=== PATIENT | male | born 1940 | race Two or more races ===

== ENCOUNTER → 2021-03-10 08:54 | Outpatient (BNVA) | payer MEDICARE, MEDICAID, SELFPAY | PROVIDERS: PCP Nurse Practitioner Primary Care; Referring Provider Nurse Practitioner Primary Care; Visit Provider Internal Medicine Cardiovascular Disease | DX: I10 Essential (primary) hypertension (principal) | CPT/HCPCS: 93005; 99202 ==

== ENCOUNTER 2021-04-07 13:22 | Outpatient (REF) | payer MEDICARE, MEDICAID, SELFPAY | END 2021-04-07 13:23 | disposition home or self-care (01) | LOC: HO.LAB 13:22 | PROVIDERS: PCP Nurse Practitioner Primary Care | DX: N39.0 Urinary tract infection, site not specified (principal); R35.0 Frequency of micturition; Z90.5 Acquired absence of kidney; Z90.79 Acquired absence of other genital organ(s); Z90.49 Acquired absence of other specified parts of digestive tract; Z16.12 Extended spectrum beta lactamase (ESBL) resistance; Z16.11 Resistance to penicillins; Z16.29 Resistance to other single specified antibiotic | CPT/HCPCS: 51798; 87086; 87088; 87186; 99202 ==

== ENCOUNTER 2021-04-18 15:06 | Outpatient (REF) | payer MEDICARE, MEDICAID, SELFPAY ==
[2021-04-18 16:12] LABS: Anion Gap 11 (12-20); Blood Urea Nitrogen 15 mg/dL (9-16); Calcium 9.8 mg/dL (8.4-10.2); Carbon Dioxide 29 mmol/L (22-29); Chloride 101 mmol/L (96-108); Estimated Glomerular Filt Rate > 60; Glucose Random 106 mg/dL (60-115); Potassium 4.9 mmol/L (3.3-5.1); Sodium 136 mmol/L (135-145)
== END 2021-04-18 15:07 | disposition home or self-care (01) ==
LOC: HO.MDS 15:06
PROVIDERS: PCP Nurse Practitioner Primary Care; Visit Provider Urology
DX: Z53.8 Procedure and treatment not carried out for other reasons (principal); N13.6 Pyonephrosis; N20.0 Calculus of kidney
CPT/HCPCS: 36415; 80048

== ENCOUNTER 2021-04-19 11:44 | Outpatient (REF) | payer MEDICARE, MEDICAID, SELFPAY ==
--- NOTE | 2021-04-19 11:48 | HE.PHANOTE ---
ERTAPENEM DOSING Pt Cr 1.15, called Sara to verify HT and WT to calculate creatinine clearance. CrCl >30. dispensing 1 gram dose. ht 5'5 wt 69.8 kg
== END 2021-04-19 11:45 | disposition home or self-care (01) ==
LOC: HO.MDS 11:44
PROVIDERS: Visit Provider Urology
DX: N39.0 Urinary tract infection, site not specified (principal)
CPT/HCPCS: 96365; J1335

== ENCOUNTER 2021-04-20 14:59 | Outpatient (REF) | payer MEDICARE, MEDICAID, SELFPAY | END 2021-04-20 15:00 | disposition home or self-care (01) | LOC: HO.MDS 14:59 | PROVIDERS: Visit Provider Urology | DX: N39.0 Urinary tract infection, site not specified (principal); Z90.5 Acquired absence of kidney | CPT/HCPCS: 96365; J1335 ==

== ENCOUNTER 2021-04-21 15:00 | Outpatient (REF) | payer MEDICARE, MEDICAID, SELFPAY | END 2021-04-21 15:01 | disposition home or self-care (01) | LOC: HO.MDS 15:00 | PROVIDERS: Visit Provider Urology | DX: N39.0 Urinary tract infection, site not specified (principal) | CPT/HCPCS: 96365; J1335 ==

== ENCOUNTER 2021-04-22 14:53 | Outpatient (REF) | payer MEDICARE, MEDICAID, SELFPAY | END 2021-04-22 14:54 | disposition home or self-care (01) | LOC: HO.MDS 14:53 | PROVIDERS: Visit Provider Urology | DX: N39.0 Urinary tract infection, site not specified (principal) | CPT/HCPCS: 96365; J1335 ==

== ENCOUNTER 2021-04-23 09:44 | Outpatient (REF) | payer MEDICARE, MEDICAID, SELFPAY | END 2021-04-23 09:45 | disposition home or self-care (01) | LOC: HO.MDS 09:44 | PROVIDERS: Visit Provider Urology | DX: N39.0 Urinary tract infection, site not specified (principal) | CPT/HCPCS: 96365; J1335 ==

== ENCOUNTER 2021-05-02 12:36 | Outpatient (REF) | payer MEDICARE, MEDICAID, SELFPAY ==
--- NOTE | ~2021-05-02 | CT_ITS ---
EXAMINATION: CT ABDOMEN AND PELVIS WITHOUT CONTRAST CLINICAL INFORMATION: Acquired absence of kidney COMPARISON: None TECHNIQUE: Multidetector volumetric imaging was performed from the superior aspect of the liver through the pubic symphysis. Sagittal and coronal reformatted images were obtained on the technologist's workstation. This CT examination was performed using dose optimization techniques as appropriate, variously including the following: *Automated exposure control *Adjustment of mA and/or kV according to patient size (this includes techniques or standardized protocols for targeted exams where dose is matched to indication/reason for exam; i.e. extremities or head) *Use of iterative reconstruction technique DLP: 399 mGy-cm FINDINGS: LUNG BASES: The small hiatal hernia with right basilar atelectasis. LIVER, GALLBLADDER, AND BILIARY TREE: The liver is normal in size, shape, and attenuation. No focal hepatic lesion or biliary ductal dilatation is present. The gallbladder is not visualized and likely contracted PANCREAS: Unremarkable. SPLEEN: Unremarkable. ADRENAL GLANDS: Unremarkable. KIDNEYS AND URETERS: The right kidney is absent. There is a ureteral stent in left kidney with hydroureteronephrosis. There are clusters of abnormal radiopaque calculi measuring up to 1.5 x 1.5 cm in the lower pole left kidney. Left kidney is enlarged with perinephric stranding. There are no previous exam available for comparison to verify if there left kidney hydronephrosis was present before or is new in spite of a ureteral stent. However increased fat stranding surrounding the pelvis and the proximal ureter is suspicious for an obstructed ureteral stent. BLADDER: There are no radiopaque calculi seen in the bladder. Distal end of left ureteral stent is present. GASTROINTESTINAL TRACT: The small bowel loops and the appendix are normal caliber. There is scattered stool in the colon without distention. ABDOMINAL WALL: No significant hernia is appreciated. LYMPH NODES: Normal. VASCULAR: Unremarkable. PELVIC VISCERA: Unremarkable. OSSEOUS STRUCTURES: No aggressive lytic or sclerotic process. There is mild degenerative disc changes L5-S1, T12/L1 and lower dorsal spine. Mild ventral spondylosis at the T12/L1 disc level is noted. CT/CT abdomen pelvis wo con IMPRESSION: There is a solitary left kidney present with a dilated left kidney pelvicalyceal system with left ureteral stent in place. There is significant peripelvic and proximal periureteral fat stranding suspicious for stent occlusion or obstruction. Similar findings can be seen following recent internal ureteral stent insertion with extravasation of urine. There are clusters of radiopaque calculi lower pole left kidney. There are no recent CT available for comparison. Correlate with past recent history. Right kidney is absent Normal appendix. Mild constipation. Small hiatal hernia. Fleischner guidelines were followed.
== END 2021-05-02 12:37 | disposition home or self-care (01) ==
LOC: HO.CT 12:36
PROVIDERS: PCP Nurse Practitioner Primary Care
DX: Z90.5 Acquired absence of kidney (principal)
CPT/HCPCS: 74176

== ENCOUNTER 2021-06-07 11:31 | Outpatient (REF) | payer MEDICARE, MEDICAID, SELFPAY | END 2021-06-07 11:32 | disposition home or self-care (01) | LOC: HO.LAB 11:31 | PROVIDERS: PCP Nurse Practitioner Primary Care | DX: N39.0 Urinary tract infection, site not specified (principal) | CPT/HCPCS: 87086; 87088; 87186; 99212 ==

== ENCOUNTER → 2021-07-12 11:34 | Outpatient (BNVA) | payer OTHER, SELFPAY | PROVIDERS: PCP Nurse Practitioner Primary Care; Visit Provider Urology | DX: Z13.89 Encounter for screening for other disorder (principal) | CPT/HCPCS: Q3014 ==

== ENCOUNTER 2021-07-18 08:13 | Day surgery (SDC) | payer OTHER, SELFPAY ==
--- NOTE | 2021-07-15 09:53 | P.CONAN_ITS ---
Documented by User: Ann Marie Molina NP 07/15/21 09:56 HPI - Anesthesia Eval Consult details Narrative: 80yo M for Left Cystoscopy & Stent exchange Cardiac cleared PMF Active Problems Active Problems: All Active Problems (Updated 07/12/21 @ 13:29 by Holly Carreon, RN) Essential hypertension (Acute) H/O prostatectomy (Acute) H/O kidney removal (Acute) UTI (urinary tract infection) (Acute) Past Medical History Medical History (Updated 07/12/21 @ 13:29 by Holly Carreon, RN) HTN (hypertension) Poor appetite UTI (urinary tract infection) Weight loss Family History Family History Mother No problems noted. Father Cancer Surgical History Surgical History H/O kidney removal H/O prostatectomy Hx of cholecystectomy Social History Social History Alcohol intake: never Patient Tobacco Use Status: Never used Tobacco Advance Directives: No Advance Directives Information Provided: Yes Meds Allergies Allergy/AdvReac Type Severity Reaction Status Date / Time No Known Allergies Allergy Verified 07/12/21 11:35 Home Medications Medication Instructions Recorded Confirmed Last Taken Type alendronate 70 mg tablet 70 mg PO QWEEK 03/10/21 07/12/21 Unknown History amlodipine 10 mg tablet 10 mg PO DAILY 03/10/21 07/12/21 Unknown History atorvastatin 40 mg tablet 40 mg PO BEDTIME 03/10/21 07/12/21 Unknown History donepezil 5 mg tablet 5 mg PO BEDTIME 03/10/21 07/12/21 Unknown History duloxetine 60 mg capsule,delayed 60 mg PO DAILY 03/10/21 07/12/21 Unknown History release escitalopram oxalate 5 mg tablet 5 mg PO DAILY 03/10/21 07/12/21 Unknown History memantine 5 mg tablet 5 mg PO QAM 03/10/21 07/12/21 Unknown History oxybutynin chloride 10 mg 10 mg PO DAILY 03/10/21 07/12/21 Unknown History tablet,extended release 24 hr tamsulosin 0.4 mg capsule 0.4 mg PO DAILY 03/10/21 07/12/21 Unknown History trazodone 50 mg tablet 50 mg PO BEDTIME tab 03/10/21 07/12/21 Unknown History Exam Exam Date and Time: July 15, 2021 0953 Pertinent Lab Results Pertinent Lab Results: Laboratory Tests 04/18/21 15:23 Sodium 136 Potassium 4.9 Chloride 101 Carbon Dioxide 29 BUN 15 Creatinine 1.15 Narrative Narrative: EKG 02/2021 Sinus rhythm 72 beats per minute , left axis deviation, left ventricular hypertrophy, QT interval 438 milliseconds Assessment and Plan Assessment Anesthesia Assessment: Chart Reviewed Documented by User: Nicole Wiley MD 07/18/21 08:52 [facility] Past Medical History Medical History (Updated 07/12/21 @ 13:29 by Holly Carreon RN) HTN (hypertension) Poor appetite UTI (urinary tract infection) Weight loss Family History Family History Mother No problems noted. Father Cancer Family history of problems with anesthesia: No Surgical History Surgical History H/O kidney removal H/O prostatectomy Hx of cholecystectomy History of Problems with Anesthesia: No Social History Social History Alcohol intake: never Patient Tobacco Use Status: Never used Tobacco Advance Directives: No Advance Directives Information Provided: Yes Meds Allergies Allergy/AdvReac Type Severity Reaction Status Date / Time No Known Allergies Allergy Verified 07/12/21 11:35 Home Medications Medication Instructions Recorded Confirmed Last Taken Type alendronate 70 mg tablet 70 mg PO QWEEK 03/10/21 07/12/21 Unknown History amlodipine 10 mg tablet 10 mg PO DAILY 03/10/21 07/12/21 Unknown History atorvastatin 40 mg tablet 40 mg PO BEDTIME 03/10/21 07/12/21 Unknown History donepezil 5 mg tablet 5 mg PO BEDTIME 03/10/21 07/12/21 Unknown History duloxetine 60 mg capsule,delayed 60 mg PO DAILY 03/10/21 07/12/21 Unknown History release escitalopram oxalate 5 mg tablet 5 mg PO DAILY 03/10/21 07/12/21 Unknown History memantine 5 mg tablet 5 mg PO QAM 03/10/21 07/12/21 Unknown History oxybutynin chloride 10 mg 10 mg PO DAILY 03/10/21 07/12/21 Unknown History tablet,extended release 24 hr tamsulosin 0.4 mg capsule 0.4 mg PO DAILY 03/10/21 07/12/21 Unknown History trazodone 50 mg tablet 50 mg PO BEDTIME tab 03/10/21 07/12/21 Unknown History Exam Airway Mallampati Class: II TM Dist: >3cm Neck ROM: Full Denture: Upper and Lower Heart: rrr Lungs: cta Assessment and Plan Assessment Anesthesia Assessment: Anesthesia Plan Discussed and Chart Reviewed Final Anesthetic Review Family History of Problems with Anesthesia: No History of Problems with Anesthesia: No NPO: Yes ASA Class: III Final Preanesthetic Review: No Changes in Pt Med Stat, Meds/Allgs Chart Reviewed and Consent Obtained/Reviewed Patient Risk: Intermediate Procedure Risk: Intermediate Anesthetic Plan Anesthetic Plan: GA Disposition: Standard PACU
--- NOTE | ~2021-07-18 | FL_ITS ---
EXAMINATION: XR FLUOROSCOPY WITH IMAGES CLINICAL INFORMATION: Left ureteral stent exchange. COMPARISON: None. TECHNIQUE: Fluoroscopy performed by Dr. Fabrizio Ramos. FLUOROSCOPY TIME: 15.8 seconds. DLP: 3.94 mGy-cm FLUOROSCOPY IMAGES: 2 FINDINGS: Fluoroscopy provided for left ureteral stent exchange. FL/FL guidance in OR IMPRESSION: Fluoroscopy used for left ureteral stent exchange in the operating room.
[2021-07-18 08:29] VITALS: BP 147/76; PULSE 72; RESP 18; TEMP 35.7; O2SAT 97; BMI 24.3
[2021-07-18] MEDS: Lactated Ringers 1,000 ML 100 ML IVCONT (09:19)
--- NOTE | 2021-07-18 12:21 | MHC.SHP ---
Pre-Procedural Eval Section A Date of Service: 07/18/21 The patient is an INPATIENT: No Changes since office visit: No Cold of Flu in the past 2 weeks, No New Medical Problems, No Changes in Medication and No Patient answered all questions The History & Physical has been completed within 30 days and I have reviewed it.: Yes Section B Chief Complaint: Urinary tract infection, site not specified Details of Present Illness: cystoscopy, left stent exchange Allergies: Allergies Allergy/AdvReac Type Severity Reaction Status Date / Time No Known Allergies Allergy Verified 07/12/21 11:35 Plan Diagnosis/Plan: Unchanged ( cystoscopy, left stent exchange) I have reviewed the history and physical and performed a pertinent physical examination on my patient. No changes have occurred unless specified.
--- NOTE | 2021-07-18 12:36 | P.OP_ITS ---
Operative Note Operative Note Date of Service: 07/18/21 Narrative: PreOperative Diagnosis: indwelling left stent Post Operative Diagnosis: indwelling left stent Procedure: cystoscopy, left retrograde, left stent exchange Surgeon: Dr Fabrizio Ramos Anesthesia: sedation Indications for procedure: hydronephrosis left side. Requires permanent stent that is changed every 4-6 months. Procedure: After informed consent was verified the patient was brought to the operating room and placed in a supine position. Anesthesia was administered per protocol. The patient was placed in modified dorsal lithotomy position and prepped and draped in a sterile fashion. A safety pause time-out was performed. Laterality of procedure and antibiotics were confirmed. A 22 Malaysian cystoscope was introduced per urethra. No abnormality was noted. Left stent seen coming from left ureter. Stent was grasped and removed. Sensor guidewire placed up level renal pelvis. Retrograde examination performed. Six Malaysian by 28 cm stent placed with good coil seen The patient tolerated the procedure well and was transferred in stable condition to the recovery area. Pathology: none Drains: 6 Malaysian by 28 cm double-J stent
[2021-07-18 12:40] VITALS: BP 128/69; PULSE 97; RESP 16; TEMP 36.7; O2SAT 98
[2021-07-18] MEDS: Phenazopyridine HCL 100 MG TABLET PO (12:54)
[2021-07-18 12:55] VITALS: BP 134/96; PULSE 72; RESP 16; O2SAT 98
[2021-07-18 13:09] VITALS: BP 123/56; PULSE 68; RESP 16; TEMP 36.7; O2SAT 97
== END 2021-07-18 13:42 | disposition home or self-care (01) ==
PROVIDERS: PCP Nurse Practitioner Primary Care; Visit Provider Urology
PROC: (CPT 52332; principal; 2021-07-18 11:00)
DX: N39.0 Urinary tract infection, site not specified (principal); Z46.6 Encounter for fitting and adjustment of urinary device; I10 Essential (primary) hypertension; R63.0 Anorexia; R63.4 Abnormal weight loss; Z90.5 Acquired absence of kidney; Z90.79 Acquired absence of other genital organ(s); Z90.49 Acquired absence of other specified parts of digestive tract; Z79.899 Other long term (current) drug therapy
CPT/HCPCS: 52332; C1758; C1769; C2617; J1956; Q9967

== ENCOUNTER 2021-09-07 13:26 | Outpatient (REF) | payer OTHER, SELFPAY ==
--- NOTE | ~2021-09-07 | MM_ITS ---
EXAMINATION: BONE DENSITOMETRY CLINICAL INDICATION: Osteoporosis. COMPARISON: None (current study represents initial baseline exam). TECHNIQUE: Using a Sighter DXA System (software version: 13.1) manufactured by [employer], dual-energy x-ray absorptiometry was performed of the lumbar spine and left hip. The images are of good technical quality. Summary results are attached. FINDINGS: AP SPINE L1-L4: BMD 0.746 g/cm2, Z-score -3.3, T-score -3.9, osteoporosis. LEFT FEMUR, NECK: BMD 0.684 g/cm2, Z-score -1.5, T-score -3.0, osteoporosis. LEFT FEMUR, TOTAL: BMD 0.706 g/cm2, Z-score -1.6, T-score -2.7, osteoporosis. IDENTIFIED RISK FACTORS: Osteoporosis, renal. HISTORY OF FRACTURE: None listed. MEDICATIONS: Calcium, vitamin D. MM/XR DEXA axial skeleton IMPRESSION: 1. DIAGNOSIS: Osteoporosis based on the lowest T-score value of -3.9 in the lumbar spine applying World Health Organization criteria. 2. 10-YEAR FRACTURE RISK PREDICTION, FRAX: According to the guidelines, FRAX calculation should only be performed on patients in the osteopenia bone density category. Therefore, FRAX was not performed on this patient. 3. Treatment Recommendations: NOF guidelines recommend consideration for treatment in postmenopausal women and men age 50 and older presenting with the following: -A hip or vertebral (clinical or morphometric) fracture. -T-score less than or equal to -2.5 at the femoral neck or spine after appropriate evaluation to exclude secondary causes. -Low bone mass at the hip or spine and a 10-year fracture probability by FRAX of greater than or equal to 3% for hip fracture or greater than or equal to 20% for major osteoporotic fracture based on the [place] adapted WHO algorithm. 4. Other Recommendations: All treatment decisions require clinical judgment and consideration of individual patient factors, including patient preferences, comorbidities, previous drug use, risk factors not captured in the FRAX model (e.g. frailty, falls, vitamin D deficiency, increased bone turnover, interval significant decline in bone density) and possible under or overestimation of fracture risk by FRAX. Additional medical evaluation for secondary cause of low bone mineral density may be appropriate. FUTURE SCAN RECOMMENDATION: People with diagnosed cases of osteoporosis or at high risk for fracture should have regular bone mineral density tests. For patients eligible for Medicare, routine testing is allowed once every 2 years. The testing frequency can be increased to one year for patients who have rapidly progressing disease, those who are receiving or discontinuing medical therapy to restore bone mass, or have additional risk factors.
== END 2021-09-07 13:27 | disposition home or self-care (01) ==
LOC: HO.MAMMO 13:26
PROVIDERS: PCP Nurse Practitioner Primary Care; Visit Provider Nurse Practitioner Primary Care
DX: Z13.820 Encounter for screening for osteoporosis (principal); M81.0 Age-related osteoporosis without current pathological fracture; Z79.899 Other long term (current) drug therapy
CPT/HCPCS: 77080

== ENCOUNTER 2021-11-10 13:23 | Outpatient (REF) | payer OTHER, SELFPAY | END 2021-11-10 13:24 | disposition home or self-care (01) | LOC: HO.LAB 13:23 | PROVIDERS: PCP Nurse Practitioner Primary Care; Visit Provider Urology | DX: N39.0 Urinary tract infection, site not specified (principal); N13.30 Unspecified hydronephrosis; Z79.899 Other long term (current) drug therapy; Z85.528 Personal history of other malignant neoplasm of kidney; Z90.5 Acquired absence of kidney | CPT/HCPCS: 87086; 87088; 87186; 99212 ==

== ENCOUNTER → 2021-12-05 09:56 | Outpatient (BNVA) | payer OTHER, SELFPAY | PROVIDERS: PCP Nurse Practitioner Primary Care; Visit Provider Internal Medicine | DX: A49.9 Bacterial infection, unspecified (principal); Z16.12 Extended spectrum beta lactamase (ESBL) resistance; Z90.79 Acquired absence of other genital organ(s) | CPT/HCPCS: 99202 ==

== ENCOUNTER → 2021-12-20 13:46 | Outpatient (BNVA) | payer OTHER, SELFPAY | PROVIDERS: PCP Nurse Practitioner Primary Care; Visit Provider Internal Medicine Endocrinology, Diabetes & Metabolism | DX: M81.0 Age-related osteoporosis without current pathological fracture (principal) | CPT/HCPCS: 99202 ==

== ENCOUNTER 2021-12-21 08:26 | Outpatient (REF) | payer OTHER, SELFPAY ==
[2021-12-21 09:36] LABS: Phosphorus 3.6 mg/dL (2.7-4.5)
[2021-12-21 09:50] LABS: Free T4 (Free Thyroxine) 1.07 ng/dL (0.71-1.85); Vitamin D 25-OH Total 39.4 ng/mL (>30)
[2021-12-24 20:42] LABS: Alkaline Phosphatase Bone 12.3 mcg/L (see note)
[2021-12-26 11:48] LABS: Prot Elec - Albumin 4.3 g/dL (3.8-4.8); Prot Elec - Alpha1 0.3 g/dL (0.2-0.3); Prot Elec - Alpha2 0.9 g/dL (0.5-0.9); Prot Elec - Beta 1 0.3 g/dL (0.4-0.6); Prot Elec - Beta 2 0.5 g/dL (0.2-0.5); Prot Elec - Gamma 1.6 g/dL (0.8-1.7)
[2021-12-26 20:11] LABS: Testosterone, Free 1.2 pg/mL (30.0-135.0); Testosterone, Total 13 ng/dL (250-1100)
== END 2021-12-21 08:27 | disposition home or self-care (01) ==
LOC: HO.LAB 08:26
PROVIDERS: PCP Nurse Practitioner Primary Care; Visit Provider Internal Medicine Endocrinology, Diabetes & Metabolism
DX: M81.0 Age-related osteoporosis without current pathological fracture (principal)
CPT/HCPCS: 82306; 84075; 84100; 84165; 84402; 84403; 84439; 84443; 86335

== ENCOUNTER 2021-12-23 10:39 | Outpatient (REF) | payer OTHER, SELFPAY ==
[2021-12-23 11:30] LABS: Creatinine, mg/dL 55.64
[2021-12-23 11:35] LABS: Creatinine, 24Hr Urine 1.4 G/Day (1.0-2.0); Total Volume 24 Hour Urine 2450 mL
[2021-12-26 20:46] LABS: Calcium, 24 Hr Urine 149 mg/24 h; Calcium/Creatinine Ratio 103 mg/g creat (30-210); Creatinine 24Hr Urine 1.45 g/24 h (0.50-2.15)
[2022-01-03 07:58] LABS: NTX Total Volume 2450
[2022-01-03 08:00] LABS: N-Telopeptide 24Hr Urine 22
== END 2021-12-23 10:40 | disposition home or self-care (01) ==
LOC: HO.LNP 10:39
PROVIDERS: Visit Provider Internal Medicine Endocrinology, Diabetes & Metabolism
DX: M81.0 Age-related osteoporosis without current pathological fracture (principal)
CPT/HCPCS: 82340; 82570

== ENCOUNTER 2022-05-02 09:42 | Outpatient (REF) | payer OTHER, SELFPAY ==
--- NOTE | ~2022-05-02 | XR_ITS ---
EXAMINATION: XR LUMBOSACRAL SPINE CLINICAL INFORMATION: Osteoporosis with lower back pain COMPARISON: None available. TECHNIQUE: Three views of the lumbosacral spine. FINDINGS: Bones are normal anatomic alignment with no acute fracture or spondylolisthesis. Multilevel degenerative changes seen with osteophyte formation more so along the inferior aspect of the lumbar spine. There is mild loss of disc height more so at L5/S1 and L4/L5. Visualized bowel gas pattern unremarkable. Left ureteric stent is seen with subtle calcifications overlying the lower left renal shadow XR/XR lumbar spine 2-3V IMPRESSION: Multilevel degenerative changes but no acute fracture or spondylolisthesis.
[2022-05-02 16:38] LABS: Urine Cytology See Pathology rpt
== END 2022-05-02 09:43 | disposition home or self-care (01) ==
LOC: HO.LAB 09:42
PROVIDERS: Absent Provider Internal Medicine Endocrinology, Diabetes & Metabolism; PCP Nurse Practitioner Primary Care; Visit Provider Urology
DX: N39.0 Urinary tract infection, site not specified (principal); R31.29 Other microscopic hematuria; M81.0 Age-related osteoporosis without current pathological fracture; N13.30 Unspecified hydronephrosis
CPT/HCPCS: 51798; 72100; 87086; 87088; 87186; 88112; 99212

== ENCOUNTER 2022-05-08 15:10 | Day surgery (SDC) | payer OTHER, SELFPAY ==
--- NOTE | ~2022-05-08 | FL_ITS ---
EXAMINATION: XR FLUOROSCOPY WITH IMAGES CLINICAL INFORMATION: Left renal calculi. COMPARISON: CT abdomen and pelvis 05/02/2021 TECHNIQUE: Fluoroscopy Supervised By: Dr. Richard Dinh. Fluoroscopy Time: 10.3 seconds. Cumulative Dose: 2.61 mGy. Images: 2. FINDINGS: There are 2 digital images revealing a left ureteral stent with its proximal end in the left kidney pelvis and the distal end not in the [id number]. FL/FL guidance in OR IMPRESSION: Fluoroscopy was provided to referring physician for follow-up of left ureteral stent
[2022-05-08 15:41] VITALS: BMI 27.1
[2022-05-08 15:45] VITALS: BP 142/78; PULSE 73; RESP 12; TEMP 36.3; O2SAT 97
--- NOTE | 2022-05-08 18:43 | MHC.SHP ---
Pre-Procedural Eval Section A Date of Service: 05/08/22 The patient is an INPATIENT: No Changes since office visit: No Cold of Flu in the past 2 weeks, No New Medical Problems, No Changes in Medication and No Patient answered all questions The History & Physical has been completed within 30 days and I have reviewed it.: Yes Section B Chief Complaint: Unspecified hydronephrosis Details of Present Illness: cystoscopy left stent exchange Allergies: Allergies Allergy/AdvReac Type Severity Reaction Status Date / Time No Known Allergies Allergy Verified 05/02/22 13:28 Plan Diagnosis/Plan: Unchanged ( cystoscopy left stent exchange) I have reviewed the history and physical and performed a pertinent physical examination on my patient. No changes have occurred unless specified. Time Spent With Patient Time: Total time managing care of this patient today ____ minutes.
--- NOTE | 2022-05-08 18:51 | HO.ANESPROP2 ---
[facility] Active Problems Active Problems: All Active Problems (Updated 12/20/21 @ 14:04 by Sam Fry MD) Osteoporosis (Acute) ESBL (extended spectrum beta-lactamase) producing bacteria infection (Acute) Hydronephrosis (Acute) Essential hypertension (Acute) H/O prostatectomy (Acute) H/O kidney removal (Acute) UTI (urinary tract infection) (Acute) Past Medical History Medical History HTN (hypertension) Osteoporosis Poor appetite UTI (urinary tract infection) Weight loss Family History Family History Mother No problems noted. Father Cancer Family history of problems with anesthesia: No Surgical History Surgical History H/O kidney removal H/O prostatectomy Hx of cholecystectomy History of Problems with Anesthesia: No Social History Social History (Updated 05/02/22 @ 13:28 by BAKARI Huntley) Household Members: Spouse Household Members Other:: Alcohol intake: never Patient Tobacco Use Status: Never used Tobacco Use of substances other than those prescribed or required for medical reasons: No Are you DNR?: No Advance Directives: No Advance Directives Information Provided: Yes Meds Allergies Allergy/AdvReac Type Severity Reaction Status Date / Time No Known Allergies Allergy Verified 05/02/22 13:28 Home Medications Medication Instructions Recorded Confirmed Last Taken Type alendronate 70 mg tablet 70 mg PO QWEEK 03/10/21 05/02/22 Unknown History amlodipine 10 mg tablet 10 mg PO DAILY 03/10/21 05/02/22 Unknown History atorvastatin 40 mg tablet 40 mg PO BEDTIME 03/10/21 05/02/22 Unknown History donepezil 5 mg tablet 5 mg PO BEDTIME 03/10/21 05/02/22 Unknown History duloxetine 60 mg capsule,delayed 60 mg PO DAILY 03/10/21 05/02/22 Unknown History release escitalopram oxalate 5 mg tablet 5 mg PO DAILY 03/10/21 05/02/22 Unknown History memantine 5 mg tablet 5 mg PO QAM 03/10/21 05/02/22 Unknown History oxybutynin chloride 10 mg 10 mg PO DAILY 03/10/21 05/02/22 Unknown History tablet,extended release 24 hr tamsulosin 0.4 mg capsule 0.4 mg PO DAILY 03/10/21 05/02/22 Unknown History trazodone 50 mg tablet 50 mg PO BEDTIME 03/10/21 05/02/22 Unknown History omeprazole 20 mg capsule,delayed 20 mg PO DAILY 12/20/21 05/02/22 Unknown History release Exam Exam Date and Time: May 08, 2022 185 Height,Weight and Vital Signs: Height 5 ft 4 in Weight 71.668 kg Last Vital Signs Temp 97.4 F 05/08/22 15:45 Pulse 73 05/08/22 15:45 Resp 12 05/08/22 15:45 BP 142/78 H 05/08/22 15:45 Pulse Ox 97 05/08/22 15:45 O2 Del Method Room Air 05/08/22 15:45 Airway Mallampati Class: II TM Dist: >3cm Neck ROM: Full Denture: Upper and Lower Assessment and Plan Assessment Anesthesia Assessment: Anesthesia Plan Discussed and Chart Reviewed Final Anesthetic Review Family History of Problems with Anesthesia: No History of Problems with Anesthesia: No NPO: Yes ASA Class: II and Emergency Final Preanesthetic Review: No Changes in Pt Med Stat, Meds/Allgs Chart Reviewed, Consent Obtained/Reviewed and Anes Risks/Benef Reviewed Patient Risk: Low Procedure Risk: Low Anesthetic Plan Anesthetic Plan: GA Disposition: Standard PACU
--- NOTE | 2022-05-08 18:59 | PC.NURSE ---
Dr Ramos declined use of city detective x2 for Permit stating pt has had this procedure four times in the past. Sanitation Inspector used for anesthesia consent.
--- NOTE | 2022-05-08 19:33 | P.OP_ITS ---
Operative Note Operative Note Date of Service: 05/08/22 Narrative: PreOperative Diagnosis:? indwelling left stent Post Operative Diagnosis:? indwelling left stent Procedure:? cystoscopy, left retrograde, left stent exchange Surgeon: Dr Fabrizio Ramos Anesthesia:? sedation Indications for procedure:??hydronephrosis left side.? Requires permanent stent that is changed every 4-6 months. Procedure: After informed consent was verified the patient was brought to the operating room and placed in a supine position.? Anesthesia was administered per protocol. The patient was placed in modified dorsal lithotomy position and prepped and draped in a sterile fashion.? A safety pause time-out was performed. Laterality of procedure and antibiotics were confirmed. A 22 [place] cystoscope was introduced per urethra.? No abnormality was noted. ? Left stent seen coming from left ureter.? Stent was grasped and removed.? Sensor guidewire placed up level renal pelvis.? Retrograde examination performed.? Six [place] by 26 cm stent placed with good coil seen The patient tolerated the procedure well and was transferred in stable condition to the recovery area. Pathology: ?none Drains: ?6 [place] by 26 cm double-J stent
[2022-05-08 19:49] VITALS: BP 134/77; PULSE 76; RESP 15; TEMP 36.7; O2SAT 99
[2022-05-08 19:54] VITALS: BP 125/73; PULSE 74; RESP 15; O2SAT 99
[2022-05-08 19:59] VITALS: BP 128/72; PULSE 80; RESP 16; O2SAT 99
[2022-05-08 20:04] VITALS: BP 123/69; PULSE 69; RESP 20; TEMP 36.9; O2SAT 97
[2022-05-08 20:08] VITALS: BP 131/60; PULSE 74; RESP 20; O2SAT 97
== END 2022-05-08 20:40 | disposition home or self-care (01) ==
PROVIDERS: PCP Nurse Practitioner Primary Care; Visit Provider Urology
PROC: 0TJ98ZZ Inspection of Ureter, Via Natural or Artificial Opening Endoscopic (ICD-10-PCS; CPT 52351; principal; 2022-05-08 16:30)
DX: N13.30 Unspecified hydronephrosis (principal); N39.0 Urinary tract infection, site not specified; Z90.5 Acquired absence of kidney; I10 Essential (primary) hypertension; M81.0 Age-related osteoporosis without current pathological fracture; Z79.899 Other long term (current) drug therapy
CPT/HCPCS: 52332; C1758; C1894; C2617; J1100; J1956; J2250; J2405; J3010; Q9967

== ENCOUNTER 2022-06-20 14:35 | Inpatient (IN) | payer OTHER, SELFPAY ==
--- NOTE | ~2022-06-20 | XR_ITS ---
EXAMINATION: XR CHEST CLINICAL INFORMATION: Weakness COMPARISON: None available. TECHNIQUE: 2 views of the chest were obtained. FINDINGS: The cardiac silhouette does not appear enlarged. There is an air-fluid level behind the heart suggestive of an esophageal hernia. Hilar and mediastinal structures are otherwise unremarkable. The lungs are clear. No pleural effusion or pneumothorax. Bony structures are unremarkable. XR/XR chest 2V IMPRESSION: Small esophageal hernia otherwise unremarkable exam.
[2022-06-20 14:44] VITALS: BP 120/68; BP 135/88; PULSE 70; PULSE 76; RESP 16; TEMP 37; O2SAT 95; O2SAT 98; BMI 27.8
--- NOTE | 2022-06-20 14:51 | ECG_ITS ---
Test Reason : WEAKNESS Blood Pressure : / mmHG Vent. Rate : 076 BPM Atrial Rate : 076 BPM P-R Int : 148 ms QRS Dur : 082 ms QT Int : 402 ms P-R-T Axes : 029 -41 006 degrees QTc Int : 452 ms Normal sinus rhythm Left axis deviation Minimal voltage criteria for LVH, may be normal variant ( R in aVL ) Abnormal ECG No previous ECGs available Referred By: Gayle Meeks Electronically Signed By:SAHIL RODRIGUEZ
[2022-06-20 15:15] LABS: MANUAL DIFF FLAG NO
[2022-06-20 15:24] LABS: Basophils Absolute Auto 0.1 X10*3/uL (0.0-0.2); Basophils Percent Auto 0.9 % (0-2); Eosinophils Absolute Auto 0.1 X10*3/uL (0.0-0.4); Eosinophils Percent Auto 2.6 % (0-4); Hematocrit 39.8 % (42.0-52.0); Hemoglobin 12.9 g/dl (14.0-18.0); Imm Gran Abs Auto 0.01 X10*3/uL (0.00-0.03); Imm Gran Pct Auto 0.2 % (0.0-0.4); Lymphocytes Absolute Auto 2.4 X10*3/uL (1.2-4.9); Lymphocytes Percent Auto 43.9 % (20-40); Mean Corpuscular HGB Conc 32.4 g/dl (31.0-36.0); Mean Corpuscular Hemoglobin 30.4 pg (27.0-33.0); Mean Corpuscular Volume 93.6 fL (80.0-98.0); Mean Platelet Volume 11.3 fL (9.4-12.4); Monocytes Absolute Auto 0.6 X10*3/uL (0.1-1.2); Monocytes Percent Auto 10.3 % (2-11); Neutrophils Absolute Auto 2.3 x10*3/uL (2.0-8.3); Neutrophils Percent Auto 42.1 % (45-73); Platelet Count 112 X10*3/uL (160-400); Red Blood Count 4.25 X10*6/uL (4.60-5.80); Red Cell Distribution Width 13.2 % (11.0-16.0); White Blood Count 5.4 X10*3/uL (4.8-10.8)
--- NOTE | 2022-06-20 15:32 | ED_ITS ---
HPI - General Adult General Chief complaint: Weakness Stated complaint: weakness x 4 hours Time Seen by Provider: 06/20/22 15:20 Source: patient and family Mode of arrival: EMS Limitations: no limitations History of Present Illness HPI narrative: Patient comes to the emergency room complaining of chills that started approximately 4 hours ago. Patient's chief complain is that he has been unable to sleep. Patient states that when he is asleep, he feels like he is going to fall out of bed the middle he is not moving. Patient states that he has history of anxiety and over last few days it has been getting worse. Patient denies chest pain or shortness of breath. At this time, patient complaining of diffuse body aches and dysuria. Patient denies any nausea vomiting or diarrhea, no abdominal pain. Patient has mild dysuria. Patient states it is chronic, patient has had over 23 urologic surgeries. Patient has 1 kidney and has chronic hydronephrosis. Per Dr. Ramos who is patient's urologist, patient needs a permanent stent that needs to be changed every 4-6 months. Last stent change was in 05/08/2022 Related Data Home Medications Medication Instructions Recorded Confirmed amlodipine 10 mg tablet 10 mg PO DAILY 03/10/21 05/02/22 atorvastatin 40 mg tablet 40 mg PO BEDTIME 03/10/21 05/02/22 donepezil 5 mg tablet 5 mg PO BEDTIME 03/10/21 05/02/22 duloxetine 60 mg capsule,delayed 60 mg PO DAILY 03/10/21 05/02/22 release escitalopram oxalate 5 mg tablet 5 mg PO DAILY 03/10/21 05/02/22 memantine 5 mg tablet 5 mg PO QAM 03/10/21 05/02/22 oxybutynin chloride 10 mg 10 mg PO DAILY 03/10/21 05/02/22 tablet,extended release 24 hr tamsulosin 0.4 mg capsule 0.4 mg PO DAILY 03/10/21 05/02/22 trazodone 50 mg tablet 50 mg PO BEDTIME 03/10/21 05/02/22 omeprazole 20 mg capsule,delayed 20 mg PO DAILY 12/20/21 05/02/22 release Previous Rx's Medication Instructions Recorded fosfomycin tromethamine 3 gram 1 packet PO Q3D 6 days #2 ea 05/05/22 oral packet abaloparatide (Tymlos) 80 mcg (0.04 mL) subcut DAILY 05/15/22 #1.56 mL Allergies Allergy/AdvReac Type Severity Reaction Status Date / Time No Known Allergies Allergy Verified 05/02/22 13:28 Review of Systems Review of Systems: Constitutional : No Weight loss, No Fever, complaining of Chills, No Night Sweats, No Fatigue, No Malaise ENT/Mouth : No Hearing loss, No Ear Pain, No Nasal Congestion, No Sinus Pain, No Hoarseness, No sore throat, No Rhinorrhea, No Swallowing Difficulty Eyes: No Eye Pain, No Swelling, No Redness, No Foreign Body, No Discharge, No Vision Changes Cardiovascular : No Chest Pain, No SOB, No Dyspnea on Exertion, No Orthopnea, No Edema, No Palpitations Respiratory : No Cough, No Sputum, No Wheezing, No Smoke Exposure, No Dyspnea Gastrointestinal : No Nausea, No Vomiting, No Diarrhea, No Constipation, No abdominal Pain, No Hematochezia, No Melena Genitourinary : no irregular bleeding, complaining of mild Dysuria, No Urinary Frequency, No Hematuria, No Urinary Incontinence, No Urgency, No Flank Pain, No Urinary Flow Changes, No Hesitancy Musculoskeletal : No joint pain, No Myalgias, No Joint Swelling Skin : No Skin Lesions, No rash Neuro : No Weakness, No Numbness, No Paresthesias, No Loss of Consciousness, No Dizziness, No Headache Psych : Complaining of anxiety, feeling that he is going to fall out of bed continuously even though he is not moving in bed, No Depression, No SI/HI/AH/VH, No Social Issues, Heme/Lymph: No Bruising, No Bleeding,No Lymphadenopathy Endocrine : No Polyuria, No Polydipsia, No Temperature Intolerance [facility] Past Medical History Medical History (Updated 06/20/22 @ 21:05 by Aminta Adam MD) ESBL (extended spectrum beta-lactamase) producing bacteria infection HTN (hypertension) Hydronephrosis Osteoporosis Poor appetite UTI (urinary tract infection) Weight loss Surgical History (Updated 05/08/22 @ 19:53 by Xu Dumont RN) H/O kidney removal H/O prostatectomy History of right nephrectomy Hx of cholecystectomy Family History Family History Mother No problems noted. Father Cancer Social History Social History (Updated 05/02/22 @ 13:28 by Rowan Thayer Reyna) Household Members: Spouse Household Members Other:: Alcohol intake: never Patient Tobacco Use Status: Never used Tobacco Advance Directives: No Advance Directives Information Provided: No Physical Exam ED Vital Signs: Vital Signs - 24 hr 06/20/22 14:44 06/20/22 15:43 06/20/22 18:24 Temperature 98.6 F 97.8 F 97.9 F Pulse Rate 76 71 63 Respiratory Rate 16 16 16 Blood Pressure 135/88 137/80 133/71 Pulse Oximetry 95 97 96 Oxygen Delivery Method Room Air Room Air Room Air 06/20/22 20:39 Temperature 97.0 F Pulse Rate 67 Respiratory Rate 18 Blood Pressure 126/74 Pulse Oximetry 96 Oxygen Delivery Method Room Air BMI result Body Mass Index 27.8 Const Other: Appearance: Alert. Oriented X3. No acute distress. Eyes: Pupils equal, round and reactive to light. ENT: Pharynx normal. Neck: Normal inspection. Neck supple. No lymph nodes noted. No crepitus CVS: Normal heart rate and rhythm. Pulses normal. Normal S1 and S2 Respiratory: No respiratory distress. Breath sounds normal. No Wheezing. No rales Abdomen: Soft and nontender. No rigidity. No distention. Skin: Skin warm and dry. Normal skin color. Normal skin turgor. Extremities: No lower extremity edema. No Lacerations. No Rash Neuro: Oriented X 3. No motor deficit. No sensory deficit. Moving all extremities. No slurred speech. CN 2 through 12 grossly intact Psych: calm, cooperative, normal affect Course Course Course Narrative: -all of patient's labs are pending. Medical Decision Making Medical Decision Making MDM Narrative: -patient's urinalysis is positive for UTI as expected. 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 -I reviewed patient's notes from Infectious Disease. ESBL is chronic and not to be treated unless symptomatic. Today, patient does have suprapubic pain, body aches. -I discussed the patient with Dr. Jaime, we will go ahead and admit the patient and treat with ertapenem, likely will need an Infectious Disease consult in the morning. -discussed the above-mentioned with the patient and his family, agreeable to stay for treatment. -patient does not have fever, blood pressure normal. Not tachycardic, white blood cell count normal. Sepsis not suspected Differential Diagnosis Differential Diagnoses: The differential diagnosis associated with the presentation includes (Chronic ESBL colonization, UTI, viral syndrome) Admission/Observation Consideration of admission/observation: Escalation of care including admission/observation considered Consult Healthcare Provider Management of the patient was discussed with: Hospitalist Lab Data MDM Lab Attestation statement: I reviewed the patient's lab results. 06/20/22 15:07 06/20/22 15:07 Labs: Lab Results 06/20/22 06/20/22 06/20/22 Range/Units 15:07 15: 15:07 WBC 5.4 (4.8-10.8) X10*3/uL RBC 4.25 L (4.60-5.80) X10*6/uL Hgb 12.9 L (14.0-18.0) g/dl Hct 39.8 L (42.0-52.0) % MCV 93.6 (80.0-98.0) fL MCH 30.4 (27.0-33.0) pg MCHC 32.4 (31.0-36.0) g/dl RDW 13.2 (11.0-16.0) % Plt Count 112 L (160-400) X10*3/uL MPV 11.3 (9.4-12.4) fL Immature Gran % (Auto) 0.2 (0.0-0.4) % Neut % (Auto) 42.1 L (45-73) % Lymph % (Auto) 43.9 H (20-40) % Kidder % (Auto) 10.3 (2-11) % Eos % (Auto) 2.6 (0-4) % Baso % (Auto) 0.9 (0-2) % Lymph # (Auto) 2.4 (1.2-4.9) X10*3/uL Kidder # (Auto) 0.6 (0.1-1.2) X10*3/uL Eos # (Auto) 0.1 (0.0-0.4) X10*3/uL Baso # (Auto) 0.1 (0.0-0.2) X10*3/uL Abs Immat Gran (auto) 0.01 (0.00-0.03) X10*3/uL Absolute Neuts (auto) 2.3 (2.0-8.3) x10*3/uL Absolute Nucleated RBC 0.000 (0.0-0.012) X10*3/uL Nucleated RBC % (auto) 0.0 (0.0-0.2) /100WBC Sodium 141 (135-145) mmol/L Potassium 4.1 (3.3-5.1) mmol/L Chloride 108 (96-108) mmol/L Carbon Dioxide 25 (22-29) mmol/L Anion Gap 12 (12-20) BUN 20 H (9-16) mg/dL Creatinine 1.27 (0.5-1.4) mg/dL Estim Creat Clear Calc 41.9 Estimated GFR 54 Random Glucose 148 H (60-115) mg/dL Calcium 9.6 (8.4-10.2) mg/dL Magnesium 1.8 (1.6-2.6) mg/dL Total Bilirubin 0.4 (0.0-1.0) mg/dL AST 21 (5-37) U/L ALT 20 (0-40) U/L Alkaline Phosphatase 72 (39-117) U/L Troponin I High Sens (<3.5-35.0) ng/L B-Natriuretic Peptide 27 (<100) pg/mL Total Protein 7.1 (6.5-8.0) g/dL Albumin 3.9 (3.5-5.0) g/dL Urine Color Urine Appearance Urine pH (5.0-9.0) Ur Specific [place] (1.005-1.025) Urine Protein (Neg-Trace) mg/dL Urine Glucose (UA) (Negative) mg/dL Urine Ketones (Negative) mg/dL Urine Blood (Negative) Urine Nitrite (Negative) Ur Leukocyte Esterase (Negative) Urine RBC (0-2) /HPF Urine WBC (0-5) /HPF Ur Squamous Epith Cells (0-2) /HPF Urine Bacteria (None Seen) Hyaline Casts (0-2) /LPF 06/20/22 06/20/22 Range/Units 15:07 19:20 WBC (4.8-10.8) X10*3/uL RBC (4.60-5.80) X10*6/uL Hgb (14.0-18.0) g/dl Hct (42.0-52.0) % MCV (80.0-98.0) fL MCH (27.0-33.0) pg MCHC (31.0-36.0) g/dl RDW (11.0-16.0) % Plt Count (160-400) X10*3/uL MPV (9.4-12.4) fL Immature Gran % (Auto) (0.0-0.4) % Neut % (Auto) (45-73) % Lymph % (Auto) (20-40) % Kidder % (Auto) (2-11) % Eos % (Auto) (0-4) % Baso % (Auto) (0-2) % Lymph # (Auto) (1.2-4.9) X10*3/uL [place] # (Auto) (0.1-1.2) X10*3/uL Eos # (Auto) (0.0-0.4) X10*3/uL Baso # (Auto) (0.0-0.2) X10*3/uL Abs Immat Gran (auto) (0.00-0.03) X10*3/uL Absolute Neuts (auto) (2.0-8.3) x10*3/uL Absolute Nucleated RBC (0.0-0.012) X10*3/uL Nucleated RBC % (auto) (0.0-0.2) /100WBC Sodium (135-145) mmol/L Potassium (3.3-5.1) mmol/L Chloride (96-108) mmol/L Carbon Dioxide (22-29) mmol/L Anion Gap (12-20) BUN (9-16) mg/dL Creatinine (0.5-1.4) mg/dL Estim Creat Clear Calc Estimated GFR Random Glucose (60-115) mg/dL Calcium (8.4-10.2) mg/dL Magnesium (1.6-2.6) mg/dL Total Bilirubin (0.0-1.0) mg/dL AST (5-37) U/L ALT (0-40) U/L Alkaline Phosphatase (39-117) U/L Troponin I High Sens < 2.7 (<3.5-35.0) ng/L B-Natriuretic Peptide (<100) pg/mL Total Protein (6.5-8.0) g/dL Albumin (3.5-5.0) g/dL Urine Color Yellow Urine Appearance Cloudy Urine pH 7.0 (5.0-9.0) Ur Specific [place] 1.015 (1.005-1.025) Urine Protein 30 (1+) H (Neg-Trace) mg/dL Urine Glucose (UA) Negative (Negative) mg/dL Urine Ketones Negative (Negative) mg/dL Urine Blood Moderate (2+) H (Negative) Urine Nitrite Negative (Negative) Ur Leukocyte Esterase Large (3+) H (Negative) Urine RBC 11-20 H (0-2) /HPF Urine WBC >50 H (0-5) /HPF Ur Squamous Epith Cells 0-2 (0-2) /HPF Urine Bacteria 4+ (None Seen) Hyaline Casts 0-2 (0-2) /LPF Independent Interpretation I performed an independent interpretation of an: Plain X-Ray Radiology Impression Radiologist Impression: The cardiac silhouette does not appear enlarged. There is an air-fluid level behind the heart suggestive of an esophageal hernia. Hilar and mediastinal structures are otherwise unremarkable. The lungs are clear. No pleural effusion or pneumothorax. Bony structures are unremarkable. XR/XR chest 2V IMPRESSION: Small esophageal hernia otherwise unremarkable exam. Critical Care Time Critical Care Time Critical Care Time: Yes Total Critical Care Time: 45 Attestation: I have personally provided critical care time. Time includes review of lab data, radiology results, discussion with consultants, and monitoring for potential dec ompensation. Intervention performed as documented. Discharge Plan Discharge Clinical Impression: ESBL (extended spectrum beta-lactamase) producing bacteria infection Patient Disposition: Admitted As Inpatient Prescriptions: No Action fosfomycin tromethamine 3 gram packet 1 packet PO Q3D 6 Days Qty: 2 0RF Tymlos 80 mcg (3,120 mcg/1.56 mL) pen injector 80 mcg subcut DAILY Qty: 1.56 12RF Rx Instructions: inject into abdomen; do not inject within 2 inches of belly button/navel; rotate sites atorvastatin 40 mg tablet 40 mg PO BEDTIME duloxetine 60 mg capsule,delayed release(DR/EC) 60 mg PO DAILY donepezil 5 mg tablet 5 mg PO BEDTIME escitalopram oxalate 5 mg tablet 5 mg PO DAILY memantine 5 mg tablet 5 mg PO QAM oxybutynin chloride 10 mg tablet extended release 24hr 10 mg PO DAILY tamsulosin 0.4 mg capsule 0.4 mg PO DAILY trazodone 50 mg tablet 50 mg PO BEDTIME amlodipine 10 mg tablet 10 mg PO DAILY omeprazole 20 mg capsule,delayed release(DR/EC) 20 mg PO DAILY
[2022-06-20 15:38] LABS: Alanine Aminotransferase 20 U/L (0-40); Albumin Level 3.9 g/dL (3.5-5.0); Alkaline Phosphatase 72 U/L (39-117); Anion Gap 12 (12-20); Aspartate Amino Transferase 21 U/L (5-37); Bilirubin Total 0.4 mg/dL (0.0-1.0); Blood Urea Nitrogen 20 mg/dL (9-16); Calcium 9.6 mg/dL (8.4-10.2); Chloride 108 mmol/L (96-108); Creatinine Clr Calc Pharmacy 41.9; Estimated Glomerular Filt Rate 54; Glucose Random 148 mg/dL (60-115); Magnesium 1.8 mg/dL (1.6-2.6); Potassium 4.1 mmol/L (3.3-5.1); Sodium 141 mmol/L (135-145); Total Protein 7.1 g/dL (6.5-8.0)
[2022-06-20 15:43] VITALS: BP 137/80; PULSE 71; RESP 16; TEMP 36.6; O2SAT 97
[2022-06-20 15:43] LABS: B Type Natriuretic Peptide 27 pg/mL (<100)
[2022-06-20 15:48] LABS: Carbon Dioxide 25 mmol/L (22-29); Troponin-I High Sensitivity < 2.7 ng/L (<3.5-35.0)
[2022-06-20 18:24] VITALS: BP 133/71; PULSE 63; RESP 16; TEMP 36.6; O2SAT 96
[2022-06-20 19:27] LABS: Appearance Urine Cloudy; Color Urine Yellow; Glucose Urine UA Negative (Negative); Leukocyte Esterase Urine Large (3+) (Negative); Nitrite Urine Negative (Negative); Specific Gravity - Urine 1.015 (1.005-1.025); UMIC TRIGGER UACC YES; Urine Blood Moderate (2+) (Negative); Urine Ketones Negative (Negative); Urine Protein 30 (1+) mg/dL (Neg-Trace)
[2022-06-20 19:36] LABS: Bacteria Urine 4+ (None Seen); Hyaline Casts Urine 0-2 /LPF (0-2); Squamous Epithelial Cell Urine 0-2 /HPF (0-2); UACC Culture Trigger YES; WBC Urine >50 /HPF (0-5)
[2022-06-20 20:39] VITALS: BP 126/74; PULSE 67; RESP 18; TEMP 36.1; O2SAT 96
--- NOTE | 2022-06-20 21:29 | PM.IMHP ---
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 The patient states since last week, he has had increased anxiety and has felt like he was going to fall out of bed. He also states he feels unsteady on his feet when walking with chills and body aches. He has also noted some dysuria. No fevers at home. No hematuria, it increased urinary frequency or urgency. He has a permanent stent in the left ureter which is changed every 4-6 months and was last changed on 05/08/[address] Ramos. He has been evaluated by infectious disease in the past who advises the patient is likely a chronic colonizer of ESBL E coli due to mechanical abnormalities in the urinary system. However, if patient becomes symptomatic with UTI, she recommends ertapenem or gentamicin IV/IM. On arrival, vital signs stable. No leukocytosis. Renal function and electrolyte levels baseline. UA with 2+ blood, 3+ leukocytes, negative nitrites, positive urinary sediment, 4+ bacteria. Patient has been treated in the ED with IV ertapenem and will be admitted for further management of symptomatic ESBL UTI. Review of Systems Review of Systems: General: No fevers, malaise, unintentional weight loss. +chills HEENT: No blurred vision, diplopia. No sore throat, nasal congestion, rhinorrhea, sinus pain, ear pain Cardiovascular: No chest pain, palpitations, or leg edema Respiratory: No shortness of breath, wheezing, cough GI: No abdominal pain, nausea, vomiting, diarrhea, constipation, melena, hematochezia : +dysuria. No hematuria, increased urinary frequency, decreased urinary output MSK: No back pain. +myalgia Neuro: No headaches, weakness, paresthesias Psych: +anxiety Skin: No rashes or lesions [facility] Medical History (Updated 06/20/22 @ 21:05 by Aminta Adam MD) ESBL (extended spectrum beta-lactamase) producing bacteria infection HTN (hypertension) Hydronephrosis Osteoporosis Poor appetite UTI (urinary tract infection) Weight loss Family History Mother No problems noted. Father Cancer Surgical History (Updated 05/08/22 @ 19:53 by Xu Dumont RN) H/O kidney removal H/O prostatectomy History of right nephrectomy Hx of cholecystectomy Social History (Updated 05/02/22 @ 13:28 by BAKARI Huntley) Household Members: Spouse Household Members Other:: Alcohol intake: never Patient Tobacco Use Status: Never used Tobacco Advance Directives: No Advance Directives Information Provided: No Meds Allergies Allergy/AdvReac Type Severity Reaction Status Date / Time No Known Allergies Allergy Verified 05/02/22 13:28 Active Medications: Current Medications Pharmacy Consult (Consult Rx Perform Med Rec) 1 each MISCELLANE ONCE PRN PRN Reason: Consult order Home Medications Medication Instructions Recorded Confirmed Last Taken Type amlodipine 10 mg tablet 10 mg PO DAILY 03/10/21 06/20/22 06/19/22 History atorvastatin 40 mg tablet 40 mg PO BEDTIME 03/10/21 06/20/22 06/19/22 History Physical Exam Vital Signs and Narrative: Vital Signs: Last Vital Signs Temp 97.0 F 06/20/22 20:39 Pulse 67 06/20/22 20:39 Resp 18 06/20/22 20:39 BP 126/74 06/20/22 20:39 Pulse Ox 96 06/20/22 20:39 O2 Del Method Room Air 06/20/22 20:39 BMI result Body Mass Index 27.8 Constitutional - Awake and Alert, No apparent distress Eyes - PERRLA, EOMI Cardiovascular - S1S2, RRR, No edema Respiratory - Normal lung expansion, Normal respiratory effort, No respiratory distress, CTA bilaterally Gastrointestinal - NT / ND; +BS; No rebound or guarding - No CVA tenderness Extremities - no calf tenderness bilaterally, no swelling Skin - Warm/Dry Neurological - Alert & oriented x3 Psychological - Appropriate affect Results Labs 06/20/22 15:07 06/20/22 15:07 Labs: Laboratory Results - last 24 hr 06/20/22 06/20/22 06/20/22 15:07 15:07 15:07 MCV 93.6 MCH 30.4 MCHC 32.4 RDW 13.2 Plt Count 112 L MPV 11.3 Immature Gran % (Auto) 0.2 Neut % (Auto) 42.1 L Lymph % (Auto) 43.9 H [place] % (Auto) 10.3 Eos % (Auto) 2.6 Baso % (Auto) 0.9 Lymph # (Auto) 2.4 [place] # (Auto) 0.6 Eos # (Auto) 0.1 Baso # (Auto) 0.1 Abs Immat Gran (auto) 0.01 Absolute Neuts (auto) 2.3 Absolute Nucleated RBC 0.000 Nucleated RBC % (auto) 0.0 Anion Gap 12 Estim Creat Clear Calc 41.9 Estimated GFR 54 Random Glucose 148 H Calcium 9.6 Magnesium 1.8 Total Bilirubin 0.4 AST 21 ALT 20 Alkaline Phosphatase 72 Troponin I High Sens B-Natriuretic Peptide 27 Total Protein 7.1 Albumin 3.9 Urine Color Urine Appearance Urine pH Ur Specific [place] Urine Protein Urine Glucose (UA) Urine Ketones Urine Blood Urine Nitrite Ur Leukocyte Esterase Urine RBC Urine WBC Ur Squamous Epith Cells Urine Bacteria Hyaline Casts 06/20/22 06/20/22 15:07 19:20 MCV MCH MCHC RDW Plt Count MPV Immature Gran % (Auto) Neut % (Auto) Lymph % (Auto) [place] % (Auto) Eos % (Auto) Baso % (Auto) Lymph # (Auto) [place] # (Auto) Eos # (Auto) Baso # (Auto) Abs Immat Gran (auto) Absolute Neuts (auto) Absolute Nucleated RBC Nucleated RBC % (auto) Anion Gap Estim Creat Clear Calc Estimated GFR Random Glucose Calcium Magnesium Total Bilirubin AST ALT Alkaline Phosphatase Troponin I High Sens < 2.7 B-Natriuretic Peptide Total Protein Albumin Urine Color Yellow Urine Appearance Cloudy Urine pH 7.0 Ur Specific [place] 1.015 Urine Protein 30 (1+) H Urine Glucose (UA) Negative Urine Ketones Negative Urine Blood Moderate (2+) H Urine Nitrite Negative Ur Leukocyte Esterase Large (3+) H Urine RBC 11-20 H Urine WBC >50 H Ur Squamous Epith Cells 0-2 Urine Bacteria 4+ Hyaline Casts 0-2 Imaging Radiologist's Impressions: Impressions Chest X-Ray 06/20/22 15:01 IMPRESSION: Small esophageal hernia otherwise unremarkable exam. 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, hx renal cancer s/p right nephrectomy with persistent left hydronephrosis managed with indwelling stent admitted for symptomatic UTI, presumed ESBL given history #Acute UTI with chronic colonization of esbl ecoli bacteria -Symptomatic with dysuria, chills, myalgias, imbalance -IV ertapenem administered in ED -appreciate ED input -no sepsis -follow UC, BC # persistent left hydronephrosis -follows outpt with urology -chronic stent replaced q4-6m #CKD stage 3 -renal function baseline #HTN -bp reasonably controlled, continue amlodipine # HLD -continue statin # osteoporosis -continue abaloparatide # unspecified dementia with mood disturbance -patient reporting worsening anxiety. Psychiatry consult placed DVT prophylaxis-Lovenox Full code Patient requires inpatient stay of at least 2 midnights for management of ESBL E coli UTI requiring IV antibiotics and expert consultation Time Spent With Patient Time: Total time managing care of this patient today ____ minutes. Quality Stroke Does the patient have a stroke diagnosis?: No VTE Prior VTE?: No VTE Risk Level:: Medical - moderate - high VTE Device Contraindication: Treatment Not Indicated VTE Drug Contraindication: N/A - Med Ordered
--- NOTE | 2022-06-20 21:40 | PHA.MEDREC ---
Pharmacy Consult ? Medication Reconciliation Pharmacy has completed the medication reconciliation.
[2022-06-20] MEDS: Ertapenem Sodium 1 GM in 0.9 % Sodium Chloride 50 ML IV (22:15)
[2022-06-20] MEDS: Enoxaparin Sodium 40 MG/0.4 ML SYRINGE SUBCUT (22:15)
[2022-06-20 22:39] VITALS: BP 125/62; PULSE 82; RESP 16; TEMP 36.7; O2SAT 95
--- NOTE | 2022-06-21 | PC.NURSE ---
Nurse report given to RODGER Joe. Pt being transferred to room 378 and aware of plan of care.
[2022-06-21 00:09] VITALS: BMI 27.2
[2022-06-21] MEDS: 0.9 % Sodium Chloride Flush 3 ML SYRINGE IVFLUSH ×4 (00:37→21:45)
--- NOTE | 2022-06-21 00:40 | PC.NURSE ---
Patient arrived to the unit via stretcher, Alert and oriented X 3 , able to stand and pivot from stretcher to bed with minimum assistance, reported moderate weakness on standing. Pt respiration is even and non-labored. All questions answered, pt has no concerns at this time and is aware of plan of care.
[2022-06-21 04:12] VITALS: BP 131/71; PULSE 62; RESP 15; TEMP 36.6; O2SAT 97
[2022-06-21 07:01] LABS: MANUAL DIFF FLAG NO
[2022-06-21 07:08] LABS: Basophils Percent Auto 0.6 % (0-2); Eosinophils Absolute Auto 0.2 X10*3/uL (0.0-0.4); Eosinophils Percent Auto 3.2 % (0-4); Hemoglobin 12.8 g/dl (14.0-18.0); Imm Gran Abs Auto 0.01 X10*3/uL (0.00-0.03); Imm Gran Pct Auto 0.2 % (0.0-0.4); Lymphocytes Absolute Auto 2.4 X10*3/uL (1.2-4.9); Lymphocytes Percent Auto 48.1 % (20-40); Mean Corpuscular HGB Conc 32.8 g/dl (31.0-36.0); Mean Corpuscular Hemoglobin 30.8 pg (27.0-33.0); Mean Corpuscular Volume 93.8 fL (80.0-98.0); Mean Platelet Volume 12.1 fL (9.4-12.4); Monocytes Absolute Auto 0.5 X10*3/uL (0.1-1.2); Monocytes Percent Auto 10.1 % (2-11); Neutrophils Absolute Auto 1.9 x10*3/uL (2.0-8.3); Neutrophils Percent Auto 37.8 % (45-73); Platelet Count 110 X10*3/uL (160-400); Red Blood Count 4.16 X10*6/uL (4.60-5.80); Red Cell Distribution Width 13.2 % (11.0-16.0); White Blood Count 5.1 X10*3/uL (4.8-10.8)
[2022-06-21 07:42] LABS: Anion Gap 11 (12-20); Blood Urea Nitrogen 17 mg/dL (9-16); Calcium 9.5 mg/dL (8.4-10.2); Carbon Dioxide 28 mmol/L (22-29); Chloride 107 mmol/L (96-108); Creatinine Clr Calc Pharmacy 50.6; Estimated Glomerular Filt Rate > 60; Glucose Random 93 mg/dL (60-115); Potassium 4.2 mmol/L (3.3-5.1); Sodium 142 mmol/L (135-145)
[2022-06-21 07:55] VITALS: BP 136/71; PULSE 62; RESP 16; TEMP 36.7; O2SAT 96
[2022-06-21] MEDS: amLODIPine Besylate 10 MG TABLET PO (09:12)
--- NOTE | 2022-06-21 11:09 | P.PNIM_ITS ---
Subjective Subjective Date of Service: 06/21/22 Interval History: This history was taken in [place] from the patient. C/o dysuria + L flank pain No fever No N/V Review of Systems Review of Systems: Yes all other systems are reviewed and are negative Physical Exam Vital Signs: Vital Signs: Last Vital Signs Temp 98.1 F 06/21/22 07:55 Pulse 62 06/21/22 07:55 Resp 16 06/21/22 07:55 BP 136/71 06/21/22 07:55 Pulse Ox 96 06/21/22 07:55 O2 Del Method Room Air 06/21/22 07:55 BMI result Body Mass Index 27.2 Gen: in no acute distress HEENT: sclera anicteric, moist mucus membranes Neck: supple Lungs: clear to auscultation bilaterally Heart: regular rate and rhythm, no murmurs Abd: soft, non-tender, non-distended : no CVA tenderness Ext: no edema Skin: warm/well-perfused Neuro: alert and oriented x3, no focal findings Psych: appropriate affect Objective Data Active Medications Acetaminophen (Acetaminophen 325 Mg Tablet) 650 mg PO Q6H PRN PRN Reason: Pain, Mild (Pain Scale 1-3) Amlodipine Besylate (Amlodipine Besylate 10 Mg Tablet) 10 mg PO DAILY [facility]; Protocol Last Admin: 06/21/22 09:12 Dose: 10 mg Documented By: CJ Atorvastatin Calcium (Atorvastatin Calcium 40 Mg Tablet) 40 mg PO BEDTIME [facility] Enoxaparin Sodium (Enoxaparin Sodium 40 Mg/0.4 Ml Syringe) 40 mg SUBCUT Q24H [facility] Last Admin: 06/20/22 22:15 Dose: 40 mg Documented By: DESIRAE Meropenem 1 gm/ Sodium (Chloride) 100 mls @ 200 mls/hr IV Q8H [facility] Last Infusion: 06/21/22 10:01 Dose: 0 mls/hr Documented By: CJ Ondansetron HCl (Ondansetron Hcl 4 Mg/2 Ml Vial) 4 mg IVPUSH Q8H PRN PRN Reason: Nausea and Vomiting Pharmacy Consult (Consult Rx Perform Med Rec) 1 each MISCELLANE ONCE PRN PRN Reason: Consult order Sodium Chloride (0.9 % Sodium Chloride Flush 3 Ml Syringe) 3 ml IVFLUSH QSHIFT [facility] Last Admin: 06/21/22 08:32 Dose: 3 ml Documented By: CJ Labs 06/21/22 05:41 06/21/22 05:41 Labs: Laboratory Results - last 24 hr 06/20/22 06/20/22 06/20/22 15:07 15:07 15:07 MCV 93.6 MCH 30.4 MCHC 32.4 RDW 13.2 Plt Count 112 L MPV 11.3 Immature Gran % (Auto) 0.2 Neut % (Auto) 42.1 L Lymph % (Auto) 43.9 H [place] % (Auto) 10.3 Eos % (Auto) 2.6 Baso % (Auto) 0.9 Lymph # (Auto) 2.4 [place] # (Auto) 0.6 Eos # (Auto) 0.1 Baso # (Auto) 0.1 Abs Immat Gran (auto) 0.01 Absolute Neuts (auto) 2.3 Absolute Nucleated RBC 0.000 Nucleated RBC % (auto) 0.0 Anion Gap 12 Estim Creat Clear Calc 41.9 Estimated GFR 54 Random Glucose 148 H Calcium 9.6 Magnesium 1.8 Total Bilirubin 0.4 AST 21 ALT 20 Alkaline Phosphatase 72 Troponin I High Sens B-Natriuretic Peptide 27 Total Protein 7.1 Albumin 3.9 Urine Color Urine Appearance Urine pH Ur Specific [place] Urine Protein Urine Glucose (UA) Urine Ketones Urine Blood Urine Nitrite Ur Leukocyte Esterase Urine RBC Urine WBC Ur Squamous Epith Cells Urine Bacteria Hyaline Casts 06/20/22 06/20/22 06/21/22 15:07 19:20 05:41 MCV 93.8 MCH 30.8 MCHC 32.8 RDW 13.2 Plt Count 110 L MPV 12.1 Immature Gran % (Auto) 0.2 Neut % (Auto) 37.8 L Lymph % (Auto) 48.1 H [place] % (Auto) 10.1 Eos % (Auto) 3.2 Baso % (Auto) 0.6 Lymph # (Auto) 2.4 [place] # (Auto) 0.5 Eos # (Auto) 0.2 Baso # (Auto) 0.0 Abs Immat Gran (auto) 0.01 Absolute Neuts (auto) 1.9 L Absolute Nucleated RBC 0.000 Nucleated RBC % (auto) 0.0 Anion Gap Estim Creat Clear Calc Estimated GFR Random Glucose Calcium Magnesium Total Bilirubin AST ALT Alkaline Phosphatase Troponin I High Sens < 2.7 B-Natriuretic Peptide Total Protein Albumin Urine Color Yellow Urine Appearance Cloudy Urine pH 7.0 Ur Specific [place] 1.015 Urine Protein 30 (1+) H Urine Glucose (UA) Negative Urine Ketones Negative Urine Blood Moderate (2+) H Urine Nitrite Negative Ur Leukocyte Esterase Large (3+) H Urine RBC 11-20 H Urine WBC >50 H Ur Squamous Epith Cells 0-2 Urine Bacteria 4+ Hyaline Casts 0-2 06/21/22 05:41 MCV MCH MCHC RDW Plt Count MPV Immature Gran % (Auto) Neut % (Auto) Lymph % (Auto) [place] % (Auto) Eos % (Auto) Baso % (Auto) Lymph # (Auto) [place] # (Auto) Eos # (Auto) Baso # (Auto) Abs Immat Gran (auto) Absolute Neuts (auto) Absolute Nucleated RBC Nucleated RBC % (auto) Anion Gap 11 L Estim Creat Clear Calc 50.6 Estimated GFR > 60 Random Glucose 93 Calcium 9.5 Magnesium Total Bilirubin AST ALT Alkaline Phosphatase Troponin I High Sens B-Natriuretic Peptide Total Protein Albumin Urine Color Urine Appearance Urine pH Ur Specific [place] Urine Protein Urine Glucose (UA) Urine Ketones Urine Blood Urine Nitrite Ur Leukocyte Esterase Urine RBC Urine WBC Ur Squamous Epith Cells Urine Bacteria Hyaline Casts Assessment and Plan (1) Complicated UTI (urinary tract infection): Status: Acute Plan d#2 81yo M with HTN, HLD, dementia, mood disorder, CKD3, chronic ESBL E coli colonization, hx renal CA s/p R nephrectomy with persistent L hydronephrosis with indwelling L ureteral stent changed q4-6mo [last changed 05/08/22] # complicated UTI, hx ESBL - meropenem d#2, ID consult + UCx pending - Urology consult # unspecified dementia with mood disturbance/anxiety - Psych consult chronic issues # CKD3: SCr at baseline, avoid nephrotoxins # HTN: amlodipine # HLD: atorvastatin # osteoporosis: on abaloparatide as outpt # VTE ppx: LMWH # dispo: anticipate home eventually In my clinical judgment, the patient requires continued inpatient hospitalization for the following reasons: IV ABX for MDR infection Time Spent With Patient Time: Total time managing care of this patient today __35__ minutes. Quality Stroke Does the patient have a stroke diagnosis?: No VTE Prior VTE?: No VTE Risk Level:: Medical - moderate - high VTE Device Contraindication: Treatment Not Indicated VTE Drug Contraindication: N/A - Med Ordered
--- NOTE | 2022-06-21 13:12 | MHC.CM.PN ---
PATIENT LIVES WITH HIS SPOUSE. HE HAS A WALKER IN THE HOME. GRAND DAUGHTER JOSE IS HIS DRUG ROOM OPERATOR [employer]. NO VNA SERVICES IN THE HOME. NO HCP ON FILE CASE MANAGEMENT CAN ASK WHEN FAMILY VISITS. PCP VERIFIED. IMM 06/21 IN CHART
--- NOTE | 2022-06-21 14:58 | P.CNID_ITS ---
History of Present Illness Data of Consult Service Date: 06/21/22 Requesting physician: Kristina Sal Primary Care Provider: Jeannie Fabian NP HPI Reason for consult: dysuria,possible urinary sepsis He presents to ER with weakness for four hours and weakness and dysuria I had seen him before in November 2021. He had urinary colonization with ESBL concern then. He now has urinary symptoms with dysuria. He has one kidney and chronic hydronephrosis. He has urine culture pending. .He has stent and gets changes about every four months. Last change was 05/08/ Review of Systems Review of Systems: Yes all other systems are reviewed and are negative PMFSH Past Medical History Medical History ESBL (extended spectrum beta-lactamase) producing bacteria infection HTN (hypertension) Hydronephrosis Osteoporosis Poor appetite UTI (urinary tract infection) Weight loss Family History Family History Mother No problems noted. Father Cancer Family history: reviewed and not pertinent Surgical History Surgical History H/O kidney removal H/O prostatectomy History of right nephrectomy Hx of cholecystectomy Social History Social History Household Members: Spouse Household Members Other:: Housing: Apartment Alcohol intake: never Patient Tobacco Use Status: Never used Tobacco Current occupational status: disabled Meds Allergies Allergy/AdvReac Type Severity Reaction Status Date / Time No Known Allergies Allergy Verified 05/02/22 13:28 Active Medications: Current Medications Acetaminophen (Acetaminophen 325 Mg Tablet) 650 mg PO Q6H PRN PRN Reason: Pain, Mild (Pain Scale 1-3) Amlodipine Besylate (Amlodipine Besylate 10 Mg Tablet) 10 mg PO DAILY [facility]; Protocol Last Admin: 06/21/22 09:12 Dose: 10 mg Atorvastatin Calcium (Atorvastatin Calcium 40 Mg Tablet) 40 mg PO BEDTIME [facility] Enoxaparin Sodium (Enoxaparin Sodium 40 Mg/0.4 Ml Syringe) 40 mg SUBCUT Q24H [facility] Last Admin: 06/20/22 22:15 Dose: 40 mg Meropenem 1 gm/ Sodium (Chloride) 100 mls @ 200 mls/hr IV Q8H [facility] Last Infusion: 06/21/22 10:01 Dose: Infused Ondansetron HCl (Ondansetron Hcl 4 Mg/2 Ml Vial) 4 mg IVPUSH Q8H PRN PRN Reason: Nausea and Vomiting Pharmacy Consult (Consult Rx Perform Med Rec) 1 each MISCELLANE ONCE PRN PRN Reason: Consult order Sodium Chloride (0.9 % Sodium Chloride Flush 3 Ml Syringe) 3 ml IVFLUSH QSHIFT [facility] Last Admin: 06/21/22 08:32 Dose: 3 ml Home Medications Medication Instructions Recorded Confirmed Last Taken Type amlodipine 10 mg tablet 10 mg PO DAILY 03/10/21 06/20/22 06/19/22 History atorvastatin 40 mg tablet 40 mg PO BEDTIME 03/10/21 06/20/22 06/19/22 History Physical Exam Vital Signs: Vital Signs: Last Vital Signs Temp 98.1 F 06/21/22 07:55 Pulse 62 06/21/22 07:55 Resp 16 06/21/22 07:55 BP 136/71 06/21/22 07:55 Pulse Ox 96 06/21/22 07:55 O2 Del Method Room Air 06/21/22 07:55 BMI result Body Mass Index 27.2 Const: General: cooperative HEENT: Head: Yes normal to inspection Face and sinus: Yes normal facial exam Mouth: Normal oral and palatal mucosa present Teeth and gingiva: dentition normal Eyes: General: appearance normal, both eyes and all related structures Pupils: Equal, round and reactive pupils present Resp: Effort & Inspection: normal respiratory effort Cardio: Rate: regular rate Rhythm: regular rhythm GI: Palpation (GI): Soft to palpation and nontender : General: Yes no CVA tenderness Back/Spine/Pelvis: Back: no CVA tenderness Skin: General skin exam: no rashes or lesions noted Neuro: General: moves all extremities Cranial nerves: Yes Equal, round and reactive pupils present Extrem: General: Yes normal to inspection Psych: Appearance: grossly normal Results Labs 06/21/22 05:41 06/21/22 05:41 Labs: Short CBC 06/20/22 06/21/22 Range/Units 15:07 05:41 WBC 5.4 5.1 (4.8-10.8) X10*3/uL Hgb 12.9 L 12.8 L (14.0-18.0) g/dl Hct 39.8 L 39.0 L (42.0-52.0) % Plt Count 112 L 110 L (160-400) X10*3/uL BMP 06/20/22 06/21/22 15:07 05:41 Sodium 141 142 Potassium 4.1 4.2 Chloride 108 107 Carbon Dioxide 25 28 BUN 20 H 17 H Creatinine 1.27 1.04 Calcium 9.6 9.5 Liver Function 06/20/22 Range/Units 15:07 Total Bilirubin 0.4 (0.0-1.0) mg/dL AST 21 (5-37) U/L ALT 20 (0-40) U/L Alkaline Phosphatase 72 (39-117) U/L Albumin 3.9 (3.5-5.0) g/dL Urine 06/20/22 Range/Units 19:20 Urine Color Yellow Urine Appearance Cloudy Urine pH 7.0 (5.0-9.0) Ur Specific [place] 1.015 (1.005-1.025) Urine Protein 30 (1+) H (Neg-Trace) mg/dL Urine Glucose (UA) Negative (Negative) mg/dL Microbiology Microbiology Results: Microbiology 06/20/22 Unknown Urine clean catch - Urine morfin top Urine Culture - Preliminary Culture in progress. Assessment and Plan (1) Complicated UTI (urinary tract infection): Status: Acute He has symptomatic UTI with high concern over ESBL gram negative organisms. He has concern over possible stent obstruction Plan Would continue Merem and then Ertapenem if is ESBL in urine. Would give 14 days IV if ESBL. Contact Urology as stent may need to be changed. Time Spent With Patient Time: Total time managing care of this patient today ____ minutes.
[2022-06-21 15:40] VITALS: BP 144/74; PULSE 76; RESP 17; TEMP 36.5; O2SAT 96
[2022-06-21 19:32] VITALS: BP 142/78; PULSE 81; RESP 18; TEMP 36.9; O2SAT 96
[2022-06-21] MEDS: Atorvastatin Calcium 40 MG TABLET PO (21:44)
[2022-06-21] MEDS: Enoxaparin Sodium 40 MG/0.4 ML SYRINGE SUBCUT (21:44)
[2022-06-22 03:40] VITALS: BP 142/79; PULSE 64; RESP 18; TEMP 37.1; O2SAT 100
[2022-06-22 08:00] VITALS: BP 128/62; PULSE 66; RESP 16; TEMP 36.4; O2SAT 96
[2022-06-22] MEDS: amLODIPine Besylate 10 MG TABLET PO (08:01)
[2022-06-22] MEDS: 0.9 % Sodium Chloride Flush 3 ML SYRINGE IVFLUSH ×2 (08:01→17:26)
[2022-06-22 16:00] VITALS: BP 128/77; PULSE 69; RESP 18; TEMP 36.6; O2SAT 96
--- NOTE | 2022-06-22 16:55 | HO.PM.IMPN ---
Subjective Subjective Date of Service: 06/22/22 Interval History: seen and examined this morning follow up for UTI history obtained with the assistance of a associate dean abdominal pain improved, no dysuria Review of Systems Review of Systems: Yes all other systems are reviewed and are negative Constitutional Constitutional: Denies chills and Denies fever(s) ENT Ears, Nose, Mouth, and Throat: Denies dizziness Cardiovascular Cardiovascular: Denies chest pain, Denies palpitations and Denies dyspnea Respiratory Respiratory: Denies cough and Denies dyspnea Gastrointestinal Gastrointestinal: Denies abdominal pain Neurologic Neurologic: Denies dizziness Endocrine Endocrine: Denies palpitations Physical Exam Vital Signs: Vital Signs: Last Vital Signs Temp 97.8 F 06/22/22 16:00 Pulse 69 06/22/22 16:00 Resp 18 06/22/22 16:00 BP 128/77 06/22/22 16:00 Pulse Ox 96 06/22/22 16:00 O2 Del Method Room Air 06/22/22 16:00 BMI result Body Mass Index 27.2 Const: General: cooperative, comfortable, alert and awake Nutritional Appearance: average body habitus Resp: Effort & Inspection: normal respiratory effort, able to speak in complete sentences, no respiratory distress and no use of accessory muscles Cardio: Rate: regular rate Heart sounds: S1 normal heart sound present and S2 normal heart sound present GI: Inspection: No distended Palpation (GI): Soft to palpation and nontender Neuro: General: CN's II-XI intact bilaterally Extrem: General: Yes no pedal edema Objective Data Active Medications Acetaminophen (Acetaminophen 325 Mg Tablet) 650 mg PO Q6H PRN PRN Reason: Pain, Mild (Pain Scale 1-3) Amlodipine Besylate (Amlodipine Besylate 10 Mg Tablet) 10 mg PO DAILY [facility]; Protocol Last Admin: 06/22/22 08:01 Dose: 10 mg Documented By: DELORES Atorvastatin Calcium (Atorvastatin Calcium 40 Mg Tablet) 40 mg PO BEDTIME [facility] Last Admin: 06/21/22 21:44 Dose: 40 mg Documented By: CALISTA Enoxaparin Sodium (Enoxaparin Sodium 40 Mg/0.4 Ml Syringe) 40 mg SUBCUT Q24H [facility] Last Admin: 06/21/22 21:44 Dose: 40 mg Documented By: CALISTA Meropenem 1 gm/ Sodium (Chloride) 100 mls @ 200 mls/hr IV Q8H [facility] Last Infusion: 06/22/22 09:05 Dose: 0 mls/hr Documented By: DELORES Ondansetron HCl (Ondansetron Hcl 4 Mg/2 Ml Vial) 4 mg IVPUSH Q8H PRN PRN Reason: Nausea and Vomiting Pharmacy Consult (Consult Rx Perform Med Rec) 1 each MISCELLANE ONCE PRN PRN Reason: Consult order Sodium Chloride (0.9 % Sodium Chloride Flush 3 Ml Syringe) 3 ml IVFLUSH QSHIFT [facility] Last Admin: 06/22/22 08:01 Dose: 3 ml Documented By: DELORES Labs 06/21/22 05:41 06/21/22 05:41 Microbiology Microbiology Results: Microbiology 06/20/22 Unknown Urine Culture - Preliminary Urine clean catch - Urine morfin top Gram negative radha Assessment and Plan (1) Complicated UTI (urinary tract infection): Status: Acute Plan 81yo M with HTN, HLD, dementia, mood disorder, CKD3, chronic ESBL E coli colonization, hx renal CA s/p R nephrectomy with persistent L hydronephrosis with indwelling L ureteral stent changed q4-6mo [last changed 05/08/22] # complicated UTI, hx ESBL - meropenem d#3 - seen by ID - rec to continue merem and then ertapenem if ESBL + for total 14 day if ESBL + - UCx growing GNR, final culture pending - Urology consult pending for ?stent exchange # unspecified dementia with mood disturbance/anxiety - Psych consult chronic issues # CKD3: SCr at baseline, avoid nephrotoxins # HTN: amlodipine # HLD: atorvastatin # osteoporosis: on abaloparatide as outpt # VTE ppx: LMWH # dispo: anticipate home eventually In my clinical judgment, the patient requires continued inpatient hospitalization for the following reasons: IV ABX for MDR infection Time Spent With Patient Time: Total time managing care of this patient today ____ minutes. Quality Stroke Does the patient have a stroke diagnosis?: No VTE Prior VTE?: No VTE Risk Level:: Medical - moderate - high VTE Device Contraindication: Treatment Not Indicated VTE Drug Contraindication: N/A - Med Ordered
[2022-06-22 20:00] VITALS: BP 140/77; PULSE 69; RESP 18; TEMP 36.9; O2SAT 97
[2022-06-22] MEDS: Enoxaparin Sodium 40 MG/0.4 ML SYRINGE SUBCUT (20:16)
[2022-06-22] MEDS: Atorvastatin Calcium 40 MG TABLET PO (20:16)
[2022-06-23 03:16] VITALS: BP 130/79; PULSE 69; RESP 18; TEMP 36.6; O2SAT 97
[2022-06-23] MEDS: Acetaminophen 325 MG TABLET 650 MG PO (05:44)
[2022-06-23 07:33] VITALS: BP 122/71; PULSE 66; RESP 18; TEMP 36; O2SAT 97
[2022-06-23] MEDS: amLODIPine Besylate 10 MG TABLET PO (08:09)
[2022-06-23] MEDS: 0.9 % Sodium Chloride Flush 3 ML SYRINGE IVFLUSH ×2 (08:09→17:00)
--- NOTE | 2022-06-23 13:50 | HO.PM.IMPN ---
Subjective Subjective Date of Service: 06/23/22 Interval History: seen and examined this morning History obtained with the assistance of a spring clipper No overnight events No abdominal pain, fever, chills Review of Systems Review of Systems: Yes all other systems are reviewed and are negative Constitutional Constitutional: Denies chills and Denies fever(s) Cardiovascular Cardiovascular: Denies chest pain, Denies palpitations and Denies dyspnea Respiratory Respiratory: Denies cough and Denies dyspnea Gastrointestinal Gastrointestinal: Denies abdominal pain, Denies nausea and Denies vomiting Endocrine Endocrine: Denies palpitations Physical Exam Vital Signs: Vital Signs: Last Vital Signs Temp 96.8 F 06/23/22 07:33 Pulse 66 06/23/22 07:33 Resp 18 06/23/22 07:33 BP 122/71 06/23/22 07:33 Pulse Ox 97 06/23/22 07:33 O2 Del Method Room Air 06/23/22 07:33 BMI result Body Mass Index 27.2 Const: General: cooperative, comfortable, alert and awake Nutritional Appearance: average body habitus Resp: Effort & Inspection: normal respiratory effort, able to speak in complete sentences, no respiratory distress and no use of accessory muscles Cardio: Rate: regular rate Heart sounds: S1 normal heart sound present and S2 normal heart sound present GI: Inspection: No distended Palpation (GI): Soft to palpation and nontender Neuro: General: CN's II-XI intact bilaterally Extrem: General: Yes no pedal edema Objective Data Active Medications Acetaminophen (Acetaminophen 325 Mg Tablet) 650 mg PO Q6H PRN PRN Reason: Pain, Mild (Pain Scale 1-3) Last Admin: 06/23/22 05:44 Dose: 650 mg Documented By: CALISTA Amlodipine Besylate (Amlodipine Besylate 10 Mg Tablet) 10 mg PO DAILY [facility]; Protocol Last Admin: 06/23/22 08:09 Dose: 10 mg Documented By: DELORES Atorvastatin Calcium (Atorvastatin Calcium 40 Mg Tablet) 40 mg PO BEDTIME [facility] Last Admin: 06/22/22 20:16 Dose: 40 mg Documented By: CALISTA Enoxaparin Sodium (Enoxaparin Sodium 40 Mg/0.4 Ml Syringe) 40 mg SUBCUT Q24H [facility] Last Admin: 06/22/22 20:16 Dose: 40 mg Documented By: CALISTA Meropenem 1 gm/ Sodium (Chloride) 100 mls @ 200 mls/hr IV Q8H [facility] Last Infusion: 06/23/22 08:56 Dose: 0 mls/hr Documented By: DELORES Ondansetron HCl (Ondansetron Hcl 4 Mg/2 Ml Vial) 4 mg IVPUSH Q8H PRN PRN Reason: Nausea and Vomiting Pharmacy Consult (Consult Rx Perform Med Rec) 1 each MISCELLANE ONCE PRN PRN Reason: Consult order Sodium Chloride (0.9 % Sodium Chloride Flush 3 Ml Syringe) 3 ml IVFLUSH QSHIFT [facility] Last Admin: 06/23/22 08:09 Dose: 3 ml Documented By: DELORES Labs 06/21/22 05:41 06/21/22 05:41 Microbiology Microbiology Results: Microbiology 06/20/22 Unknown Urine Culture - Final Urine clean catch - Urine morfin top Escherichia coli Assessment and Plan (1) Complicated UTI (urinary tract infection): Status: Acute Plan 81yo M with HTN, HLD, dementia, mood disorder, CKD3, chronic ESBL E coli colonization, hx renal CA s/p R nephrectomy with persistent L hydronephrosis with indwelling L ureteral stent changed q4-6mo [last changed 05/08/22] # complicated UTI, ESBL + - meropenem started 06/21 - seen by ID - rec to continue merem and then ertapenem for total 14 day - midline ordered - discussed with urology, no need for stent exchange at this time # unspecified dementia with mood disturbance/anxiety - Psych consult chronic issues # CKD3: SCr at baseline, avoid nephrotoxins # HTN: amlodipine # HLD: atorvastatin # osteoporosis: on abaloparatide as outpt # VTE ppx: LMWH # dispo: anticipate home eventually In my clinical judgment, the patient requires continued inpatient hospitalization for the following reasons: IV ABX for MDR infection Time Spent With Patient Time: Total time managing care of this patient today ____ minutes. Quality Stroke Does the patient have a stroke diagnosis?: No VTE Prior VTE?: No VTE Risk Level:: Medical - moderate - high VTE Device Contraindication: Treatment Not Indicated VTE Drug Contraindication: N/A - Med Ordered
--- NOTE | 2022-06-23 13:58 | MHC.CM.PN ---
pt will have a midline placed referral to [facility] approved [facility] for the [facility] pt will be dcd home after mid line placed
--- NOTE | 2022-06-23 15:29 | PM.UROCN ---
History of Present Illness Consult details Consult date: 06/23/22 Narrative: One is an 81-year-old gentleman with history of renal cell carcinoma status post right nephrectomy. He is followed by Dr. Ramos for chronic left hydronephrosis and has an indwelling stent that is changed every 4-6 months the left ureteral stent was last changed on 05/08/2022. He is admitted and treated for complicated UTI. ID is following. At this time no indication for ureteral stent change. Review of Systems Review of Systems: Yes all other systems are reviewed and are negative PMFSH Past Medical History Medical History ESBL (extended spectrum beta-lactamase) producing bacteria infection HTN (hypertension) Hydronephrosis Osteoporosis Poor appetite UTI (urinary tract infection) Weight loss Family History Family History Mother No problems noted. Father Cancer Family history: reviewed and not pertinent Surgical History Surgical History H/O kidney removal H/O prostatectomy History of right nephrectomy Hx of cholecystectomy Social History Social History Household Members: Spouse Household Members Other:: Housing: Apartment Alcohol intake: never Patient Tobacco Use Status: Never used Tobacco Current occupational status: disabled Meds Allergies Allergy/AdvReac Type Severity Reaction Status Date / Time No Known Allergies Allergy Verified 05/02/22 13:28 Active Medications: Current Medications Acetaminophen (Acetaminophen 325 Mg Tablet) 650 mg PO Q6H PRN PRN Reason: Pain, Mild (Pain Scale 1-3) Last Admin: 06/23/22 05:44 Dose: 650 mg Amlodipine Besylate (Amlodipine Besylate 10 Mg Tablet) 10 mg PO DAILY [facility]; Protocol Last Admin: 06/23/22 08:09 Dose: 10 mg Atorvastatin Calcium (Atorvastatin Calcium 40 Mg Tablet) 40 mg PO BEDTIME [facility] Last Admin: 06/22/22 20:16 Dose: 40 mg Enoxaparin Sodium (Enoxaparin Sodium 40 Mg/0.4 Ml Syringe) 40 mg SUBCUT Q24H [facility] Last Admin: 06/22/22 20:16 Dose: 40 mg Meropenem 1 gm/ Sodium (Chloride) 100 mls @ 200 mls/hr IV Q8H [facility] Last Infusion: 06/23/22 08:56 Dose: Infused Ondansetron HCl (Ondansetron Hcl 4 Mg/2 Ml Vial) 4 mg IVPUSH Q8H PRN PRN Reason: Nausea and Vomiting Pharmacy Consult (Consult Rx Perform Med Rec) 1 each MISCELLANE ONCE PRN PRN Reason: Consult order Sodium Chloride (0.9 % Sodium Chloride Flush 3 Ml Syringe) 3 ml IVFLUSH QSHIFT [facility] Last Admin: 06/23/22 08:09 Dose: 3 ml Home Medications Medication Instructions Recorded Confirmed Last Taken Type amlodipine 10 mg tablet 10 mg PO DAILY 03/10/21 06/20/22 06/19/22 History atorvastatin 40 mg tablet 40 mg PO BEDTIME 03/10/21 06/20/22 06/19/22 History Physical Exam Vital Signs: Vital Signs: Last Vital Signs Temp 96.8 F 06/23/22 07:33 Pulse 66 06/23/22 07:33 Resp 18 06/23/22 07:33 BP 122/71 06/23/22 07:33 Pulse Ox 97 06/23/22 07:33 O2 Del Method Room Air 06/23/22 07:33 BMI result Body Mass Index 27.2 Const: General: no acute distress and well developed Orientation/consciousness: patient oriented x3 Neck: Neck: Yes normal visual inspection Cardio: Rate: regular rate Neuro: General: patient oriented x3 Results Labs 06/21/22 05:41 06/21/22 05:41 Labs: Urine 06/20/22 Range/Units 19:20 Urine Color Yellow Urine Appearance Cloudy Urine pH 7.0 (5.0-9.0) Ur Specific [place] 1.015 (1.005-1.025) Urine Protein 30 (1+) H (Neg-Trace) mg/dL Urine Glucose (UA) Negative (Negative) mg/dL Collected: 06/20/22-UNK Status: COMP Req#: [id number] Received: 06/20/22 Source: [facility] Sp Desc: Urine morfin Subm Dr: Gayle Meeks Ordered: Urine Culture Procedure Result Verified Site Urine Culture Final 06/23/22 Organism 1 Escherichia coli Quant > 100,000 cfu/mL ESBL Note: NOTE: Extended-Spectrum Beta-Lactamase enzyme present E coli M.I.C. RX --------- --- Ampicillin >=32 R Ceftriaxone 32 R Ertapenem <=0.12 S Gentamicin 2 S Levofloxacin 4 R Nitrofurantoin 32 S Trimethoprim/Sulfamethoxazole >=320 R Assessment and Plan (1) Complicated UTI (urinary tract infection): Status: Acute (2) Hydronephrosis: Status: Acute (3) Ureteral stent present: Status: Acute (4) History of kidney cancer: Status: Acute (5) Solitary kidney, acquired: Status: Acute Plan Persistent left hydronephrosis managed with indwelling Left Ureteral stent, last changed 05/08/22 No plans to change stent at this time Fu as out patient with Dr. Ramos Time Spent With Patient Time: Total time managing care of this patient today ____ minutes. Procedures Date of Service Date of Service: 06/23/22
--- NOTE | 2022-06-23 16:31 | HO.MIDLINE ---
Midline Insertion MIDLINE INSERTION Diagnosis: ESBL UTI Indication: [facility] antibiotics needed Pertinent Labs: reviewed Technique: Using sterile technique including cap and mask, glove and drape, the right arm was prepped and draped in the usual sterile fashion of full barrier technique with CHG. Using ultrasound guidance, right basilic vein access was obtained on first attempt. A 20G X 8CM ST Non-PASV Midline was positioned. The procedure was performed in S272. Ultrasound was used to document vein patency and for needle entry. A formal ultrasound picture was recorded. [employer] Administrator has released the line for use and it is currently dressed with a StatLock, Tegaderm, and CHG disc. Verification has been performed for blood return and line patency. Arm Circumference: 30 CM Equipment: BARD PowerGlide ST Midline Catheter Type: 20G X 8 CM non-PASV midline Lot #: [id number]
[2022-06-23 16:33] VITALS: BP 135/85; PULSE 85; RESP 18; TEMP 36.2; O2SAT 95
[2022-06-23 19:36] VITALS: BP 135/70; PULSE 70; RESP 18; TEMP 36.2; O2SAT 97
[2022-06-23] MEDS: Enoxaparin Sodium 40 MG/0.4 ML SYRINGE SUBCUT (21:05)
[2022-06-23] MEDS: Heparin Sodium,Porcine Flush 50 UNITS, 0.9 % Sodium Chloride Flush 5 ML IVFLUSH (21:05)
[2022-06-23] MEDS: Atorvastatin Calcium 40 MG TABLET PO (21:05)
[2022-06-24 03:52] VITALS: BP 118/72; PULSE 64; RESP 18; TEMP 36.3; O2SAT 96
[2022-06-24 07:44] VITALS: BP 129/78; PULSE 70; RESP 18; TEMP 36.2; O2SAT 95
--- NOTE | 2022-06-24 08:19 | MHC.CM.PN ---
Addendum entered by Elizabeth Cueva 06/24/22 11:29: PER [facility], THEY ARE UNABLE TO PROVIDE A TEACH ON THE WEEKEND AND STILL HAVE NOT HEARD BACK FROM PTS FAMILY CM MADE SNF REFERRALS IF A BED IS FOUND, PT CAN COMPLETE HIS IV ABX IN STR Original Note: THIS PT HAS BEEN CLEARED TO DC HOME WITH IV ABX, HOWEVER [facility] HAS NOT RESPONDED TO MESSAGES LEFT BY [facility] NURSE SO A TEACHING WAS NOT COMPLETED. CM LEFT MESSAGES FOR [facility] THIS MORNING TO CONFIRM SOMEONE IS AVAILABLE FOR A VIRTUAL TEACH TODAY IF ARRANGEMENTS ARE COMPLETED FOR PTS DC. PT WILL ALSO HAVE VNA SERVICES VIA [facility], THEY WILL BE PRESENT FOR PTS INITIAL HOME DOSE, HOWEVER FAMILY MUST BE ABLE TO ADMINISTER MEDS ON DAYS WHEN VNA IS NOT PRESENT. CM WILL ATTEMPT TO CONTACT PTS [employer]LINDAC[employer] [phone] LATER THIS MORNING.
[2022-06-24] MEDS: amLODIPine Besylate 10 MG TABLET PO (10:24)
[2022-06-24] MEDS: 0.9 % Sodium Chloride Flush 3 ML SYRINGE IVFLUSH ×2 (10:25→16:23)
--- NOTE | 2022-06-24 12:06 | HO.PM.IMPN ---
Subjective Subjective Date of Service: 06/25/22 Interval History: seen and examined this morning No overnight events No abdominal pain, fever, chills Review of Systems Review of Systems: Yes all other systems are reviewed and are negative Constitutional Constitutional: Denies chills and Denies fever(s) Cardiovascular Cardiovascular: Denies chest pain, Denies palpitations and Denies dyspnea Respiratory Respiratory: Denies cough and Denies dyspnea Gastrointestinal Gastrointestinal: Denies abdominal pain, Denies nausea and Denies vomiting Endocrine Endocrine: Denies palpitations Physical Exam Vital Signs: Vital Signs: Last Vital Signs Temp 97.1 F 06/24/22 07:44 Pulse 70 06/24/22 07:44 Resp 18 06/24/22 07:44 BP 129/78 06/24/22 07:44 Pulse Ox 95 06/24/22 07:44 O2 Del Method Room Air 06/24/22 07:44 BMI result Body Mass Index 27.2 Appearing in no acute distress lung sounds are clear to auscultation heart regular rate rhythm, clear S1, S2 positive bowel sounds, abdomen is soft, nontender neuro patient is alert x3, no focal deficits Objective Data Active Medications Acetaminophen (Acetaminophen 325 Mg Tablet) 650 mg PO Q6H PRN PRN Reason: Pain, Mild (Pain Scale 1-3) Last Admin: 06/23/22 05:44 Dose: 650 mg Documented By: CALISTA Amlodipine Besylate (Amlodipine Besylate 10 Mg Tablet) 10 mg PO DAILY [facility]; Protocol Last Admin: 06/24/22 10:24 Dose: 10 mg Documented By: RILEY Atorvastatin Calcium (Atorvastatin Calcium 40 Mg Tablet) 40 mg PO BEDTIME [facility] Last Admin: 06/23/22 21:05 Dose: 40 mg Documented By: STANISLAW Heparin Sodium (Porcine) 50 (units/ Sodium Chloride 5 ml) 0 units IVFLUSH TID [facility] Last Admin: 06/24/22 10:25 Dose: Not Given Documented By: RILEY Non-Admin Reason: IV Running Enoxaparin Sodium (Enoxaparin Sodium 40 Mg/0.4 Ml Syringe) 40 mg SUBCUT Q24H [facility] Last Admin: 06/23/22 21:05 Dose: 40 mg Documented By: STANISLAW Meropenem 1 gm/ Sodium (Chloride) 100 mls @ 200 mls/hr IV Q8H [facility] Last Infusion: 06/24/22 11:13 Dose: 0 mls/hr Documented By: LEXX Ondansetron HCl (Ondansetron Hcl 4 Mg/2 Ml Vial) 4 mg IVPUSH Q8H PRN PRN Reason: Nausea and Vomiting Pharmacy Consult (Consult Rx Perform Med Rec) 1 each MISCELLANE ONCE PRN PRN Reason: Consult order Sodium Chloride (0.9 % Sodium Chloride Flush 3 Ml Syringe) 3 ml IVFLUSH QSHIFT [facility] Last Admin: 06/24/22 10:25 Dose: 3 ml Documented By: RILEY Labs 06/21/22 05:41 06/21/22 05:41 Microbiology Microbiology Results: Microbiology 06/20/22 Unknown Urine Culture - Final Urine clean catch - Urine morfin top Escherichia coli Assessment and Plan (1) Complicated UTI (urinary tract infection): Status: Acute Plan 81yo M with HTN, HLD, dementia, mood disorder, CKD3, chronic ESBL E coli colonization, hx renal CA s/p R nephrectomy with persistent L hydronephrosis with indwelling L ureteral stent changed q4-6mo [last changed 05/08/22] Complicated UTI, ESBL + meropenem started 06/21>seen by ID - rec to continue elizabet and then ertapenem for total 14 day midline placed discussed with urology, no need for stent exchange at this time unspecified dementia with mood disturbance/anxiety Psych consult CKD3 SCr at baseline, avoid nephrotoxins HTN amlodipine HLD atorvastatin osteoporosis on abaloparatide as outpt VTE ppx: LMWH Attending Dr. Hunter dispo: anticipate home eventually In my clinical judgment, the patient requires continued inpatient hospitalization for the following reasons: IV ABX for MDR infection Time Spent With Patient Time: Total time managing care of this patient today ____ minutes. Quality Stroke Does the patient have a stroke diagnosis?: No VTE Prior VTE?: No VTE Risk Level:: Medical - moderate - high VTE Device Contraindication: Treatment Not Indicated VTE Drug Contraindication: N/A - Med Ordered
[2022-06-24] MEDS: Heparin Sodium,Porcine Flush 50 UNITS, 0.9 % Sodium Chloride Flush 5 ML IVFLUSH ×2 (14:11→20:01)
[2022-06-24 15:41] VITALS: BP 141/78; PULSE 76; RESP 14; TEMP 36.2; O2SAT 95
[2022-06-24 16:00] VITALS: BP 132/72; PULSE 68
[2022-06-24 16:01] VITALS: BP 121/84; BP 124/73; PULSE 85; PULSE 90
[2022-06-24 19:39] VITALS: BP 124/69; PULSE 80; RESP 14; TEMP 36.4; O2SAT 96
[2022-06-24] MEDS: Enoxaparin Sodium 40 MG/0.4 ML SYRINGE SUBCUT (20:01)
[2022-06-24] MEDS: Atorvastatin Calcium 40 MG TABLET PO (20:01)
[2022-06-24] MEDS: Mirtazapine 7.5 MG TABLET PO (20:01)
--- NOTE | 2022-06-24 21:23 | P.CNPS_ITS ---
History of Present Illness Chief Complaint: esbl uti [facility] Medical History ESBL (extended spectrum beta-lactamase) producing bacteria infection HTN (hypertension) Hydronephrosis Osteoporosis Poor appetite UTI (urinary tract infection) Weight loss Surgical History H/O kidney removal H/O prostatectomy History of right nephrectomy Hx of cholecystectomy Diagnostics Vital Signs (24Hr): Vital Signs - 24 hr 06/24/22 03:52 06/24/22 07:44 06/24/22 15:41 Temperature 97.3 F 97.1 F 97.2 F Pulse Rate 64 70 76 Respiratory Rate 18 18 14 Blood Pressure 118/72 129/78 141/78 H Pulse Oximetry 96 95 95 Oxygen Delivery Method Room Air Room Air Room Air 06/24/22 16:00 06/24/22 16:01 06/24/22 16:01 Temperature Pulse Rate 68 85 90 Respiratory Rate Blood Pressure 132/72 124/73 121/84 Pulse Oximetry Oxygen Delivery Method 06/24/22 19:39 Temperature 97.6 F Pulse Rate 80 Respiratory Rate 14 Blood Pressure 124/69 Pulse Oximetry 96 Oxygen Delivery Method Room Air BMI result Body Mass Index 27.2 Labs 06/21/22 05:41 06/21/22 05:41 Imaging Radiology Impressions: ITS Impressions Chest X-Ray 06/20/22 15:01 IMPRESSION: Small esophageal hernia otherwise unremarkable exam. Medications Medications Current Medications Acetaminophen (Acetaminophen 325 Mg Tablet) 650 mg PO Q6H PRN PRN Reason: Pain, Mild (Pain Scale 1-3) Last Admin: 06/23/22 05:44 Dose: 650 mg Amlodipine Besylate (Amlodipine Besylate 10 Mg Tablet) 10 mg PO DAILY [facility]; Protocol Last Admin: 06/24/22 10:24 Dose: 10 mg Atorvastatin Calcium (Atorvastatin Calcium 40 Mg Tablet) 40 mg PO BEDTIME [facility] Last Admin: 06/24/22 20:01 Dose: 40 mg Heparin Sodium (Porcine) 50 (units/ Sodium Chloride 5 ml) 0 units IVFLUSH TID [facility] Last Admin: 06/24/22 20:01 Dose: 50 unit Enoxaparin Sodium (Enoxaparin Sodium 40 Mg/0.4 Ml Syringe) 40 mg SUBCUT Q24H [facility] Last Admin: 06/24/22 20:01 Dose: 40 mg Meropenem 1 gm/ Sodium (Chloride) 100 mls @ 200 mls/hr IV Q8H [facility] Last Infusion: 06/24/22 17:21 Dose: Infused Mirtazapine (Mirtazapine 7.5 Mg Tablet) 7.5 mg PO BEDTIME [facility] Last Admin: 06/24/22 20:01 Dose: 7.5 mg Ondansetron HCl (Ondansetron Hcl 4 Mg/2 Ml Vial) 4 mg IVPUSH Q8H PRN PRN Reason: Nausea and Vomiting Pharmacy Consult (Consult Rx Perform Med Rec) 1 each MISCELLANE ONCE PRN PRN Reason: Consult order Sodium Chloride (0.9 % Sodium Chloride Flush 3 Ml Syringe) 3 ml IVFLUSH QSHIFT [facility] Last Admin: 06/24/22 16:23 Dose: 3 ml Allergies Allergies Allergy/AdvReac Type Severity Reaction Status Date / Time No Known Allergies Allergy Verified 05/02/22 13:28 Assessment & Plan Total time managing care of this patient today ____ minutes.
[2022-06-25] VITALS (14 sets, daily range): BP systolic 114–150; BP diastolic 64–91; PULSE 65–102; RESP 14–18; TEMP 36.1–36.9; O2SAT 93–97
[2022-06-25] MEDS: 0.9 % Sodium Chloride Flush 3 ML SYRINGE IVFLUSH (00:24)
[2022-06-25] MEDS: amLODIPine Besylate 10 MG TABLET PO (08:03)
[2022-06-25] MEDS: Heparin Sodium,Porcine Flush 50 UNITS, 0.9 % Sodium Chloride Flush 5 ML IVFLUSH ×3 (08:38→21:08)
--- NOTE | 2022-06-25 08:53 | P.PNIM_ITS ---
Subjective Subjective Date of Service: 06/25/22 Interval History: seen and examined this morning No overnight events No abdominal pain, fever, chills Review of Systems Review of Systems: Yes all other systems are reviewed and are negative Constitutional Constitutional: Denies chills and Denies fever(s) Cardiovascular Cardiovascular: Denies chest pain, Denies palpitations and Denies dyspnea Respiratory Respiratory: Denies cough and Denies dyspnea Gastrointestinal Gastrointestinal: Denies abdominal pain, Denies nausea and Denies vomiting Endocrine Endocrine: Denies palpitations Physical Exam Vital Signs: Vital Signs: Last Vital Signs Temp 97.3 F 06/25/22 07:36 Pulse 82 06/25/22 07:37 Resp 18 06/25/22 07:36 BP 149/87 H 06/25/22 07:37 Pulse Ox 96 06/25/22 07:36 O2 Del Method Room Air 06/25/22 07:36 BMI result Body Mass Index 27.2 Appearing in no acute distress lung sounds are clear to auscultation heart regular rate rhythm, clear S1, S2 positive bowel sounds, abdomen is soft, nontender neuro patient is alert x3, no focal deficits Objective Data Active Medications Acetaminophen (Acetaminophen 325 Mg Tablet) 650 mg PO Q6H PRN PRN Reason: Pain, Mild (Pain Scale 1-3) Last Admin: 06/23/22 05:44 Dose: 650 mg Documented By: CALISTA Amlodipine Besylate (Amlodipine Besylate 10 Mg Tablet) 10 mg PO DAILY [facility]; Protocol Last Admin: 06/25/22 08:03 Dose: 10 mg Documented By: WILLY Atorvastatin Calcium (Atorvastatin Calcium 40 Mg Tablet) 40 mg PO BEDTIME [facility] Last Admin: 06/24/22 20:01 Dose: 40 mg Documented By: LEXX Heparin Sodium (Porcine) 50 (units/ Sodium Chloride 5 ml) 0 units IVFLUSH TID [facility] Last Admin: 06/25/22 08:38 Dose: 10 unit Documented By: WILLY Enoxaparin Sodium (Enoxaparin Sodium 40 Mg/0.4 Ml Syringe) 40 mg SUBCUT Q24H [facility] Last Admin: 06/24/22 20:01 Dose: 40 mg Documented By: LEXX Meropenem 1 gm/ Sodium (Chloride) 100 mls @ 200 mls/hr IV Q8H [facility] Last Infusion: 06/25/22 08:39 Dose: 0 mls/hr Documented By: WILLY Mirtazapine (Mirtazapine 7.5 Mg Tablet) 7.5 mg PO BEDTIME [facility] Last Admin: 06/24/22 20:01 Dose: 7.5 mg Documented By: LEXX Ondansetron HCl (Ondansetron Hcl 4 Mg/2 Ml Vial) 4 mg IVPUSH Q8H PRN PRN Reason: Nausea and Vomiting Pharmacy Consult (Consult Rx Perform Med Rec) 1 each MISCELLANE ONCE PRN PRN Reason: Consult order Sodium Chloride (0.9 % Sodium Chloride Flush 3 Ml Syringe) 3 ml IVFLUSH QSHIFT [facility] Last Admin: 06/25/22 08:39 Dose: Not Given Documented By: WILLY Non-Admin Reason: n/a Labs 06/21/22 05:41 06/21/22 05:41 Assessment and Plan (1) Complicated UTI (urinary tract infection): Status: Acute Plan 81yo M with HTN, HLD, dementia, mood disorder, CKD3, chronic ESBL E coli colo nization, hx renal CA s/p R nephrectomy with persistent L hydronephrosis with indwelling L ureteral stent changed q4-6mo [last changed 05/08/22] Complicated UTI, ESBL + meropenem started 06/21>seen by ID - rec to continue elizabet and then ertapenem for total 14 day midline placed discussed with urology, no need for stent exchange at this time Unspecified dementia with mood disturbance/anxiety Psych consult> remeron for sleep as insomnia may be causing increased anxiety CKD3 SCr at baseline, avoid nephrotoxins HTN amlodipine HLD atorvastatin osteoporosis on abaloparatide as outpt VTE ppx: LMWH Attending Dr. Hunter dispo: anticipate home In my clinical judgment, the patient requires continued inpatient hospitalization for the following reasons: IV ABX for MDR infection Time Spent With Patient Time: Total time managing care of this patient today ____ minutes. Quality Stroke Does the patient have a stroke diagnosis?: No VTE Prior VTE?: No VTE Risk Level:: Medical - moderate - high VTE Device Contraindication: Treatment Not Indicated VTE Drug Contraindication: N/A - Med Ordered
[2022-06-25] MEDS: Mirtazapine 7.5 MG TABLET PO (21:07)
[2022-06-25] MEDS: Atorvastatin Calcium 40 MG TABLET PO (21:07)
[2022-06-25] MEDS: Enoxaparin Sodium 40 MG/0.4 ML SYRINGE SUBCUT (21:08)
[2022-06-26 04:00] VITALS: BP 117/73; PULSE 68; RESP 18; TEMP 36.5; O2SAT 97
--- NOTE | 2022-06-26 07:23 | P.DS_ITS ---
DS: Providers Provider Date of Service: 06/26/22 Date of admission: 06/20/22 21:27 Primary care physician: Jeannie Fabian NP Consults: 06/20/22 21:29 Consult to Infectious Diseases Routine Consulting Provider: [facility] [place] Infectious Disease Reason for consultation: symptomatic ESBL UTI 06/20/22 21:46 Consult to Psychiatry Routine Consulting Provider: Psych Covering Reason for consultation: worsening anxiety 06/21/22 09:38 Consult to Urology Routine Consulting Provider: [facility] [place] Urology Services Reason for consultation: esbl uti- ?stent exchange 06/24/22 12:16 Consult to Psychiatry Routine Consulting Provider: Psych Covering Reason for consultation: anxiety Has provider been notified: No DS: Diagnosis Discharge Diagnosis (1) Complicated UTI (urinary tract infection): Status: Acute DS: Summary Hospital Course Hospital Course: 81-year-old male with history of hypertension, hyperlipidemia, unspecified dementia, mood disorder, CKD stage 3, chronic colonization with E coli ESBL bacteria, hx renal cancer s/p right nephrectomy with persistent left hydronephrosis managed with indwelling stent presented to the ED for evaluation of anxiety.? The patient states since last week, he has had increased anxiety and has felt like he was going to fall out of bed.? He also states he feels unsteady on his feet when walking with chills and body aches.? He has also noted some dysuria.? No fevers at home.? No hematuria, it increased urinary frequency or urgency.? He has a permanent stent in the left ureter which is changed every 4-6 months and was last changed on 05/08/[address] Ramos.? He has been evaluated by infectious disease in the past who advises the patient is likely a chronic colonizer of ESBL E coli due to mechanical abnormalities in the urinary system.? However, if patient becomes symptomatic with UTI, she recommends ertapenem or gentamicin IV/IM.? On arrival, vital signs stable.? No leukocytosis.? Renal function and electrolyte levels baseline.? UA with 2+ blood, 3+ leukocytes, negative nitrites, positive urinary sediment, 4+ bacteria.? Patient has been treated in the ED with IV ertapenem and will be admitted for further management of symptomatic ESBL UTI. Complicated UTI, ESBL +. meropenem started 06/21>seen by ID - rec ertapenem for total 14 day. midline placed and may be removed after last doise of antibiotics. discussed with urology, no need for stent exchange at this time Unspecified dementia with mood disturbance/anxiety. Psych consult> remeron for sleep as insomnia may be causing increased anxiety CKD3 SCr at baseline, avoid nephrotoxins HTN amlodipine HLD atorvastatin osteoporosis continue home medications Time Spent with Patient Time attestation: Total time managing care of this patient today ____ minutes. Discharge coordination time: Greater than 30 minutes Quality: Safe Use of Opioids Does Pt have an Active Cancer Diagnosis on the Problem List?: No Quality: Stroke Does the patient have a stroke diagnosis?: No Physical Exam Vital Signs: Vital Signs: Last Vital Signs Temp 97.7 F 06/26/22 04:00 Pulse 68 06/26/22 04:00 Resp 18 06/26/22 04:00 BP 117/73 06/26/22 04:00 Pulse Ox 97 06/26/22 04:00 O2 Del Method Room Air 06/26/22 04:00 BMI result Body Mass Index 27.2 Appearing in no acute distress head is normocephalic atraumatic eyes pupils are PERRLA sclera is anicteric mouth throat mucous membranes are intact and moist neck is supple no lymphadenopathy, no JVD noted lung sounds are clear to auscultation heart regular rate rhythm, clear S1, S2 positive bowel sounds, abdomen is soft, nontender neuro patient is alert x3, no focal deficits Discharge Plan Discharge Anticipated Discharge Date/Time: 06/26/22 07:23 Patient Disposition: Home Health Service Discharge Diagnosis: UTI ESBL Referrals: [facility] [Other] - 1 Week (Home infusion) [facility] [Outside] - 1 Week Jeannie Fabian, VICE PRESIDENT OF INSTRUCTION [Primary Care Provider] - 1 Week Discharge Medications: New ertapenem 1 gram recon soln 1 g IV DAILY Qty: 8 0RF mirtazapine 7.5 mg Tablet 7.5 mg PO NEEDED Qty: 7 0RF Continued Tymlos 80 mcg (3,120 mcg/1.56 mL) pen injector 80 mcg subcut DAILY Qty: 1.56 12RF Rx Instructions: inject into abdomen; do not inject within 2 inches of belly button/navel; rotate sites atorvastatin 40 mg tablet 40 mg PO BEDTIME amlodipine 10 mg tablet 10 mg PO DAILY Discharge Orders: Discharge Order (Routine); Ordered 06/26/22 Ordered By: Kerrie Reich Diet: Advance to usual diet Activity on Discharge: As tolerated Stand Alone Forms: Patient Portal Discharge page Care Plan Goals: Complete antibiotic therapy Health Concerns: UTI ESBL Plan of Treatment: Follow-up with primary care provider as needed Take all medications as prescribed RN may remove midline after last dose of ertapenem Assessment: See discharge summary Discharge Date/Time: 06/26/22 15:37
[2022-06-26 08:00] VITALS: BP 125/72; BP 129/74; PULSE 68; PULSE 73; RESP 18; TEMP 36.3; O2SAT 94
[2022-06-26] MEDS: Ertapenem Sodium 1 GM in 0.9 % Sodium Chloride 50 ML IV (08:39)
[2022-06-26] MEDS: amLODIPine Besylate 10 MG TABLET PO (08:40)
[2022-06-26] MEDS: Heparin Sodium,Porcine Flush 50 UNITS, 0.9 % Sodium Chloride Flush 5 ML IVFLUSH (08:40)
[2022-06-26 08:41] VITALS: BP 133/79; PULSE 81
[2022-06-26 08:42] VITALS: BP 134/87; PULSE 91
--- NOTE | 2022-06-26 12:40 | MHC.CM.PN ---
Patient is discharged today. He will receive IV Ertapenum x 2 weeks. [facility] is providing education to family today. They will provide the medication and supplies. [facility] will provide home services. They will start services tomorrow.
--- NOTE | 2022-06-26 13:01 | P.F2F_ITS ---
Service Date Service Date: 06/26/22 Encounter Date of encounter: 06/26/22 Reasons for Services Signs and symptoms assessed: ESBL UTI Reason for longterm: administration of IV, SQ, or IM injection Homebound: Leaving the home is medically contraindicated at this time without the asist of a device and/or another person due th the listed conditions above and below. Reason homebound: unsteady gait / fall risk Certification: Based on the above findings, I certify that this patient is confined to the home and needs intermittent longterm care, physical therapy and/or speech therapy, or continues to need occupational therapy. The patient is under my ca re, and I have initiated the establishment of the plan of care. The patient will be followed by a physician who will periodically review the plan of care. Time Spent With Patient Time: Total time managing care of this patient today ____ minutes.
== END 2022-06-26 15:37 | disposition home health service (06) | DRG 690 ==
LOC: HO.ED 21:05 → HO.EDOVER 21:45 → HO.S3 23:16
PROVIDERS: Physician Assistant Medical; Admitting Provider Physician Assistant; Emergency Provider Emergency Medicine; PCP Nurse Practitioner Primary Care; Visit Provider Nurse Practitioner Acute Care
DX: N13.6 Pyonephrosis (principal); Z16.12 Extended spectrum beta lactamase (ESBL) resistance; F03.94 Unspecified dementia, unspecified severity, with anxiety; I12.9 Hypertensive chronic kidney disease with stage 1 through stage 4 chronic kidney disease, or unspecified chronic kidney disease; E78.5 Hyperlipidemia, unspecified; B96.20 Unspecified Escherichia coli [E. coli] as the cause of diseases classified elsewhere; M81.0 Age-related osteoporosis without current pathological fracture; N18.30 Chronic kidney disease, stage 3 unspecified; Z90.5 Acquired absence of kidney; Z85.528 Personal history of other malignant neoplasm of kidney; Z79.899 Other long term (current) drug therapy
CPT/HCPCS: 36410; 36415; 71046; 80048; 80053; 81001; 83735; 83880; 84484; 85025; 87086; 87088; 87186; 93005; 99285; J1335; J1642; J1650; J2185

== ENCOUNTER → 2022-07-05 11:28 | Outpatient (BNVA) | payer OTHER, SELFPAY | PROVIDERS: PCP Nurse Practitioner Primary Care; Visit Provider Internal Medicine | DX: N39.0 Urinary tract infection, site not specified (principal); B96.20 Unspecified Escherichia coli [E. coli] as the cause of diseases classified elsewhere; Z16.12 Extended spectrum beta lactamase (ESBL) resistance; T36.8X5A Adverse effect of other systemic antibiotics, initial encounter; Z96.0 Presence of urogenital implants; Z90.5 Acquired absence of kidney; Z90.79 Acquired absence of other genital organ(s) | CPT/HCPCS: 99212 ==

== ENCOUNTER 2022-08-29 12:13 | Outpatient (AMB) | payer OTHER, SELFPAY ==
--- NOTE | 2022-08-29 12:45 | MHC.OFFVIS ---
Intake Vital Signs 08/29/22 12:46 Height 5 ft 5.67 in Weight 166 lb 0.129 oz BMI 27.1 BP 118/62 Blood Pressure Location Lt brachial Position Sitting Pulse 75 Pulse Source Pulse Oximeter Intake Visit Reasons: f/u osteoporosis Intake Note: Patient present for Osteoporosis follow up visit. Stamp Collector Required: Yes Stamp Collector Language: Pattern Vault Clerk Name: Yvonne, Medical Staff Information Interpreted: non-clinical & clinical Accompanied by: Daughter Allergies No Known Allergies Allergy (Verified 08/29/22 12:47) HPI HPI Comments History of Present Illness Details 81 YO M with] is seen in consultation at the request of PCP for Osteoporosis. Pt sent today for osteoporosis Received treatment in 6-7 yrs ago in the past with alendronate , for 1 yr Tolerated treatment well without complication. States currently not taking alendronate No history of pathologic fracture or ONJ. Has few servings of dietary calcium per day in the form of milk . Not Takes Calcium supplement . Not Takes Vitamin D daily. takes PPI, anticoagulant, antiepileptic or glucocorticoid medication. Not Does weight bearing exercise but walk 7 days per week Fracture history: No Height loss: No Denies history of Kidney stones: Has family history of Osteoporosis in brother but no hip fracture. UTD on dental cleanings and sees dentist every 6 months. No planned upcoming dental work or extractions. DXA dated 09/07/21:TECHNIQUE: Using a [employer] DXA System (software version: 13.1) manufactured by [employer], dual-energy x-ray absorptiometry was performed of the lumbar spine and left hip. The images are of good technical quality. Summary results are attached. FINDINGS: AP SPINE L1-L4: BMD 0.746 g/cm2, Z-score -3.3, T-score -3.9, osteoporosis. LEFT FEMUR, NECK: BMD 0.684 g/cm2, Z-score -1.5, T-score -3.0, osteoporosis. LEFT FEMUR, TOTAL: BMD 0.706 g/cm2, Z-score -1.6, T-score -2.7, osteoporosis. IDENTIFIED RISK FACTORS: Osteoporosis, renal. Labs: Secondary workup was negative except for low testosterone and patient not a candidate for testosterone replacement. Was started on Tymlos 3 mos ago off for 1 mo [facility] Medical History ESBL (extended spectrum beta-lactamase) producing bacteria infection History of kidney cancer HTN (hypertension) Hydronephrosis Insomnia Osteoporosis Poor appetite Solitary kidney, acquired Ureteral stent present UTI (urinary tract infection) Weight loss Surgical History H/O kidney removal H/O prostatectomy History of right nephrectomy Hx of cholecystectomy Family History Mother No problems noted. Father Cancer Social History Household Members: Spouse Household Members Other:: Housing: Apartment Alcohol intake: never Patient Tobacco Use Status: Never used Tobacco Current occupational status: disabled Physical Exam Vital Signs: Last Vital Signs Pulse 75 08/29/22 12:46 BP 118/62 08/29/22 12:46 BMI result Body Mass Index 27.1 Assessment & Plan Assessment & Plan (1) Osteoporosis: Code(s): M81.0 - Age-related osteoporosis without current pathological fracture Plan: This 82-year-old male with a history of osteoporosis. Secondary causes have been ruled out except for low testosterone. However, patient is not a candidate for testosterone replacement considering the past history of prostate cancer Plan is to resume the Tymlos and continue for a full years course Medications: New abaloparatide (Tymlos) inject into abdomen; do not inject within 2 inches of belly button/navel; rotate sites 80 mcg (0.04 mL) subcut DAILY 1.56 mL 11RF Coding Level of Care Code Est Pt Level 3 (39505) Diagnoses Osteoporosis M81.0
[2022-08-29 12:46] VITALS: BP 118/62; PULSE 75; BMI 27.1
== END 2022-08-29 13:13 | disposition home or self-care (01) ==
PROVIDERS: PCP Nurse Practitioner Primary Care; Visit Provider Internal Medicine Endocrinology, Diabetes & Metabolism
DX: M81.0 Age-related osteoporosis without current pathological fracture (principal)
CPT/HCPCS: 99213

== ENCOUNTER → 2022-08-29 12:13 | Outpatient (BNVA) | payer MEDICARE, SELFPAY | PROVIDERS: Visit Provider Internal Medicine Endocrinology, Diabetes & Metabolism | DX: M81.0 Age-related osteoporosis without current pathological fracture (principal) | CPT/HCPCS: 99212 ==

== ENCOUNTER 2022-09-05 12:27 | Outpatient (REF) | payer OTHER, SELFPAY ==
[2022-09-05 18:10] LABS: Urine Cytology See Pathology rpt
== END 2022-09-05 12:28 | disposition home or self-care (01) ==
LOC: HO.LAB 12:27
PROVIDERS: PCP Nurse Practitioner Primary Care; Visit Provider Urology
DX: R31.29 Other microscopic hematuria (principal); N39.0 Urinary tract infection, site not specified; N13.5 Crossing vessel and stricture of ureter without hydronephrosis
CPT/HCPCS: 88112; 99212

== ENCOUNTER 2022-09-05 12:27 | Outpatient (AMB) | payer OTHER, SELFPAY ==
--- NOTE | 2022-09-05 12:50 | A.OFFVIS_ITS ---
Intake Intake Visit Reasons: 4m follow up Intake Note: Patient is present for Follow Up Urology Med: None Antibiotic Allergy: None Blood Thinner: None Allergies No Known Allergies Allergy (Verified 09/05/22 12:52) HPI HPI Comments History of Present Illness Details Augustine is a pleasant Armenian-speaking male. He is a patient of Dr. Fabian. Seen for the following urologic conditions - renal cancer - persistent left hydronephrosis managed with indwelling stent Armenian translation provided by qualified medical equipment repair technician Accompanied by granddaughter Needs left stent exchange Minor right lower back pain on exam Renal cancer Prior right nephrectomy Left hydronephrosis Initially managed through [facility] Indwelling stent changed every 6 months [facility] Medical History ESBL (extended spectrum beta-lactamase) producing bacteria infection History of kidney cancer HTN (hypertension) Hydronephrosis Insomnia Osteoporosis Poor appetite Solitary kidney, acquired Ureteral stent present UTI (urinary tract infection) Weight loss Surgical History H/O kidney removal H/O prostatectomy History of right nephrectomy Hx of cholecystectomy Family History Mother No problems noted. Father Cancer Social History Household Members: Spouse Household Members Other:: Housing: Apartment Alcohol intake: never Patient Tobacco Use Status: Never used Tobacco Current occupational status: disabled Review of Systems Const Denies chills and Denies fever(s) Card Reports no additional complaints and Denies syncope Resp Denies cough GI Denies abdominal pain and Denies heartburn Reports as per HPI and Denies change in libido Neuro Denies syncope Psych Denies change in libido Endo Denies change in libido Physical Exam Const General: cooperative, healthy appearing, comfortable and no acute distress Orientation/consciousness: patient oriented x3 HEENT Face and sinus: Yes normal facial exam Mouth: moist mucous membranes Neck Neck: Yes normal visual inspection, Yes full ROM and Yes trachea midline Chest Chest palpation & inspection: normal inspection of the chest Resp Effort & Inspection: normal respiratory effort, able to speak in complete sentences and no respiratory distress GI Inspection: Yes normal to inspection Back/Spine/Pelvis Cervical Spine: normal cervical lordosis Thoracic/Lumbar Spine: thoracic and lumbar spine normal to inspection Skin General skin exam: no rashes or lesions noted Neuro General: patient oriented x3, gait normal, tone normal and moves all extremities Extrem General: Yes normal to inspection and Yes capillary refill normal Results AMB Urinalysis, Automated UA Leukoctes 500 Dion/uL Last Edit by Stephanie Faye A on 09/05/22 12:58 UA Nitrite Negative Last Edit by Stephanie Faye [facility] on 09/05/22 12:58 UA Urobilinogen 0.2 mg/dL Last Edit by Stephanie Faye A on 09/05/22 12:5 8 UA Protein 30 mg/dL Last Edit by Stephanie Faye [facility] on 09/05/22 12:58 UA pH 6.0 Last Edit by Stephanie Faye A on 09/05/22 12:58 UA Blood 200 Nikko/uL Last Edit by Stephanie Faye [facility] on 09/05/22 12:58 UA Specific Rowe 1.015 Last Edit by Stephanie Faye [facility] on 09/05/22 12: 58 UA Ketone Negative Last Edit by Stephanie Faye A on 09/05/22 12:58 UA Bilirubin 0 mg/dL Last Edit by Stephanie Faye A on 09/05/22 12:58 UA Glucose 0 mg/dL Last Edit by Stephanie Faye [facility] on 09/05/22 12:58 Results Reviewed Results Reviewed: Laboratory Last Values Urine pH (Auto) 6.0 09/05/22 12:52 Specific Rowe (Auto) 1.015 09/05/22 12:52 Urine Protein (Auto) 30 mg/dL 09/05/22 12:52 Glucose (UA)(Auto) 0 mg/dL 09/05/22 12:52 Urine Ketones (Auto) Negative 09/05/22 12:52 Urine Blood (Auto) 200 Nikko/uL 09/05/22 12:52 Urine Nitrite (Auto) Negative 09/05/22 12:52 Urine Bilirubin (Auto) 0 mg/dL 09/05/22 12:52 Urine Urobilinogen (Auto) 0.2 mg/dL 09/05/22 12:52 Leukocyte Esterase (Auto) 500 Dion/uL 09/05/22 12:52 Assessment & Plan Assessment & Plan (1) Complicated UTI (urinary tract infection): Code(s): N39.0 - Urinary tract infection, site not specified (2) Acquired stricture of ureter: Code(s): N13.5 - Crossing vessel and stricture of ureter without hydronephrosis Plan Risks, benefits and alternatives to therapy were discussed. These include but are not limited to infection, bleeding, damage to local organs and tissues, need for further interventions. Anesthetic risks regarding cardiac arrhythmia, blood clots, and potential mortality were discussed. The patient understands the typical recovery time and the outpatient nature of the procedure. After consideration of these risks the patient gives full informed consent and they wish to move ahead with the procedure. Orders: Orders Urine Cytology Today R31.29 - Other microscopic hematuria AMB Urinalysis Automated Today Z13.9 - Encounter for screening, unspecified Patient Instructions: Imaging studies, laboratory and physical exam results were discussed and reviewed in detail. No major barriers to patient understanding were identified. An opportunity to ask questions regarding the treatment plan was provided. All questions were answered. The patient expressed understanding and agreement with the above treatment plan. The patient is aware they should contact our office by phone for worsening of their current condition or the appearance of new urologic symptoms. Compliance is encouraged with any medications and followup testing that is ordered. It is a privilege to participate in the urologic care of your patient. If you have any questions or concerns regarding treatment for the above conditions, or other urologic issues, please do not hesitate to contact me. The office telephon e contact is [phone]. This note is constructed using voice recognition software. While every effort has been made to ensure accuracy driver recruiter errors may have been included. Yours sincerely, Dr Fabrizio Ramos MD, [facility] - Urology Providers of Expert, Compassionate Care for the Genitourinary System Coding Level of Care Code Est Pt Level 4 (50743) Diagnoses Complicated UTI (urinary tract infection) N39.0 Acquired stricture of ureter N13.5
== END 2022-09-05 13:21 | disposition home or self-care (01) ==
PROVIDERS: PCP Nurse Practitioner Primary Care; Visit Provider Urology
DX: N39.0 Urinary tract infection, site not specified (principal); N13.5 Crossing vessel and stricture of ureter without hydronephrosis
CPT/HCPCS: 99213

== ENCOUNTER 2022-10-23 09:28 | Day surgery (SDC) | payer OTHER, SELFPAY ==
--- NOTE | 2022-10-20 09:39 | HO.ANESPROP2 ---
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 Father Cancer Family history of problems with anesthesia: No Surgical History Surgical History H/O kidney removal H/O prostatectomy History of right nephrectomy Hx of cholecystectomy History of Problems with Anesthesia: No Social History Social History Household Members: Spouse Household Members Other:: Housing: Apartment Alcohol intake: never Patient Tobacco Use Status: Never used Tobacco Second Hand Smoke Exposure: No Use of substances other than those prescribed or required for medical reasons: No Are you DNR?: No Advance Directives: No Advance Directives Information Provided: Yes Advance Directives on File: No Current occupational status: disabled Meds Allergies Allergy/AdvReac Type Severity Reaction Status Date / Time No Known Allergies Allergy Verified 09/05/22 12:52 Home Medications Medication Instructions Recorded Confirmed Last Taken Type amlodipine 10 mg tablet 10 mg PO DAILY 03/10/21 06/20/22 06/19/22 History atorvastatin 40 mg tablet 40 mg PO BEDTIME 03/10/21 06/20/22 06/19/22 History Exam Exam Date and Time: October 20, 2022 0939 Pertinent Lab Results Pertinent Lab Results: Laboratory Tests 06/21/22 05:41 WBC 5.1 Hgb 12.8 L Hct 39.0 L Plt Count 110 L Sodium 142 Potassium 4.2 Chloride 107 Carbon Dioxide 28 BUN 17 H Creatinine 1.04 Narrative Narrative: EKG 06/2022 Vent. Rate : 076 BPM Atrial Rate : 076 BPM P-R Int : 148 ms QRS Dur : 082 ms QT Int : 402 ms P-R-T Axes : 029 -41 006 degrees QTc Int : 452 ms Normal sinus rhythm Left axis deviation Minimal voltage criteria for LVH, may be normal variant ( R in aVL ) Abnormal ECG No previous ECGs available Assessment and Plan Assessment Anesthesia Assessment: Chart Reviewed Final Anesthetic Review Family History of Problems with Anesthesia: No History of Problems with Anesthesia: No Documented by User: Clay Gale MD 10/23/22 11:38 PMFSH Past Medical History Medical History ESBL (extended spectrum beta-lactamase) producing bacteria infection History of kidney cancer HTN (hypertension) Hydronephrosis Insomnia Osteoporosis Poor appetite Solitary kidney, acquired Ureteral stent present UTI (urinary tract infection) Weight loss Family History Family History Mother No problems noted. Father Cancer Surgical History Surgical History H/O kidney removal H/O prostatectomy History of right nephrectomy Hx of cholecystectomy Social History Social History Household Members: Spouse Household Members Other:: Housing: Apartment Alcohol intake: never Patient Tobacco Use Status: Never used Tobacco Second Hand Smoke Exposure: No Use of substances other than those prescribed or required for medical reasons: No Are you DNR?: No Advance Directives: No Advance Directives Information Provided: Yes Advance Directives on File: No Current occupational status: disabled Meds Allergies Allergy/AdvReac Type Severity Reaction Status Date / Time No Known Allergies Allergy Verified 09/05/22 12:52 Home Medications Medication Instructions Recorded Confirmed Last Taken Type amlodipine 10 mg tablet 10 mg PO DAILY 03/10/21 06/20/22 06/19/22 History atorvastatin 40 mg tablet 40 mg PO BEDTIME 03/10/21 06/20/22 06/19/22 History Exam Airway Mallampati Class: I TM Dist: >3cm Neck ROM: Full Denture: Upper and Lower Heart: ok Lungs: ok Assessment and Plan Assessment Anesthesia Assessment: Anesthesia Plan Discussed Final Anesthetic Review NPO: Yes ASA Class: III Final Preanesthetic Review: No Changes in Pt Med Stat, Meds/Allgs Chart Reviewed, Consent Obtained/Reviewed and Anes Risks/Benef Reviewed Patient Risk: Intermediate Procedure Risk: Low Anesthetic Plan Anesthetic Plan: MAC: and Agree w/ Assess. and Plan Disposition: Standard PACU
--- NOTE | ~2022-10-23 | FL_ITS ---
EXAMINATION: XR FLUOROSCOPY WITH IMAGES CLINICAL INFORMATION: Left-sided change COMPARISON: Previous exam 05/08/2022 TECHNIQUE: Fluoroscopy Supervised By: Dr. Fabrizio Ramos. Fluoroscopy Time: 10.6 seconds. Cumulative Dose: 2.9 mGy. DAP: Gycm2. Images: 5. FINDINGS: Fluoroscopy guidance provided for left internal ureteral stent change. FL/FL guidance in OR IMPRESSION: Fluoroscopy guidance provided for left internal ureteral stent change.
[2022-10-23 10:16] VITALS: BP 147/77; PULSE 73; RESP 16; TEMP 36.4; O2SAT 97; BMI 27.1
[2022-10-23] MEDS: Lactated Ringers 1,000 ML 100 ML IVCONT (10:23)
--- NOTE | 2022-10-23 11:07 | MHC.SHP ---
Pre-Procedural Eval Section A Date of Service: 10/23/22 The patient is an INPATIENT: No Changes since office visit: No Cold of Flu in the past 2 weeks, No New Medical Problems, No Changes in Medication and No Patient answered all questions The History & Physical has been completed within 30 days and I have reviewed it.: No Section B Chief Complaint: Unspecified hydronephrosis Details of Present Illness: LEFT SIDE URETER STRICTURE WITH STENT EXCHANGE EVERY 6 MONTHS Relevant Family History (Specify if Yes): No Relevant Social History: None Present Medications: None Medical History: Significant History History of Previous Operations: Relevant previous surgery/procedure and date(s) Allergies: Allergies Allergy/AdvReac Type Severity Reaction Status Date / Time No Known Allergies Allergy Verified 09/05/22 12:52 Review of Systems Sugical H&P ROS: Negative: Constitution, Cardiovascular, Respiratory, Neurological, Psychiatric, Hem-Onc, Allergic/Immunologic, Gastrointestinal, Genitourinary, Musculoskeletal, Integumentary, Endocrine and Eyes/Ears/Nose/Throat Exam Surgical H&P Exam: Normal: HEENT, Normal: Heart, Normal: Lungs, Normal: Extremities, Normal: Abdomen, Normal: Skin and Normal: Neurological Plan Diagnosis/Plan: Unchanged ( cystoscopy, left retrograde, left stent exchange) I have reviewed the history and physical and performed a pertinent physical examination on my patient. No changes have occurred unless specified. Time Spent With Patient Time: Total time managing care of this patient today ____ minutes.
--- NOTE | 2022-10-23 11:44 | W.PM.OPN ---
Operative Note Operative Note Date of Service: 10/23/22 Narrative: PreOperative Diagnosis:? indwelling left stent Post Operative Diagnosis:? indwelling left stent Procedure:? cystoscopy, left retrograde, left stent exchange Surgeon: Dr Fabrizio Ramos Anesthesia:? sedation Indications for procedure:??hydronephrosis left side.? Requires permanent stent that is changed every 4-6 months. Procedure: After informed consent was verified the patient was brought to the operating room and placed in a supine position.? Anesthesia was administered per protocol. The patient was placed in modified dorsal lithotomy position and prepped and draped in a sterile fashion.? A safety pause time-out was performed. Laterality of procedure and antibiotics were confirmed. A 22 [place] cystoscope was introduced per urethra.? No abnormality was noted. ? Left stent seen coming from left ureter.? the open-ended catheter was placed alongside retrograde examination was performed. The Sensor wire was placed alongside up to the level of the renal pelvis. Stent was grasped and removed. A Six [place] by 24 cm stent placed with good coil seen The patient tolerated the procedure well and was transferred in stable condition to the recovery area. Pathology: ?none Drains: ?6 [place] by 24 cm double-J stent
[2022-10-23 11:56] VITALS: BP 142/75; PULSE 73; RESP 16; TEMP 37.1; O2SAT 95
[2022-10-23] MEDS: Acetaminophen 325 MG TABLET 650 MG PO (12:03)
[2022-10-23 12:11] VITALS: BP 150/81; PULSE 68; RESP 17; TEMP 36.2; O2SAT 96
== END 2022-10-23 13:20 | disposition home or self-care (01) ==
PROVIDERS: PCP Nurse Practitioner Primary Care; Visit Provider Urology
PROC: (CPT 52332; principal; 2022-10-23 11:30)
DX: N13.30 Unspecified hydronephrosis (principal); Z85.528 Personal history of other malignant neoplasm of kidney; Z90.5 Acquired absence of kidney; N39.0 Urinary tract infection, site not specified; N13.5 Crossing vessel and stricture of ureter without hydronephrosis; I10 Essential (primary) hypertension; M81.0 Age-related osteoporosis without current pathological fracture; Z90.49 Acquired absence of other specified parts of digestive tract
CPT/HCPCS: 52332; C1758; C1769; C2617; J1956; J3010; Q9967

== ENCOUNTER → 2022-10-23 09:28 | Outpatient (BNV) | payer OTHER, SELFPAY | PROVIDERS: PCP Nurse Practitioner Primary Care; Visit Provider Urology | DX: N13.30 Unspecified hydronephrosis (principal); Z96.0 Presence of urogenital implants | CPT/HCPCS: 52332 ==

== ENCOUNTER 2022-11-29 08:47 | Outpatient (REF) | payer OTHER, SELFPAY ==
[2022-11-29 11:29] LABS: Hematocrit 42.4 % (42.0-52.0); Hemoglobin 13.7 g/dl (14.0-18.0)
[2022-11-29 11:33] LABS: Estimated Average Glucose 117 mg/dL; Hemoglobin A1c % 5.7 % (<6.0)
[2022-11-29 12:07] LABS: Anion Gap 14 (12-20); Blood Urea Nitrogen 17 mg/dL (9-16); Calcium 10.3 mg/dL (8.4-10.2); Carbon Dioxide 22 mmol/L (22-29); Chloride 108 mmol/L (96-108); Cholesterol 202 mg/dL (<200); Estimated Glomerular Filt Rate > 60; Glucose Random 124 mg/dL (60-115); HDL Cholesterol 34 mg/dL (>40); LDL Cholesterol Calculated 135 mg/dL (<100); Potassium 4.1 mmol/L (3.3-5.1); Sodium 140 mmol/L (135-145); Triglycerides 165 mg/dL (<150)
[2022-11-29 12:09] LABS: Creatinine Urine 74.25 mg/dL; Microalbum/Creatinine Ratio Ur 188.5 ug/mg cr (<30)
== END 2022-11-29 08:48 | disposition home or self-care (01) ==
LOC: HO.HHCL 08:47
PROVIDERS: Visit Provider Nurse Practitioner Primary Care
DX: I10 Essential (primary) hypertension (principal); E78.5 Hyperlipidemia, unspecified; D64.9 Anemia, unspecified; K21.9 Gastro-esophageal reflux disease without esophagitis; R73.01 Impaired fasting glucose
CPT/HCPCS: 36415; 80048; 80061; 82043; 82570; 83036; 85014; 85018; 87338

== ENCOUNTER 2022-11-29 11:31 | Outpatient (REF) | payer OTHER, SELFPAY | END 2022-11-29 11:32 | disposition home or self-care (01) | LOC: HO.10HDLNP 11:31 | PROVIDERS: Visit Provider Nurse Practitioner Primary Care | DX: Z13.89 Encounter for screening for other disorder (principal) ==

== ENCOUNTER 2023-05-08 15:24 | Outpatient (AMB) | payer OTHER, SELFPAY ==
[2023-05-08 15:25] VITALS: BP 148/72; PULSE 78; BMI 26.9
--- NOTE | 2023-05-08 15:25 | MHC.OFFVIS ---
Intake Vital Signs 05/08/23 15:25 Height 5 ft 4 in Weight 156 lb 15.506 oz BMI 26.9 BP 148/72 H Blood Pressure Location Lt brachial Position Sitting Pulse 78 Pulse Source Pulse Oximeter Intake Visit Reasons: f/u osteoporosis-confirmed Intake Note: Patient presents today for Osteoporosis follow up visit. Paring Machine Operator Required: Yes Paring Machine Operator Language: Md Psychiatry Name: Tavia Information Interpreted: non-clinical & clinical Accompanied by: Daughter Allergies No Known Allergies Allergy (Verified 05/08/23 15:30) HPI HPI Comments History of Present Illness Details 81 YO M with] is seen in consultation at the request of PCP for Osteoporosis. Pt sent today for osteoporosis Received treatment in 6-7 yrs ago in the past with alendronate , for 1 yr Tolerated treatment well without complication. States currently not taking alendronate No history of pathologic fracture or ONJ. Has few servings of dietary calcium per day in the form of milk . Not Takes Calcium supplement . Not Takes Vitamin D daily. takes PPI, anticoagulant, antiepileptic or glucocorticoid medication. Not Does weight bearing exercise but walk 7 days per week Fracture history: No Height loss: No Denies history of Kidney stones: Has family history of Osteoporosis in brother but no hip fracture. UTD on dental cleanings and sees dentist every 6 months. No planned upcoming dental work or extractions. DXA dated 09/07/21:TECHNIQUE: Using a Hole 19 DXA System (software version: 13.1) manufactured by [employer], dual-energy x-ray absorptiometry was performed of the lumbar spine and left hip. The images are of good technical quality. Summary results are attached. FINDINGS: AP SPINE L1-L4: BMD 0.746 g/cm2, Z-score -3.3, T-score -3.9, osteoporosis. LEFT FEMUR, NECK: BMD 0.684 g/cm2, Z-score -1.5, T-score -3.0, osteoporosis. LEFT FEMUR, TOTAL: BMD 0.706 g/cm2, Z-score -1.6, T-score -2.7, osteoporosis. IDENTIFIED RISK FACTORS: Osteoporosis, renal. Labs: Secondary workup was negative except for low testosterone and patient not a candidate for testosterone replacement. Was started on Tymlos 3 mos ago off for 1 mo . Did not receive Tymlos in 04/2023 [facility], [facility] Medical History ESBL (extended spectrum beta-lactamase) producing bacteria infection History of kidney cancer HTN (hypertension) Hydronephrosis Insomnia Osteoporosis Poor appetite Solitary kidney, acquired Ureteral stent present UTI (urinary tract infection) Weight loss Surgical History History of right nephrectomy H/O prostatectomy Hx of cholecystectomy H/O kidney removal Family History Mother No problems noted. Father Cancer Social History Household Members: Spouse Household Members Other:: Housing: Apartment Alcohol intake: never Patient Tobacco Use Status: Never used Tobacco Second Hand Smoke Exposure: No Current occupational status: disabled Physical Exam Vital Signs: Last Vital Signs Pulse 78 05/08/23 15:25 BP 148/72 H 05/08/23 15:25 BMI result Body Mass Index 26.9 Assessment & Plan Assessment & Plan (1) Osteoporosis: Code(s): M81.0 - Age-related osteoporosis without current pathological fracture Plan: This 82-year-old male with a history of osteoporosis. Secondary causes have been ruled out except for low testosterone. However, patient is not a candidate for testosterone replacement considering the past history of prostate cancer Plan is to resume the Tymlos and continue for a full 18 mo course Coding Level of Care Code Est Pt Level 3 (74653) Diagnoses Osteoporosis M81.0
== END 2023-05-08 15:40 | disposition home or self-care (01) ==
PROVIDERS: PCP Nurse Practitioner Primary Care; Visit Provider Internal Medicine Endocrinology, Diabetes & Metabolism
DX: M81.0 Age-related osteoporosis without current pathological fracture (principal)
CPT/HCPCS: 99213

== ENCOUNTER → 2023-05-08 15:24 | Outpatient (BNVA) | payer OTHER, SELFPAY | PROVIDERS: PCP Nurse Practitioner Primary Care; Visit Provider Internal Medicine Endocrinology, Diabetes & Metabolism | DX: M81.0 Age-related osteoporosis without current pathological fracture (principal) | CPT/HCPCS: 99212 ==

== ENCOUNTER 2023-06-05 12:50 | Outpatient (AMB) | payer OTHER, SELFPAY ==
--- NOTE | 2023-06-05 12:51 | MHC.OFFVIS ---
Intake Visit Reasons: HIP Intake Note: Patient is present for telephone H&p Allergies No Known Allergies Allergy (Verified 06/05/23 12:51) HPI Comments Details: Augustine is a pleasant Cook Islander-speaking male. He is a patient of Dr. Fabian. Seen for the following urologic conditions - renal cancer - persistent left hydronephrosis managed with indwelling stent Telemedicine Evaluation 15 min Consultation Doximity Manuelito Video Cook Islander translation provided by qualified bilingual medical assistant Needs left stent exchange - to be organized Renal cancer Prior right nephrectomy Left hydronephrosis Initially managed through [facility] Indwelling stent changed every 6 months [facility] Medical History Insomnia Solitary kidney, acquired History of kidney cancer Ureteral stent present Osteoporosis ESBL (extended spectrum beta-lactamase) producing bacteria infection Hydronephrosis Weight loss Poor appetite HTN (hypertension) UTI (urinary tract infection) Surgical History History of right nephrectomy H/O prostatectomy Hx of cholecystectomy H/O kidney removal Family History Mother No problems noted. Father Cancer Social History Household Members: Spouse Household Members Other:: Housing: Apartment Alcohol intake: never Patient Tobacco Use Status: Never used Tobacco Second Hand Smoke Exposure: No Current occupational status: disabled Review of Systems Const All systems reviewed & are unremarkable except as noted in HPI and below Reports no additional complaints Resp Reports no additional complaints GI Reports no additional complaints Reports as per HPI Musc Reports no additional complaints Physical Exam Telemedicine evaluation Appropriate responses Regular breathing rate and rhythm HEENT Head: Yes normal to inspection Ears: hearing grossly normal bilaterally Eyes General: appearance normal, both eyes and all related structures Neck Neck: Yes normal visual inspection Chest Chest palpation & inspection: normal inspection of the chest Resp Effort & Inspection: normal respiratory effort and able to speak in complete sentences Telehealth Telehealth Location of provider rendering services: practice address Location of patient: address on file Patient Identification confirmed using: Name, : Yes Telehealth method: video Patient verbally consented to treatment: Yes Patient verbally consented to billing insurance company: Yes Patient informed of any privacy concerns related to visit: Yes Minutes spent on Phone/Video with Pt.: 15 Assessment & Plan Assessment & Plan (1) Acquired stricture of ureter: Code(s): N13.5 - Crossing vessel and stricture of ureter without hydronephrosis Category: Medical (2) Complicated UTI (urinary tract infection): Code(s): N39.0 - Urinary tract infection, site not specified Category: Medical Plan Risks, benefits and alternatives to therapy were discussed. These include but are not limited to infection, bleeding, damage to local organs and tissues, need for further interventions. Anesthetic risks regarding cardiac arrhythmia, blood clots, and potential mortality were discussed. The patient understands the typical recovery time and the outpatient nature of the procedure. After consideration of these risks the patient gives full informed consent and they wish to move ahead with the procedure. - cystoscopy, left stent exchange Patient Instructions: Imaging studies, laboratory and physical exam results were discussed and reviewed in detail. No major barriers to patient understanding were identified. An opportunity to ask questions regarding the treatment plan was provided. All questions were answered. The patient expressed understanding and agreement with the above treatment plan. The patient is aware they should contact our office by phone for worsening of their current condition or the appearance of new urologic symptoms. Compliance is encouraged with any medications and followup testing that is ordered. It is a privilege to participate in the urologic care of your patient. If you have any questions or concerns regarding treatment for the above conditions, or other urologic issues, please do not hesitate to contact me. The office telephone contact is [phone]. This note is constructed using voice recognition software. While every effort has been made to ensure accuracy small products assembler errors may have been included. Yours sincerely, Dr Fabrizio Ramos MD, [facility] - Urology Providers of Expert, Compassionate Care for the Genitourinary System Coding Level of Care Code Tele Est Pt Level 3 (76586) Diagnoses Acquired stricture of ureter N13.5 Complicated UTI (urinary tract infection) N39.0
== END 2023-06-05 13:34 | disposition home or self-care (01) ==
LOC: HO.HUSH 12:50
PROVIDERS: PCP Nurse Practitioner Primary Care; Visit Provider Urology
DX: N13.5 Crossing vessel and stricture of ureter without hydronephrosis (principal); N39.0 Urinary tract infection, site not specified
CPT/HCPCS: 99213

== ENCOUNTER → 2023-06-05 12:50 | Outpatient (BNVA) | payer OTHER, SELFPAY | PROVIDERS: PCP Nurse Practitioner Primary Care; Visit Provider Urology ==

== ENCOUNTER 2023-06-25 11:52 | Day surgery (SDC) | payer OTHER, SELFPAY ==
[2023-06-21 10:43] VITALS: BMI 27.1
--- NOTE | 2023-06-21 15:38 | P.CONAN_ITS ---
Documented by User: Ann Marie Molina NP 06/21/23 15:39 HPI - Anesthesia Eval Consult details Narrative: 82yo M for Left Cystoscopy & Stent exchange s/p same 10/[address] [facility] Active Problems Active Problems: All Active Problems Acquired stricture of ureter (Acute) Complicated UTI (urinary tract infection) (Acute) Essential hypertension (Acute) H/O kidney removal (Acute) Insomnia (Acute) ESBL (extended spectrum beta-lactamase) producing bacteria infection (Acute) Osteoporosis (Acute) H/O prostatectomy (Acute) UTI (urinary tract infection) (Acute) Past Medical History Medical History (Updated 06/21/23 @ 10:43 by Silvia Wilkerson RN) Elevated cholesterol Insomnia Solitary kidney, acquired History of kidney cancer Ureteral stent present Osteoporosis ESBL (extended spectrum beta-lactamase) producing bacteria infection Hydronephrosis Weight loss Poor appetite HTN (hypertension) UTI (urinary tract infection) Family History Family History Mother No problems noted. Father Cancer Family history of problems with anesthesia: No Surgical History Surgical History (Updated 06/21/23 @ 10:43 by Silvia Wilkerson RN) Hx of cystoscopy History of right nephrectomy H/O prostatectomy Hx of cholecystectomy History of Problems with Anesthesia: No Social History Social History Household Members: Spouse Household Members Other:: Housing: Apartment Alcohol intake: never Patient Tobacco Use Status: Never used Tobacco Second Hand Smoke Exposure: No Use of substances other than those prescribed or required for medical reasons: No Are you DNR?: No Advance Directives: No Advance Directives Information Provided: Yes Current occupational status: disabled Meds Allergies Allergy/AdvReac Type Severity Reaction Status Date / Time No Known Allergies Allergy Verified 06/05/23 12:51 Home Medications ?Medication ?Instructions ?Recorded ?Confirmed ?Last Taken ?Type amlodipine 10 mg tablet 10 mg PO DAILY 03/10/21 06/21/23 06/25/23 History atorvastatin 40 mg tablet 40 mg PO BEDTIME 03/10/21 06/21/23 06/19/22 History escitalopram oxalate 10 mg tablet 10 mg PO BEDTIME anxiety 05/08/23 06/21/23 Unknown History Exam Height,Weight and Vital Signs: Height 5 ft 4 in Weight 71.6 kg Pertinent Lab Results Pertinent Lab Results: Laboratory Tests 11/29/22 08:52 Hgb 13.7 L Hct 42.4 Sodium 140 Potassium 4.1 Chloride 108 Carbon Dioxide 22 BUN 17 H Creatinine 1.11 Narrative Narrative: EKG 06/2022 Vent. Rate : 076 BPM Atrial Rate : 076 BPM P-R Int : 148 ms QRS Dur : 082 ms QT Int : 402 ms P-R-T Axes : 029 -41 006 degrees QTc Int : 452 ms Normal sinus rhythm Left axis deviation Minimal voltage criteria for LVH, may be normal variant ( R in aVL ) Abnormal ECG No previous ECGs available Assessment and Plan Assessment Anesthesia Assessment: Chart Reviewed Final Anesthetic Review Family History of Problems with Anesthesia: No History of Problems with Anesthesia: No Documented by User: Nicole Wiley MD 06/25/23 14:43 PMF Past Medical History Medical History (Updated 06/21/23 @ 10:43 by Silvia Wilkerson RN) Elevated cholesterol Insomnia Solitary kidney, acquired History of kidney cancer Ureteral stent present Osteoporosis ESBL (extended spectrum beta-lactamase) producing bacteria infection Hydronephrosis Weight loss Poor appetite HTN (hypertension) UTI (urinary tract infection) Family History Family History Mother No problems noted. Father Cancer Surgical History Surgical History (Updated 06/21/23 @ 10:43 by Silvia Wilkerson RN) Hx of cystoscopy History of right nephrectomy H/O prostatectomy Hx of cholecystectomy Social History Social History Household Members: Spouse Household Members Other:: Housing: Apartment Alcohol intake: never Patient Tobacco Use Status: Never used Tobacco Second Hand Smoke Exposure: No Use of substances other than those prescribed or required for medical reasons: No Are you DNR?: No Advance Directives: No Advance Directives Information Provided: Yes Current occupational status: disabled Meds Allergies Allergy/AdvReac Type Severity Reaction Status Date / Time No Known Allergies Allergy Verified 06/05/23 12:51 Home Medications ?Medication ?Instructions ?Recorded ?Confirmed ?Last Taken ?Type amlodipine 10 mg tablet 10 mg PO DAILY 03/10/21 06/21/23 06/25/23 History atorvastatin 40 mg tablet 40 mg PO BEDTIME 03/10/21 06/21/23 06/19/22 History escitalopram oxalate 10 mg tablet 10 mg PO BEDTIME anxiety 05/08/23 06/21/23 Unknown History Exam Airway Mallampati Class: II TM Dist: >3cm Neck ROM: Full Denture: Upper and Lower Heart: rrr Lungs: cta Assessment and Plan Assessment Anesthesia Assessment: Anesthesia Plan Discussed Final Anesthetic Review NPO: Yes ASA Class: III Final Preanesthetic Review: No Changes in Pt Med Stat, Meds/Allgs Chart Reviewed and Consent Obtained/Reviewed Patient Risk: Intermediate Procedure Risk: Low Anesthetic Plan Anesthetic Plan: MAC: Disposition: Standard PACU
--- NOTE | ~2023-06-25 | FL_ITS ---
EXAMINATION: XR FLUOROSCOPY WITH IMAGES CLINICAL INFORMATION: Left stent exchange. COMPARISON: None available. TECHNIQUE: Fluoroscopy Supervised By: Dr. Fabrizio Ramos. Fluoroscopy Time: 11 seconds. Cumulative Dose: 2.31 mGy. Images: 1. FINDINGS: Intraoperative fluoroscopy and spot films were performed during a procedure in the OR. A wire is present in the left ureter extending into the left intrarenal collecting system. Please see Dr. Fabrizio Ramos's report for complete details. FL/FL guidance in OR IMPRESSION: Intraoperative fluoroscopy and spot films were obtained. Please see Dr. Fabrizio Ramos's report for complete details.
[2023-06-25 12:58] VITALS: BMI 26.3
[2023-06-25 13:10] VITALS: BP 149/67; PULSE 68; RESP 16; TEMP 36.2; O2SAT 97
[2023-06-25] MEDS: Lactated Ringers 1,000 ML 100 ML IVCONT (13:23)
--- NOTE | 2023-06-25 15:44 | MHC.SHP ---
Pre-Procedural Eval Section A - 24 Hr Update-Section A only Date of Service: 06/25/23 The patient is an INPATIENT: No Changes since office visit: No Cold of Flu in the past 2 weeks, No New Medical Problems, No Changes in Medication and No Patient answered all questions The patient has been examined within 24 hours of the surgical procedure. The History & Physical has been completed within 30 days and I have reviewed it.: Yes Section B - Complete if H&P > 30 days Chief Complaint: Unspecified hydronephrosis Details of Present Illness: Suite, left stent exchange Allergies: Allergies Allergy/AdvReac Type Severity Reaction Status Date / Time No Known Allergies Allergy Verified 06/05/23 12:51 Review of Systems Sugical H&P ROS: Negative: Constitution, Cardiovascular, Respiratory, Neurological, Psychiatric, Hem-Onc, Allergic/Immunologic, Gastrointestinal, Genitourinary, Musculoskeletal, Integumentary, Endocrine and Eyes/Ears/Nose/Throat Exam Surgical H&P Exam: Normal: HEENT, Normal: Heart, Normal: Lungs, Normal: Extremities, Normal: Abdomen, Normal: Skin and Normal: Neurological Plan Diagnosis/Plan: Unchanged (Cystoscopy left stent exchange) I have reviewed the history and physical and performed a pertinent physical examination on my patient. No changes have occurred unless specified. Time Spent With Patient Time: Total time managing care of this patient today ____ minutes.
--- NOTE | 2023-06-25 16:13 | W.PM.OPN ---
Operative Note Operative Note Date of Service: 06/25/23 Narrative: PreOperative Diagnosis:? indwelling left stent Post Operative Diagnosis:? indwelling left stent Procedure:? cystoscopy, left retrograde, left stent exchange Surgeon: Dr Fabrizio Ramos Anesthesia:? sedation Indications for procedure:??hydronephrosis left side.? Requires permanent stent that is changed every 4-6 months. Procedure: After informed consent was verified the patient was brought to the operating room and placed in a supine position.? Anesthesia was administered per protocol. The patient was placed in modified dorsal lithotomy position and prepped and draped in a sterile fashion.? A safety pause time-out was performed. Laterality of procedure and antibiotics were confirmed. A 22 Gabonese cystoscope was introduced per urethra.? No abnormality was noted. ? Left stent seen coming from left ureter.? the open-ended catheter was placed alongside retrograde examination was performed. The Sensor wire was placed alongside up to the level of the renal pelvis. Stent was grasped and removed. A Six Gabonese by 24 cm stent placed with good coil seen The patient tolerated the procedure well and was transferred in stable condition to the recovery area. Pathology: ?none Drains: ?6 Gabonese by 24 cm double-J stent
[2023-06-25 16:19] VITALS: BP 146/82; PULSE 75; RESP 16; TEMP 36.1; O2SAT 95
[2023-06-25 16:20] VITALS: BP 146/78; PULSE 69; RESP 16; O2SAT 94
[2023-06-25 16:24] VITALS: BP 153/81; PULSE 67; RESP 16; O2SAT 95
[2023-06-25] MEDS: Phenazopyridine HCL 100 MG TABLET PO (16:28)
[2023-06-25 16:34] VITALS: BP 154/80; PULSE 67; RESP 16; TEMP 36.4; O2SAT 96
[2023-06-25] MEDS: Acetaminophen 325 MG TABLET 650 MG PO (16:53)
== END 2023-06-25 16:53 | disposition home or self-care (01) ==
PROVIDERS: PCP Nurse Practitioner Primary Care; Visit Provider Urology
PROC: (CPT 52332; principal; 2023-06-25 13:50)
DX: Z46.6 Encounter for fitting and adjustment of urinary device (principal); N13.30 Unspecified hydronephrosis; Z96.0 Presence of urogenital implants; Z85.528 Personal history of other malignant neoplasm of kidney; Z90.5 Acquired absence of kidney
CPT/HCPCS: 52332; C1758; C1769; C2617; J1956; J2704; Q9967

== ENCOUNTER → 2023-06-25 11:52 | Outpatient (BNV) | payer OTHER, SELFPAY | PROVIDERS: PCP Nurse Practitioner Primary Care; Visit Provider Urology | DX: N13.30 Unspecified hydronephrosis (principal); Z96.0 Presence of urogenital implants | CPT/HCPCS: 52332; 74420 ==

== ENCOUNTER 2023-07-05 09:11 | Outpatient (REF) | payer OTHER, SELFPAY ==
[2023-07-05 12:03] LABS: Alanine Aminotransferase 27 U/L (0-40); Albumin Level 4.2 g/dL (3.5-5.0); Alkaline Phosphatase 69 U/L (39-117); Aspartate Amino Transferase 26 U/L (5-37); Bilirubin Direct 0.2 mg/dL (0.0-0.5); Bilirubin Total 0.5 mg/dL (0.0-1.0); Cholesterol 119 mg/dL (<200); HDL Cholesterol 28 mg/dL (>40); LDL Cholesterol Calculated 60 mg/dL (<100); Total Protein 7.8 g/dL (6.5-8.0); Triglycerides 155 mg/dL (<150)
== END 2023-07-05 09:12 | disposition home or self-care (01) ==
LOC: HO.HHCL 09:11
PROVIDERS: Visit Provider Nurse Practitioner Primary Care
DX: E78.5 Hyperlipidemia, unspecified (principal)
CPT/HCPCS: 36415; 80061; 80076

== ENCOUNTER 2023-07-13 13:36 | Outpatient (AMB) | payer OTHER, SELFPAY ==
--- NOTE | 2023-07-13 13:36 | MHC.OFFVIS ---
Intake Visit Reasons: Cyst, L stent exchange- F/U Intake Note: Patient is present for Telephone H&P Allergies No Known Allergies Allergy (Verified 06/05/23 12:51) HPI Comments Details: Augustine is a pleasant Burmese-speaking male. He is a patient of Dr. Fabian. Seen for the following urologic conditions - renal cancer - persistent left hydronephrosis managed with indwelling stent Telemedicine Evaluation 15 min Consultation DoximGeodruid Manuelito Video Burmese translation provided by qualified medical artist Stable after procedure Left stent exchanged 07/05 Plan on exchange in 5 november Renal cancer Prior right nephrectomy Left hydronephrosis Initially managed through [facility] Indwelling stent changed every 5 months [facility] Medical History (Updated 06/21/23 @ 10:43 by Silvia Wilkerson RN) Elevated cholesterol Insomnia Solitary kidney, acquired History of kidney cancer Ureteral stent present Osteoporosis ESBL (extended spectrum beta-lactamase) producing bacteria infection Hydronephrosis Weight loss Poor appetite HTN (hypertension) UTI (urinary tract infection) Surgical History (Updated 06/21/23 @ 10:43 by Silvia Wilkerson RN) Hx of cystoscopy History of right nephrectomy H/O prostatectomy Hx of cholecystectomy Family History Mother No problems noted. Father Cancer Social History Household Members: Spouse Household Members Other:: Housing: Apartment Alcohol intake: never Comment: tylenol and pyridium given Patient Tobacco Use Status: Never used Tobacco Second Hand Smoke Exposure: No Current occupational status: disabled Review of Systems Const All systems reviewed & are unremarkable except as noted in HPI and below Reports no additional complaints Resp Reports no additional complaints GI Reports no additional complaints Reports as per HPI Musc Reports no additional complaints Physical Exam Telemedicine evaluation Appropriate responses Regular breathing rate and rhythm HEENT Head: Yes normal to inspection Ears: hearing grossly normal bilaterally Eyes General: appearance normal, both eyes and all related structures Neck Neck: Yes normal visual inspection Chest Chest palpation & inspection: normal inspection of the chest Resp Effort & Inspection: normal respiratory effort and able to speak in complete sentences Telehealth Telehealth Telehealth Platform: [employer] Location of provider rendering services: practice address Location of patient: address on file Patient Identification confirmed using: Name, : Yes Telehealth method: video Patient verbally consented to treatment: Yes Patient verbally consented to billing insurance company: Yes Patient informed of any privacy concerns related to visit: Yes Minutes spent on Phone/Video with Pt.: 15 Assessment & Plan Assessment & Plan (1) Acquired stricture of ureter: Code(s): N13.5 - Crossing vessel and stricture of ureter without hydronephrosis Category: Medical Plan Risks, benefits and alternatives to therapy were discussed. These include but are not limited to infection, bleeding, damage to local organs and tissues, need for further interventions. Anesthetic risks regarding cardiac arrhythmia, blood clots, and potential mortality were discussed. The patient understands the typical recovery time and the outpatient nature of the procedure. After consideration of these risks the patient gives full informed consent and they wish to move ahead with the procedure. Five month follow-up cystoscopy, left stent removal, left stent placed Patient Instructions: Imaging studies, laboratory and physical exam results were discussed and reviewed in detail. No major barriers to patient understanding were identified. An opportunity to ask questions regarding the treatment plan was provided. All questions were answered. The patient expressed understanding and agreement with the above treatment plan. The patient is aware they should contact our office by phone for worsening of their current condition or the appearance of new urologic symptoms. Compliance is encouraged with any medications and followup testing that is ordered. It is a privilege to participate in the urologic care of your patient. If you have any questions or concerns regarding treatment for the above conditions, or other urologic issues, please do not hesitate to contact me. The office telephone contact is [phone]. This note is constructed using voice recognition software. While every effort has been made to ensure accuracy supervisor of instruction errors may have been included. Yours sincerely, Dr Fabrizio Ramos MD, [facility] - Urology Providers of Expert, Compassionate Care for the Genitourinary System Coding Level of Care Code Tele Est Pt Level 3 (95929) Diagnoses Acquired stricture of ureter N13.5
== END 2023-07-13 13:49 | disposition home or self-care (01) ==
LOC: HO.HUSH 13:36
PROVIDERS: PCP Nurse Practitioner Primary Care; Visit Provider Urology
DX: N13.5 Crossing vessel and stricture of ureter without hydronephrosis (principal)
CPT/HCPCS: 99213

== ENCOUNTER → 2023-07-13 13:36 | Outpatient (BNVA) | payer OTHER, SELFPAY | PROVIDERS: PCP Nurse Practitioner Primary Care; Visit Provider Urology ==

== ENCOUNTER 2023-11-15 15:27 | Outpatient (AMB) | payer OTHER, SELFPAY ==
--- NOTE | 2023-11-15 15:28 | MHC.OFFVIS ---
Vital Signs 11/15/23 15:30 Height 5 ft 5 in Weight 162 lb 11.218 oz BMI 27.1 BP 128/58 L Blood Pressure Location Lt brachial Position Sitting Pulse 64 Pulse Source Pulse Oximeter Intake Visit Reasons: f/u osteoporosis-confirmed Intake Note: Patient present today for Osteoporosis follow up visit. Certified Diabetes Educator Required: Yes Certified Diabetes Educator Language: Relations Manager Services: Certified Diabetes Educator Present Certified Diabetes Educator Name: Kerrie Information Interpreted: non-clinical & clinical Accompanied by: Daughter Allergies No Known Allergies Allergy (Verified 11/15/23 15:33) Medication List - Last Reconciled 11/15/23 by Sam Fry MD abaloparatide (Tymlos) 80 mcg (0.04 mL) subcut DAILY amlodipine 10 mg PO DAILY atorvastatin 40 mg PO BEDTIME escitalopram oxalate 10 mg PO BEDTIME HPI Comments Details: 83 YO M with] is seen in consultation at the request of PCP for Osteoporosis. Pt sent today for osteoporosis Received treatment in 6-7 yrs ago in the past with alendronate , for 1 yr Tolerated treatment well without complication. States currently not taking alendronate No history of pathologic fracture or ONJ. Has few servings of dietary calcium per day in the form of milk . Not Takes Calcium supplement . Not Takes Vitamin D daily. takes PPI, anticoagulant, antiepileptic or glucocorticoid medication. Not Does weight bearing exercise but walk 7 days per week Fracture history: No Height loss: No Denies history of Kidney stones: Has family history of Osteoporosis in brother but no hip fracture. UTD on dental cleanings and sees dentist every 6 months. No planned upcoming dental work or extractions. DXA dated 09/07/21:TECHNIQUE: Using a MyEdu DXA System (software version: 13.1) manufactured by [employer], dual-energy x-ray absorptiometry was performed of the lumbar spine and left hip. The images are of good technical quality. Summary results are attached. FINDINGS: AP SPINE L1-L4: BMD 0.746 g/cm2, Z-score -3.3, T-score -3.9, osteoporosis. LEFT FEMUR, NECK: BMD 0.684 g/cm2, Z-score -1.5, T-score -3.0, osteoporosis. LEFT FEMUR, TOTAL: BMD 0.706 g/cm2, Z-score -1.6, T-score -2.7, osteoporosis. IDENTIFIED RISK FACTORS: Osteoporosis, renal. Labs: Secondary workup was negative except for low testosterone and patient not a candidate for testosterone replacement. Was started on Tymlos 3 mos ago off for 1 mo . Did not receive Tymlos in 04/2023 currently on Tymlos since 04/2023 for a total of 10 months. No fx since this visit [facility] Medical History (Updated 06/21/23 @ 10:43 by Silvia Wilkerson RN) Elevated cholesterol Insomnia Solitary kidney, acquired History of kidney cancer Ureteral stent present Osteoporosis ESBL (extended spectrum beta-lactamase) producing bacteria infection Hydronephrosis Weight loss Poor appetite HTN (hypertension) UTI (urinary tract infection) Surgical History (Updated 06/21/23 @ 10:43 by Silvia Wilkerson RN) Hx of cystoscopy History of right nephrectomy H/O prostatectomy Hx of cholecystectomy Family History Mother No problems noted. Father Cancer Social History Household Members: Spouse Household Members Other:: Housing: Apartment Alcohol intake: never Comment: tylenol and pyridium given Patient Tobacco Use Status: Never used Tobacco Second Hand Smoke Exposure: No Current occupational status: disabled Assessment & Plan Assessment & Plan (1) Osteoporosis: Code(s): M81.0 - Age-related osteoporosis without current pathological fracture Category: Medical Plan: This 82-year-old male with a history of osteoporosis. Secondary causes have been ruled out except for low testosterone. However, patient is not a candidate for testosterone replacement considering the past history of prostate cancer. Currently on Tymlos Plan is to resume the Tymlos and continue for a full 18 mo course until 09/2024 Coding Level of Care Code Est Pt Level 3 (25761) Diagnoses Osteoporosis M81.0
[2023-11-15 15:30] VITALS: BP 128/58; PULSE 64; BMI 27.1
== END 2023-11-15 15:40 | disposition home or self-care (01) ==
PROVIDERS: PCP Nurse Practitioner Primary Care; Visit Provider Internal Medicine Endocrinology, Diabetes & Metabolism
DX: M81.0 Age-related osteoporosis without current pathological fracture (principal)
CPT/HCPCS: 99213

== ENCOUNTER → 2023-11-15 15:27 | Outpatient (BNVA) | payer OTHER, SELFPAY | PROVIDERS: PCP Nurse Practitioner Primary Care; Visit Provider Internal Medicine Endocrinology, Diabetes & Metabolism | DX: M81.0 Age-related osteoporosis without current pathological fracture (principal) | CPT/HCPCS: 99212 ==

== ENCOUNTER 2023-11-19 05:55 | Day surgery (SDC) | payer OTHER, SELFPAY ==
--- NOTE | 2023-11-16 12:16 | HO.ANESPROP2 ---
Documented by User: Ann Marie Molina NP 11/16/23 12:17 HPI - Anesthesia Eval Consult details Narrative: 83yo M for Left Cystoscopy & Stent Exchange s/p same 06/2023 with MAC Renal CA s/p R nephrectomy PMFSH Active Problems Active Problems: All Active Problems Acquired stricture of ureter (Acute) Complicated UTI (urinary tract infection) (Acute) Essential hypertension (Acute) H/O kidney removal (Acute) Insomnia (Acute) ESBL (extended spectrum beta-lactamase) producing bacteria infection (Acute) Osteoporosis (Acute) H/O prostatectomy (Acute) UTI (urinary tract infection) (Acute) Past Medical History Medical History Elevated cholesterol Insomnia Solitary kidney, acquired History of kidney cancer Ureteral stent present Osteoporosis ESBL (extended spectrum beta-lactamase) producing bacteria infection Hydronephrosis Weight loss Poor appetite HTN (hypertension) UTI (urinary tract infection) Family History Family History Mother No problems noted. Father Cancer Family history of problems with anesthesia: No Surgical History Surgical History Hx of cystoscopy History of right nephrectomy H/O prostatectomy Hx of cholecystectomy History of Problems with Anesthesia: No Social History Social History Household Members: Spouse Household Members Other:: Housing: Apartment Are you a primary home health care social worker to a significant other at home: No Do you presently have visiting nurse or other home services: No Alcohol intake: never Comment: tylenol and pyridium given Patient Tobacco Use Status: Never used Tobacco Second Hand Smoke Exposure: No Have you been hit, kicked, punched, or otherwise hurt by someone within the past year? If so, by whom?: No Are you DNR?: No Advance Directives: No Advance Directives Information Provided: Yes Recently lost weight without trying: No Nutrition Risks: No Nutritional Risk Current occupational status: disabled Meds Allergies Allergy/AdvReac Type Severity Reaction Status Date / Time No Known Allergies Allergy Verified 11/19/23 06:57 Home Medications ?Medication ?Instructions ?Recorded ?Confirmed ?Last Taken ?Type amlodipine 10 mg tablet 10 mg PO DAILY 03/10/21 11/19/23 06/25/23 History atorvastatin 40 mg tablet 40 mg PO BEDTIME 03/10/21 11/19/23 06/19/22 History escitalopram oxalate 10 mg tablet 10 mg PO BEDTIME anxiety 05/08/23 11/19/23 Unknown History Assessment and Plan Final Anesthetic Review Family History of Problems with Anesthesia: No History of Problems with Anesthesia: No Documented by User: Nicole Wiley MD 11/19/23 07:20 [facility] Past Medical History Medical History Elevated cholesterol Insomnia Solitary kidney, acquired History of kidney cancer Ureteral stent present Osteoporosis ESBL (extended spectrum beta-lactamase) producing bacteria infection Hydronephrosis Weight loss Poor appetite HTN (hypertension) UTI (urinary tract infection) Family History Family History Mother No problems noted. Father Cancer Surgical History Surgical History Hx of cystoscopy History of right nephrectomy H/O prostatectomy Hx of cholecystectomy Social History Social History Household Members: Spouse Household Members Other:: Housing: Apartment Are you a primary home health care social worker to a significant other at home: No Do you presently have visiting nurse or other home services: No Alcohol intake: never Comment: tylenol and pyridium given Patient Tobacco Use Status: Never used Tobacco Second Hand Smoke Exposure: No Have you been hit, kicked, punched, or otherwise hurt by someone within the past year? If so, by whom?: No Are you DNR?: No Advance Directives: No Advance Directives Information Provided: Yes Recently lost weight without trying: No Nutrition Risks: No Nutritional Risk Current occupational status: disabled Meds Allergies Allergy/AdvReac Type Severity Reaction Status Date / Time No Known Allergies Allergy Verified 11/19/23 06:57 Home Medications ?Medication ?Instructions ?Recorded ?Confirmed ?Last Taken ?Type amlodipine 10 mg tablet 10 mg PO DAILY 03/10/21 11/19/23 06/25/23 History atorvastatin 40 mg tablet 40 mg PO BEDTIME 03/10/21 11/19/23 06/19/22 History escitalopram oxalate 10 mg tablet 10 mg PO BEDTIME anxiety 05/08/23 11/19/23 Unknown History Exam Airway Mallampati Class: II TM Dist: >3cm Neck ROM: Full Denture: Upper and Lower Heart: rrr Lungs: cta Assessment and Plan Assessment Anesthesia Assessment: Anesthesia Plan Discussed and Chart Reviewed Final Anesthetic Review NPO: Yes ASA Class: III Final Preanesthetic Review: No Changes in Pt Med Stat, Meds/Allgs Chart Reviewed and Consent Obtained/Reviewed Patient Risk: Intermediate Procedure Risk: Low Anesthetic Plan Anesthetic Plan: MAC: Disposition: Standard PACU
[2023-11-19] MEDS: Lactated Ringers 1,000 ML 100 ML IVCONT (06:20)
[2023-11-19 06:49] LABS: Hematocrit 40.8 % (42.0-52.0); Hemoglobin 13.4 g/dl (14.0-18.0); Mean Corpuscular HGB Conc 32.8 g/dl (31.0-36.0); Mean Corpuscular Hemoglobin 31.2 pg (27.0-33.0); Mean Corpuscular Volume 94.9 fL (80.0-98.0); Mean Platelet Volume 10.7 fL (9.4-12.4); Platelet Count 112 X10*3/uL (160-400); Red Cell Distribution Width 13.2 % (11.0-16.0); White Blood Count 6.1 X10*3/uL (4.8-10.8)
[2023-11-19 06:56] VITALS: BP 145/72; PULSE 67; RESP 18; TEMP 36.8; O2SAT 98
--- NOTE | 2023-11-19 06:57 | PC.NURSE ---
IV attempt by author. Attempt and insertion by oren joseph rn.
[2023-11-19 07:04] VITALS: BMI 26.3
[2023-11-19 07:05] LABS: Anion Gap 10 (12-20); Blood Urea Nitrogen 13 mg/dL (9-16); Calcium 9.7 mg/dL (8.4-10.2); Carbon Dioxide 23 mmol/L (22-29); Chloride 111 mmol/L (96-108); Creatinine Clr Calc Pharmacy 44.6; Estimated Glomerular Filt Rate > 60; Glucose Fasting 107 mg/dL (60-99); Potassium 4.2 mmol/L (3.3-5.1); Sodium 140 mmol/L (135-145)
--- NOTE | 2023-11-19 07:19 | PC.NURSE ---
Dr. Wiley and Dr. Ramos reviewed labs that were drawn today. Ok to proceed. no interventions.
--- NOTE | 2023-11-19 07:21 | MHC.SHP ---
Pre-Procedural Eval Section A - 24 Hr Update-Section A only Date of Service: 11/19/23 The patient is an INPATIENT: No Changes since office visit: No Cold of Flu in the past 2 weeks, No New Medical Problems, No Changes in Medication and No Patient answered all questions The patient has been examined within 24 hours of the surgical procedure. The History & Physical has been completed within 30 days and I have reviewed it.: No Section B - Complete if H&P > 30 days Chief Complaint: Unspecified hydronephrosis Details of Present Illness: Left-sided hydroureteronephrosis. Managed with stent exchange every 5 months. Here for stent exchange. Relevant Social History: None Present Medications: None Medical History: No relevant PMH History of Previous Operations: No relevant previous surgery Allergies: Allergies Allergy/AdvReac Type Severity Reaction Status Date / Time No Known Allergies Allergy Verified 11/19/23 06:57 Review of Systems Sugical H&P ROS: Negative: Constitution, Cardiovascular, Respiratory, Neurological, Psychiatric, Hem-Onc, Allergic/Immunologic, Gastrointestinal, Genitourinary, Musculoskeletal, Integumentary, Endocrine and Eyes/Ears/Nose/Throat Exam Surgical H&P Exam: Normal: HEENT, Normal: Heart, Normal: Lungs, Normal: Extremities, Normal: Abdomen, Normal: Skin and Normal: Neurological Plan Diagnosis/Plan: Unchanged (Cystoscopy, left stent removal, left stent insertion) I have reviewed the history and physical and performed a pertinent physical examination on my patient. No changes have occurred unless specified. Time Spent With Patient Time: Total time managing care of this patient today ____ minutes.
[2023-11-19] MEDS: levoFLOXacin 500 MG TABLET PO (07:24)
[2023-11-19 07:53] VITALS: BP 118/73; PULSE 63; RESP 16; TEMP 36.2; O2SAT 95
[2023-11-19 08:08] VITALS: BP 118/73; PULSE 66; RESP 17; O2SAT 95
--- NOTE | 2023-11-19 08:14 | W.PM.OPN ---
Operative Note Operative Note Date of Service: 11/19/23 Narrative: PreOperative Diagnosis:? indwelling left stent Post Operative Diagnosis:? indwelling left stent Procedure:? cystoscopy, left retrograde, left stent exchange Surgeon: Dr Fabrizio Ramos Anesthesia:? sedation Indications for procedure:??hydronephrosis left side.? Requires permanent stent that is changed every 4-6 months. Procedure: After informed consent was verified the patient was brought to the operating room and placed in a supine position.? Anesthesia was administered per protocol. The patient was placed in modified dorsal lithotomy position and prepped and draped in a sterile fashion.? A safety pause time-out was performed. Laterality of procedure and antibiotics were confirmed. A 22 Algerian cystoscope was introduced per urethra.? No abnormality was noted. ? Left stent seen coming from left ureter.? the open-ended catheter was placed alongside retrograde examination was performed. The Sensor wire was placed alongside up to the level of the renal pelvis. Stent was grasped and removed. A Six Algerian by 24 cm stent placed with good coil seen The patient tolerated the procedure well and was transferred in stable condition to the recovery area. Pathology: ?none Drains: ?6 Algerian by 24 cm double-J stent
[2023-11-19 08:20] VITALS: BP 136/78; PULSE 59; RESP 17; TEMP 36.2; O2SAT 96
== END 2023-11-19 08:52 | disposition home or self-care (01) ==
PROVIDERS: Nurse Practitioner; PCP Nurse Practitioner Primary Care; Visit Provider Urology
PROC: (CPT 52332; principal; 2023-11-19 07:30)
DX: N13.30 Unspecified hydronephrosis (principal); Z96.0 Presence of urogenital implants; Z85.528 Personal history of other malignant neoplasm of kidney; Z90.5 Acquired absence of kidney; N39.0 Urinary tract infection, site not specified; Z90.79 Acquired absence of other genital organ(s); I10 Essential (primary) hypertension; E78.00 Pure hypercholesterolemia, unspecified; G47.00 Insomnia, unspecified; Z90.49 Acquired absence of other specified parts of digestive tract
CPT/HCPCS: 52332; 36415; 80048; 85027; C1758; C1769; C2617; J2003; J2704; J3010; Q9967

== ENCOUNTER → 2023-11-19 05:55 | Outpatient (BNV) | payer OTHER, SELFPAY | PROVIDERS: PCP Nurse Practitioner Primary Care; Visit Provider Urology | DX: N13.30 Unspecified hydronephrosis (principal); Z96.0 Presence of urogenital implants | CPT/HCPCS: 52310; 74420 ==

== ENCOUNTER 2023-12-04 13:52 | Outpatient (AMB) | payer OTHER, SELFPAY ==
--- NOTE | 2023-12-04 13:55 | A.OFFVIS_ITS ---
Intake Visit Reasons: Stent- Post op Intake Note: Patient is Present for Telephone Follow Up Post Op Stent Exchange 11/19/2023 Urology Med: None Antibiotic Allergy: None Blood Thinner:None University President Required: Yes University President Language: Log Handling Equipment Operator Services: University President Present Accompanied by: Self / Same As Patient Allergies No Known Allergies Allergy (Verified 12/04/23 13:56) HPI Comments Details: Augustine is a pleasant Chinese-speaking male. He is a patient of Dr. Fabian. Seen for the following urologic conditions - renal cancer - persistent left hydronephrosis managed with indwelling stent Telemedicine Evaluation 15 min Consultation [employer] Manuelito Video Chinese translation provided by qualified medical staff director Left stent exchanged 12/05 - doing well Plan on exchange in 5 months - 04/2024 Renal cancer Prior right nephrectomy Left hydronephrosis Initially managed through [facility] Indwelling stent changed every 5 months [facility] Medical History Elevated cholesterol Insomnia Solitary kidney, acquired History of kidney cancer Ureteral stent present Osteoporosis ESBL (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 Father Cancer Social History Household Members: Spouse Household Members Other:: Housing: Apartment Are you a primary wound care physician to a significant other at home: No Do you presently have visiting nurse or other home services: No Alcohol intake: never Comment: tylenol and pyridium given Patient Tobacco Use Status: Never used Tobacco Second Hand Smoke Exposure: No Current occupational status: disabled Review of Systems Const All systems reviewed & are unremarkable except as noted in HPI and below Reports no additional complaints Resp Reports no additional complaints GI Reports no additional complaints Reports as per HPI Musc Reports no additional complaints Physical Exam Telemedicine evaluation Appropriate responses Regular breathing rate and rhythm HEENT Head: Yes normal to inspection Ears: hearing grossly normal bilaterally Eyes General: appearance normal, both eyes and all related structures Neck Neck: Yes normal visual inspection Chest Chest palpation & inspection: normal inspection of the chest Resp Effort & Inspection: normal respiratory effort and able to speak in complete sentences Telehealth Telehealth Telehealth Platform: [employer] Location of provider rendering services: practice address Location of patient: address on file Patient Identification confirmed using: Name, : Yes Telehealth method: video Patient verbally consented to treatment: Yes Patient verbally consented to billing insurance company: Yes Patient informed of any privacy concerns related to visit: Yes Minutes spent on Phone/Video with Pt.: 15 Assessment & Plan Assessment & Plan (1) Acquired stricture of ureter: Code(s): N13.5 - Crossing vessel and stricture of ureter without hydronephrosis Category: Medical Plan Plan on stent exchange in 05/01/2024 Patient Instructions: Imaging studies, laboratory and physical exam results were discussed and reviewed in detail. No major barriers to patient understanding were identified. An opportunity to ask questions regarding the treatment plan was provided. All questions were answered. The patient expressed understanding and agreement with the above treatment plan. The patient is aware they should contact our office by phone for worsening of their current condition or the appearance of new urologic symptoms. Compliance is encouraged with any medications and followup testing that is ordered. It is a privilege to participate in the urologic care of your patient. If you have any questions or concerns regarding treatment for the above conditions, or other urologic issues, please do not hesitate to contact me. The office telephone contact is [phone]. This note is constructed using voice recognition software. While every effort has been made to ensure accuracy fork lift mechanic errors may have been included. Yours sincerely, Dr Fabrizio Ramos MD, [facility] - Urology Providers of Expert, Compassionate Care for the Genitourinary System Coding Level of Care Code Tele Est Pt Level 3 (44366) Diagnoses Acquired stricture of ureter N13.5
== END 2023-12-04 15:00 | disposition home or self-care (01) ==
LOC: HO.HUSH 13:52
PROVIDERS: PCP Nurse Practitioner Primary Care; Visit Provider Urology
DX: N13.5 Crossing vessel and stricture of ureter without hydronephrosis (principal)
CPT/HCPCS: 99213

== ENCOUNTER → 2023-12-04 13:52 | Outpatient (BNVA) | payer OTHER, SELFPAY | PROVIDERS: PCP Nurse Practitioner Primary Care; Visit Provider Urology ==

== ENCOUNTER 2024-01-04 16:12 | Outpatient (REF) | payer OTHER, SELFPAY ==
[2024-01-04 17:11] LABS: Creatinine Urine 101.21 mg/dL; Microalbum/Creatinine Ratio Ur 46.4 ug/mg cr (<30)
== END 2024-01-04 16:13 | disposition home or self-care (01) ==
LOC: HO.LNP 16:12
PROVIDERS: Visit Provider Nurse Practitioner Primary Care
DX: I10 Essential (primary) hypertension (principal)
CPT/HCPCS: 82043; 82570

== ENCOUNTER 2024-04-08 13:06 | Outpatient (AMB) | payer OTHER, SELFPAY ==
--- NOTE | 2024-04-08 13:06 | MHC.OFFVIS ---
Intake Visit Reasons: H&P Stent exchange Intake Note: Patient is present for H&P STENT EXCHANGE Urology Medication:NONE Antibiotic Allergy:NONE Blood Thinner:NONE Division Operations Manager Required: No Allergies No Known Allergies Allergy (Verified 05/01/24 12:24) HPI Comments Details: Augustine is a pleasant Italian-speaking male. He is a patient of Dr. Fabian. Seen for the following urologic conditions - renal cancer - persistent left hydronephrosis managed with indwelling stent Telemedicine Evaluation 15 min Consultation [employer] Manuel[employer] Video Italian translation provided by qualified expert medical writer Left stent exchanged 05/06 - doing well Plan on exchange in 5 months - 04/2024 Renal cancer Prior right nephrectomy Left hydronephrosis Initially managed through [facility] Indwelling stent changed every 5 months [facility] Medical History Elevated cholesterol Insomnia Solitary kidney, acquired History of kidney cancer Ureteral stent present Osteoporosis ESBL (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 Father Cancer Social History Household Members: Spouse Household Members Other:: Housing: Apartment Are you a primary intensive care unit nurse to a significant other at home: No Do you presently have visiting nurse or other home services: No Alcohol intake: never Comment: tylenol and pyridium given Patient Tobacco Use Status: Never used Tobacco Second Hand Smoke Exposure: No service: No Current occupational status: disabled Review of Systems Const All systems reviewed & are unremarkable except as noted in HPI and below Reports no additional complaints Resp Reports no additional complaints GI Reports no additional complaints Reports as per HPI Musc Reports no additional complaints Physical Exam Telemedicine evaluation Appropriate responses Regular breathing rate and rhythm HEENT Head: Yes normal to inspection Ears: hearing grossly normal bilaterally Eyes General: appearance normal, both eyes and all related structures Neck Neck: Yes normal visual inspection Chest Chest palpation & inspection: normal inspection of the chest Resp Effort & Inspection: normal respiratory effort and able to speak in complete sentences Telehealth Telehealth Telehealth Platform: [employer] Location of provider rendering services: practice address Location of patient: address on file Patient Identification confirmed using: Name, : Yes Telehealth method: video Patient verbally consented to treatment: Yes Patient verbally consented to billing insurance company: Yes Patient informed of any privacy concerns related to visit: Yes Minutes spent on Phone/Video with Pt.: 15 Assessment & Plan Assessment & Plan (1) H/O kidney removal: Comment: Left kidney removed Code(s): Z90.5 - Acquired absence of kidney Category: Surgical (2) Acquired stricture of ureter: Code(s): N13.5 - Crossing vessel and stricture of ureter without hydronephrosis Category: Medical Plan Risks, benefits and alternatives to therapy were discussed. These include but are not limited to infection, bleeding, damage to local organs and tissues, need for further interventions. Anesthetic risks regarding cardiac arrhythmia, blood clots, and potential mortality were discussed. The patient understands the typical recovery time and the outpatient nature of the procedure. After consideration of these risks the patient gives full informed consent and they wish to move ahead with the procedure. Plan left stent exchange Patient Instructions: This note is constructed using voice recognition software. While every effort has been made to ensure accuracy rehabilitation medicine physician errors may have been included. Imaging studies, laboratory and physical exam results were discussed and reviewed in detail. No major barriers to patient understanding were identified. An opportunity to ask questions regarding the treatment plan was provided. All questions were answered. The patient expressed understanding and agreement with the above treatment plan. The patient is aware they should contact our office by phone for worsening of their current condition or the appearance of new urologic symptoms. Compliance is encouraged with any medications and followup testing that is ordered. It is a privilege to participate in the urologic care of your patient. If you have any questions or concerns regarding treatment for the above conditions, or other urologic issues, please do not hesitate to contact me. The office telephone contact is [phone]. Sincerely, Dr Fabrizio Ramos MD, [facility] - Urology Compassionate Specialist Care for the Genitourinary System Coding Level of Care Code Tele Est Pt Level 3 (75203) Complex EM visit Add On G2211 Diagnoses H/O kidney removal Z90.5 Acquired stricture of ureter N13.5
--- OUTSIDE RECORDS SUMMARY | 2024-04-08 16:03 | XMS_ITS | Encounter Summary ---
Author Organization [employer] Address [address] [place] [address] Care Team Providers Care Oracle Webcenter Consultant Name Role Phone Jeannie Fabian Primary Care Provider [phone] Fabrizio Ramos MD Unavailable [phone] Reason for Visit * Reason Comments Pre-visit Planning SDOH Screening negat fer and Tobacco screening negative Encounter Details Date Type Department Care Team ([facility] st Contact Info) Description 03/28/2024 Patient Outreach [facility] MED[facility]INE [address] [place] [address] Jeannie Fabian ANP [address] [place] [address] Pre-visit Planning (SDOH Screening negative and Tobacco screening negative) Social History Tobacco Use Types Packs/Day Years Used Date Smoking Tobacco: Never Passive Smoke Exposure: Never Smokeless Tobacco: Never Alcohol Use Standard Drinks/Week Comments Never 0 (1 standard drink = 0.6 oz pur e alcohol) Depression Answer Date Recorded Patient Health Questionnaire-9 Score 6 10/17/2022 Housing Stability Answer Date Recorded What is your housing situation today? I have marlene carrion 01/04/[address] you li ve. Do you have problems with any of the following? None of the above 01/04/2024 Food Insecurity Answer Date Recorded Within the past 12 months, y ou worried that your food would run out before you got money to buy more: Never True 03/28/2024 Within the past 12 months,th e food you bought just didn't last and you didn't have enough money to get more: Never True Transportation Answer Date Recorded In the past 12 months, has l ack of transportation kept you from medical appts, meetings, work or from getting things needed for daily living? No 01/04/2024 Utilities Answer Date Recorded In the past 12 months, has t he electric, gas, oil or water company threatened to shut off services in your home? No 03/28/2024 Depression Answer Date Recorded Patient Health Questionnaire-2 Score 1 01/04/2024 Internet Access Answer Date Recorded Internet Access Q1 Yes 01/04/2024 Internet Access Q2 Not on file 01/04/2024 Sex and Gender Information Value Date Recorded Sex Assigned at Male 12/12/2021 10:39 AM EDT Legal Sex Male 10:39 AM EDT Gender Identity Male 12/12/2021 10:39 AM EDT Sexual Orientation Straight 03/13/2022 4: 12 PM EST documented as of this encounter Progress Notes * Rita Ryan - 03/28/2024 10:32 AM EST HAROON Luo placed successful outbound call to patient for pre-visit planning. Patient name and confirmed. Patient confirms appt date and time, and has transportation arrangements. Biggest concern for appointment at this time is a lot of body pain times more than couple of weeks. Patient educated on extended clinic hours. Patient advised to bring to appointment a photo id and insurance card.Appropriate screenings completed in anticipation of appointment. documented in this encounter Plan of Treatment Upcoming Encounters Date Type Department Care Team (Late st Contact Info) Description 04/10/2024 11:00 AM EST Office Visit [facility] [address] [place] [address] Jeannie Fabian ANP [address] [place] [address] documented as of this encounter Goals Goal Patient Goal Type Associated Problems Recent Progress Patient-Stated? Author Blood Pressure < 140/90 Blood Pressure 142/80( 024 1:53 PM EST) No Jaylen Blanca, PharmD documented as of this encounter Visit Diagnoses Not on filedocumented in this encounter Additional Health Concerns Assessment Noted Time PHQ-9 Depression Total Score: 6 10/18/19 23 1:31 PM EDT documented as of this encounter Care Teams Oracle Webcenter Consultant Relationship Specialty Start Date End Date Jeannie Fabian ANP [address] [place] [address] PCP - General Family Medicine 12/27/20 Fabrizio Ramos MD [address] [place] [address] Urology 01/04/24 documented as of this encounter
--- OUTSIDE RECORDS SUMMARY | 2024-04-08 16:03 | XMS_ITS | Encounter Summary ---
Author Organization [employer] [facility] Address [address] 7t [place] [address] Care Team Providers Care Divorce Attorney Name Role Phone Jeannie Fabian Primary Care Provider [phone] Fabrizio Ramos MD Unavailable [phone] Reason for Visit * Reason Comments Med Refill Encounter Details Date Type Department Care Team (Late st Contact Info) Description 02/28/2022 Refill [facility] MED & PEDS [address] [place] [address] Jeannie Fabian ANP [address] [place] [address] Cardiovascular event risk (Primary Dx) Social History Tobacco Use Types Packs/Day Years Used Date Smoking Tobacco: Never Assessed Sex and Gender Information Value Date Recorded Sex Assigned at Male 12/12/2021 10:39 AM EDT Legal Sex Male 10:39 AM EDT Gender Identity Male 12/12/2021 10:39 AM EDT Sexual Orientation Straight 03/13/2022 4: 12 PM EST documented as of this encounter Plan of Treatment Upcoming Encounters Date Type Department Care Team (Late st Contact Info) Description 04/10/2024 11:00 AM EST Office Visit [facility] MEDICINE [address] [place] [phone] Jeannie Fabian ANP [address] [place] [address] documented as of this encounter Visit Diagnoses Diagnosis Cardiovascular event risk- Primary documented in this encounter Care Teams Divorce Attorney Relationship Specialty Start Date End Date Jeannie Fabian ANP [address] [place] [phone] PCP - General Family Medicine 12/27/20 Fabrizio Ramos MD [address] [place] [address] Drive [address] [place] [address] Urology 01/04/24 documented as of this encounter
--- OUTSIDE RECORDS SUMMARY | 2024-04-08 16:03 | XMS_ITS | Encounter Summary ---
Author Organization [employer] Address [address] [place] [address] Care Team Providers Care Peoplesoft Name Role Phone Jeannie Fabian Primary Care Provider [phone] Fabrizio Ramos MD Unavailable [phone] Reason for Visit * Reason Comments Med Refill Encounter Details Date Type Department Care Team ([facility] st Contact Info) Description 02/18/2023 Refill [facility] MED[facility]INE [address] [place], [place] [phone] Jeannie Fabian ANP [address] [place] [address] Anxiety Social History Tobacco Use Types Packs/Day Years Used Date Smoking Tobacco: Never Passive Smoke Exposure: Never Smokeless Tobacco: Never Alcohol Use Standard Drinks/Week Comments Never 0 (1 standard drink = 0.6 oz pur e alcohol) Depression Answer Date Recorded Patient Health Questionnaire-9 Score 6 10/17/2022 Housing Stability Answer Date Recorded What is your housing situation today? I have marlene carrion 11/27/[address] you li ve. Do you have problems with any of the following? None of the above 11/27/2022 Food Insecurity Answer Date Recorded Within the past 12 months, y ou worried that your food would run out before you got money to buy more: Never True 11/27/2022 Within the past 12 months,th e food you bought just didn't last and you didn't have enough money to get more: Never True Transportation Answer Date Recorded In the past 12 months, has l ack of transportation kept you from medical appts, meetings, work or from getting things needed for daily living? No 11/27/2022 Utilities Answer Date Recorded In the past 12 months, has t he electric, gas, oil or water company threatened to shut off services in your home? No 11/27/2022 Depression Answer Date Recorded Patient Health Questionnaire-2 Score 3 10/17/2022 Sex and Gender Information Value Date Recorded Sex Assigned at Male 12/12/2021 10:39 AM EDT Legal Sex Male 10:39 AM EDT Gender Identity Male 12/12/2021 10:39 AM EDT Sexual Orientation Straight 03/13/2022 4: 12 PM EST documented as of this encounter Plan of Treatment Upcoming Encounters Date Type Department Care Team (Late st Contact Info) Description 04/10/2024 11:00 AM EST Office Visit [facility] MEDICINE [address] [place] [address] Jeannie Fabian ANP [address] [place] [address] documented as of this encounter Goals Goal Patient Goal Type Associated Problems Recent Progress Patient-Stated? Author Blood Pressure < 140/90 Blood Pressure 142/80( 024 1:53 PM EST) No Jaylen Blanca, PharmD documented as of this encounter Visit Diagnoses Diagnosis Anxiety Anxiety state, unspecified documented in this encounter Additional Health Concerns Assessment Noted Time PHQ-9 Depression Total Score: 6 10/18/19 23 1:31 PM EDT documented as of this encounter Care Teams Peoplesoft Relationship Specialty Start Date End Date Jeannie Fabian ANP [address] [place] [address] PCP - General Family Medicine 12/27/20 Fabrizio Ramos MD [address] [place] [address] Urology 01/04/24 documented as of this encounter
--- OUTSIDE RECORDS SUMMARY | 2024-04-08 16:03 | XMS_ITS | Encounter Summary ---
Author Organization [employer] [facility] Address [address] 7t [place] [address] Care Team Providers Care Marble Ceiling Installer Name Role Phone Jeannie Fabian Primary Care Provider [phone] Fabrizio Ramos MD Unavailable [phone] Reason for Visit * Reason Onset Date Comments FYI 09/06/2022 Encounter Details Date Type Department Care Team (Late st Contact Info) Description 09/06/2022 Telephone [facility] MEDICINE [address] [place] [address] Jeannie Fabian ANP [address] [place] [address] FYI Social History Tobacco Use Types Packs/Day Years Used Date Smoking Tobacco: Never Smokeless Tobacco: Never Alcohol Use Standard Drinks/Week Comments Never 0 (1 standard drink = 0.6 oz pur e alcohol) Sex and Gender Information Value Date Recorded Sex Assigned at Male 12/12/2021 10:39 AM EDT Legal Sex Male 10:39 AM EDT Gender Identity Male 12/12/2021 10:39 AM EDT Sexual Orientation Straight 03/13/2022 4: 12 PM EST documented as of this encounter Miscellaneous Notes * Telephone Encounter - Alessandra Cardoso - 09/06/2022 9:42 AM EDT Tc davis serrano with [facility] advising PCP pt is discharged due to insurance change. documented in this encounter Plan of Treatment Upcoming Encounters Date Type Department Care Team (Late Contact Info) Description 04/10/2024 11:00 AM EST Office Visit [facility] [address] [place] [address] Jeannie Fabian ANP [address] [place] [address] documented as of this encounter Visit Diagnoses Not on filedocumented in this encounter Care Teams Marble Ceiling Installer Relationship Specialty Start Date End Date Jeannie Fabina ANP [address] [place] [address] PCP - General Family Medicine 12/27/20 Fabrizio Ramos MD [address] [place] [address] Urology 01/04/24 documented as of this encounter
--- OUTSIDE RECORDS SUMMARY | 2024-04-08 16:03 | XMS_ITS | Encounter Summary ---
Author Organization [email or web address] [facility] Address [address] [place] [address] Care Team Providers Care Quality Assurance Supervisor Final Name Role Phone Corry Hill Primary Care Provider [phone] Fabrizio Ramos MD Unavailable [phone] Encounter Details Date Type Department Care Team (Late st Contact Info) Description 02/28/2022 Orders Only [facility] MED & PEDS [address] [place] [address] Stephanie Licea LPN Social History Tobacco Use Types Packs/Day Years [...] Description 04/10/2024 11:00 AM EST Office Visit [facility] MEDICINE [address] [place] [address] Corry Hill, ANP [address] [place] [address] documented as of this encounter Procedures Procedure Name Priority Date/Time Associated Diagnosis Comments URINALYSIS, COMPLETE, WITH REFLEX TO CULTURE Routine 06/20/2022 7:20 PM EDT HIGH SENSITIVITY TROPONIN I Routine 06/20/2022 3:07 PM EDT CBC WITH AUTO DIFFERENTIAL Routine 06/20/2022 3:07 PM EDT B TYPE NATRIURETIC PEPTIDE (BNP) Routine 06/20/2022 3:07 PM EDT MAGNESIUM Routine 06/20/2022 3:07 PM EDT COMPREHENSIVE METABOLIC PANEL Routine 06/20/2022 3:07 PM EDT CYTOPATH-CELL ENHANCED Routine 9:42 AM EDT CULTURE, URINE, ROUTINE Routine 05/02/2022 9:42 AM EDT documented in this encounter Results * (ABNORMAL) Urinalysis, Complete, with Reflex to Culture (06/20/2022 7:20 PM EDT) Color Urine Yellow [facility] Appearance Urine Cloudy [facility] PH 7.0 5.0 - 9.0 [facility] Glucose Urine UA Negative Negative mg/dL [facility] Urine Blood Moderate (2+)(A) Negative [facility] Specific Banks - Urine 1.015 1.005 - 1.025 [facility] Urine Protein 30 (1+)(A) Neg-Trace mg/dL [facility] Urine Ketones Negative Negative mg/dL [facility] Nitrite Urine Negative Negative [facility] Leukocyte Esterase Urine Large (3+)(A) Negative [facility] RBC Urine 11-20(A) 0 - 2 /HPF [facility] Urine WBC >50(A) 0 - 5 /HPF [facility] Urine Squamous Epithelial Cell 0-2 0 - 2 /HPF [facility] Urine Bacteria 4+ None Seen [facility] Hyaline Casts, Urine 0-2 0 - 2 /LPF [facility] 06/20/2022 7:20 PM EDT 06/20/2022 7:23 PM EDT Narrative [facility] - 06/20/2022 7:55 PM EDT [id number], Clean Catch [facility] External Provider LAB URI NE ORDERABLES Final Result Performing Organization Address [facility]/ZIP Co de Phone Number [facility] [address] [place] [phone] * High Sensitivity Troponin I (06/20/2022 3:07 PM EDT) [facility] TROPONIN I HIGH SENSITIVITY <2.7 <3.5 - 35.0 ng/L [facility] Comment:The [place] high sens itivity Troponin-I results should beused in conjunction with other diagnostic information suchas ECG, clinical observations and information, and patientsymptoms to aid in the diagnosis of [place]. 06/20/2022 3:07 PM EDT 06/20/2022 3:14 PM EDT [facility] External Provider LAB BLO OD ORDERABLES Final Result Performing Organization Address [facility] Co de Phone Number [facility] [address] [place] [phone] * B Type Natriuretic Peptide (BNP) (06/20/2022 3:07 PM EDT) [facility] B Type Natriuretic Peptide 27 <100 pg/mL [facility] Comment:For those patients w ho are being treated with Natrecor(nesiritide, recombinant BNP), BNP testing should beperformed at least two hours post treatment in order toensure that only endogenous levels of BNP are detected. 06/20/2022 3:07 PM EDT 06/20/2022 3:14 PM EDT [facility] External Provider LAB BLO OD ORDERABLES Final Result Performing Organization Address [facility] Co de Phone Number [facility] [address] [place] [phone] * Magnesium (06/20/2022 3:07 PM EDT) Magnesium 1.8 1.6 - 2.6 mg/dL [facility] 06/20/2022 3:07 PM EDT 06/20/2022 3:14 PM EDT [facility] External Provider LAB BLO OD ORDERABLES Final Result [facility] [address] [place] [address] [phone] * (ABNORMAL) Comprehensive Metabolic Panel (06/20/2022 3:07 PM EDT) Pathologist [facility] Sodium 141 135 - 145 mmol/L [facility] Potassium 4.1 3.3 - 5.1 mmol/L [facility] Chloride 108 96 - 108 mmol/L [facility] Carbon Dioxide 25 22 - 29 mmol/L [facility] Anion Gap 12 12 - 20 [facility] Urea Nitrogen (BUN) 20(H) 9 - 16 mg/dL [facility] Creatinine, Serum 1.27 0.5 - 1.4 mg/dL [facility] Creatinine Clr Calc Pharmacy 41.9 [facility] Comment:eGFR (calculated fro m the MDRD study equation) and eCrCl(calculated from the Cockcroft-Gault equation) are based ondifferent parameters and may not yield comparable results.If eCrCl result is absurd, please check patient'sheight/weight. Estimated Glomerular Filt Rate 54 [facility] Comment:NOTE: For -Am erican individuals, multiply the result by 1.210.Chronic Kidney Disease: Estimated GFR < 60 mL/min/[id number] Kidney Disease: Estimated GFR < 15 mL/min/1.73m2 Glucose 148(H) 60 - 115 mg/dL [facility] Calcium 9.6 8.4 - 10.2 mg/dL [facility] Bilirubin, Total 0.4 0.0 - 1.0 mg/dL [facility] Aspartate Amino Transferase 21 5 - 37 U/L [facility] Alanine Aminotransferase 20 0 - 40 U/L [facility] Total Protein 7.1 6.5 - 8.0 g/dL [facility] Albumin Level 3.9 3.5 - 5.0 g/dL [facility] Alkaline Phosphatase 72 39 - 117 U/L [facility] 06/20/2022 3:07 PM EDT 06/20/2022 3:14 PM EDT us [facility] External Provider LAB BLO OD ORDERABLES Final Result [facility] [address] [place] [address] [phone] * (ABNORMAL) CBC auto differential (06/20/2022 3:07 PM EDT) White Blood Count 5.4 4.8 - 10.8 X10*3/uL [facility] Red Blood Count 4.25(L) 4.60 - 5.80 X10*6/uL [facility] Hemoglobin 12.9(L) 14.0 - 18.0 g/dl [facility] Hematocrit 39.8(L) 42.0 - 52.0 % [facility] Mean Corpuscular Volume 93.6 80.0 - 98.0 fL [facility] Mean Corpuscular Hemoglobin 30.4 27.0 - 33.0 pg [facility] Mean Corpuscular HGB Conc 32.4 31.0 - 36.0 g/dl [facility] Red Cell Distribution Width 13.2 11.0 - 16.0 % [facility] Platelet Count 112(L) 160 - 400 X10*3/uL [facility] Mean Platelet Volume 11.3 9.4 - 12.4 fL [facility] Neutrophils Percent Auto 42.1(L) 45 - 73 % [facility] Imm Gran Pct Auto 0.2 0.0 - 0.4 % [facility] Lymphocytes Percent Auto 43.9(H) 20 - 40 % [facility] Monocytes Percent Auto 10.3 2 - 11 % [facility] Eosinophils Percent Auto 2.6 0 - 4 % [facility] Basophils Percent Auto 0.9 0 - 2 % [facility] NRBC Pct Auto 0.0 0.0 - 0.2 /100WBC [facility] Neutrophils Absolute Auto 2.3 2.0 - 8.3 x10*3/uL [facility] Imm Gran Abs Auto 0.01 0.00 - 0.03 X10*3/uL [facility] Lymphocytes Absolute Auto 2.4 1.2 - 4.9 X10*3/uL [facility] Monocytes Absolute Auto 0.6 0.1 - 1.2 X10*3/uL [facility] Eosinophils Absolute Auto 0.1 0.0 - 0.4 X10*3/uL [facility] Basophils Absolute Auto 0.1 0.0 - 0.2 X10*3/uL [facility] NRBC Abs Auto 0.000 0.0 - 0.012 X10*3/uL [facility] 06/20/2022 3:07 PM EDT 06/20/2022 3:14 PM EDT [facility] External Provider LAB BLO OD ORDERABLES Final Result [facility] [address] [place] [phone] * Cytopath-cell enhanced (05/02/2022 9:42 AM EDT) 05/02/2022 9:42 AM EDT 05/03/2022 6:39 AM EDT Narrative [facility] - 05/03/2022 4:46 PM EDT ----- ------- Name: Augustine Rodriguez ?Age/Sex: 81/M ? : 1940 Unit#: [id number] ?? Attend Dr: Fabrizio Ramos MD ?Re05/02/22 ?Status: DEP REF ? Location: HO.LAB ?Disch: ? ----- ------- SPEC : [id number] ? RECD: 05/03/22 ? STATUS: ??SOUT ? REQ NUM: [id number] ? FAMILIA: 05/02/22 ? SUBM DR: Fabrizio Ramos MD ? ENTERED: ??05/03/22-426 ?SP TYPE: Cytology ? OTHR : CORRY HILL NP ? ORDERED: ??Cyto-enhanced ? Diagnosis ?? Urine: ??Negative for high-grade urothelial carcinoma. ? COMMENT: ??Examination of a monolayer preparation slide shows numerous acute inflammatory ?? cells with scattered benign urothelial cells and squamous cells. ?Clinical History UTI, acquired absence of kidney ? Material Received ?? Urine ? Gross Description 50cc hazy yellow fluid received Copies To: ?? Fabrizio Ramos MD ?? [address] ?? [place] [address] ?? [phone] ?? CORRY HILL NP ?? [address] ?? [place] [address] ?? [phone] ----- ------- Signed (signature on file) Jesica Wolfe 05/03/221645 ? ----- ------- ? END OF REPORT ? us [facility] External Provider LAB CYT OLOGY ORDERABLES Final Result [facility] [address] [place] [address] [phone] * Culture, Urine, Routine (05/02/2022 9:42 AM EDT) 05/02/2022 9:42 AM EDT 05/02/2022 4:36 PM EDT Comment:[facility] Narrative [facility] - 05/05/2022 8:23 AM EDT Escherichia coli ESBL Note: NOTE: Extended-Spectrum Beta-Lactamase enzyme present Quant > 100,000 cfu/mL Escherichia coli: Ampicillin >=32(R) Escherichia coli: Ceftriaxone 16(I) Escherichia coli: Ertapenem <=0.12(S) Escherichia coli: Gentamicin 4(S) Escherichia coli: Levofloxacin >=8(R) Escherichia coli: Nitrofurantoin 32(S) Escherichia coli: Trimethoprim/Sulfamethoxazole >=320(R) Specimen Source: Urine clean catch [facility] Exter nal Provider LAB MICROBIOLOGY - GENERAL ORDERABLES Final Result Performing Organization Address City/State/[facility] Co de Phone Number [facility] [address] [place] [phone] documented in this encounter Visit Diagnoses Not on filedocumented in this encounter Care Teams Quality Assurance Supervisor Final Relationship Specialty Start Date End Date Corry Hill ANP [address] [place] [phone] PCP - General Family Medicine 12/27/20 Fabrizio Ramos MD [address] [place] [address] Urology 01/04/24 documented as of this encounter
--- OUTSIDE RECORDS SUMMARY | 2024-04-08 16:03 | XMS_ITS | Clinical Summary ---
Author Organization [employer] Address [address] [facility] [address] [address] [place] [address] Care Team Providers Care Lab Pack Chemist Name Role Phone Jeannie Fabian Primary Care Provider Fabrizio Ramos MD Unavailable [phone] Allergies Active Allergy Reactions Criticality Noted Date Comments Ciprofloxacin Dizziness 12/27/2020 Medications * This document contains information received from the source organization and may not represent a complete record from that organization. Tymlos 3120 MCG/1.56ML solution pen-injector 06/01/19 23 Active Alcohol Swabs (Alcohol Prep) 70 % pads 06/01/19 23 Active B-D ULTRAFINE III SHORT PEN 31G X 8 MM misc 06/01/19 23 Active polyethylene glycol, PEG, 3350 (MiraLax) 17 GM/SCOOP powderIndication s:Constipation, unspecified constipation type Take 17 g by mouth in the morning. As needed once daily for constipatio n. Can use 2 times/d for up to 3 days if needed. 527 g 12/29/19 23 Active psyllium (Metamucil) 28.3 % powderIndication s:Constipation, unspecified constipation type Take 12 g (3.4 g of fiber) by mouth 2 times daily. 575 g 2 12/29/19 23 Active famotidine (Pepcid) 10 MG tabletIndication s:Gastroesophage al reflux disease, unspecified whether esophagitis present Take 1 tablet (10 mg) by mouth 2 times daily. 60 tablet 11 09/28/19 24 025 Active atorvastatin (Lipitor) 80 MG tabletIndication s:Cardiovascular event risk TAKE 1 TABLET BY MOUTH AT BEDTIME 90 tablet 3 12/31/19 24 Active escitalopram (Lexapro) 10 MG tabletIndication s:Anxiety TAKE 1 TABLET BY MOUTH AT BEDTIME FOR ANXIETY 90 tablet 01/30/20 24 Active amLODIPine (Norvasc) 10 MG tablet TAKE 1 TABLET BY MOUTH EVERY MORNING (for high blood pressure) 90 tablet 1 03/26/19 25 Active amLODIPine (Norvasc) 10 MG tablet TAKE 1 TABLET BY MOUTH EVERY MORNING (for high blood pressure) 90 tablet 1 08/22/19 24 025 Discontinued Active Problems Problem Noted Date Diagnosed Date Gastroesophageal reflux disease 09/28/2023 Overview (09/28/2023): Stopped PPI in past due to osteoporosis. On famotidine 10 mg QD, today increased this to twice daily as he is getting p.m. symptoms. Anxiety 11/21/2022 Assessment & Plan (11/27/2022 8:09 AM EDT): Assessment: Patient presents with anxiety symptoms. No risk for self-harm, SI, HI. Reason for visit was to assess symptoms and provide support to patient. Symptoms are present in the context of having fallen twice off the bed and having fear of heights. Provided Psychoeducationa around anxiety and how to cope with symptoms. Provider will be restarting patient on Lexapro to assist with addressing anxiety. At this time Augustine Sandy meets criteria for Visit Diagnoses: Problem List Items Addressed This Visit Other Anxiety disorder, unspecified Patient ready to address current needs Yes Strengths include dhiraj and family PLAN: 1. Follow up with [facility]: Not recommended for follow-up 2. Patient goal is decrease anxiety symptoms. 3. Behavioral Recommendations a. Will comply with medication b. Will utilize coping techniques provided c. Will reach out to [facility], if additional support is needed Preoperative examination 10/17/2022 Assessment & Plan (10/19/2022 9:21 AM EDT): Patient is here for a preoperative exam Patient is scheduled for: cystoscopy and ureteral stent exchange On 10/23/2022 By: dr Ramos Anesthesia: conscious sedation After careful review of patient's most recent laboratory tests: EKG: NSR left axis deviation no acute st t changes And today's Physical examination I do not see any contraindication for patient to undergo this: low Risk surgical intervention. Patient has been advised to follow up after the procedure has been completed Low back pain radiating to both legs 10/17/2022 Assessment & Plan (10/17/2022 2:05 PM EDT): Patient with Hx of osteoporosis and new c/o low back pain that radiates to both legs for 5 months approximately, in the absence of any injury. Intensity when severe 8/10 after he takes tylenol drops down to 2-3 Etiology ? On exam, mild tenderness to palpation, LS spine, mild muscle spasm. No red flags on neuro exam Plan: Plain films to rule compression fracture. Once we know that is not the case he might benefit from PT but will await results of films Follow up with PCP after imaging. Continue tylenol Difficulty walking 08/16/2022 Unsteadiness on feet 08/16/2022 ESBL (extended spectrum beta -lactamase) producing bacteria infection 08/16/2022 History of kidney cancer 08/16/2022 Insomnia 08/16/2022 Osteoporosis 08/16/2022 Ureteral stent present 08/16/2022 Assessment & Plan (10/17/2022 1:44 PM EDT): Juan José Blackburn is an 82 year old male with a H prostate ca s/p prostatectomy, R nephrectomy, L hydronephrosis w/ L renal stent changed every 4-6mo. Here for a preoperative exam prior to his next cystoscopy with stent exchange. Urinary tract infection 08/16/2022 H/O prostatectomy 08/16/2022 Overview (08/16/2022): S/p prostate ca Solitary kidney, acquired 08/16/2022 Gastritis due to Helicobacter species 06/06/2022 H/O kidney removal 06/06/2022 Hydronephrosis 06/06/2022 Ureteral obstruction 06/06/2022 Anemia 05/10/2011 Overview (06/06/2022): iron level is mildly low - high levels of ferritin Chronic kidney disease, unspecified 05/10/2011 Hyperlipidemia 05/10/2011 Essential hypertension 05/10/2011 Assessment & Plan (10/17/2022 2:04 PM EDT): Pt instructed to take his Amlodipine with a small sip of water the morning of the procedure to prevent his blood pressure from going up during the procedure Reduced visual acuity 05/10/2011 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 Onychomycosis of toenail 05/10/2011 Encounters Date Type Department Care Team Description 04/07/2024 Telephone [facility] [address] [place] [phone] Jeannie Fabian ANP Chart Prep 03/28/2024 Patient Outreach [facility] [address] [place] [address] [phone] Jeannie Fabian ANP Pre-visit Planning (SDOH Screening negative and Tobacco screening negative) 03/26/2024 Refill [facility] [address] [place] [phone] Jeannie Fabian ANP 02/11/2024 Telephone [facility] [address] [place] [phone] Suze Styles [place] February recall 01/30/2024 Refill [facility] [address] [place] [address] [phone] Jeannie Fabian ANP Anxiety 01/24/2024 Telephone [facility] [address] [place] [address] [phone] Raeann Raman RN Results from Last 3 Months Immunizations Name Administration Dates Next Due Influenza injectable quadrivalent preservative f ree 12/27/2020 Influenza, Unspecified 11/22/2011,11/15/2010 Moderna Covid-19 Vaccine 12+ 03/18/2020 Pfizer Covid-19 Vaccine 12+ 02/07/2021, Pneumococcal Conjugate PCV 20 12/28/2022 Pneumococcal Polysaccharide PPSV23 11/22/2011 Td (adult), unspecified 11/22/2011 Tdap 09/28/2023 Social History Tobacco Use Types Packs/Day Years Used Date Smoking Tobacco: Never Passive Smoke Exposure: Never Smokeless Tobacco: Never Tobacco Cessation:Counseling Given: Not Answered Alcohol Use Standard Drinks/Week Comments Never 0 [...] Orientation Straight 03/13/2022 4: 12 PM EST Last Filed Vital Signs Vital Sign Reading Time Taken Comments Blood Pressure 142/80 01/04/2024 1:53 PM EST Pulse 74 01/04/2024 1:53 PM EST Temperature 36.8 ??C (98.2 ??F) 01/04/2024 1:53 PM ES T Respiratory Rate 14 01/04/2024 1:53 PM EST Oxygen Saturation 97% 01/04/2024 1:53 PM EST Inhaled Oxygen Concentration - - Weight 73.5 kg (162 lb) 01/04/2024 1:53 PM EST Height 162.6 cm (5' 4 ) 09/28/2023 9:25 AM EDT Body Mass Index 27.81 09/28/2023 9:25 AM EDT Plan of Treatment Upcoming Encounters Date Type Department Care Team (Late st Contact Info) Description 04/10/2024 11:00 AM EST Office Visit [facility] [address] [place], [place] [phone] Jeannie Fabian ANP [address] [place] [address] Health Maintenance Due Date Last Done Comments Alcohol/Substance Use Screening 1952 Zoster Vaccines (1 of 2) 1990 RSV Patients and Patients Aged 60 years or older (1 - 1-dose 75+ series) 08/10/2015 COVID-19 Vaccine ( season) 2023 02/07/2021, 01/17/2021, 03/18/2020 Influenza Vaccine (#1) 2023 , 11/22/2011, 11/15/2010 Tobacco Screening 09/27/2024 09/28/2023 Depression Screening 01/03/2025 01/04/2024, 10/18/19 Diabetes: Hemoglobin A1C 01/03/2025 024, 09/28/2023, 11/29/2022, Additional history exists SDOH Screening 03/28/2025 03/28/2024 Lipid Panel 07/04/2028 07/05/2023, 11/29/2022 DTaP/Tdap/Td Vaccines (2 - Td or Tdap) 09/27/2033 09/28/2023, 11/22/2011 Pneumococcal Vaccine: 50+ Years Completed 12/28/2022, 11/22/2011 HIB Vaccines Aged Out No longer eligi ble based on patient's age to complete this topic HPV Vaccines Aged Out No longer eligi ble based on patient's age to complete this topic Hepatitis A Vaccines Aged Out No long er eligible based on patient's age to complete this topic Hepatitis B Vaccines Aged Out No long er eligible based on patient's age to complete this topic IPV Vaccines Aged Out No longer eligi ble based on patient's age to complete this topic Meningococcal Vaccine Aged Out No eloy sonja eligible based on patient's age to complete this topic RSV under 20 months Aged Out No longe r eligible based on patient's age to complete this topic Rotavirus Vaccines Aged Out No longer eligible based on patient's age to complete this topic Goals Goal Patient Goal Type Associated Problems Recent Progress Patient-Stated? Author Blood Pressure < 140/90 Blood Pressure 142/80( 024 1:53 PM EST) Jaylen Rosen PharmD Procedures Procedure Name Priority Date/Time Associated Diagnosis Comments POCT GLYCATED HEMOGLOBIN, TOTAL Routine 01/04/2024 2:31 PM EST Prediabetes LIPID PANEL, STANDARD Routine 07/05/2023 9:12 AM EDT Hyperlipidemia, unspecified hyperlipidemia type from Last 3 Months or Most Recently Relevant to Health Maintenance Results * (ABNORMAL) POCT HGB A1C (01/04/2024 2:31 PM EST) Hemoglobin A1C 6.1(A) 4.0 - 6.0 % QC Media Lot # [id number] Lot# Expiration Date [id number] Blood 01/04/2024 2:31 PM EST Jeannie [facility] POINT OF CARE TEST ENTER/EDIT OR DERABLES Final Result * (ABNORMAL) Lipid Panel, Standard (07/05/2023 9:12 AM EDT) Triglycerides 155(H) <150 mg/dL [facility] Comment:Desirable Triglyceri de: less than 150 mg/dLBorderline High Triglyceride 150-199 mg/dLHigh Triglyceride: 200-499 mg/dLVery High Triglyceride: greater than or equal to 5OO mg/dL Cholesterol 119 <200 mg/dL [facility] Comment:Desirable Cholestero l: less than 200 mg/dLBorderline High Cholesterol: 200-239 mg/dLHigh Cholesterol: greater than 239 mg/dL LDL Cholesterol Calculated 60 <100 mg/dL [facility] Comment:Desirable LDL: less than 100 mg/dLNear Optimal/Above Optimal LDL: 110- 129 mg/dLBorderline High LDL: 130-159 mg/dLHigh LDL: 160-189 mg/dLVery High LDL: greater than or equal to 190 mg/dL HDL Cholesterol 28(L) >40 mg/dL [facility] Comment:Desirable HDL: great er than 40 mg/dL Note: This HDL assay may give artificially low results in patients with liver disease. Blood Venous blood specimen / Unknown 07/05/2023 9:12 AM EDT 07/05/2023 11:29 AM EDT Jeannie Fabian [facility] BLOOD ORDERABLES Final Resul t [facility] [address] [place] [address] [phone] from Last 3 Months or Most Recently Relevant to Health Maintenance Insurance [facility] Care Teams Lab Pack Chemist Relationship Specialty Start Date End Date Jeannie Fabian ANP [address] [place] [address] PCP - General Family Medicine 12/27/20 Fabrizio Ramos MD [address] [place] [address] Urology 01/04/24
--- OUTSIDE RECORDS SUMMARY | 2024-04-08 16:03 | XMS_ITS | Encounter Summary ---
Author Organization [employer] [facility] Address [address] [place] [address] Care Team Providers Care Furniture Upholsterer Apprentice Name Role Phone Jeannie Fabian Primary Care Provider [phone] Fabrizio Ramos MD Unavailable [phone] Reason for Visit * Reason Onset Date Comments Chart Prep 04/07/2024 Encounter Details Date Type Department Care Team ([facility] st Contact Info) Description 04/07/2024 Telephone [facility] [address] [place] [address] Jeannie Fabian ANP [address] [place] [address] Chart Prep Social History Tobacco Use Types Packs/Day Years [...] encounter Miscellaneous Notes * Telephone Encounter - Keara Moise [place] - 04/07/2024 2:17 PM EST Chart Prep Labs: done Images: not applicable Vaccines due: Covid Due, Flu Due, RSV in Pharmacy Due, and Shingles in pharmacy Due Referrals: Not Applicable Screenings: Not Applicable Overdue care gaps: A1C and Sbirt documented in this encounter Plan of Treatment Upcoming Encounters Date Type Department Care Team (Late st Contact Info) Description 04/10/2024 11:00 AM EST Office Visit [facility] [address] [place] [phone] Jeannie Fabian ANP [address] [place] [address] documented as of this encounter Goals Goal Patient Goal Type Associated Problems Recent Progress Patient-Stated? Author Blood Pressure < 140/90 Blood Pressure 142/80( 024 1:53 PM EST) No Jaylen Blanca, HayleyD documented as of this encounter Visit Diagnoses Not on filedocumented in this encounter Additional Health Concerns Assessment Noted Time PHQ-9 Depression Total Score: 6 10/18/19 23 1:31 PM EDT documented as of this encounter Care Teams Furniture Upholsterer Apprentice Relationship Specialty Start Date End Date Jeannie Fabian ANP [address] [place] [id number] PCP - General Family Medicine 12/27/20 Fabrizio Ramos MD [address] [place] [address] Urology 01/04/24 documented as of this encounter
--- OUTSIDE RECORDS SUMMARY | 2024-04-08 16:03 | XMS_ITS ---
Author Name David KELSEYMicaelay Address [address] [place] [address] Phone [phone] [facility] Care Team Providers Care Psychology Instructor Name Role Phone Dee Hernandez Unavailable [phone] Unavailable Unavailable Unavailable Reason for Referral Not Available Allergies, adverse reactions, alerts No known allergies History of medication use Medication Class Instructions Start Date End Date amLODIPine Besylate 10 mg Tab TOME JR TABLETA TODOS LOS D PARA LA PRESI N ARTERIAL 2021-11-04 No Data Available Tymlos 3120 MCG/1.56ML Solution Pen-injector No Data Available 2022-05-15 2022-12-29 [facility] Acid Controller 10 mg Tab TOME JR TABLETA TODOS LOS D EN LA MA GRACE 2022-11-16 No Data Available Escitalopram Oxalate 10 mg Tab take 1 tablet by mouth daily 2022-11-16 No Data Deisy ilable Atorvastatin Calcium 80 mg Tab take 1 tablet orally once daily evening 2022-12-14 No Data Available Medbox Status USE DIRECTED 2022-12-14 No Data Deisy ilable GaviLAX 17 GM/SCOOP Powder No Data Available 2022-12-13 6 2022-12-29 REGULOID 28.3 % POWD 1 scoop in 1/2 cup of water twice a day by mouth 2022-12-28 No Data Available Problem List Problem Status Onset Date Resolved Date Unspecified dementia, unspec ified severity, without behavioral disturbance, psychotic disturbance, mood disturbance, and anxiety Active 2022-12-29 N/A Essential (primary) hypertension Active N/A Hyperlipidemia Active 2022-12-29 N/A Osteoporosis Active 2022-12-29 N/A GERD (gastroesophageal reflux disease) Active 04-01-17 N/A Constipation Active 2022-12-29 N/A Insomnia Active 2022-12-29 N/A Tinnitus Active 2022-12-29 N/A Anxiety Active 2022-12-29 N/A Lower back pain Active 2022-12-29 N/A Encounters Encounters Type Facility Date of Service Diagnosis/Co mplaint New patient,40-59min; chronic exacerbation, 2 stable chronic or 1 acute illness add add modifier 95 for video (do not use for phone, instead use [id number]) [facility] [place]22 Essential (primary) hypertensionHyperlipidemia, unspecifiedAge-related osteoporosis without current pathological fractureGastro-esophageal reflux disease without esophagitisConstipation, unspecifiedInsomnia, unspecifiedUnspecified dementia without behavioral disturbanceTinnitus, unspecified earAnxiety disorder, unspecifiedLow back pain, unspecified New patient,40-59min; chronic exacerbation, 2 stable chronic or 1 acute illness add add modifier 95 for video (do not use for phone, instead use [id number]) [facility] [place]/29/2022 New patient,40-59min; chronic exacerbation, 2 stable chronic or 1 acute illness add add modifier 95 for video (do not use for phone, instead use 76418-46) [facility] [place]/2022 New patient,40-59min; chronic exacerbation, 2 stable chronic or 1 acute illness add add modifier 95 for video (do not use for phone, instead use 71922-72) [facility] [place]22 New patient,40-59min; chronic exacerbation, 2 stable chronic or 1 acute illness add add modifier 95 for video (do not use for phone, instead use [id number]) [facility] [place]22 New patient,40-59min; chronic exacerbation, 2 stable chronic or 1 acute illness add add modifier 95 for video (do not use for phone, instead use 49787-89) [facility] [place]/2022 Vital Signs Date of Collection Vitals 2022-12-29 05:51:12 Height - 167.64 cmWe ight - 78.47 kgBody Mass Index (BMI) - 27.92 kg/m2BP Diastolic - 85.0 mm[Hg]BP Systolic - 155.0 mm[Hg]Pain Scale - 8.0 {score} Social History Social History Social History Observation Description Effec tive Time Current Smoking Status Never smoker 2024-03-16 5 Sex Male History of Procedures Procedures Service Procedure code Service date Servicing provider Phone# New patient,40-59min; chronic exacerbation, 2 stable chronic or 1 acute illness add add modifier 95 for video (do not use for phone, instead use 31232-17) 84749 2022-12-29 No Data Available No Data Availa ble Pain Assessment - Pain Documented on a Pain Scale (1125F) 1125F 2022-12-29 No Data Available No Data Deisy ilable Medication List Documented (1159F) 1159F 2022-12-29 No Data Available No Data Deisy ilable Medication Review by prescribing provider or pharmacist documented (1160F) 1160F 2022-12-29 No Data Available No Data Deisy ilable BMI obtained (3008F) 3008F 2022-12-29 No Data Availab le No Data Available Functional Status Assessed (1170F) 1170F 2022-12-29 No Data Available No Data Avail able Functional Status Functional Category Effective Dates Cognition Status: Oriented to Person, Pl elke and TimeDementia - mild 2022-12-29 ADL Eating: Independent; Amb ulation: Some Help Needed; Dressing: Some Help Needed; Bathing: Some Help Needed; Toileting: Independent 2022-12-29 IADL Shopping: Total Assist; Housekeeping: Total Assist; Meal Prep: Total Assist; Medications Management: Some Help Needed 2022-12-29 Falls in last 6 Months: No 2022-12-29 Mental Status Status Date Cognition Status: Oriented to Person, Pl elke and Time,Dementia - mild 2022-12-29 Assessments Date of Service Assessments 2022-12-29 05:51:12 Essential (primary) hypertensionHyperlipidemiaOsteoporosisGERD (gastroesophageal reflux disease)ConstipationInsomniaUnspecified dementia, unspecified severity, without behavioral disturbance, psychotic disturbance, mood disturbance, and anxietyTinnitusAnxietyLower back pain Plan of Care Date of Service Plans 2022-12-29 05:51:12 Medication Review by prescribing provider or pharmacist documented (1160F)Medication List Documented (1159F)Functional Status Assessed (1170F)Advance Care Directive Advance care planning discussion documented in the medical record (1158F)BMI obtained (3008F)SBP >= 140DBP >=90Televideo new patient,40-59min; chronic exacerbation, 2 stable chronic or 1 acute illness add modifier 95Advance care planning discussed and documented ? advance care plan or surrogate decision-maker was documented in the medical record. (1123F)Pain Assessment - Pain Documented (1125F)Continue to see PCP. Follow-up with [facility] as needed for any acute or disease education needs that may arise.Monitor BP regularly at home. Evaluate BP with PCP/Rehabilitation Consultant f/u visits. Follow a low sodium diet/diet prescribed by PCP/Cardio. Engage in physical activity, if possible and as tolerated. Maintain a healthy weight. Follow medication regimen as directed: amLODIPine Besylate 10 mg Tab TOME JR TABLETA TODOS LOS D PARA LA PRESI N ARTERIALDiscussed health risk r/t Dx; stroke. Monitor lipid levels with specialist/pcp as needed to maintain healthy levels. Evaluate BP regularly at home. Recommended heart-healthy diet - low in saturated and trans fats, increase fruits and veggies as tolerated, whole grains, lean proteins and fish. If able and not contraindicated, exercise at least 30 min/day - weight management. Adhere to prescribed meds; Atorvastatin Calcium 80 mg Tab take 1 tablet orally once daily evening.Discussed the importance of DEXA exam as scheduled and continuing preventative measures as tolerated and able to; consuming calcium rich diet, adequate vitamin D intake. Encouraged regular weight-bearing exercises (walking, strength training) and the use of assistive devices.Discussed healthy lifestyle, maintaining healthy weight, avoiding triggering foods such - spicy, fatty, acidic, caffeine carbonated beverages, alcohol, and chocolate. Eating small meals at a time and avoid laying down immediately after eating. Follow medication regimen as prescribed; [facility] Acid Controller 10 mg Tab TOME JR TABLETA TODOS LOS D EN LA MA ANADiscussed participating in regular exercise - as tolerated, which reduces anxiety and increases intestinal motility. Avoiding or minimizing stress-producing situations. Drinking six to eight glasses of water daily (not at meals) to prevent constipation - if tolerable and not contraindicated. Adhere to medical appointments as scheduled and follow prescribed medications; REGULOID 28.3 % POWD 1 scoop in 1/2 cup of water twice a day by mouthMonitor for cause; lack of sleep - stress, anxiety, depression, chronic pain, caffeine, alcohol, irregular sleep schedule, or environmental factors. Evaluate the s/s - difficulty falling asleep, waking up frequently, waking up too early, daytime sleepiness. Discussed non-pharmacological approaches - good sleep hygiene, comfortable environment, avoiding stimulants (tv, phone). Assess lifestyle habits - regular exercise (if able/tolerable), avoid caffeine/nicotine, limit alcohol (if applicable). F/U with PCP/specialistEncouraged pt to f/u with scheduled appointments with specialist. Discussed management techniques - white noise or hearing aids if tolerable. Discussed reducing exposure to loud noises, manage stress levels, regular exercise.Monitor for s/s - excessive worrying, restlessness, irritability, difficulty concentrating, sleep disturbance, SOB. Encouraged self-care techniques - regular exercise (if able/tolerable), deep breathing, maintaining a balanced diet, getting enough sleep, engaging in enjoyable activities. F/U with PCP/specialist as scheduled/PRN and adhere to medication regimen; Escitalopram Oxalate 10 mg Tab take 1 tablet by mouth dailyEncouraged pt to regularly f/u with PCP/specialist and PRN. Using heat or cold therapy as appropriate. Adhere to prescribed and OTC medication regimen - discussed the importance of never adjusting dosages unless ordered by prescribing provider. Goals Date Goal 2022-12-29 Verbal consent bernard diaz to conduct assessment, and take profile photo, had a detailed discussion with patient/caregiver about [facility] 04/09 services, their diagnosis, and medications. Patient/caregiver verbalized understanding by teach-back method. All available medications were reconciliated, counseled patient/caregiver on treatment plan, compliance, and f/u care coordination with their established PCP and specialists. Health Concerns Date Concern 2022-12-29 Visit completed by a udio and video. Patient and Granddaughter, agreed to visit via telehealth. Introductory visit with [facility] to establish care. Today, patient has chief complaint of: establishing care.Reviewed Allergies, Medications, Active Medical conditions, past medical/surgical history, Social history. 2022-12-29 Most recent hospital stay(s) or ER visit(s) and precipitating factors: Denies any recent visit
--- OUTSIDE RECORDS SUMMARY | 2024-04-08 16:03 | XMS_ITS | Encounter Summary ---
Author Organization [employer] Address [address] [place] [address] Care Team Providers Care Pinion Sorter Name Role Phone Jeannie Fabian Primary Care Provider [phone] Fabrizio Ramos MD Unavailable [phone] Reason for Visit * Reason Comments Med Refill Encounter Details Date Type Department Care Team ([facility] st Contact Info) Description 03/26/2024 Refill [facility] [address] [place] [address] Jeannie Fabian ANP [address] [place] [address] Social History Tobacco Use Types Packs/Day Years [...] got money to buy more: Never True 2023 Within the past 12 months,th e food you bought just didn't last and you didn't have enough money to get more: Sometimes True 01/04/2024 Transportation Answer Date Recorded In the past 12 months, has l ack of transportation kept you from medical appts, meetings, work or from getting things needed for daily living? No 01/04/2024 Utilities Answer Date Recorded In the past 12 months, has t he electric, gas, oil or water company threatened to shut off services in your home? Yes 01/04/2024 Depression Answer Date Recorded Patient Health Questionnaire-2 [...] Description 04/10/2024 11:00 AM EST Office Visit [facility] [address] [place] [address] Jeannie Fabian ANP [address] [place] [address] documented as of this encounter Goals Goal Patient Goal Type Associated Problems Recent Progress Patient-Stated? Author Blood Pressure < 140/90 Blood Pressure 142/80( 024 1:53 PM EST) Jaylen Rosen, PharmD documented as of this encounter Visit Diagnoses Not on filedocumented in this encounter Additional Health Concerns Assessment Noted Time PHQ-9 Depression Total Score: 6 10/18/19 23 1:31 PM EDT documented as of this encounter Care Teams Pinion Sorter Relationship Specialty Start Date End Date Jeannie Fabian ANP [address] [place] [address] PCP - General Family Medicine 12/27/20 Fabrizio Ramos MD [address] [place] [address] Urology 01/04/24 documented as of this encounter
--- OUTSIDE RECORDS SUMMARY | 2024-04-08 16:03 | XMS_ITS | Continuity of Care Document ---
Author Organization [employer] Address [address] [place] [address] Care Team Providers Care Strategy Specialist Name Role Phone Macy Villanueva MD, Kaity [...] Diagnoses Date Provider Providers Copied on Encounter [facility], [address], [place], [place], [id number], [place] MdlS Adult No Information 0 Macy Briceno. [address] [place] [address], [place], [place], [id number], [place]. tel:[phone] [facility], [address], [place], [id number], [place] MdlS Adult No Information 9 Macy Briceno. [address] [place] [address], [place], [place], [id number], [place]. tel:[phone] [facility], [address], [place], [place], [id number], [place] [facility] Adult No Information 9 Rosalinda Brown. [address] [place], [place] [address], [address], [place]. tel:[phone] [facility], [address], [place], [place], [id number], [place] Md Adult No Information 9 Macy Briceno. [address] [place] [address], [place], [place], [id number], [place]. tel:[phone] [facility], [address], [place], [id number], [place] Md Adult No Information 9 Macy Briceno. [address] [place] [address], [place], [id number], [place]. tel:[phone] PSYCH DIAGNOSTIC EVALUATION [facility], [address], [place], [place], [id number], [place] Md Behav Hl[facility] CHER (generalized anxiety disorder) 9 Kash Mckeon. [address] [place] [address], [place], [id number], [place]. tel:[phone] Referring Provider: Gabby Gonzalez, [address] [place] [address], [place], [address] . tel:[phone] OFFICE/OUTPA TIENT VISIT, [facility], [address], [place], [id number], [place] Radha Adult Insomnia (chief complaint)mor e (chief complaint) Other insomniaAnxietyA ge-related osteoporosis without current pathological fractureEssentia l hypertensionUPJ (ureteropelvic junction) obstructionPredi abetesCold feeling [address] [facility], [place], [id number], [place]. tel:[phone] Referring Provider: Gabby Gonzalez, [address] [facility], [place], [address] . tel:[phone] [facility], [address], [place], [id number], [place] Radha Adult No Information 9 Tracey Villalobos. [address] [place] [address], [place], [address], [place]. tel:[phone] [facility], [address], [place], [id number], [place] Radha Adult Chronic bilateral low back pain without sciaticaOther chronic pain 8 Webb Griselda. [address] [place] [address], [place], [address], [place]. tel:[phone] OFFICE/OUTPA TIENT VISIT, EST [facility], [address], [place], [id number], [place] Radha Adult Follow up visit (chief complaint)hyp ertension (chief complaint) Body mass index (BMI) 29.0-29.9, adultChronic bilateral low back pain without sciaticaOther chronic painEssential hypertensionUPJ (ureteropelvic junction) obstruction 8 Webb Griselda. [address] [place] [address], [place], [address], [place]. tel:[phone] PREV VISIT, EST, [address] & [address] [facility], [address], [place], [id number], [place] Radha Adult preventive exam (chief complaint) Encounter for general adult medical examination with abnormal findingsEssentia l hypertensionGast roesophageal reflux disease without esophagitisChron ic ischemic colitisMalignant neoplasm prostateAge-rela clint osteoporosis without current pathological fractureHiatal herniaUPJ (ureteropelvic junction) obstructionBody mass index (BMI) 30.0-30.9, adult 8 Tracey Villalobos. [address] [place] [address], [place], [address], [place]. tel:[phone] OFFICE/OUTPA TIENT VISIT, [facility], [address], [place], [place], [id number], [place] MdlS Adult hypertension (chief complaint)abd ominal pain (chief complaint)dry skin (chief complaint) Dry skin dermatitisEssent ial hypertensionGast roesophageal reflux disease without esophagitisSolit joe kidney Tracey Villalobos. [address] [place] [address], [place], [address], [place]. tel:[phone] OFFICE/OUTPA TIENT VISIT, [facility], [address] [place], [id number], [place] MdlS Adult hypertension (chief complaint)Cou gh (chief complaint) CoughEssential hypertension 8 Tracey Villalobos. [address] [place] [address], [place], [address], [place]. tel:[phone] OFFICE/OUTPA TIENT VISIT, [facility], [address] [place], [id number], [place] MdlS Adult hypertension (chief complaint)shelby st pain (chief complaint) CoughEssential hypertension Tracey Villalobos. [address] [place] [address], [place], [address], [place]. tel:[phone] OFFICE/OUTPA TIENT VISIT, [facility], [address] [place], [id number], [place] MdlS Adult Discuss test results (chief complaint)hyp ertension (chief complaint)dry skin (chief complaint) Essential hypertensionAge- related osteoporosis without current pathological fractureDry skin dermatitis 7 Tracey Villalobos. [address] [place] [address], [place], [address], [place]. tel:[phone] OFFICE/OUTPA TIENT VISIT, [facility], [address], [place], [place], [id number], [place] MdlS Adult hypertension (chief complaint)hyp erlipidemia (chief complaint) Essential hypertensionHype rlipidemia, mixedBody mass index (BMI) 29.0-29.9, adult 7 Webb Griselda. [address] [facility], [place], [address], [place]. tel:[phone] [facility], [address], [place], [place], [id number], [place] MdlS Adult Screening for diabetes mellitus 7 [place]. [address] [facility], [place], [place], [id number], [place]. tel:[phone] OFFICE/OUTPA TIENT VISIT, [facility], [address], [place], [id number], [place] MdlS Adult hypertension (chief complaint)aki h (chief complaint) Dry skin dermatitisHyperl ipidemia, mixedEssential hypertension 7 Tracey Villalobos. [address] [place] [address], [place], [address], [place]. tel:[phone] [facility], [address], [place], [id number], [place] MdlS Adult No Information May-0 7 [place]. [address] [facility], [place], [id number], [place]. tel:[phone] [facility], [address], [place], [id number], [place] MdlS Adult Hyperlipidemia, mixedEssential hypertension Apr-0 3-201 7 [place]. [address] [facility], [place], [id number], [place]. tel:[phone] OFFICE/OUTPA TIENT VISIT, [facility], [address], [place], [id number], [place] MdlS Adult hypertension (chief complaint)cou gh (chief complaint)Med ication Refills (chief complaint) Malignant neoplasm prostateChronic ischemic colitisKidney stoneScreening for osteoporosisCoug hEssential hypertensionScre ening for diabetes mellitusMultiple joint pain 0 7 [place]. [address] [place] [address], [facility] [place], [place], [id number], [place]. tel:[phone] OFFICE/OUTPA TIENT VISIT, [facility], [address], [facility] [place], [place], [id number], [place] MdlS Adult hypertension (chief complaint)DIRECTOR OF PRECLINICAL RESEARCH (chief complaint)Dry skin dermatitis (chief complaint) Essential hypertensionDry skin dermatitisGastro esophageal reflux disease without esophagitis 6 Tracey Villalobos. [address] [place] [address] [place], [address], [place]. tel:[phone] OFFICE/OUTPA TIENT VISIT, [facility], [address], [facility] [place], [id number], [place] MdlS Adult Discuss test results (chief complaint)hyp ertension (chief complaint)aki h (chief complaint) Essential hypertensionDry skin dermatitis Tracey Villalobos. [address] [place] [address] [place], [address], [place]. tel:[phone] OFFICE/OUTPA TIENT VISIT, [facility], [address], [facility] [place], [id number], [place] MdlS Adult Medication Refill (chief complaint)Pre vention (chief complaint)hyp ertension (chief complaint)hyp erlipidemia (chief complaint) Body mass index (BMI) 28.0-28.9, adultEssential hypertensionHype rlipidemia, mixedKidney diseaseScreen for STD (sexually transmitted disease)Screenin g PSA (prostate specific antigen)Screen for colon cancer 6 Rosalinda Brown. [address] [place], [address], [place]. tel:[phone] Family History Family Member Type Diagnosis Age [...] Record Payers Payer name Insurance type Covered constitution party ID Authoriza tion(s) Medicare 2014 NGS MB [id number] Medicaid [id number] Medicaid [place] [id number] [place] [id number] Social History Type Description Quantity Date Captured Comments Sex Male Smoking Status No Information Sexual Orientation Straight or heterosexual June Gender Identity Male Chief Complaint And Reason For Visit No Information Reason For Referral Reason For Referral No Information Plan Of Treatment Date Type Action Status Goal Lipid panel. Due on 019 due [...] Lipid panel. Due on 018 due Goal BMP. Due on due Goal Depression scree ramona. Due on due Goal Cognitive assess ment. Due on due Goal Prevnar 13 (PCV13). Due on M due Goal Influenza Vaccine. Due on Ma [...] BONE DENSITY, AXIAL ordered Referral Referred To: [facility]/ GI Ordered: Referrals: Gastroenterology. [facility]/ GI. Evaluate and treat ordered Patient Education Dry Skin: After Your Vi sit completed Patient Education Dry Skin: After Your Vi sit completed Patient Education Dry Skin: After Your Vi sit completed Future Order: Lab Order LIPID PA DAVID ([id number]), Collected on: Ordered Future Order: Lab Order HEMOGLOB IN A1C ([id number]), Ordered on: Ordered Future Order: Lab Order Hep B Segal rface Ab ([id number]), Ordered on: Ordered Future Order: Lab Order PSA ([id number]), O rdered on: Ordered Future Order: Lab Order HIV SCRE EN ([id number]), Ordered on: Ordered Future Order: Lab Order Microalb umin with creatinine and ratio ([id number]), Ordered on: Ordered Future Order: Lab Order HEPATITI S C Ab ([id number]), Ordered on: Ordered Future Order: Lab Order LIPID PA DAVID ([id number]), Ordered on: Ordered Future Order: Lab Order BMP ([id number]), O rdered on: Ordered History Of Present [...] memoryCRC screening was completed on 10/27/15 at [facility]. DIRECTOR OF PRECLINICAL RESEARCH [facility] anymoreHas appt for ?cathetization in January [...] gender. Discuss test results pt went to [facility] ,wants to know result of testFeels like [...] did colonosc opy 4 years ago in [place]. Functional Status Date Functional Assessmen t No Information Instructions Date Instruction Additional Infor petronapavan Following with Dr. Reyna Flores [facility] UrologyHistory of a left proximal ureteral stricture s/p robotic ureteral reconstruction, now with recurrent obstruction - says next appt in June 2018 Related to UPJ (ureteropelvic junction) obstruction Stable and at goal t noe. JNC 8 goals are <140/90 if less than <60 yo, <150/90 if older than 65 yo. Low salt dietReport chest pain, shortness of breath, edemaContinue current medications RTO 3 months Related to Essential hypertension Following with Dr. Reyna Flores [facility] UrologyHistory of a left proximal ureteral stricture s/p robotic ureteral reconstruction, now with recurrent obstruction. Last sent change 07/2017 Ureteral obstruction - cystoscopy and next ureteral stent change (Dec 2017). Related to UPJ (ureteropelvic junction) obstruction Will order lumbar sgeal pport brace for patient per his request, but also encouraged strengthening exercises, stretchesF/u PRN Related to Chronic bilateral low back pain without sciatica currently f/u as directed by uro logy Related to Malignant neoplasm prostate Well adult male.Early al care every 6 months.Eye doctor appt every 2 years.Immunizations: - TDaP/Td every 10 yrs- Flu: Annually- HPV: <26 y/oLabs: todayAnticipatory guidance given: healthy lifestyle choices including safe sexual practices/condom use, regular exercise, healthy diet, healthy weight.Follow up: 1 year for next annual preventative exam Related to Encounter for general adult medical examination with abnormal findings Following with Dr. Reyna Flores [facility] UrologyMost recent note by Dr. [...] RTO 3 months Related to Essential hypertension Stable and at [...] fluidsCXRF/u pending cxr results Related to Cough Dry skin handout giv enAdvised to buy aveeno, aquaphor, eucerin or similar and apply right after showerDON'T SCRATCH - may use cool packsRTO PRN if no improvement Related to Dry skin dermatitis Rx: alendronate week ly as written - discussed how to properly take this medicationVitamin D3 orderedMay continue calcium 500 mg once dailyStay active, but report difficulties with balanceDiscussed goals are to strengthen him, but avoid falls and pt verbalized understanding Related to Age-related osteoporosis without current pathological fracture Stable and at goal t noe. JNC 8 goals are <140/90 if less than <60 yo, <150/90 if older than 65 yo. Low salt dietReport chest pain, shortness of breath, edemaContinue current medications RTO 3 months Related to Essential hypertension Stable and at goal t noe. JNC 8 goals are <140/90 if less than <60 yo, <150/90 if older than 65 yo. Low salt dietReport chest pain, shortness of breath, edemaContinue current medicationsRTO 1 month w/ PCP Related to Essential hypertension Here for nutrition uri marie reading class with Belinda TumaxHypertriglyceridemia severeAdvised to continue f/u with Belinda and follow a strict dietPatient verbalized understanding and agreed with plan Related to Hyperlipidemia, mixed Continue atorvastati n 40 mg to protect against WA and CVAFollow healthy diet for cholesterol Related to Hyperlipidemia, mixed Stable and at [...] breath, edemaContinue current medications - sent to [facility] pharmacy now that pt doesn't have insuranceRTO 3 months Related to Essential hypertension Stable and at goal t noe. JNC 8 goals are <140/90 if less than <60 yo, <150/90 if older than 65 yo. Low salt dietReport chest pain, shortness of breath, edemaContinue current medicationsRTO 3 months Related to Essential hypertension rx: lac-hydrinTake s howers every other day, whenever possibleKeep showers warm, not HOTApply lotion immediately upon leaving shower, and dailyRTO PRN Related to Dry skin dermatitis Counseled on weight reduction Counseled on dietary changes Lifestyle education regarding di et Related to Body mass index (BMI) 28.0-28.9, adult Giving encouragement to exercise Related to Body mass index (BMI) 28.0-28.9, adult Assessments Type Assessment Date No Information Patient Care Teams Name Effective Dates (start - stop) Status Members No Information
== END 2024-04-08 16:00 | disposition home or self-care (01) ==
LOC: HO.HUSH 13:06
PROVIDERS: PCP Nurse Practitioner Primary Care; Visit Provider Urology
DX: Z90.5 Acquired absence of kidney (principal); N13.5 Crossing vessel and stricture of ureter without hydronephrosis
CPT/HCPCS: 99213; G2211

== ENCOUNTER → 2024-04-08 13:06 | Outpatient (BNVA) | payer OTHER, SELFPAY | PROVIDERS: PCP Nurse Practitioner Primary Care; Visit Provider Urology ==

== ENCOUNTER 2024-04-10 16:14 | Outpatient (REF) | payer OTHER, SELFPAY ==
[2024-04-10 17:13] LABS: Microalbum/Creatinine Ratio Ur 170.7 ug/mg cr (<30)
--- OUTSIDE RECORDS SUMMARY | 2024-04-10 19:20 | XMS_ITS | Encounter Summary ---
Author Organization [employer] Address [address] [facility] [address] [place] [address] Care Team Providers Care Business Law Professor Name Role Phone Jeannie Fabian Primary Care Provider [phone] Fabrizio Ramos MD Unavailable [phone] Encounter Details Date Type Department Care Team ([facility] st Contact Info) Description 04/10/2024 Orders Only [facility] [address] [place] [address] Jeannie Fabian ANP [address] [place] [address] Social History Tobacco Use Types Packs/Day Years [...] t he electric, gas, oil or water ValetAnywhere threatened to shut off services in your [...] as of this encounter Plan of Treatment Not on file documented as of this encounter Goals Goal Patient Goal Type Associated Problems Recent Progress Patient-Stated? Author Blood Pressure < 140/90 Blood Pressure 134/78( 025 11:43 AM EST) No Jaylen Blanca, PharmD documented as of this encounter Procedures Procedure Name Priority Date/Time Associated Diagnosis Comments ALBUMIN, RANDOM URINE W/CREATININE Routine 04/10/2024 11:50 AM EST documented in this encounter Results * (ABNORMAL) Albumin, Random Urine W/Creatinine (04/10/2024 11:50 AM EST) Creatinine, Urine 89.60 mg/dL [facility] Microalbumin Urine 153.0 mg/L [facility] Microalbum Creatinine Ratio Ur 170.7(H) <30 ug/mg cr [facility] Comment:Albumin/Creatinine R atio Reference Ranges: Normal: < 30 ug/mg creatinine Microalbuminuria: 30 - 300 ug/mg creatinineClinical Albuminuria: > 300 ug/mg creatinine 04/10/2024 11:5 0 AM EST 04/10/2024 4:17 PM EST us Jeannie [facility] URINE ORDERABLES Final Resul t [facility] [address] [place] [phone] documented in this encounter Visit Diagnoses Not on filedocumented in this encounter Additional Health Concerns Assessment Noted Time PHQ-9 Depression Total Score: 6 10/18/19 23 1:31 PM EDT documented as of this encounter Care Teams Business Law Professor Relationship Specialty Start Date End Date Jeannie Fabian ANP [address] [place] [address] PCP - General Family Medicine 12/27/20 Fabrizio Ramos MD [address] [place] [address] Urology 01/04/24 documented as of this encounter
--- OUTSIDE RECORDS SUMMARY | 2024-04-10 19:20 | XMS_ITS | Encounter Summary ---
Author Organization [employer] [facility] Address [address] [facility] [address] [place] [address] Care Team Providers Care Back Roll Lathe Operator Name Role Phone Jeannie Fabian Primary Care Provider [phone] Fabrizio Ramos MD Unavailable [phone] Reason for Visit * Reason Onset Date Comments FYI 09/06/2022 Encounter Details Date Type Department Care Team ([facility] st Contact Info) Description 09/06/2022 Telephone [facility] MEDICINE [address] [place] [address] Jeannie Fabian ANP [address] [place] [address] FYI Social History Tobacco Use Types Packs/Day [...] documented in this encounter Plan of Treatment Not on file documented as of this encounter Visit Diagnoses Not on filedocumented in this encounter Care Teams Back Roll Lathe Operator Relationship Specialty Start Date End Date Jeannie Fabian ANP [address] [place] [address] PCP - General Family Medicine 12/27/20 Fabrizio Ramos MD [address] [place] [address] Urology 01/04/24 documented as of this encounter
--- OUTSIDE RECORDS SUMMARY | 2024-04-10 19:20 | XMS_ITS | Encounter Summary ---
Author Organization [employer] Address [address] 7t [place] [address] Care Team Providers Care Claims Adjustor Name Role Phone Corry Hill Primary Care Provider [phone] Fabrizio Ramos MD Unavailable [phone] Encounter Details Date Type Department Care Team (Late st Contact Info) Description 02/28/2022 Orders Only [facility] [address] [place] [address] Stephanie Licea LPN Social History Tobacco Use [...] on file documented as of this encounter Procedures Procedure [...] (06/20/2022 7:20 PM EDT) Color Urine Yellow [facility] Appearance Urine Cloudy [facility] PH 7.0 5.0 - 9.0 [facility] Glucose Urine UA Negative Negative mg/dL [facility] Urine Blood Moderate (2+)(A) Negative [facility] Specific [place] - Urine 1.015 1.005 - 1.025 [facility] Urine Protein 30 (1+)(A) Neg-Trace mg/dL [facility] Urine Ketones Negative Negative mg/dL [facility] Nitrite Urine Negative Negative [facility] Leukocyte Esterase Urine Large (3+)(A) Negative [facility] RBC Urine 11-20(A) 0 - 2 /HPF [facility] Urine WBC >50(A) 0 - 5 /HPF [facility] Urine Squamous Epithelial Cell 0-2 0 - 2 /HPF [facility] Urine Bacteria 4+ None Seen [facility] Hyaline Casts, Urine 0-2 0 - 2 /LPF [facility] 06/20/2022 7:20 PM EDT 06/20/2022 7:23 PM EDT Narrative [facility] - 06/20/2022 7:55 PM EDT [id number], Clean Catch [facility] External Provider LAB URI NE ORDERABLES Final Result [facility] [address] [place] [address] [phone] * High Sensitivity Troponin I (06/20/2022 3:07 PM EDT) [facility] TROPONIN I HIGH SENSITIVITY <2.7 <3.5 - 35.0 ng/L [facility] Comment:The [place] high sens itivity Troponin-I results should beused in conjunction with other diagnostic information suchas ECG, clinical observations and information, and patientsymptoms to aid in the diagnosis of [place]. 06/20/2022 3:07 PM EDT 06/20/2022 3:14 PM EDT [facility] External Provider LAB BLO OD ORDERABLES Final Result Performing Organization Address [facility] de Phone Number [facility] [address] [place] [phone] * B Type Natriuretic Peptide (BNP) (06/20/2022 3:07 PM EDT) [facility] B Type Natriuretic Peptide 27 <100 pg/mL [facility] Comment:For those patients w ho are being treated with Natrecor(nesiritide, recombinant BNP), BNP testing should beperformed at least two hours post treatment in order toensure that only endogenous levels of BNP are detected. 06/20/2022 3:07 PM EDT 06/20/2022 3:14 PM EDT [facility] External Provider LAB BLO OD ORDERABLES Final Result Performing Organization Address [facility] de Phone Number [facility] [address] [place] [phone] * Magnesium (06/20/2022 3:07 PM EDT) [facility] Magnesium 1.8 1.6 - 2.6 mg/dL [facility] 06/20/2022 3:07 PM EDT 06/20/2022 3:14 PM EDT [facility] External Provider LAB BLO OD ORDERABLES Final Result [facility] [address], [place] [phone] * (ABNORMAL) Comprehensive Metabolic Panel (06/20/2022 3:07 PM EDT) Sodium 141 135 - 145 mmol/L [facility] Potassium 4.1 3.3 - 5.1 mmol/L [facility] [place] 108 96 - 108 mmol/L [facility] Carbon Dioxide 25 22 - 29 mmol/L [facility] Anion Gap 12 12 - 20 [facility] Urea Nitrogen (BUN) 20(H) 9 - 16 mg/dL [facility] Creatinine, Serum 1.27 0.5 - 1.4 mg/dL [facility] Creatinine Clr Calc Pharmacy 41.9 [facility] Comment:eGFR (calculated fro m the MDRD study equation) and eCrCl(calculated from the Cockcroft-Gault equation) are based ondifferent parameters and may not yield comparable results.If eCrCl result is absurd, please check patient'sheight/weight. Estimated Glomerular Filt Rate 54 [facility] Comment:NOTE: For -Am erican individuals, multiply the result by 1.210.Chronic Kidney Disease: Estimated GFR < 60 mL/min/1.38d8Nvrqlb Kidney Disease: Estimated GFR < 15 mL/min/1.73m2 Glucose 148(H) 60 - 115 mg/dL [facility] Calcium 9.6 8.4 - 10.2 mg/dL [facility] Bilirubin, Total 0.4 0.0 - 1.0 mg/dL [facility] Aspartate Amino Transferase 21 5 - 37 U/L [facility] Alanine Aminotransferase 20 0 - 40 U/L [facility] Total Protein 7.1 6.5 - 8.0 g/dL [facility] Albumin Level 3.9 3.5 - 5.0 g/dL [facility] Alkaline Phosphatase 72 39 - 117 U/L [facility] 06/20/2022 3:07 PM EDT 06/20/2022 3:14 PM EDT [facility] External Provider LAB BLO OD ORDERABLES Final Result [facility] [address] [place] [address] [phone] * (ABNORMAL) CBC auto differential (06/20/2022 3:07 PM EDT) White Blood Count 5.4 4.8 - 10.8 X10*3/uL [facility] Red Blood Count 4.25(L) 4.60 - 5.80 X10*6/uL [facility] Hemoglobin 12.9(L) 14.0 - 18.0 g/dl [facility] Hematocrit 39.8(L) 42.0 - 52.0 % [facility] Mean Corpuscular Volume 93.6 80.0 - 98.0 fL [facility] Mean Corpuscular Hemoglobin 30.4 27.0 - 33.0 pg [facility] Mean Corpuscular HGB Conc 32.4 31.0 - 36.0 g/dl [facility] Red Cell Distribution Width 13.2 11.0 - 16.0 % [facility] Platelet Count 112(L) 160 - 400 X10*3/uL [facility] Mean Platelet Volume 11.3 9.4 - 12.4 fL [facility] Neutrophils Percent Auto 42.1(L) 45 - 73 % [facility] Imm Gran Pct Auto 0.2 0.0 - 0.4 % [facility] Lymphocytes Percent Auto 43.9(H) 20 - 40 % [facility] Monocytes Percent Auto 10.3 2 - 11 % [facility] Eosinophils Percent Auto 2.6 0 - 4 % [facility] Basophils Percent Auto 0.9 0 - 2 % [facility] NRBC Pct Auto 0.0 0.0 - 0.2 /100WBC [facility] Neutrophils Absolute Auto 2.3 2.0 - 8.3 x10*3/uL [facility] Imm Gran Abs Auto 0.01 0.00 - 0.03 X10*3/uL [facility] Lymphocytes Absolute Auto 2.4 1.2 - 4.9 X10*3/uL [facility] Monocytes Absolute Auto 0.6 0.1 - 1.2 X10*3/uL [facility] Eosinophils Absolute Auto 0.1 0.0 - 0.4 X10*3/uL [facility] Basophils Absolute Auto 0.1 0.0 - 0.2 X10*3/uL [facility] NRBC Abs Auto 0.000 0.0 - 0.012 X10*3/uL [facility] 06/20/2022 3:07 PM EDT 06/20/2022 3:14 PM EDT us [facility] External Provider LAB BLO OD ORDERABLES Final Result Performing Organization Address City/State/[facility] Co de Phone Number [facility] [address] [place] [phone] * Cytopath-cell enhanced (05/02/2022 9:42 AM EDT) 05/02/2022 9:42 AM EDT 05/03/2022 6:39 AM EDT [place] [facility] - 05/03/2022 4:46 PM EDT ----- ------- Name: Augustine Rodriguez ?Age/Sex: 81/M ? : 1940 Unit#: [id number] ?? Attend Dr: Fabrizio Ramos MD ?Re05/02/22 ?Status: DEP REF ? Location: .LAB ?Disch: ? ----- ------- SPEC : [id number] ? RECD: 05/03/22 ? STATUS: ??SOUT ? REQ NUM: [id number] ? FAMILIA: 05/02/22-941 ? SUBM DR: Fabrizio Ramos MD ? ENTERED: ??05/03/22-1410 ?SP TYPE: Cytology ? OTHR DR: CORRY HILL NP ? ORDERED: ??Cyto-enhanced ? [...] To: ?? Fabrizio Ramos MD ?? [address] [facility] [address] ?? [place] [address] ?? [phone] ?? CORRY HILL NP ?? [address] [facility] [address] ?? [place] [address] ?? [phone] ----- ------- Signed (signature on file) Jesica Colony 05/03/22 1646 ? ----- ------- ? END OF REPORT ? [facility] External Provider LAB CYT OLOGY ORDERABLES Final Result [facility] [address] [place] [address] [phone] * Culture, Urine, Routine (05/02/2022 9:42 AM EDT) 05/02/2022 9:42 AM EDT 05/02/2022 4:36 PM EDT Comment:UACC Narrative [facility] - 05/05/2022 8:23 AM EDT Escherichia coli ESBL Note: NOTE: Extended-Spectrum Beta-Lactamase enzyme present Quant > 100,000 cfu/mL Escherichia coli: Ampicillin >=32(R) Escherichia coli: Ceftriaxone 16(I) Escherichia coli: Ertapenem <=0.12(S) Escherichia coli: Gentamicin 4(S) Escherichia coli: Levofloxacin >=8(R) Escherichia coli: Nitrofurantoin 32(S) Escherichia coli: Trimethoprim/Sulfamethoxazole >=320(R) Specimen Source: Urine clean catch us [facility] Exter nal Provider LAB MICROBIOLOGY - GENERAL ORDERABLES Final Result [facility] [address] [place] [address] [phone] documented in this encounter Visit Diagnoses Not on filedocumented in this encounter Care Teams Claims Adjustor Relationship Specialty Start Date End Date Corry Hill ANP [address] [place] [phone] PCP - General Family Medicine 12/27/20 Fabrizio Ramos MD [address] [place] [address] Urology 01/04/24 documented as of this encounter
--- OUTSIDE RECORDS SUMMARY | 2024-04-10 19:20 | XMS_ITS | Encounter Summary ---
Author Organization [employer] [facility] Address [address] 7[address] [place] [address] Care Team Providers Care Promotional Marketing Agent Name Role Phone Jeannie Fabian Primary Care Provider Fabrizio Ramos MD Unavailable [phone] Reason for Visit * Reason Onset Date Comments Chart Prep 04/07/2024 Encounter Details Date Type Department Care Team ([facility] st Contact Info) Description 04/07/2024 Telephone [facility] MEDICINE [address] [place] [address] Jeannie Fabian ANP [address] [place] [address] Chart Prep Social History Tobacco Use Types [...] documented as of this encounter Care Teams Promotional Marketing Agent Relationship Specialty Start Date End Date Jeannie Fabian ANP [address] [place] [address] PCP - General Family Medicine 12/27/20 Fabrizio Ramos MD [address] [place] [address] Urology 01/04/24 documented as of this encounter
--- OUTSIDE RECORDS SUMMARY | 2024-04-10 19:20 | XMS_ITS | Encounter Summary ---
Author Organization [employer] Address [address] [facility] 7t [place] [address] Care Team Providers Care Nursing Unit Coordinator Name Role Phone Jeannie Fabian Primary Care Provider [phone] Fabrizio Ramos MD Unavailable [phone] Reason for Visit * Reason Comments Med Refill Encounter Details Date Type Department Care Team ([facility] st Contact Info) Description 03/26/2024 Refill [facility] MEDICINE [address] [place] [address] Jeannie Fabian ANP [address] [place] [address] Social History Tobacco Use Types Packs/Day Years [...] documented as of this encounter Care Teams Nursing Unit Coordinator Relationship Specialty Start Date End Date Jeannie Fabian ANP [address] [place] [phone] PCP - General Family Medicine 12/27/20 Fabrizio Ramos MD [address] [place] [address] Urology 01/04/24 documented as of this encounter
--- OUTSIDE RECORDS SUMMARY | 2024-04-10 19:20 | XMS_ITS | Encounter Summary ---
Author Organization [employer] Address [address] [facility] 7t [place] [address] Care Team Providers Care Kier Pleater Name Role Phone Jeannie Fabian Primary Care Provider [phone] Fabrizio Ramos MD Unavailable [phone] Reason for Visit * Reason Comments Med Refill Encounter Details Date Type Department Care Team ([facility] st Contact Info) Description 02/18/[address] [facility] MEDICINE [address] [place], [place] [phone] Jeannie Fabian ANP [address] [place] [address] Anxiety Social History Tobacco Use Types Packs/Day [...] documented as of this encounter Care Teams Kier Pleater Relationship Specialty Start Date End Date Jeannie Fabian ANP [address] [place] [address] PCP - General Family Medicine 12/27/20 Fabrizio Ramos MD [address] [place] [address] Urology 01/04/24 documented as of this encounter
--- OUTSIDE RECORDS SUMMARY | 2024-04-10 19:20 | XMS_ITS ---
Author Name David KELSEYMicaelay Address [address] [place] [address] Phone [phone] [facility] Care Team Providers Care Avionics Systems Repairer Name Role Phone Dee Hernandez Unavailable [phone] Unavailable Unavailable Unavailable Reason for Referral Not [...] (do not use for phone, instead use [id number]) [facility] [place]/29/2022 Essential (primary) hypertensionHyperlipidemia, unspecifiedAge-related osteoporosis without current pathological fractureGastro-esophageal reflux disease without esophagitisConstipation, unspecifiedInsomnia, unspecifiedUnspecified dementia without behavioral disturbanceTinnitus, unspecified earAnxiety disorder, unspecifiedLow back pain, unspecified New patient,40-59min; chronic exacerbation, 2 stable chronic or 1 acute illness add add modifier 95 for video (do not use for phone, instead use 83769-53) [facility] [place]/29/2022 New patient,40-59min; chronic exacerbation, 2 stable chronic or 1 acute illness add add modifier 95 for video (do not use for phone, instead use 66094-30) [facility] 12/29/2022 New patient,40-59min; chronic exacerbation, 2 stable chronic or 1 acute illness add add modifier 95 for video (do not use for phone, instead use 62042-10) [facility] 12/29/2022 New patient,40-59min; chronic exacerbation, 2 stable chronic or 1 acute illness add add modifier 95 for video (do not use for phone, instead use 51738-79) [facility] [place] 12/29/2022 New patient,40-59min; chronic exacerbation, 2 stable chronic or 1 acute illness add add modifier 95 for video (do not use for phone, instead use 88879-32) [facility] [place] 12/29/2022 Vital Signs Date of Collection Vitals 2022-12-29 05:51:12 Height - 167.64 cmWe ight - 78.47 kgBody Mass Index (BMI) - 27.92 kg/m2BP Diastolic - 85.0 mm[Hg]BP Systolic - 155.0 mm[Hg]Pain Scale - 8.0 {score} Social History Social History Social History Observation Description Effec tive Time Current Smoking Status Never smoker 2024-03-16 8 Sex Male History of Procedures Procedures Service Procedure code Service date Servicing provider Phone# New patient,40-59min; chronic exacerbation, 2 stable chronic or 1 acute illness add add modifier 95 for video (do not use for phone, instead use 36565-19) [id number] 2022-12-29 No Data Available No Data Availa [...] BP regularly at home. Evaluate BP with PCP/Senior Physical Therapist f/u visits. Follow a low sodium diet/diet [...] had a detailed discussion with patient/caregiver about [facility] 04/09 services, their diagnosis, and medications. Patient/caregiver verbalized understanding by teach-back method. All available medications were reconciliated, counseled patient/caregiver on treatment plan, compliance, and f/u care coordination with their established PCP and specialists. Health Concerns Date Concern 2022-12-29 Visit completed by a udio and video. Patient and Granddaughter, agreed to visit via telehealth. Introductory visit with [facility] to establish care. Today, patient has chief complaint of: establishing care.Reviewed Allergies, Medications, Active Medical conditions, past medical/surgical history, Social history. 2022-12-29 Most recent hospital stay(s) or ER visit(s) and precipitating factors: Denies any recent visit
--- OUTSIDE RECORDS SUMMARY | 2024-04-10 19:20 | XMS_ITS | Encounter Summary ---
Author Organization [employer] Address [address] [place] [address] Care Team Providers Care Checker Cashier Name Role Phone Jeannie Fabian Primary Care Provider Fabrizio Ramos MD Unavailable [phone] Reason for Visit * Reason Comments Pre-visit Planning SDOH Screening negat fer and Tobacco screening negative Encounter Details Date Type Department Care Team ([facility] st Contact Info) Description 03/28/2024 Patient Outreach [facility] MEDICINE [address] [place] [address] Jeannie Fabian ANP [address] [place] [address] Pre-visit Planning (SDOH Screening negative and Tobacco [...] 025 11:43 AM EST) No Jaylen Blanca, Nicki documented as of this encounter Visit Diagnoses Not on filedocumented in this encounter Additional Health Concerns Assessment Noted Time PHQ-9 Depression Total Score: 6 10/18/19 23 1:31 PM EDT documented as of this encounter Care Teams Checker Cashier Relationship Specialty Start Date End Date Jeannie Fabian ANP [address] [place] [phone] PCP - General Family Medicine 12/27/20 Fabrizio Ramos MD [address] [place] [address] Urology 01/04/24 documented as of this encounter
--- OUTSIDE RECORDS SUMMARY | 2024-04-10 19:20 | XMS_ITS | Encounter Summary ---
Author Organization [employer] Address [address] [place] [address] Care Team Providers Care Top Former Name Role Phone Jeannie Fabian Primary Care Provider [phone] Fabrizio Ramos MD Unavailable [phone] Encounter Details Date Type Department Care Team (Latest Contact Info) Description 04/10/2024 Travel Social History Tobacco Use Types Packs/Day Years [...] documented as of this encounter Care Teams Top Former Relationship Specialty Start Date End Date Jeannie Fabian ANP [address] [place] [address] PCP - General Family Medicine 12/27/20 Fabrizio Ramos MD [address] [place] [address] Urology 01/04/24 documented as of this encounter
--- OUTSIDE RECORDS SUMMARY | 2024-04-10 19:20 | XMS_ITS | Clinical Summary ---
Author Organization [employer] Address [address] [facility] [address] [place] [address] Care Team Providers Care Casino Cashier Manager Name Role Phone Jeannie Fabian Primary Care Provider [phone] Fabrizio Ramos MD Unavailable [phone] Allergies Active Allergy Reactions Criticality Noted [...] BEDTIME 90 tablet 3 12/31/19 24 Active amLODIPine (Norvasc) 10 MG tablet TAKE 1 TABLET BY MOUTH EVERY MORNING (for high blood pressure) 90 tablet 1 03/26/19 25 Active escitalopram (Lexapro) 10 MG tabletIndication s:Anxiety TAKE 1 TABLET BY MOUTH AT BEDTIME FOR ANXIETY 90 tablet 1 04/10/19 25 Active zoster vaccine-recombin ant adjuvanted (Shingrix) 50 MCG/0.5ML vaccine Inject 0.5 mL (50 mcg) into the muscle 1 (one) time for 1 dose. 1 each 1 04/10/19 25 025 Active clotrimazole (Lotrimin) 1 % creamIndications :Genital pruritus Apply twice daily for 7 days to affected area 28 g 04/10/19 25 Active nitrofurantoin, macrocrystal-mon ohydrate, (Macrobid) 100 MG capsuleIndicatio ns:Acute cystitis with hematuria Take 1 capsule (100 mg) by mouth 2 times daily for 5 days. 10 capsule 04/10/19 25 025 Active amLODIPine (Norvasc) 10 MG tablet TAKE 1 TABLET BY MOUTH EVERY MORNING (for high blood pressure) 90 tablet 1 08/22/19 24 025 Discontinued escitalopram (Lexapro) 10 MG tabletIndication s:Anxiety TAKE 1 TABLET BY MOUTH AT BEDTIME FOR ANXIETY 90 tablet 01/30/20 24 025 Discontinued(Re order (will not trigger notification to Pharmacy)) Active Problems Problem Noted Date Diagnosed Date [...] and family PLAN: 1. Follow up with [facility]: Not recommended for follow-up 2. Patient goal is decrease anxiety symptoms. 3. Behavioral Recommendations a. Will comply with medication b. Will utilize coping techniques provided c. Will reach out to [facility], if additional support is needed Preoperative examination [...] Encounters Date Type Department Care Team Description 04/10/2024 11:00 AM EST Office Visit [address] [address] Jeannie Fabian ANP Prediabetes (Primary Dx); Anxiety; Anemia, unspecified type; Dysuria; Genital pruritus; Acute cystitis with hematuria 04/10/2024 Orders Only [address] [address] Jeannie Fabian ANP 04/10/2024 Travel 04/07/[address] [address] Jeannie Fabian ANP Chart Prep 03/28/2024 Patient Outreach [address] [address] Jeannie Fabian ANP Pre-visit Planning (SDOH Screening negative and Tobacco screening negative) 03/26/2024 Refill [facility] [address] [place] [address] Jeannie Fabian ANP 02/11/2024 Telephone [facility] [address] [place] [address] Suze Styles [place] March recall 01/30/2024 Refill [facility] [address] [place] [address] Jeannie Fabian ANP Anxiety 01/24/2024 Telephone [facility] [address] [place], [place] [phone] Raeann Raman, RODGER Results from Last 3 Months Immunizations Name [...] Sign Reading Time Taken Comments Blood Pressure 134/78 04/10/2024 11:43 AM EST Pulse 90 04/10/2024 11:43 AM EST Temperature 36.6 ??C (97.9 ??F) 04/10/2024 1 1:43 AM EST Respiratory Rate 14 04/10/2024 11:4 3 AM EST Oxygen Saturation 98% 04/10/2024 11: 43 AM EST Inhaled Oxygen Concentration - - Weight 73.4 kg (161 lb 12.8 oz) 025 11:43 AM EST Height 162.6 cm (5' 4 ) 09/28/2023 9:25 AM EDT Body Mass Index 27.77 09/28/2023 9:25 AM EDT Plan of Treatment Health Maintenance Due Date Last Done Comments Alcohol/Substance Use Screening 1952 Zoster Vaccines (1 of 2) 1990 RSV Patients and Patients Aged 60 years or older (1 - 1-dose 75+ series) 08/10/2015 COVID-19 Vaccine ( season) 2023 02/07/2021, 01/17/2021, 03/18/2020 Influenza Vaccine (#1) 2023 , 11/22/2011, 11/15/2010 Depression Screening 01/03/2025 01/04/2024, 10/18/19 23 SDOH Screening 03/28/2025 03/28/2024 Diabetes: Hemoglobin A1C 04/10/2025 025, 01/04/2024, 09/28/2023, Additional history exists Tobacco Screening 04/10/2025 04/10/2024 Lipid Panel 07/04/2028 07/05/2023, 11/29/2022 DTaP/Tdap/Td Vaccines [...] Blood Pressure 134/78( 025 11:43 AM EST) Jaylen Rosen, Nicki Procedures Procedure Name Priority Date/Time Associated Diagnosis Comments POCT URINALYSIS DIPSTICK Routine 04/10/2024 11:59 AM EST Prediabetes ALBUMIN, RANDOM URINE W/CREATININE Routine 04/10/2024 11:50 AM EST POCT GLYCATED HEMOGLOBIN, TOTAL Routine 04/10/2024 11:28 AM EST Prediabetes POCT GLUCOSE Routine 04/10/2024 11:27 AM EST Prediabetes LIPID PANEL, STANDARD Routine 07/05/2023 9:12 AM EDT Hyperlipidemia, unspecified hyperlipidemia type from Last 3 Months or Most Recently Relevant to Health Maintenance Results * (ABNORMAL) POCT Urinalysis (04/10/2024 11:59 AM EST) Color, UA Yellow Clarity, UA Cloudy Glucose, UA Negative Bilirubin, UA Negative Ketones, UA Negative Spec Grav, UA 1.020 Blood, UA Positive(A) Negative, None Detected Comment:large pH, UA 6.0 Protein, UA Trace Comment:30 mg Urobilinogen, UA 0.2 Leukocytes, UA Trace Negative, Rare, Trace Comment:large Nitrite, UA Positive(A) Negative, None Detected Appearance, UA cloudy QC Media Lot # [id number] Lot# Expiration Date Urine 04/10/2024 11:5 9 AM EST us Jeannie Fabian [facility] POINT OF CARE TEST ENTER/EDIT OR DERABLES Final Result * (ABNORMAL) Albumin, Random Urine W/Creatinine (04/10/2024 11:50 AM EST) Creatinine, Urine 89.60 mg/dL [facility] Microalbumin Urine 153.0 mg/L H [facility] Microalbum Creatinine Ratio Ur 170.7(H) <30 ug/mg cr [facility] Comment:Albumin/Creatinine R atio Reference Ranges: Normal: < 30 ug/mg creatinine Microalbuminuria: 30 - 300 ug/mg creatinineClinical Albuminuria: > 300 ug/mg creatinine 04/10/2024 11:5 0 AM EST 04/10/2024 4:17 PM EST us Jeannie Fabian ANP LAB URINE ORDERABLES Final Resul t [facility] [address] [place] [phone] * (ABNORMAL) POCT HGB A1C (04/10/2024 11:28 AM EST) Hemoglobin A1C 6.4(A) 4.0 - 6.0 % QC Media Lot # [id number] Lot# Expiration Date Blood 04/10/2024 11:2 8 AM EST us Jeannie Fabian ANP POINT OF CARE TEST ENTER/EDIT OR DERABLES Final Result * POCT Glucose (04/10/2024 11:27 AM EST) Glucose Blood, POC 109 60 - 200 mg/dL QC Media Lot # [id number] Lot# Expiration Date 1386,501 Blood Capillary blood specimen / Unknown 04/10/2024 11:27 AM EST us Jeannie Fabian ANP POINT OF CARE TEST ENTER/EDIT OR DERABLES Final Result * (ABNORMAL) Lipid Panel, Standard (07/05/2023 9:12 AM EDT) Triglycerides 155(H) <150 mg/dL [facility] Comment:Desirable Triglyceri de: less than 150 mg/dLBorderline High Triglyceride 150-199 mg/dLHigh Triglyceride: 200-499 mg/dLVery High Triglyceride: greater than or equal to 5OO mg/dL Cholesterol 119 <200 mg/dL [facility] Comment:Desirable Cholestero l: less than 200 mg/dLBorderline High Cholesterol: 200-239 mg/dLHigh Cholesterol: greater than 239 mg/dL LDL Cholesterol Calculated 60 <100 mg/dL [facility] Comment:Desirable LDL: less than 100 mg/dLNear Optimal/Above Optimal LDL: 110- 129 mg/dLBorderline High LDL: 130-159 mg/dLHigh LDL: 160-189 mg/dLVery High LDL: greater than or equal to 190 mg/dL HDL Cholesterol 28(L) >40 mg/dL [facility] Comment:Desirable HDL: great er than 40 mg/dL Note: This HDL assay may give artificially low results in patients with liver disease. Blood Venous blood specimen / Unknown 07/05/2023 9:12 AM EDT 07/05/2023 11:29 AM EDT us Jeannie Fabian ANP LAB BLOOD ORDERABLES Final Resul t [facility] [address] [place] [address] [phone] from Last 3 Months or Most Recently Relevant to Health Maintenance Insurance [facility] Care Teams Casino Cashier Manager Relationship Specialty Start Date End Date Jeannie Fabian ANP [address] [place] [address] PCP - General Family Medicine 12/27/20 Fabrizio Ramos MD [address] [place], [place] Urology 01/04/24
--- OUTSIDE RECORDS SUMMARY | 2024-04-10 19:20 | XMS_ITS | Encounter Summary ---
Author Organization [employer] Address [address] [facility] 7t [place] [address] Care Team Providers Care Transmission Inspector Name Role Phone Jeannie Fabian Primary Care Provider [phone] Fabrizio Ramos MD Unavailable [phone] Reason for Visit * Reason Comments Diabetes Encounter Details Date Type Department Care Team ([facility] st Contact Info) Description 04/10/2024 11:00 AM EST Office Visit [facility] [address] [place], [place] [phone] Jeannie Fabian ANP [address] [place], [place] [phone] Prediabetes (Primary Dx); Anxiety; Anemia, unspecified type; Dysuria; Genital pruritus; Acute cystitis with hematuria Social History Tobacco Use Types Packs/Day Years [...] PM EST documented as of this encounter Last Filed Vital Signs Vital Sign Reading [...] 12.8 oz) 025 11:43 AM EST Height - - Body Mass Index 27.77 09/28/2023 9:25 AM EDT documented in this encounter Progress Notes * FORREST Hunt - 04/10/2024 11:00 AM EST SUBJECTIVE: Augustine Sandy is a 83 y.o. year old male who presents for chronic disease management. Denies recent illness, injury, or hospitalization. PMH anemia, CKD, solitary kidney (R nephrectomy), HTN, HLD, anxiety, h/o renal ca, hydronephrosis w/ ureteral stent Follows with [facility] urology Dr. Ramos for h/o renal cancer, persistent left hydronephrosis managed with indwelling stent changed every 5 mos Follows w/ endo for osteoporosis, on Tymlos History of right nephrectomy H/O prostatectomy Hx of cholecystectomy Non-smoker Acute Concerns: Sleeping well, eating well, no concerns w/ bowel/bladder. Actually - does have a little itching when he urinates. No rash on exam however POC UA consistent w/ UTI. Last culture in chart from 04/2022: Extended-Spectrum Beta-Lactamase enzyme present Quant > 100,000 cfu/mL Escherichia coli: Ampicillin >=32(R) Escherichia coli: Ceftriaxone 16(I) Escherichia coli: Ertapenem <=0.12(S) Escherichia coli: Gentamicin 4(S) Escherichia coli: Levofloxacin >=8(R) Escherichia coli: Nitrofurantoin 32(S) Escherichia coli: Trimethoprim/Sulfamethoxazole >=320(R) Julio Maharaj, medical office professional instructor, provided Turkmen interpretation. Lab Results Component Value Date HGBA1C 6.4 (A) 04/10/2024 HGBA1C 6.1 (A) 01/04/2024 HGBA1C 7.1 09/28/2023 HGBA1C 5.7 11/29/2022 Social History Social History Narrative Not on file Patient Active Problem List Diagnosis Anemia Chronic kidney disease, unspecified Gastritis due to Helicobacter species H/O kidney removal Hydronephrosis Hyperlipidemia Essential hypertension Reduced visual acuity Renal agenesis Onychomycosis of toenail Ureteral obstruction Difficulty walking Unsteadiness on feet ESBL (extended spectrum beta-lactamase) producing bacteria infection History of kidney cancer Insomnia Osteoporosis Ureteral stent present Urinary tract infection H/O prostatectomy Solitary kidney, acquired Preoperative examination Low back pain radiating to both legs Anxiety Gastroesophageal reflux disease History reviewed. No pertinent surgical history. No family history on file. Review of Systems Constitutional: Negative for fatigue, fever and unexpected weight change. HENT: Negative for sore throat. Respiratory: Negative for chest tightness, shortness of breath and wheezing. Gastrointestinal: Negative for constipation. Endocrine: Negative for polydipsia, polyphagia and polyuria. Genitourinary: Positive for dysuria. Negative for difficulty urinating, frequency, penile dischargeand penile pain. Musculoskeletal: Negative for back pain. Skin: Negative for rash. Neurological: Negative for headaches. OBJECTIVE: Vitals: 04/10/24 1143 BP: 134/78 BP Location: Right arm Patient Position: Sitting BP Cuff Size: Adult Pulse: 90 Resp: 14 Temp: 97.9 ??F (36.6 ??C) TempSrc: Temporal SpO2: 98% Weight: 161 lb 12.8 oz (73.4 kg) Physical Exam Vitals reviewed. Constitutional: General: He is not in acute distress. Appearance: Normal appearance. He is not ill-appearing. HENT: Head: Normocephalic and atraumatic. Eyes: General: No scleral icterus. Extraocular Movements: Extraocular movements intact. Pupils: Pupils are equal, round, and reactive to light. Cardiovascular: Rate and Rhythm: Normal rate and regular rhythm. Pulmonary: Effort: Pulmonary effort is normal. No accessory muscle usage or respiratory distress. Genitourinary: Penis: Uncircumcised. No phimosis or paraphimosis. Comments: Mild erythema around urethral opening Skin: General: Skin is warm and dry. Neurological: Mental Status: He is alert and oriented to person, place, and time. Psychiatric: Mood and Affect: Mood normal. Behavior: Behavior normal. ASSESSMENT/PLAN Augustine was seen today for diabetes. Diagnoses and all orders for this visit: Prediabetes (Primary) Lab Results Component Value Date HGBA1C 6.4 (A) 04/10/2024 HGBA1C 6.1 (A) 01/04/2024 HGBA1C 7.1 09/28/2023 HGBA1C 5.7 11/29/2022 HGBA1C 6.2 (A) 06/06/2022 Remains in prediabetes range after 1 dip into DM range. Recommend he increase exercise and add protein if he does eat simple carbs. Jolon A1c goal for this 83-year-old, </= 8.0, were diabetes to be diagnosed. - POCT Glucose - POCT HGB A1C - Lipid Panel, Standard; Future - Comprehensive Metabolic Panel; Future - Albumin, Random Urine W/Creatinine; Future - POCT Urinalysis Anxiety Patient is doing well in terms of anxiety on current dose of med below. To continue. - escitalopram (Lexapro) 10 MG tablet; TAKE 1 TABLET BY MOUTH AT BEDTIME FOR ANXIETY Anemia, unspecified type - Ferritin; Future - Transferrin; Future - Iron And Total Iron Binding Capacity; Future - CBC auto differential; Future Dysuria Comments: itch w/ urination, x 20 days. UA consistent with UTI. Plan as below. Orders: - Urinalysis, Complete, with Reflex to Culture Genital pruritus Mild erythema at urethral opening recommend clotrimazole topical trial given low risk and will treat UTI as below - clotrimazole (Lotrimin) 1 % cream; Apply twice daily for 7 days to affected area Acute cystitis with hematuria I messaged with patient's urology office who agreed with Macrobid until culture is back. Estimated Creatinine Clearance: 48.9 mL/min (by C-G formula based on SCr of 1.05 mg/dL). Per up-to-date Although contraindicated in the manufacturer agent's labeling, limited data suggest nitrofurantoin is safe and effective for short-term treatment of uncomplicated acute cystitis in patientswith an eGFR or CrCl 30 to 60 mL/minute Advised patient to continue to hydrate well and we will call him if culture comes back needing different antibiotic. Report any fever or chills or worsening symptoms to us or urology immediately. - nitrofurantoin, macrocrystal-monohydrate, (Macrobid) 100 MG capsule; Take 1 capsule (100 mg) by mouth 2 times daily for 5 days. Latest Reference Range & Units 04/10/24 11:59 Color, UA Yellow Specific [place], UA 1.020 pH, UA 6.0 Ketones, UA Negative Protein, UA Trace Nitrite, UA Negative, None Detected Positive ! RBC, UA Negative, None Detected Positive ! Clarity, UA Cloudy Glucose, UA Negative Leukocytes, UA Negative, Rare, Trace Trace Bilirubin UA Negative Urobilinogen, UA 0.2 QC Media Lot # [id number] Appearance, UA cloudy !: Data is abnormal Other orders - zoster vaccine-recombinant adjuvanted (Shingrix) 50 MCG/0.5ML vaccine; Inject 0.5 mL (50 mcg) into the muscle 1 (one) time for 1 dose. I gave them information about the RSV vaccine and they will consider. At least 30 minutes spent with patient [id number] and with care consult with urology office. Follow Up: 4 months or sooner if needed. Current Outpatient Medications on File Prior to Visit Medication Sig Dispense Refill Alcohol Swabs (Alcohol Prep) 70 % pads amLODIPine (Norvasc) 10 MG tablet TAKE 1 TABLET BY MOUTH EVERY MORNING (for high blood pressure) 90tablet 1 atorvastatin (Lipitor) 80 MG tablet TAKE 1 TABLET BY MOUTH AT BEDTIME 90 tablet 3 B-D ULTRAFINE III SHORT PEN 31G X 8 MM misc famotidine (Pepcid) 10 MG tablet Take 1 tablet (10 mg) by mouth 2 times daily. 60 tablet 11 polyethylene glycol, PEG, 3350 (MiraLax) 17 GM/SCOOP powder Take 17 g by mouth in the morning. As needed once daily for constipation. Can use 2 times/d for up to 3 days if needed. 527 g 0 psyllium (Metamucil) 28.3 % powder Take 12 g (3.4 g of fiber) by mouth 2 times daily. 575 g 2 Tymlos 3120 MCG/1.56ML solution pen-injector [DISCONTINUED] escitalopram (Lexapro) 10 MG tablet TAKE 1 TABLET BY MOUTH AT BEDTIME FOR ANXIETY 90tablet 0 No current facility-administered medications on file prior to visit. Julio Maharaj, medical office professional instructor, provided Turkmen interpretation. documented in this encounter Plan of Treatment Scheduled Orders Name Type Priority Associated Diagnoses Orde r Schedule Lipid Panel, Standard Lab Routine Prediabetes Expected: 04/10/2024 (Approximate), Expires: 04/10/2025 Comprehensive Metabolic Panel Lab Routine Prediabetes Expected: 04/10/2024 (Approximate), Expires: 04/10/2025 Albumin, Random Urine W/Creatinine Lab Routine Prediabetes Expected: 04/10/2024 (Approximate), Expires: 04/10/2025 Ferritin Lab Routine Anemia, unspecified type Expected: 04/10/2024, Expires: 04/10/2025 Transferrin Lab Routine Anemia, unspecified type Expected: 04/10/2024 (Approximate), Expires: 04/10/2025 Iron And Total Iron Binding Capacity Lab Routine Anemia, unspecified type Expected: 04/10/2024, Expires: 04/10/2025 CBC auto differential Lab Routine Anemia, unspecified type Expected: 04/10/2024 (Approximate), Expires: 04/10/2025 Urinalysis, Complete, with Reflex to Culture Lab Routine Dysuria Ordered: 04/10/2024 documented as of this encounter Goals Goal Patient Goal Type Associated Problems Recent Progress Patient-Stated? Author Blood Pressure < 140/90 Blood Pressure 134/78( 025 11:43 AM EST) No Blanca, Jaylen, PharmD documented as of this encounter Procedures Procedure Name Priority Date/Time Associated Diagnosis Comments POCT URINALYSIS DIPSTICK Routine 04/10/2024 11:59 AM EST Prediabetes POCT GLYCATED HEMOGLOBIN, TOTAL Routine 04/10/2024 11:28 AM EST Prediabetes POCT GLUCOSE Routine 04/10/2024 11:27 AM EST Prediabetes documented in this encounter Results * (ABNORMAL) POCT Urinalysis (04/10/2024 11:59 AM EST) Color, UA Yellow Clarity, UA Cloudy Glucose, UA Negative Bilirubin, UA Negative Ketones, UA Negative Spec Grav, UA 1.020 Blood, UA Positive(A) Negative, None Detected Comment:large pH, UA 6.0 Protein, UA Trace Comment:30 mg Urobilinogen, UA 0.2 Leukocytes, UA Trace Negative, Rare, Trace Comment:large Nitrite, UA Positive(A) Negative, None Detected Appearance, UA cloudy QC Ancestry Lot # [id number] Lot# Expiration Date Urine 04/10/2024 11:5 9 AM EST us Jeannie Fabian [facility] POINT OF CARE TEST ENTER/EDIT OR DERABLES Final Result * (ABNORMAL) POCT HGB A1C (04/10/2024 11:28 AM EST) Hemoglobin A1C 6.4(A) 4.0 - 6.0 % QC Media Lot # [id number] Lot# Expiration Date Blood 04/10/2024 11:2 8 AM EST Jeannie Fabian [facility] POINT OF CARE TEST ENTER/EDIT OR DERABLES Final Result * POCT Glucose (04/10/2024 11:27 AM EST) Glucose Blood, POC 109 60 - 200 mg/dL QC Media Lot # [id number] Lot# Expiration Date Blood Capillary blood specimen / Unknown 04/10/2024 11:27 AM EST Jeannie [facility] POINT OF CARE TEST ENTER/EDIT OR DERABLES Final Result documented in this encounter Visit Diagnoses Diagnosis Prediabetes- Primary Other abnormal glucose Anxiety Anxiety state, unspecified Anemia, unspecified type Dysuria Genital pruritus Pruritus of genital organs Acute cystitis with hematuria documented in this encounter Additional Health Concerns Assessment Noted Time PHQ-9 Depression Total Score: 6 10/18/19 23 1:31 PM EDT documented as of this encounter Care Teams Transmission Inspector Relationship Specialty Start Date End Date Jeannie Fabian ANP [address] [place] [id number] PCP - General Family Medicine 12/27/20 Fabrizio Ramos MD [address] [facility] [address] [place] [address] Urology 01/04/24 documented as of this encounter
--- OUTSIDE RECORDS SUMMARY | 2024-04-10 19:20 | XMS_ITS | Continuity of Care Document ---
Author Organization [employer] Address [address] [place] [address] Care Team Providers Care Restaurant Managing Partner Name Role Phone Macy Villanueva MD, Kaity [...] Diagnoses Date Provider Providers Copied on Encounter [facility], [address], [place], [place], [id number], [place] MdlS Adult No Information 0 Macy Briceno. [address] [place] [address], [place], [place], [id number], [place]. tel:[phone] [facility], [address], [place], [place], [id number], [place] Mdl[place] Adult No Information 9 Macy Briceno. [address] [place] [address], [place], [place], [id number], [place]. tel:[phone] [facility], [address], [place], [id number], [place] [facility] Adult No Information 9 Rosalinda Brown. [address] [place], [place] [address], [address], [place]. tel:[phone] [facility], [address], [place], [id number], [place] Md Adult No Information 9 Macy Briceno. [address] [place] [address], [place], [place], [id number], [place]. tel:[phone] [facility], [address], [place], [place], [id number], [place] Md Adult No Information 9 Macy Briceno. [address] [place] [address], [place], [id number], [place]. tel:[phone] PSYCH DIAGNOSTIC EVALUATION [facility], [address], [place], [place], [id number], [place] Md [facility]hav [facility] CHER (generalized anxiety disorder) 9 Kash Mckeon. [address] [place] [address], [place], [id number], [place]. tel:[phone] Referring Provider: Gabby Gonzalez, [address] [place] [address], [place], [address] . tel:[phone] OFFICE/OUTPA TIENT VISIT, [facility], [address], [place], [id number], [place] Radha Adult Insomnia (chief complaint)mor e (chief complaint) Other insomniaAnxietyA ge-related osteoporosis without current pathological fractureEssentia l hypertensionUPJ (ureteropelvic junction) obstructionPredi abetesCold feeling 9 Lisa Pierre. [address] [facility], [place], [id number], [place]. tel:[phone] Referring Provider: Gabby Gonzalez, [address] [facility], [place], [address] . tel:[phone] [facility], [address], [place], [id number], [place] Radha Adult No Information 9 Tracey Villalobos. [address] [place] [address], [place], [address], [place]. tel:[phone] [facility], [address], [place], [id number], [place] Radha Adult Chronic bilateral low back pain without sciaticaOther chronic pain 8 Webb Griselda. [address] [place] [address], [place], [address], [place]. tel:[phone] OFFICE/OUTPA TIENT VISIT, EST [facility], [address], [place], [id number], [place] Radha Adult Follow up visit (chief complaint)hyp ertension (chief complaint) Body mass index (BMI) 29.0-29.9, adultChronic bilateral low back pain without sciaticaOther chronic painEssential hypertensionUPJ (ureteropelvic junction) obstruction 8 Webb Griselda. [address] [place] [address], [place], [address], [place]. tel:[phone] PREV VISIT, EST, 65 & OVER [facility], [address], [place], [id number], [place] Radha Adult preventive exam (chief complaint) Encounter for general adult medical examination with abnormal findingsEssentia l hypertensionGast roesophageal reflux disease without esophagitisChron ic ischemic colitisMalignant neoplasm prostateAge-rela clint osteoporosis without current pathological fractureHiatal herniaUPJ (ureteropelvic junction) obstructionBody mass index (BMI) 30.0-30.9, adult 8 Tracey Villalobos. [address] [place] [address], [place], [address], [place]. tel:[phone] OFFICE/OUTPA TIENT VISIT, [facility], [address], [place], [place], [id number], [place] MdlS Adult hypertension (chief complaint)abd ominal pain (chief complaint)dry skin (chief complaint) Dry skin dermatitisEssent ial hypertensionGast roesophageal reflux disease without esophagitisSolit joe kidney Tracey Villalobos. [address] [place] [address], [place], [address], [place]. tel:[phone] OFFICE/OUTPA TIENT VISIT, [facility], [address] [place], [id number], [place] MdlS Adult hypertension (chief complaint)Cou gh (chief complaint) CoughEssential hypertension 8 Tracey Villalobos. [address] [place] [address], [place], [address], [place]. tel:[phone] OFFICE/OUTPA TIENT VISIT, [facility], [address] [place], [id number], [place] MdlS Adult hypertension (chief complaint)shelby st pain (chief complaint) CoughEssential hypertension Tracey Villalobos. [address] [place] [address], [place], [address], [place]. tel:[phone] OFFICE/OUTPA TIENT VISIT, [facility], [address] [place], [id number], [place] MdlS Adult Discuss test results (chief complaint)hyp ertension (chief complaint)dry skin (chief complaint) Essential hypertensionAge- related osteoporosis without current pathological fractureDry skin dermatitis 7 Tracey Villalobos. [address] [place] [address], [place], [address], [place]. tel:[phone] OFFICE/OUTPA TIENT VISIT, [facility], [address], [place], [id number], [place] MdlS Adult hypertension (chief complaint)hyp erlipidemia (chief complaint) Essential hypertensionHype rlipidemia, mixedBody mass index (BMI) 29.0-29.9, adult 7 Webb Griselda. [address] [facility], [place], [address], [place]. tel:[phone] [facility], [address], [place], [place], [id number], [place] MdlS Adult Screening for diabetes mellitus 7 Chap[place]. [address] [facility], [place], [place], [id number], [place]. tel:[phone] OFFICE/OUTPA TIENT VISIT, [facility], [address], [place], [id number], [place] MdlS Adult hypertension (chief complaint)aki h (chief complaint) Dry skin dermatitisHyperl ipidemia, mixedEssential hypertension 7 Tracey Villalobos. [address] [place] [address], [place], [address], [place]. tel:[phone] [facility], [address], [place], [id number], [place] MdlS Adult No Information May-0 7 [place]. [address] [facility], [place], [id number], [place]. tel:[phone] [facility], [address], [place], [id number], [place] MdlS Adult Hyperlipidemia, mixedEssential hypertension Apr-0 3-201 7 [place]. [address] [facility], [place], [id number], [place]. tel:[phone] OFFICE/OUTPA TIENT VISIT, [facility], [address], [place], [id number], [place] MdlS Adult hypertension (chief complaint)cou gh (chief complaint)Med ication Refills (chief complaint) Malignant neoplasm prostateChronic ischemic colitisKidney stoneScreening for osteoporosisCoug hEssential hypertensionScre ening for diabetes mellitusMultiple joint pain 0 7 [place]. [address] [place] [address], [facility] [place], [place], [id number], [place]. tel:[phone] OFFICE/OUTPA TIENT VISIT, [facility], [address], [facility] [place], [place], [id number], [place] MdlS Adult hypertension (chief complaint)DIGESTER CAPPER (chief complaint)Dry skin dermatitis (chief complaint) Essential hypertensionDry skin dermatitisGastro esophageal reflux disease without esophagitis 6 Tracey Villalobos. [address] [place] [address] [place], [address], [place]. tel:[phone] OFFICE/OUTPA TIENT VISIT, [facility], [address], [facility] [place], [id number], [place] MdlS Adult Discuss test results (chief complaint)hyp ertension (chief complaint)aki h (chief complaint) Essential hypertensionDry skin dermatitis Tracey Villalobos. [address] [place] [address] [place], [address], [place]. tel:[phone] OFFICE/OUTPA TIENT VISIT, [facility], [address], [facility] [place], [id number], [place] MdlS Adult Medication Refill (chief complaint)Pre vention (chief complaint)hyp ertension (chief complaint)hyp erlipidemia (chief complaint) Body mass index (BMI) 28.0-28.9, adultEssential hypertensionHype rlipidemia, mixedKidney diseaseScreen for STD (sexually transmitted disease)Screenin g PSA (prostate specific antigen)Screen for colon cancer 6 Rosalinda Brown. [address] [place], [address], [place]. tel:[phone] Family History Family Member Type Diagnosis Age [...] ID Authoriza tion(s) Medicare 2014 NGS MB [id number] Medicaid [id number] Medicaid [place] [id number] Medicaid [place] [id number] Social History Type Description Quantity Date Captured [...] Lifestyle education regardin g diet completed Goal Prevnar 13 (PCV13). Due on M due Goal Influenza Vaccine. Due on Ma due Goal Zoster Vaccine. Due on due Goal Lipid panel. Due on 018 due Goal Cognitive assess ment. Due on due Goal BMP. Due on due Goal Depression scree ramona. Due on due Goal Zoster Vaccine. Due [...] Goal Zoster Vaccine. Due on due Goal Occult Blood, Fe ned, [place]. Due on due Goal Colonoscopy. Due on 016 due Goal Zoster Vaccine. Due on due Goal Pneumococcal vac cine. Due on due Goal Lifestyle education regardin g diet completed Referral Referred To: low back brace Ordered: Referrals: low back brace ordered Referral Ordered: DXA BONE DENSITY, AXIAL ordered Referral Referred To: [facility]/ GI Ordered: Referrals: Gastroenterology. [facility]/ GI. Evaluate and treat ordered Patient Education Dry Skin: After Your Vi sit completed Patient Education Dry Skin: After Your Vi sit completed Patient Education Dry Skin: After Your Vi sit completed Future Order: Lab Order LIPID PA DAVID ([id number]), Collected on: Ordered Future Order: Lab Order HEMOGLOB IN A1C ([id number]), Ordered on: Ordered Future Order: Lab Order Hep B Segal rface Ab ([id number]), Ordered on: Ordered Future Order: Lab Order PSA ([id number]), O rdered on: Ordered Future Order: Lab Order HIV SCRE EN ([id number]), Ordered on: Ordered Future Order: Lab Order Microalb umin with creatinine and ratio ([id number]), Ordered on: Ordered Future Order: Lab Order HEPATITI S C Ab ([id number]), Ordered on: Ordered Future Order: Lab Order LIPID PA DAVID ([id number]), Ordered on: Ordered Future Order: Lab Order BMP ([id number]), O rdered on: Ordered History Of Present [...] memoryCRC screening was completed on 10/27/15 at [facility]. DIGESTER CAPPER [facility] anymoreHas appt for ?cathetization in [...] gender. Discuss test results pt went to [facility] ,wants to know result of testFeels like [...] did colonosc opy 4 years ago in [place]. Functional Status Date Functional Assessmen t No Information Instructions Date Instruction Additional Infor lizzie Following with Dr. Reyna Flores [facility] UrologyHistory of a left proximal ureteral stricture s/p robotic ureteral reconstruction, now with recurrent obstruction - says next appt in June 2018 Related to UPJ (ureteropelvic junction) obstruction Following with Dr. Reyna Flores [facility] UrologyHistory of a left proximal ureteral [...] low back pain without sciatica Well adult male.[place] [facility] care every 6 months.Eye doctor appt [...] neoplasm prostate Following with Dr. Reyna Flores [facility] UrologyMost recent note by Dr. Flores [...] atorvastati n 40 mg to protect against ND and CVAFollow healthy diet for cholesterol Related [...] breath, edemaContinue current medications - sent to [facility] pharmacy now that pt doesn't have [...]
--- OUTSIDE RECORDS SUMMARY | 2024-04-10 19:20 | XMS_ITS | Encounter Summary ---
Author Organization [employer] [facility] Address [address] [facility] [address] [place] [address] Care Team Providers Care Mailroom Courier Name Role Phone Jeannie Fabian Primary Care Provider [phone] Fabrizio Ramos MD Unavailable [phone] Reason for Visit * Reason Comments Med Refill Encounter Details Date Type Department Care Team (Late st Contact Info) Description 02/28/2022 Refill [facility] [address] [place] [address] Jeannie Fabian ANP [address] [place] [address] Cardiovascular event risk (Primary Dx) Social History [...] Primary documented in this encounter Care Teams Mailroom Courier Relationship Specialty Start Date End Date Jeannie Fabian ANP [address] [place] [address] PCP - General Family Medicine 12/27/20 Fabrizio Ramos MD [address] [place] [address] Urology 01/04/24 documented as of this encounter
== END 2024-04-10 16:15 | disposition home or self-care (01) ==
LOC: HO.HHCLNP 16:14
PROVIDERS: Visit Provider Nurse Practitioner Primary Care
DX: R73.03 Prediabetes (principal)
CPT/HCPCS: 82043; 82570

== ENCOUNTER 2024-04-24 15:37 | Outpatient (REF) | payer OTHER, SELFPAY ==
[2024-04-24 17:47] LABS: MANUAL DIFF FLAG NO
[2024-04-24 17:58] LABS: Appearance Urine Cloudy; Color Urine Yellow; Glucose Urine UA Negative (Negative); Leukocyte Esterase Urine Large (3+) (Negative); Nitrite Urine Positive (Negative); PH 5.5 (5.0-9.0); Specific Gravity - Urine 1.015 (1.005-1.025); UMIC TRIGGER UACC YES; Urine Blood Large (3+) (Negative); Urine Ketones Negative (Negative); Urine Protein 30 (1+) mg/dL (Neg-Trace)
[2024-04-24 18:00] LABS: Bacteria Urine 4+ (None Seen); Hyaline Casts Urine 0-2 /LPF (0-2); RBC Urine >20 /HPF (0-2); Squamous Epithelial Cell Urine 0-2 /HPF (0-2); UACC Culture Trigger YES; WBC Urine >50 /HPF (0-5)
[2024-04-24 18:03] LABS: Basophils Percent Auto 0.5 % (0-2); Eosinophils Absolute Auto 0.2 X10*3/uL (0.0-0.4); Eosinophils Percent Auto 3.2 % (0-4); Hematocrit 41.8 % (42.0-52.0); Hemoglobin 13.7 g/dl (14.0-18.0); Imm Gran Abs Auto 0.02 X10*3/uL (0.00-0.03); Imm Gran Pct Auto 0.3 % (0.0-0.4); Lymphocytes Absolute Auto 3.5 X10*3/uL (1.2-4.9); Lymphocytes Percent Auto 55.4 % (20-40); Mean Corpuscular HGB Conc 32.8 g/dl (31.0-36.0); Mean Corpuscular Hemoglobin 30.6 pg (27.0-33.0); Mean Corpuscular Volume 93.3 fL (80.0-98.0); Mean Platelet Volume 12.4 fL (9.4-12.4); Monocytes Absolute Auto 0.8 X10*3/uL (0.1-1.2); Monocytes Percent Auto 12.3 % (2-11); Neutrophils Absolute Auto 1.8 x10*3/uL (2.0-8.3); Neutrophils Percent Auto 28.3 % (45-73); Platelet Count 120 X10*3/uL (160-400); Red Blood Count 4.48 X10*6/uL (4.60-5.80); Red Cell Distribution Width 13.2 % (11.0-16.0); White Blood Count 6.3 X10*3/uL (4.8-10.8)
[2024-04-24 18:21] LABS: Alanine Aminotransferase 29 U/L (0-40); Albumin Level 4.2 g/dL (3.5-5.0); Alkaline Phosphatase 56 U/L (39-117); Anion Gap 14 (12-20); Aspartate Amino Transferase 35 U/L (5-37); Bilirubin Total 0.3 mg/dL (0.0-1.0); Blood Urea Nitrogen 20 mg/dL (9-16); Calcium 9.7 mg/dL (8.4-10.2); Carbon Dioxide 20 mmol/L (22-29); Chloride 110 mmol/L (96-108); Cholesterol 159 mg/dL (<200); Estimated Glomerular Filt Rate > 60; Glucose Random 136 mg/dL (60-115); HDL Cholesterol 26 mg/dL (>40); Iron 67 mcg/dL (45-160); Percent Iron Saturation 39 % (15-50); Potassium 4.2 mmol/L (3.3-5.1); Sodium 140 mmol/L (135-145); Total Iron Binding Capacity 170 mcg/dL (228-428); Total Protein 8.8 g/dL (6.5-8.0); Triglycerides 437 mg/dL (<150); Unsaturated Iron Binding 103 ug/dL
--- OUTSIDE RECORDS SUMMARY | 2024-04-24 19:08 | XMS_ITS ---
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 Role Phone Dee Hernandez Unavailable [phone] Reason for Referral Not Available Allergies, adverse [...] (do not use for phone, instead use 25643-47) [facility] 12/29/2022 Essential (primary) hypertensionHyperlipidemia, unspecifiedAge-related osteoporosis without current pathological fractureGastro-esophageal reflux disease without esophagitisConstipation, unspecifiedInsomnia, unspecifiedUnspecified dementia without behavioral disturbanceTinnitus, unspecified earAnxiety disorder, unspecifiedLow back pain, unspecified New patient,40-59min; chronic exacerbation, 2 stable chronic or 1 acute illness add add modifier 95 for video (do not use for phone, instead use 00916-36) [facility]/29/2022 New patient,40-59min; chronic exacerbation, 2 stable chronic or 1 acute illness add add modifier 95 for video (do not use for phone, instead use 77540-02) [facility] 12/29/2022 New patient,40-59min; chronic exacerbation, 2 stable chronic or 1 acute illness add add modifier 95 for video (do not use for phone, instead use 33605-28) [facility] 12/29/2022 New patient,40-59min; chronic exacerbation, 2 stable chronic or 1 acute illness add add modifier 95 for video (do not use for phone, instead use 64574-82) [facility] 12/29/2022 New patient,40-59min; chronic exacerbation, 2 stable chronic or 1 acute illness add add modifier 95 for video (do not use for phone, instead use 69090-49) [facility] 12/29/2022 Vital Signs Date of Collection Vitals 2022-12-29 05:51:12 Height - 167.64 cmWe ight - 78.47 kgBody Mass Index (BMI) - 27.92 kg/m2BP Diastolic - 85.0 mm[Hg]BP Systolic - 155.0 mm[Hg]Pain Scale - 8.0 {score} Social History Social History Social History Observation Description Effec tive Time Current Smoking Status Never smoker 2024-04-12 3 Sex Male History of Procedures Procedures Service Procedure code Service date Servicing provider Phone# New patient,40-59min; chronic exacerbation, 2 stable chronic or 1 acute illness add add modifier 95 for video (do not use for phone, instead use 10785-87) 87158 2022-12-29 No Data Available No Data Availa [...] BP regularly at home. Evaluate BP with PCP/Pulper Tender f/u visits. Follow a low sodium diet/diet [...] had a detailed discussion with patient/caregiver about [facility] 04/09 services, their diagnosis, and medications. Patient/caregiver verbalized understanding by teach-back method. All available medications were reconciliated, counseled patient/caregiver on treatment plan, compliance, and f/u care coordination with their established PCP and specialists. Health Concerns Date Concern 2022-12-29 Visit completed by a udio and video. Patient and Granddaughter, agreed to visit via telehealth. Introductory visit with [facility] to establish care. Today, patient has chief complaint of: establishing care.Reviewed Allergies, Medications, Active Medical conditions, past medical/surgical history, Social history. 2022-12-29 Most recent hospital stay(s) or ER visit(s) and precipitating factors: Denies any recent visit
--- OUTSIDE RECORDS SUMMARY | 2024-04-24 19:08 | XMS_ITS | Continuity of Care Document ---
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 [address] [place] [address], [place], [place], [id number], [place]. tel:[phone] [facility], [address], [place], [place], [id number], [place] [facility] Adult No Information 9 Macy Bricneo. [address] [place] [address], [place], [place], [id number], [place]. tel:[phone] [facility], [address], [place], [id number], [place] [facility] Adult No Information 9 Rosalinda Brown. [address] [place], [place] [address] [place], [id number], [place]. tel:[phone] [facility], [address], [place], [id number], [place] Md Adult No Information 9 Macy Briceno. [address] [place] [address], [place], [place], [id number], [place]. tel:[phone] [facility], [address], [place], [id number], [place] Md Adult No Information 9 Macy Briceno. [address] [place] [address], [place], [id number], [place]. tel:[phone] PSYCH DIAGNOSTIC EVALUATION [facility], [address], [place], [place], [id number], [place] [facility] CHER (generalized anxiety disorder) 9 Kash Mckeon. [address] [place] [address], [place], [id number], [place]. tel:[phone] Referring Provider: Gabby Gonzalez, [address] [place] [address], [place], [address] . tel:[phone] OFFICE/OUTPA TIENT VISIT, [facility], [address], [place], [id number], [place] Radha Adult Insomnia (chief complaint)mor e (chief complaint) Other insomniaAnxietyA ge-related osteoporosis without current pathological fractureEssentia l hypertensionUPJ (ureteropelvic junction) obstructionPredi abetesCold feeling 9 Lisa Pierre. [address] [facility], [place], [id number], [place]. tel:[phone] Referring Provider: Gabby Gonzalez, [address] [facility], [place], [address] . tel:[phone] [facility], [address], [place], [id number], [place] Radha Adult No Information 9 Tracey Villalobos. [address] [place] [address], [place], [address], [place]. tel:[phone] [facility], [address], [place], [id number], [place] Radha Adult Chronic bilateral low back pain without sciaticaOther chronic pain 8 Webb Griselda. [address] [place] [address], [place], [address], [place]. tel:[phone] OFFICE/OUTPA TIENT VISIT, EST [facility], [address], [place], [id number], [place] Radha Adult Follow up visit (chief complaint)hyp ertension (chief complaint) Body mass index (BMI) 29.0-29.9, adultChronic bilateral low back pain without sciaticaOther chronic painEssential hypertensionUPJ (ureteropelvic junction) obstruction 8 Webb Griselda. [address] [place] [address], [place], [address], [place]. tel:[phone] PREV VISIT, EST, 65 & OVER [facility], [address], [place], [id number], [place] Radha Adult preventive exam (chief complaint) Encounter for general adult medical examination with abnormal findingsEssentia l hypertensionGast roesophageal reflux disease without esophagitisChron ic ischemic colitisMalignant neoplasm prostateAge-rela clint osteoporosis without current pathological fractureHiatal herniaUPJ (ureteropelvic junction) obstructionBody mass index (BMI) 30.0-30.9, adult 8 Tracey Villalobos. [address] [place] [address], [place], [address], [place]. tel:[phone] OFFICE/OUTPA TIENT VISIT, [facility], [address], [place], [place], [id number], [place] M[facility] Adult hypertension (chief complaint)abd ominal pain (chief complaint)dry skin (chief complaint) Dry skin dermatitisEssent ial hypertensionGast roesophageal reflux disease without esophagitisSolit joe kidney Tracey Villalobos. [address] [place] [address], [place], [address], [place]. tel:[phone] OFFICE/OUTPA TIENT VISIT, [facility], [address] [place], [id number], [place] Mdl[place] Adult hypertension (chief complaint)Cou gh (chief complaint) CoughEssential hypertension 8 Tracey Villalobos. [address] [place] [address], [place], [address], [place]. tel:[phone] OFFICE/OUTPA TIENT VISIT, [facility], [address] [place], [id number], [place] MdlS Adult hypertension (chief complaint)shelby st pain (chief complaint) CoughEssential hypertension Tracey Villalobos. [address] [place] [address], [place], [address], [place]. tel:[phone] OFFICE/OUTPA TIENT VISIT, [facility], [address] [place], [id number], [place] Mdl[place] Adult Discuss test results (chief complaint)hyp ertension (chief complaint)dry skin (chief complaint) Essential hypertensionAge- related osteoporosis without current pathological fractureDry skin dermatitis 7 Tracey Villalobos. [address] [place] [address], [place], [address], [place]. tel:[phone] OFFICE/OUTPA TIENT VISIT, [facility], [address], [place], [id number], [place] MdlS Adult hypertension (chief complaint)hyp erlipidemia (chief complaint) Essential hypertensionHype rlipidemia, mixedBody mass index (BMI) 29.0-29.9, adult 7 Webb Griselda. [address] [facility], [place], [address], [place]. tel:[phone] [facility], [address], [place], [place], [id number], [place] MdlS Adult Screening for diabetes mellitus 7 [place]. [address] [facility], [place], [place], [id number], [place]. tel:[phone] OFFICE/OUTPA TIENT VISIT, [facility], [address], [place], [id number], [place] MdlS Adult hypertension (chief complaint)aki h (chief complaint) Dry skin dermatitisHyperl ipidemia, mixedEssential hypertension 7 Tracey Villalobos. [address] [place] [address], [place], [address], [place]. tel:[phone] [facility], [address], [place], [id number], [place] MdlS Adult No Information May-0 [address] [place] [facility], [place], [id number], [place]. tel:[phone] [facility], [address], [place], [id number], [place] MdlS Adult Hyperlipidemia, mixedEssential hypertension Apr-0 3-201 [address] [place] [facility], [place], [id number], [place]. tel:[phone] OFFICE/OUTPA TIENT VISIT, [facility], [address], [place], [id number], [place] MdlS Adult hypertension (chief complaint)cou gh (chief complaint)Med ication Refills (chief complaint) Malignant neoplasm prostateChronic ischemic colitisKidney stoneScreening for osteoporosisCoug hEssential hypertensionScre ening for diabetes mellitusMultiple joint pain 0 7 [place]. [address] [place] [address], [facility] [place], [place], [id number], [place]. tel:[phone] OFFICE/OUTPA TIENT VISIT, [facility], [address], [facility] [place], [place], [id number], [place] MdlS Adult hypertension (chief complaint)[facility] (chief complaint)Dry skin dermatitis (chief complaint) Essential hypertensionDry skin dermatitisGastro esophageal reflux disease without esophagitis 6 Tracey Villalobos. [address] [place] [address] [place], [address], [place]. tel:[phone] OFFICE/OUTPA TIENT VISIT, [facility], [address], [facility] [place], [id number], [place] MdlS Adult Discuss test results (chief complaint)hyp ertension (chief complaint)aki h (chief complaint) Essential hypertensionDry skin dermatitis Tracey Villalobos. [address] [place] [address] [place], [address], [place]. tel:[phone] OFFICE/OUTPA TIENT VISIT, [facility], [address], [facility] [place], [id number], [place] MdlS Adult Medication Refill (chief complaint)Pre vention (chief complaint)hyp ertension (chief complaint)hyp erlipidemia (chief complaint) Body mass index (BMI) 28.0-28.9, adultEssential hypertensionHype rlipidemia, mixedKidney diseaseScreen for STD (sexually transmitted disease)Screenin g PSA (prostate specific antigen)Screen for colon cancer 6 Rosalinda Brown. [address] [place], [address], [place]. tel:[phone] Family History Family Member Type Diagnosis Age [...] ID Authoriza tion(s) Medicare 2014 NGS MB [id number] Medicaid [id number] Medicaid [place] [id number] Medicaid [place] [id number] Social History Type Description Quantity Date Captured Comments Sex Male Smoking Status No Information Sexual Orientation Straight or heterosexual June Gender Identity Male Chief Complaint And Reason For Visit No Information Reason For Referral Reason For Referral No Information Plan Of Treatment Date Type Action Status Goal Lipid panel. Due on due Goal [...] Cognitive assess ment. Due on due Goal Lifestyle education regardin [...] on due Goal Pneumococcal vaccine due Goal Colonoscopy. Due on 016 due Goal Occult Blood, Fe ned, [place]. Due on due Goal Zoster Vaccine. Due on due Goal Pneumococcal vac cine. Due on due Goal Lifestyle education regardin g diet completed Referral Referred To: low back brace Ordered: Referrals: low back brace ordered Referral Ordered: DXA BONE DENSITY, AXIAL ordered Referral Referred To: [facility]/ GI Ordered: Referrals: Gastroenterology. [facility]/ GI. Evaluate and treat ordered Patient Education Dry Skin: After Your Vi sit completed Patient Education Dry Skin: After Your Vi sit completed Patient Education Dry Skin: After Your Vi sit completed Future Order: Lab Order LIPID PA DAVID ([id number]), Collected on: Ordered Future Order: Lab Order HEMOGLOB IN A1C ([id number]), Ordered on: Ordered Future Order: Lab Order Hep B Segal rface Ab ([id number]), Ordered on: Ordered Future Order: Lab Order PSA ([id number]), O rdered on: Ordered Future Order: Lab Order HIV SCRE EN ([id number]), Ordered on: Ordered Future Order: Lab Order Microalb umin with creatinine and ratio ([id number]), Ordered on: Ordered Future Order: Lab Order HEPATITI S C Ab ([id number]), Ordered on: Ordered Future Order: Lab Order LIPID PA DAVID ([id number]), Ordered on: Ordered Future Order: Lab Order BMP ([id number]), O rdered on: Ordered History Of Present [...] memoryCRC screening was completed on 10/27/15 at [facility]. [facility] anymoreHas appt for ?cathetization in [...] gender. Discuss test results pt went to [place] ,wants to know result of testFeels like [...] did colonosc opy 4 years ago in [place]. Functional Status Date Functional Assessmen t No Information Instructions Date Instruction Additional Infor lizzie Following with Dr. Reyna Flores [facility] UrologyHistory of a left proximal ureteral stricture s/p robotic ureteral reconstruction, now with recurrent obstruction - says next appt in June 2018 Related to UPJ (ureteropelvic junction) obstruction Following with Dr. Reyna Flores [facility] UrologyHistory of a left proximal ureteral stricture [...] low back pain without sciatica Well adult male.Jennings al care every 6 months.Eye doctor appt [...] neoplasm prostate Following with Dr. Reyna Flores [facility] UrologyMost recent note by Dr. Flores 06/14/17: [...] atorvastati n 40 mg to protect against CA and CVAFollow healthy diet for cholesterol Related [...] breath, edemaContinue current medications - sent to [facility] pharmacy now that pt doesn't have insuranceRTO [...]
[2024-04-24 19:15] LABS: Ferritin 1984 ng/mL (20-250)
[2024-04-25 06:39] LABS: Transferrin 143 mg/dL (188-341)
[2024-04-25 09:31] LABS: Urine Cytology See Pathology rpt
== END 2024-04-24 15:38 | disposition home or self-care (01) ==
LOC: HO.HHCL 15:37
PROVIDERS: Visit Provider Nurse Practitioner Primary Care
DX: R31.9 Hematuria, unspecified (principal); R73.03 Prediabetes; D64.9 Anemia, unspecified; R30.0 Dysuria; Z85.528 Personal history of other malignant neoplasm of kidney
CPT/HCPCS: 36415; 80053; 80061; 81001; 82728; 83540; 84466; 85025; 87086; 87088; 87186; 88112

== ENCOUNTER 2024-05-01 11:53 | Inpatient (IN) | payer OTHER, SELFPAY ==
[2024-05-01 12:11] VITALS: BP 141/71; PULSE 89; RESP 16; TEMP 36.9; O2SAT 97; BMI 27.6
--- NOTE | 2024-05-01 12:11 | ED_ITS ---
HPI - General Adult General Chief complaint: General Medical Stated complaint: Sent by for IV fluids Time Seen by Provider: 05/01/24 14:36 Source: patient, RN notes reviewed and old records reviewed Mode of arrival: ambulatory History of Present Illness ED Provider: Matilda Singletary PA-C HPI narrative: 83-year-old male with a past medical history ESBL UTIs, hydronephrosis, right nephrectomy, HTN, renal CA, presenting to ED sent in from [facility] for IV antibiotics due to resistant UTI. Patient has been on multiple antibiotics without relief. Patient and poor historian. Admits to dysuria. Denies abdominal pain, nausea, vomiting, fever, chills, diarrhea Related Data Home Medications ?Medication ?Instructions ?Recorded ?Confirmed amlodipine 10 mg tablet 10 mg PO DAILY 03/10/21 11/19/23 atorvastatin 40 mg tablet 40 mg PO BEDTIME 03/10/21 11/19/23 escitalopram oxalate 10 mg tablet 10 mg PO BEDTIME anxiety 05/08/23 11/19/23 Previous Rx's ?Medication ?Instructions ?Recorded abaloparatide (Tymlos) 80 mcg (0.04 mL) subcut DAILY 09/25/23 #1.56 mL Allergies Allergy/AdvReac Type Severity Reaction Status Date / Time No Known Allergies Allergy Verified 05/01/24 12:24 Review of Systems 2 Review of Systems: Yes all other systems are reviewed and are negative Constitutional: Constitutional: Reports as per [facility] Past Medical History Attestation statement: The following information was validated with the patient. Source: old records reviewed Medical History Elevated cholesterol Insomnia Solitary kidney, acquired History of kidney cancer Ureteral stent present Osteoporosis ESBL (extended spectrum beta-lactamase) producing bacteria infection Hydronephrosis Weight loss Poor appetite HTN (hypertension) UTI (urinary tract infection) Surgical History Hx of cystoscopy History of right nephrectomy H/O prostatectomy Hx of cholecystectomy Family History Family History Mother No problems noted. Father Cancer Social History Social History Household Members: Spouse Household Members Other:: Housing: Apartment Are you a primary senior caregiver to a significant other at home: No Do you presently have visiting nurse or other home services: No Alcohol intake: never Comment: tylenol and pyridium given Patient Tobacco Use Status: Never used Tobacco Second Hand Smoke Exposure: No Advance Directives: No Advance Directives Information Provided: Yes Current occupational status: disabled Physical Exam ED Vital Signs: Vital Signs - 24 hr 05/01/24 12:11 05/01/24 14:52 Temperature 98.5 F Pulse Rate 89 77 Respiratory Rate 16 16 Blood Pressure 141/71 H 154/74 H Pulse Oximetry 97 99 Oxygen Delivery Method Room Air Room Air BMI result Body Mass Index 27.6 Const General: cooperative, healthy appearing and no acute distress Orientation/consciousness: patient oriented x3 Limitations: no limitations HENMT Head: Yes normal to inspection and Yes atraumatic Ears: hearing grossly normal bilaterally General nose exam: Normal external nose present Face and sinus: Yes normal facial exam Eyes General: appearance normal, both eyes and all related structures EOM: EOMs intact bilaterally Neck Neck: Yes normal visual inspection and Yes no meningeal signs Resp Effort & Inspection: normal respiratory effort and no respiratory distress Cardio Rate: regular rate GI Inspection: Yes normal to inspection Palpation (GI): Soft to palpation, nontender, no guarding and not rigid General: Yes no CVA tenderness Back/Spine/Pelvis Back: no CVA tenderness Skin Rashes: no rashes Wounds: no wounds Neuro General: patient oriented x3, tone normal and no meningeal signs Cranial nerves: Yes CN's II-XII intact bilaterally Gait exam (Neuro): Normal gait present Extrem General: Yes normal to inspection Course Course Course Narrative: This is an RME: Additional HPI, ROS, PE not included below will be deferred to primary provider. RME assessment and note performed by: Linda Merino PA-C This is a 47-coft-lfc-male, with a PMHx of ESBL UTIs with left stent, with persistent left hydronephrosis managed with indwelling stent (gets stents exchanged every [address] Ramos's note), right nephrectomy, HTN, ?renal CA > per historical notes, who presents to the ER with complaints of need for IV antibiotics. Pt reports that his was called as he needed IV antibiotics - she is unsure who this was. Patient and are poor historians. Pt does have a UA from 04/24 that had multiple drug resistances. He has no current complaints, he is feeling well. Plan: Labs, UA, further ER eval needed. - labs at patient's baseline. UA infected. Will initiate IV Meropenem and plan for admission - case d/w hospitalist how accepted admission 15:36 Medical Decision Making Medical Decision Making [facility] Narrative: 83-year-old male with a past medical history ESBL UTIs, hydronephrosis, right nephrectomy, HTN, renal CA, presenting to ED sent in from [facility] for IV antibiotics due to resistant UTI. On exam vital signs stable, NAD, nontoxic appearing, abdomen soft and nontender, no CVAT. Concern for ESBL UTI. Lower suspicion for pyelo/ renal stone at this time. Urine culture growing ESBL susceptible to cefepime, ertapenem, gentamicin. Resistant to ampicillin, cefazolin, Rocephin, Cipro, Bactrim. Intermediate to Macrobid Plan: Labs, UA, IV antibiotics, admission Please refer to course for remaining clinical decision making, interpretation of labs/imaging results, and discussions with consultants and/or family members. Differential Diagnosis Differential Diagnoses: The differential diagnosis associated with the presentation includes As above Admission/Observation Consideration of admission/observation: Escalation of care including admission/observation considered Consult Healthcare Provider Management of the patient was discussed with: Hospitalist Lab Data [facility] Lab Attestation statement: I reviewed the patient's lab results. 05/01/24 12:37 05/01/24 12:38 Labs: Lab Results 05/01/24 05/01/24 Range/Units 12:37 12:38 WBC 6.2 (4.8-10.8) X10*3/uL RBC 4.40 L (4.60-5.80) X10*6/uL Hgb 13.7 L (14.0-18.0) g/dl Hct 40.7 L (42.0-52.0) % MCV 92.5 (80.0-98.0) fL MCH 31.1 (27.0-33.0) pg MCHC 33.7 (31.0-36.0) g/dl RDW 13.3 (11.0-16.0) % Plt Count 121 L (160-400) X10*3/uL MPV 10.9 (9.4-12.4) fL Immature Gran % (Auto) 0.5 H (0.0-0.4) % Neut % (Auto) 43.2 L (45-73) % Lymph % (Auto) 40.3 H (20-40) % Meade % (Auto) 12.2 H (2-11) % Eos % (Auto) 3.2 (0-4) % Baso % (Auto) 0.6 (0-2) % Lymph # (Auto) 2.5 (1.2-4.9) X10*3/uL Meade # (Auto) 0.8 (0.1-1.2) X10*3/uL Eos # (Auto) 0.2 (0.0-0.4) X10*3/uL Baso # (Auto) 0.0 (0.0-0.2) X10*3/uL Abs Immat Gran (auto) 0.03 (0.00-0.03) X10*3/uL Absolute Neuts (auto) 2.7 (2.0-8.3) x10*3/uL Absolute Nucleated RBC 0.000 (0.0-0.012) X10*3/uL Nucleated RBC % (auto) 0.0 (0.0-0.2) /100WBC Sodium 140 (135-145) mmol/L Potassium 3.8 (3.3-5.1) mmol/L Chloride 111 H (96-108) mmol/L Carbon Dioxide 21 L (22-29) mmol/L Anion Gap 12 (12-20) BUN 25 H (9-16) mg/dL Creatinine 1.09 (0.5-1.4) mg/dL Estim Creat Clear Calc 46.9 Estimated GFR > 60 Random Glucose 125 H (60-115) mg/dL Calcium 9.6 (8.4-10.2) mg/dL Total Bilirubin 0.2 (0.0-1.0) mg/dL Direct Bilirubin < 0.2 (0.0-0.5) mg/dL AST 23 (5-37) U/L ALT 21 (0-40) U/L Alkaline Phosphatase 55 (39-117) U/L Total Protein 8.6 H (6.5-8.0) g/dL Albumin 4.2 (3.5-5.0) g/dL Urine Color Yellow Urine Appearance Cloudy Urine pH 5.5 (5.0-9.0) Ur Specific [place] 1.015 (1.005-1.025) Urine Protein 30 (1+) H (Neg-Trace) mg/dL Urine Glucose (UA) Negative (Negative) mg/dL Urine Ketones Negative (Negative) mg/dL Urine Blood Large (3+) H (Negative) Urine Nitrite Positive H (Negative) Ur Leukocyte Esterase Large (3+) H (Negative) Urine RBC >20 H (0-2) /HPF Urine WBC >50 H (0-5) /HPF Ur Squamous Epith Cells 0-2 (0-2) /HPF Urine Bacteria 4+ (None Seen) Hyaline Casts 0-2 (0-2) /LPF Radiology Impression Discussion of test interpretation with radiology: I have reviewed the radiologist's reading. Independent Historian Clinical information obtained from an independent historian. History obtained from or confirmed by: Other External Record Review External record reviewed: Inpatient record, Office record, Outpatient record, Prior outpatient labs, Prior outpatient radiology, Primary care record and Outside ED record Tests considered The following testing was considered but not selected: As above Prescription Management I considered prescription management with: Pain Medication and Antibiotic Chronic Conditions Patient?s care impacted by: Other ( renal CA, recurrent UTIs, nephrectomy) Social Determinants Patient?s care significantly limited by Social Determinants of Health including: Other Social Determinant of Health Critical Care Time Critical Care Time Critical Care Time: Yes Total Critical Care Time: 40 Attestation: I have personally provided critical care time exclusive of time spent on separately billable procedures. Time includes review of lab data, radiology results, discussion with consultants, and monitoring for potential decompensation. Intervention performed as documented. Discharge Plan Discharge Clinical Impression: ESBL (extended spectrum beta-lactamase) producing bacteria infection Patient Disposition: Admitted As Inpatient Print Language: Bulgarian
--- NOTE | 2024-05-01 12:24 | PC.NURSE ---
If pt discharged or admitted please call daughter Orin (qatari speaking only) [phone] for ride home (daughter went back to work).
[2024-05-01 12:47] LABS: MANUAL DIFF FLAG NO
[2024-05-01 12:56] LABS: Appearance Urine Cloudy; Color Urine Yellow; Glucose Urine UA Negative (Negative); Leukocyte Esterase Urine Large (3+) (Negative); Nitrite Urine Positive (Negative); PH 5.5 (5.0-9.0); Specific Gravity - Urine 1.015 (1.005-1.025); UMIC TRIGGER UACC YES; Urine Blood Large (3+) (Negative); Urine Ketones Negative (Negative); Urine Protein 30 (1+) mg/dL (Neg-Trace)
[2024-05-01 12:59] LABS: Basophils Percent Auto 0.6 % (0-2); Eosinophils Absolute Auto 0.2 X10*3/uL (0.0-0.4); Eosinophils Percent Auto 3.2 % (0-4); Hematocrit 40.7 % (42.0-52.0); Hemoglobin 13.7 g/dl (14.0-18.0); Imm Gran Abs Auto 0.03 X10*3/uL (0.00-0.03); Imm Gran Pct Auto 0.5 % (0.0-0.4); Lymphocytes Absolute Auto 2.5 X10*3/uL (1.2-4.9); Lymphocytes Percent Auto 40.3 % (20-40); Mean Corpuscular HGB Conc 33.7 g/dl (31.0-36.0); Mean Corpuscular Hemoglobin 31.1 pg (27.0-33.0); Mean Corpuscular Volume 92.5 fL (80.0-98.0); Mean Platelet Volume 10.9 fL (9.4-12.4); Monocytes Absolute Auto 0.8 X10*3/uL (0.1-1.2); Monocytes Percent Auto 12.2 % (2-11); Neutrophils Absolute Auto 2.7 x10*3/uL (2.0-8.3); Neutrophils Percent Auto 43.2 % (45-73); Platelet Count 121 X10*3/uL (160-400); Red Cell Distribution Width 13.3 % (11.0-16.0); White Blood Count 6.2 X10*3/uL (4.8-10.8)
[2024-05-01 13:01] LABS: Bacteria Urine 4+ (None Seen); Hyaline Casts Urine 0-2 /LPF (0-2); RBC Urine >20 /HPF (0-2); Squamous Epithelial Cell Urine 0-2 /HPF (0-2); UACC Culture Trigger YES; WBC Urine >50 /HPF (0-5)
[2024-05-01 13:08] LABS: Alanine Aminotransferase 21 U/L (0-40); Albumin Level 4.2 g/dL (3.5-5.0); Alkaline Phosphatase 55 U/L (39-117); Anion Gap 12 (12-20); Aspartate Amino Transferase 23 U/L (5-37); Bilirubin Direct < 0.2 mg/dL (0.0-0.5); Bilirubin Total 0.2 mg/dL (0.0-1.0); Blood Urea Nitrogen 25 mg/dL (9-16); Calcium 9.6 mg/dL (8.4-10.2); Carbon Dioxide 21 mmol/L (22-29); Chloride 111 mmol/L (96-108); Creatinine Clr Calc Pharmacy 46.9; Estimated Glomerular Filt Rate > 60; Glucose Random 125 mg/dL (60-115); Potassium 3.8 mmol/L (3.3-5.1); Sodium 140 mmol/L (135-145); Total Protein 8.6 g/dL (6.5-8.0)
[2024-05-01 14:52] VITALS: BP 154/74; PULSE 77; RESP 16; O2SAT 99
--- NOTE | 2024-05-01 15:40 | P.HPHOSP_ITS ---
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 The patient has been treated with multiple oral Abx as outpatient with no improvement of symptoms. He is reporting dysurea and increase frequency. No chest pain, palpitations, SOB, nausea, vomiting, diarrhea. decrease PO intake and feeling weak. U.Cx growing ESBL E.Coli sensitive only to Cefepime, Meropenem and Gentamycin. In ED blood work showing stable blood work will be admitted for IV antiibotics treatment. Review of Systems 2 Review of Systems: No fever, chills or weakness No chest pain, palpitation No shortness of breath or coughing No abdominal pain, nausea or vomiting reporting urinary symptoms No any rash or wounds PMFSH Medical History Elevated cholesterol Insomnia Solitary kidney, acquired History of kidney cancer Ureteral stent present Osteoporosis ESBL (extended spectrum beta-lactamase) producing bacteria infection Hydronephrosis Weight loss Poor appetite HTN (hypertension) UTI (urinary tract infection) Family History Mother No problems noted. Father Cancer Surgical History Hx of cystoscopy History of right nephrectomy H/O prostatectomy Hx of cholecystectomy Social History Household Members: Spouse Household Members Other:: Housing: Apartment Are you a primary healthcare facility administrator to a significant other at home: No Do you presently have visiting nurse or other home services: No Alcohol intake: never Comment: tylenol and pyridium given Patient Tobacco Use Status: Never used Tobacco Second Hand Smoke Exposure: No Advance Directives: No Advance Directives Information Provided: Yes Current occupational status: disabled Meds Allergies Allergy/AdvReac Type Severity Reaction Status Date / Time No Known Allergies Allergy Verified 05/01/24 12:24 Home Medications ?Medication ?Instructions ?Recorded ?Confirmed ?Last Taken ?Type escitalopram oxalate 10 mg tablet 10 mg PO BEDTIME anxiety 05/08/23 11/19/23 Unknown History amlodipine 2.5 mg tablet 2.5 mg PO DAILY 05/01/24 Unknown History atorvastatin 80 mg tablet 80 mg PO DAILY 05/01/24 Unknown History ciprofloxacin HCl 500 mg tablet 500 mg PO BID 05/01/24 Unknown History famotidine 10 mg tablet (Acid 10 mg PO 05/01/24 05/01/24 Unknown History [employer] (famotidine)) olmesartan 20 mg tablet 20 mg PO DAILY 05/01/24 Unknown History Physical Exam 2 Vital Signs and Narrative: Vital Signs: Last Vital Signs Temp 98.5 F 05/01/24 12:11 Pulse 77 05/01/24 14:52 Resp 16 05/01/24 14:52 BP 154/74 H 05/01/24 14:52 Pulse Ox 99 05/01/24 14:52 O2 Del Method Room Air 05/01/24 14:52 BMI result Body Mass Index 27.6 Const: Other: Constitutional : Awake, interactive, not in distress Neck : Normal inspection, Supple Cardiovascular : RRR, no JVP, no lower extremity edema Respiratory : good bilateral air entry, no crackles, wheezes or rhonchi Gastrointestinal: soft, lax, Normal bowel sounds, Non tender Skin : Warm, Dry Neurological : Alert & oriented to slef, No focal deficit Results Labs 05/01/24 12:37 05/01/24 12:38 Labs: Laboratory Results - last 24 hr 05/01/24 05/01/24 12:37 12:38 MCV 92.5 MCH 31.1 MCHC 33.7 RDW 13.3 Plt Count 121 L MPV 10.9 Immature Gran % (Auto) 0.5 H Neut % (Auto) 43.2 L Lymph % (Auto) 40.3 H [place] % (Auto) 12.2 H Eos % (Auto) 3.2 Baso % (Auto) 0.6 Lymph # (Auto) 2.5 [place] # (Auto) 0.8 Eos # (Auto) 0.2 Baso # (Auto) 0.0 Abs Immat Gran (auto) 0.03 Absolute Neuts (auto) 2.7 Absolute Nucleated RBC 0.000 Nucleated RBC % (auto) 0.0 Anion Gap 12 Estim Creat Clear Calc 46.9 Estimated GFR > 60 Random Glucose 125 H Calcium 9.6 Total Bilirubin 0.2 Direct Bilirubin < 0.2 AST 23 ALT 21 Alkaline Phosphatase 55 Total Protein 8.6 H Albumin 4.2 Urine Color Yellow Urine Appearance Cloudy Urine pH 5.5 Ur Specific [place] 1.015 Urine Protein 30 (1+) H Urine Glucose (UA) Negative Urine Ketones Negative Urine Blood Large (3+) H Urine Nitrite Positive H Ur Leukocyte Esterase Large (3+) H Urine RBC >20 H Urine WBC >50 H Ur Squamous Epith Cells 0-2 Urine Bacteria 4+ Hyaline Casts 0-2 Assessment and Plan (1) Complicated UTI (urinary tract infection): Status: Acute (2) ESBL (extended spectrum beta-lactamase) producing bacteria infection: Status: Acute Plan An 83 years old male with hypertension, hyperlipidemia, unspecified dementia, mood disorder, CKD stage 3, 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 ESBL E.Coli UTI pending blood cultures not septic could be colonization rather than acute infection IV Meropenem Q8 ID consult HTN amlodipine, Olmesartan HLD atorvastatin osteoporosis on abaloparatide as outpt DVT PPx Lovenox The patinet will likely need 2 overnight hospital stay for treatment of ESBL E.Coli infection pending ID evaluation and PICC line placement. Quality Stroke Does the patient have a stroke diagnosis?: No VTE Prior VTE?: No VTE Risk Level:: Medical - moderate - high VTE Device Contraindication: Treatment Not Indicated VTE Drug Contraindication: N/A - Med Ordered
[2024-05-01] MEDS: Meropenem 1 GM VIAL IVPUSH (16:29)
[2024-05-01] MEDS: Enoxaparin Sodium 40 MG/0.4 ML SYRINGE SUBCUT (17:16)
[2024-05-01 18:49] VITALS: BP 139/71; PULSE 68; RESP 18; TEMP 37.2; O2SAT 100
--- NOTE | 2024-05-01 18:59 | PHA.MEDREC ---
Addendum entered by Edwin Rasheed 05/01/24 19:03: reviewed Original Note: Pharmacy Consult ? Medication Reconciliation Pharmacy has completed the medication reconciliation. Tried to speak to patient, however couldn't wake him up. Called patient daughter through wound specialist service, however there was no answer and voicemail not set up. Utilized claims to confirm med list.
[2024-05-02] MEDS: 0.9 % Sodium Chloride Flush 3 ML SYRINGE IVFLUSH ×4 (04:31→21:15)
[2024-05-02] MEDS: Meropenem 1 GM VIAL IVPUSH ×2 (04:32→16:00)
--- NOTE | 2024-05-02 05:46 | PC.NURSE ---
pt ambulates independently to bathroom, gait even and steady. resting comfortably at this time. call xiao w/in reach
[2024-05-02 06:52] VITALS: BP 135/77; PULSE 68; RESP 16; TEMP 36.7; O2SAT 96
[2024-05-02 06:52] LABS: Anion Gap 12 (12-20); Blood Urea Nitrogen 19 mg/dL (9-16); Calcium 9.5 mg/dL (8.4-10.2); Carbon Dioxide 23 mmol/L (22-29); Chloride 110 mmol/L (96-108); Creatinine Clr Calc Pharmacy 54.4; Estimated Glomerular Filt Rate > 60; Glucose Random 96 mg/dL (60-115); Potassium 4.1 mmol/L (3.3-5.1); Sodium 141 mmol/L (135-145)
[2024-05-02 08:00] VITALS: BP 137/87; PULSE 96; RESP 16; TEMP 36.6; O2SAT 95
[2024-05-02] MEDS: Famotidine 20 MG TABLET 10 MG PO ×2 (09:32→21:14)
[2024-05-02] MEDS: Valsartan 80 MG TABLET PO (09:32)
[2024-05-02] MEDS: Atorvastatin Calcium 80 MG TABLET PO (09:32)
[2024-05-02] MEDS: amLODIPine Besylate 2.5 MG TABLET PO (09:32)
[2024-05-02 10:27] VITALS: BMI 26.1
[2024-05-02] MEDS: CIPROFLOXACIN HCL 500 MG PO (10:28)
[2024-05-02 10:30] VITALS: BP 164/77; PULSE 72; RESP 18; TEMP 36.4; O2SAT 96
[2024-05-02] MEDS: Cyclobenzaprine HCl 5 MG TABLET PO (10:59)
[2024-05-02] MEDS: Acetaminophen 325 MG TABLET 650 MG PO ×2 (10:59→23:46)
--- NOTE | 2024-05-02 11:48 | P.PNIM_ITS ---
Subjective Subjective Date of Service: 05/02/24 Interval History: seen and evaluated feels better no fever or chills no other events Review of Systems Review of Systems: Yes all other systems are reviewed and are negative Physical Exam 2 Vital Signs: Vital Signs: Last Vital Signs Temp 97.5 F 05/02/24 10:30 Pulse 72 05/02/24 10:30 Resp 18 05/02/24 10:30 BP 164/77 H 05/02/24 10:30 Pulse Ox 96 05/02/24 10:30 O2 Del Method Room Air 05/02/24 10:30 BMI result Body Mass Index 26.1 Const: Other: Constitutional : Awake, interactive, not in distress Neck : Normal inspection, Supple Cardiovascular : RRR, no JVP, no lower extremity edema Respiratory : good bilateral air entry, no crackles, wheezes or rhonchi Gastrointestinal: soft, lax, Normal bowel sounds, Non tender Skin : Warm, Dry Neurological : Alert & oriented to slef, No focal deficit Objective Data Active Medications Acetaminophen (Acetaminophen 325 Mg Tablet) 650 mg PO Q6H PRN PRN Reason: Pain, Mild 1-3,fever,headache Last Admin: 05/02/24 10:59 Dose: 650 mg Documented By: WILLY Amlodipine Besylate (Amlodipine Besylate 2.5 Mg Tablet) 2.5 mg PO DAILY [facility]; Protocol Last Admin: 05/02/24 09:32 Dose: 2.5 mg Documented By: MOSHE Atorvastatin Calcium (Atorvastatin Calcium 80 Mg Tablet) 80 mg PO DAILY [facility] Last Admin: 05/02/24 09:32 Dose: 80 mg Documented By: MOSHE Calcium Carbonate (Calcium Carbonate 750 Mg Tab.Chew) 750 mg PO Q4H PRN PRN Reason: Heartburn Ciprofloxacin (Ciprofloxacin Hcl 500 Mg Tablet) 500 mg PO Q12H [facility] Last Admin: 05/02/24 10:28 Dose: 500 mg Documented By: WILLY Cyclobenzaprine HCl (Cyclobenzaprine Hcl 5 Mg Tablet) 5 mg PO TID PRN PRN Reason: Muscle Spasm Last Admin: 05/02/24 10:59 Dose: 5 mg Documented By: WILLY Enoxaparin Sodium (Enoxaparin Sodium 40 Mg/0.4 Ml Syringe) 40 mg SUBCUT Q24H [facility] Last Admin: 05/01/24 17:16 Dose: 40 mg Documented By: JADA Escitalopram Oxalate (Escitalopram Oxalate 10 Mg Tablet) 10 mg PO BEDTIME [facility] Famotidine (Famotidine 20 Mg Tablet) 10 mg PO BID [facility] Last Admin: 05/02/24 09:32 Dose: 10 mg Documented By: MOSHE Magnesium Hydroxide (Milk Of Magnesia 30 Ml Oral.Susp) 30 ml PO DAILY PRN PRN Reason: Constipation Melatonin (Melatonin 3 Mg Tablet) 6 mg PO BEDTIME PRN PRN Reason: Insomnia Meropenem (Meropenem 1 Gm Vial) 1 gm IVPUSH Q12H [facility] Last Admin: 05/02/24 04:32 Dose: 1 gm Documented By: MINDA Ondansetron HCl (Ondansetron Hcl 4 Mg/2 Ml Vial) 4 mg IVPUSH Q8H PRN PRN Reason: Nausea and Vomiting Sodium Chloride (0.9 % Sodium Chloride Flush 3 Ml Syringe) 3 ml IVFLUSH QSHIFT [facility] Last Admin: 05/02/24 08:31 Dose: 3 ml Documented By: MOSHE Valsartan (Valsartan 80 Mg Tablet) 80 mg PO DAILY [facility] Last Admin: 05/02/24 09:32 Dose: 80 mg Documented By: MOSHE Labs 05/01/24 12:37 05/02/24 06:27 Labs: Laboratory Results - last 24 hr 05/01/24 05/01/24 05/02/24 12:37 12:38 06:27 MCV 92.5 MCH 31.1 MCHC 33.7 RDW 13.3 Plt Count 121 L MPV 10.9 Immature Gran % (Auto) 0.5 H Neut % (Auto) 43.2 L Lymph % (Auto) 40.3 H [place] % (Auto) 12.2 H Eos % (Auto) 3.2 Baso % (Auto) 0.6 Lymph # (Auto) 2.5 [place] # (Auto) 0.8 Eos # (Auto) 0.2 Baso # (Auto) 0.0 Abs Immat Gran (auto) 0.03 Absolute Neuts (auto) 2.7 Absolute Nucleated RBC 0.000 Nucleated RBC % (auto) 0.0 Anion Gap 12 12 Estim Creat Clear Calc 46.9 54.4 Estimated GFR > 60 > 60 Random Glucose 125 H 96 Calcium 9.6 9.5 Total Bilirubin 0.2 Direct Bilirubin < 0.2 AST 23 ALT 21 Alkaline Phosphatase 55 Total Protein 8.6 H Albumin 4.2 Urine Color Yellow Urine Appearance Cloudy Urine pH 5.5 Ur Specific [place] 1.015 Urine Protein 30 (1+) H Urine Glucose (UA) Negative Urine Ketones Negative Urine Blood Large (3+) H Urine Nitrite Positive H Ur Leukocyte Esterase Large (3+) H Urine RBC >20 H Urine WBC >50 H Ur Squamous Epith Cells 0-2 Urine Bacteria 4+ Hyaline Casts 0-2 Microbiology Microbiology Results: Microbiology 05/01/24 Unknown Urine Culture - Preliminary Urine clean catch - Clean Catch Midstream Culture in progress. 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 ESBL E.Coli UTI pending blood cultures could be colonization rather than acute infection ID consult IV Meropenem Q[address] Midline HTN amlodipine, Olmesartan HLD atorvastatin osteoporosis on abaloparatide as outpt DVT PPx Lovenox The patinet will likely need 2 overnight hospital stay for treatment of ESBL E.Coli infection pending ID evaluation and PICC line placement. Quality Stroke Does the patient have a stroke diagnosis?: No VTE Prior VTE?: No VTE Risk Level:: Medical - moderate - high VTE Device Contraindication: Treatment Not Indicated VTE Drug Contraindication: N/A - Med Ordered
--- NOTE | 2024-05-02 14:43 | P.CNID_ITS ---
History of Present Illness Data of Consult Service Date: 05/02/24 Requesting physician: Jud Gresham Primary Care Provider: Jeannie Fabian NP HPI Reason for consult: resistant E coli urine He presents with worse dysuria he says he had for six months. He has ESBL E coli He has r/o RCC and urethral stent. Review of Systems 2 Review of Systems: Yes all other systems are reviewed and are negative PMFSH Past Medical History Medical History Elevated cholesterol Insomnia Solitary kidney, acquired History of kidney cancer Ureteral stent present Osteoporosis ESBL (extended spectrum beta-lactamase) producing bacteria infection Hydronephrosis Weight loss Poor appetite HTN (hypertension) UTI (urinary tract infection) Family History Family History Mother No problems noted. Father Cancer Family history: reviewed and not pertinent Surgical History Surgical History Hx of cystoscopy History of right nephrectomy H/O prostatectomy Hx of cholecystectomy Social History Social History Household Members: Spouse Household Members Other:: Housing: Apartment Are you a primary director critical care to a significant other at home: No Do you presently have visiting nurse or other home services: No Alcohol intake: never Comment: tylenol and pyridium given Patient Tobacco Use Status: Never used Tobacco Smoked in Last 30 Days: No Second Hand Smoke Exposure: No Use of substances other than those prescribed or required for medical reasons: No Currently Displaying Signs/Symptoms of Drug Intoxication Withdrawal: No Do you feel safe in your current relationship?: Yes Advance Directives: No Advance Directives Information Provided: Yes Do you have a plan to hurt others: No Plan Recently lost weight without trying: No Nutrition Risks: No Nutritional Risk Poor oral hygiene: No Current occupational status: disabled Meds Allergies Allergy/AdvReac Type Severity Reaction Status Date / Time No Known Allergies Allergy Verified 05/01/24 12:24 Active Medications: Current Medications Acetaminophen (Acetaminophen 325 Mg Tablet) 650 mg PO Q6H PRN PRN Reason: Pain, Mild 1-3,fever,headache Last Admin: 05/02/24 10:59 Dose: 650 mg Amlodipine Besylate (Amlodipine Besylate 2.5 Mg Tablet) 2.5 mg PO DAILY [facility]; Protocol Last Admin: 05/02/24 09:32 Dose: 2.5 mg Atorvastatin Calcium (Atorvastatin Calcium 80 Mg Tablet) 80 mg PO DAILY [facility] Last Admin: 05/02/24 09:32 Dose: 80 mg Calcium Carbonate (Calcium Carbonate 750 Mg Tab.Chew) 750 mg PO Q4H PRN PRN Reason: Heartburn Cyclobenzaprine HCl (Cyclobenzaprine Hcl 5 Mg Tablet) 5 mg PO TID PRN PRN Reason: Muscle Spasm Last Admin: 05/02/24 10:59 Dose: 5 mg Enoxaparin Sodium (Enoxaparin Sodium 40 Mg/0.4 Ml Syringe) 40 mg SUBCUT Q24H [facility] Last Admin: 05/01/24 17:16 Dose: 40 mg Escitalopram Oxalate (Escitalopram Oxalate 10 Mg Tablet) 10 mg PO BEDTIME [facility] Famotidine (Famotidine 20 Mg Tablet) 10 mg PO BID [facility] Last Admin: 05/02/24 09:32 Dose: 10 mg Magnesium Hydroxide (Milk Of Magnesia 30 Ml Oral.Susp) 30 ml PO DAILY PRN PRN Reason: Constipation Melatonin (Melatonin 3 Mg Tablet) 6 mg PO BEDTIME PRN PRN Reason: Insomnia Meropenem (Meropenem 1 Gm Vial) 1 gm IVPUSH Q12H [facility] Last Admin: 05/02/24 04:32 Dose: 1 gm Ondansetron HCl (Ondansetron Hcl 4 Mg/2 Ml Vial) 4 mg IVPUSH Q8H PRN PRN Reason: Nausea and Vomiting Sodium Chloride (0.9 % Sodium Chloride Flush 3 Ml Syringe) 3 ml IVFLUSH QSHIFT [facility] Last Admin: 05/02/24 08:31 Dose: 3 ml Valsartan (Valsartan 80 Mg Tablet) 80 mg PO DAILY [facility] Last Admin: 05/02/24 09:32 Dose: 80 mg Home Medications ?Medication ?Instructions ?Recorded ?Confirmed ?Last Taken ?Type escitalopram oxalate 10 mg tablet 10 mg PO BEDTIME anxiety 05/08/23 05/01/24 Unknown History amlodipine 2.5 mg tablet 2.5 mg PO DAILY 05/01/24 05/01/24 Unknown History atorvastatin 80 mg tablet 80 mg PO DAILY 05/01/24 05/01/24 Unknown History ciprofloxacin HCl 500 mg tablet 500 mg PO BID 05/01/24 05/01/24 Unknown History famotidine 10 mg tablet (Acid 10 mg PO BID 05/01/24 05/01/24 Unknown History [employer] (famotidine)) olmesartan 20 mg tablet 20 mg PO DAILY 05/01/24 05/01/24 Unknown History Physical Exam 2 Vital Signs: Vital Signs: Last Vital Signs Temp 97.5 F 05/02/24 10:30 Pulse 72 05/02/24 10:30 Resp 18 05/02/24 10:30 BP 164/77 H 05/02/24 10:30 Pulse Ox 96 05/02/24 10:30 O2 Del Method Room Air 05/02/24 10:30 BMI result Body Mass Index 26.1 Const: General: cooperative HEENT: Head: Yes normal to inspection Face and sinus: Yes normal facial exam Mouth: Normal oral and palatal mucosa present Teeth and gingiva: d entition normal Eyes: General: appearance normal, both eyes and all related structures P upils: Equal, round and reactive pupils present Resp: Effort & Inspection: normal respiratory effort Cardio: Rate: regular rate Rhythm: regular rhythm GI: Palpation (GI): Soft to palpation and nontender : General: Yes no CVA tenderness Back/Spine/Pelvis: Back: no CVA tenderness Skin: General skin exam: no rashes or lesions noted Neuro: General: moves all extremities Cranial nerves: Yes Equal, round and reactive pupils present Extrem: General: Yes normal to inspection Psych: Appearance: grossly normal Results Labs 05/01/24 12:37 05/02/24 06:27 Labs: BMP 05/02/24 06:27 Sodium 141 Potassium 4.1 Chloride 110 H Carbon Dioxide 23 BUN 19 H Creatinine 0.94 Calcium 9.5 Microbiology Microbiology Results: Microbiology 05/01/24 Unknown Urine clean catch - Clean Catch Midstream Urine Culture - Preliminary Culture in progress. Assessment and Plan (1) Acquired stricture of ureter: Status: Acute (2) Complicated UTI (urinary tract infection): Status: Acute (3) Essential hypertension: Status: Acute Plan Merem for 10 days Stop Cipro. Follow Urology
[2024-05-02 15:24] VITALS: BP 130/74; PULSE 64; RESP 17; TEMP 36.6; O2SAT 95
[2024-05-02] MEDS: Enoxaparin Sodium 40 MG/0.4 ML SYRINGE SUBCUT (15:59)
[2024-05-02 19:26] VITALS: BP 140/80; PULSE 79; RESP 18; TEMP 36.3; O2SAT 96
[2024-05-02] MEDS: Escitalopram Oxalate 10 MG TABLET PO (21:15)
[2024-05-02] MEDS: Calcium Carbonate 750 MG TAB.CHEW PO (23:45)
[2024-05-03 03:06] VITALS: BP 129/71; PULSE 62; RESP 16; TEMP 36.1; O2SAT 98
[2024-05-03] MEDS: Meropenem 1 GM VIAL IVPUSH ×2 (03:28→15:07)
[2024-05-03 07:42] VITALS: BP 129/71; PULSE 59; RESP 16; TEMP 36.5; O2SAT 95
[2024-05-03] MEDS: 0.9 % Sodium Chloride Flush 3 ML SYRINGE IVFLUSH ×3 (09:58→20:47)
[2024-05-03 09:59] VITALS: BP 115/70
[2024-05-03] MEDS: amLODIPine Besylate 2.5 MG TABLET PO (09:59)
[2024-05-03] MEDS: Famotidine 20 MG TABLET 10 MG PO ×2 (09:59→20:47)
[2024-05-03] MEDS: Atorvastatin Calcium 80 MG TABLET PO (10:00)
[2024-05-03] MEDS: Valsartan 80 MG TABLET PO (10:00)
[2024-05-03] MEDS: Calcium Carbonate 750 MG TAB.CHEW PO (10:07)
--- NOTE | 2024-05-03 11:28 | MHC.CM.PN ---
PT LIVES WITH HAS A STATISTICAL ENGINEER AND OWN RIDE HOME [facility]
--- NOTE | 2024-05-03 13:14 | HO.PM.IMPN ---
Subjective Subjective Date of Service: 05/03/24 Interval History: seen and evaluated feels better no fever or chills no other events Review of Systems Review of Systems: Yes all other systems are reviewed and are negative Physical Exam Vital Signs: Vital Signs: Last Vital Signs Temp 97.7 F 05/03/24 07:42 Pulse 59 05/03/24 07:42 Resp 16 05/03/24 07:42 BP 115/70 05/03/24 09:59 Pulse Ox 95 05/03/24 07:42 O2 Del Method Room Air 05/03/24 07:42 BMI result Body Mass Index 26.1 Const: Other: Constitutional : Awake, interactive, not in distress Neck : Normal inspection, Supple Cardiovascular : RRR, no JVP, no lower extremity edema Respiratory : good bilateral air entry, no crackles, wheezes or rhonchi Gastrointestinal: soft, lax, Normal bowel sounds, Non tender Skin : Warm, Dry Neurological : Alert & oriented to slef, No focal deficit Objective Data Active Medications Acetaminophen (Acetaminophen 325 Mg Tablet) 650 mg PO Q6H PRN PRN Reason: Pain, Mild 1-3,fever,headache Last Admin: 05/02/24 23:46 Dose: 650 mg Documented By: LEXA Amlodipine Besylate (Amlodipine Besylate 2.5 Mg Tablet) 2.5 mg PO DAILY [facility]; Protocol Last Admin: 05/03/24 09:59 Dose: 2.5 mg Documented By: HELGA Atorvastatin Calcium (Atorvastatin Calcium 80 Mg Tablet) 80 mg PO DAILY [facility] Last Admin: 05/03/24 10:00 Dose: 80 mg Documented By: HELGA Calcium Carbonate (Calcium Carbonate 750 Mg Tab.Chew) 750 mg PO Q4H PRN PRN Reason: Heartburn Last Admin: 05/03/24 10:07 Dose: 750 mg Documented By: HELGA Cyclobenzaprine HCl (Cyclobenzaprine Hcl 5 Mg Tablet) 5 mg PO TID PRN PRN Reason: Muscle Spasm Last Admin: 05/02/24 10:59 Dose: 5 mg Documented By: WILLY Enoxaparin Sodium (Enoxaparin Sodium 40 Mg/0.4 Ml Syringe) 40 mg SUBCUT Q24H [facility] Last Admin: 05/02/24 15:59 Dose: 40 mg Documented By: WILLY Escitalopram Oxalate (Escitalopram Oxalate 10 Mg Tablet) 10 mg PO BEDTIME [facility] Last Admin: 05/02/24 21:15 Dose: 10 mg Documented By: LEXA Famotidine (Famotidine 20 Mg Tablet) 10 mg PO BID [facility] Last Admin: 05/03/24 09:59 Dose: 10 mg Documented By: HELGA Magnesium Hydroxide (Milk Of Magnesia 30 Ml Oral.Susp) 30 ml PO DAILY PRN PRN Reason: Constipation Melatonin (Melatonin 3 Mg Tablet) 6 mg PO BEDTIME PRN PRN Reason: Insomnia Meropenem (Meropenem 1 Gm Vial) 1 gm IVPUSH Q12H [facility] Last Admin: 05/03/24 03:28 Dose: 1 gm Documented By: LEXA Ondansetron HCl (Ondansetron Hcl 4 Mg/2 Ml Vial) 4 mg IVPUSH Q8H PRN PRN Reason: Nausea and Vomiting Sodium Chloride (0.9 % Sodium Chloride Flush 3 Ml Syringe) 3 ml IVFLUSH QSHIFT [facility] Last Admin: 05/03/24 09:58 Dose: 3 ml Documented By: HELGA Valsartan (Valsartan 80 Mg Tablet) 80 mg PO DAILY [facility] Last Admin: 05/03/24 10:00 Dose: 80 mg Documented By: HELGA Labs 05/01/24 12:37 05/02/24 06:27 Microbiology Microbiology Results: Microbiology 05/01/24 Unknown Urine Culture - Final Urine clean catch - Clean Catch Midstream 05/01/24 12:37 Blood Culture - Preliminary Blood - Venous No growth after 24 hours. 05/01/24 12:37 Blood Culture - Preliminary Blood - Venous No growth after 24 hours. 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 ESBL E.Coli UTI negative blood cultures could be colonization rather than acute infection ID consult , 10 days of IV Abx IV Meropenem Q12 [address] Midline by Sunday HTN amlodipine, Olmesartan HLD atorvastatin osteoporosis on abaloparatide as outpt DVT PPx Lovenox The patinet will likely need overnight hospital stay for treatment of ESBL E.Coli infection pending ID evaluation and PICC line placement. Quality Stroke Does the patient have a stroke diagnosis?: No VTE Prior VTE?: No VTE Risk Level:: Medical - moderate - high VTE Device Contraindication: Treatment Not Indicated VTE Drug Contraindication: N/A - Med Ordered
[2024-05-03 15:01] LABS: Leukocytes Stool Qualitative NEGATIVE (NEGATIVE)
[2024-05-03 15:10] VITALS: BP 133/75; PULSE 80; RESP 18; TEMP 36.8; O2SAT 94
[2024-05-03 15:38] LABS: CDiff Gene PCR NEGATIVE (Negative)
[2024-05-03] MEDS: Enoxaparin Sodium 40 MG/0.4 ML SYRINGE SUBCUT (16:06)
[2024-05-03 19:35] VITALS: BP 118/70; PULSE 82; RESP 18; TEMP 36.4; O2SAT 95
[2024-05-03] MEDS: Escitalopram Oxalate 10 MG TABLET PO (20:47)
[2024-05-04 03:17] VITALS: BP 132/76; PULSE 70; RESP 18; TEMP 36.8; O2SAT 96
[2024-05-04] MEDS: Meropenem 1 GM VIAL IVPUSH ×2 (03:44→15:23)
[2024-05-04 07:10] VITALS: BP 136/70; PULSE 70; RESP 20; TEMP 37.2; O2SAT 95
[2024-05-04] MEDS: amLODIPine Besylate 2.5 MG TABLET PO (07:11)
[2024-05-04] MEDS: Famotidine 20 MG TABLET 10 MG PO ×2 (07:11→21:26)
[2024-05-04] MEDS: Valsartan 80 MG TABLET PO (07:12)
[2024-05-04] MEDS: Atorvastatin Calcium 80 MG TABLET PO (07:12)
[2024-05-04] MEDS: 0.9 % Sodium Chloride Flush 3 ML SYRINGE IVFLUSH ×2 (07:12→15:23)
--- NOTE | 2024-05-04 10:12 | HO.PM.IMPN ---
Subjective Subjective Date of Service: 05/04/24 Interval History: seen and evaluated feels better no fever or chills no other events Review of Systems Review of Systems: Yes all other systems are reviewed and are negative Physical Exam Vital Signs: Vital Signs: Last Vital Signs Temp 98.9 F 05/04/24 07:10 Pulse 70 05/04/24 07:10 Resp 20 05/04/24 07:10 BP 136/70 05/04/24 07:10 Pulse Ox 95 05/04/24 07:10 O2 Del Method Room Air 05/04/24 07:10 BMI result Body Mass Index 26.1 Const: Other: Constitutional : Awake, interactive, not in distress Neck : Normal inspection, Supple Cardiovascular : RRR, no JVP, no lower extremity edema Respiratory : good bilateral air entry, no crackles, wheezes or rhonchi Gastrointestinal: soft, lax, Normal bowel sounds, Non tender Skin : Warm, Dry Neurological : Alert & oriented to slef, No focal deficit Objective Data Active Medications Acetaminophen (Acetaminophen 325 Mg Tablet) 650 mg PO Q6H PRN PRN Reason: Pain, Mild 1-3,fever,headache Last Admin: 05/02/24 23:46 Dose: 650 mg Documented By: LEXA Amlodipine Besylate (Amlodipine Besylate 2.5 Mg Tablet) 2.5 mg PO DAILY [facility]; Protocol Last Admin: 05/04/24 07:11 Dose: 2.5 mg Documented By: HELGA Atorvastatin Calcium (Atorvastatin Calcium 80 Mg Tablet) 80 mg PO DAILY [facility] Last Admin: 05/04/24 07:12 Dose: 80 mg Documented By: HELGA Calcium Carbonate (Calcium Carbonate 750 Mg Tab.Chew) 750 mg PO Q4H PRN PRN Reason: Heartburn Last Admin: 05/03/24 10:07 Dose: 750 mg Documented By: HELGA Cyclobenzaprine HCl (Cyclobenzaprine Hcl 5 Mg Tablet) 5 mg PO TID PRN PRN Reason: Muscle Spasm Last Admin: 05/02/24 10:59 Dose: 5 mg Documented By: WILLY Enoxaparin Sodium (Enoxaparin Sodium 40 Mg/0.4 Ml Syringe) 40 mg SUBCUT Q24H [facility] Last Admin: 05/03/24 16:06 Dose: 40 mg Documented By: HELGA Escitalopram Oxalate (Escitalopram Oxalate 10 Mg Tablet) 10 mg PO BEDTIME [facility] Last Admin: 05/03/24 20:47 Dose: 10 mg Documented By: LEXA Famotidine (Famotidine 20 Mg Tablet) 10 mg PO BID [facility] Last Admin: 05/04/24 07:11 Dose: 10 mg Documented By: HELGA Magnesium Hydroxide (Milk Of Magnesia 30 Ml Oral.Susp) 30 ml PO DAILY PRN PRN Reason: Constipation Melatonin (Melatonin 3 Mg Tablet) 6 mg PO BEDTIME PRN PRN Reason: Insomnia Meropenem (Meropenem 1 Gm Vial) 1 gm IVPUSH Q12H [facility] Last Admin: 05/04/24 03:44 Dose: 1 gm Documented By: LEXA Ondansetron HCl (Ondansetron Hcl 4 Mg/2 Ml Vial) 4 mg IVPUSH Q8H PRN PRN Reason: Nausea and Vomiting Sodium Chloride (0.9 % Sodium Chloride Flush 3 Ml Syringe) 3 ml IVFLUSH QSHIFT [facility] Last Admin: 05/04/24 07:12 Dose: 3 ml Documented By: HELGA Valsartan (Valsartan 80 Mg Tablet) 80 mg PO DAILY [facility] Last Admin: 05/04/24 07:12 Dose: 80 mg Documented By: HELGA Labs 05/01/24 12:37 05/02/24 06:27 Labs: Laboratory Results - last 24 hr 05/03/24 14:20 Stool Leukocytes, Qual NEGATIVE C. difficile Tox B Gene NEGATIVE Microbiology Microbiology Results: Microbiology 05/01/24 12:37 Blood Culture - Preliminary Blood - Venous No growth after 48 hours. 05/01/24 12:37 Blood Culture - Preliminary Blood - Venous No growth after 48 hours. 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 ESBL E.Coli UTI negative blood cultures could be colonization rather than acute infection ID consult , 10 days of IV Abx IV Meropenem Q12 ren[address] Midline by Ramírez HTN amlodipine, Olmesartan HLD atorvastatin osteoporosis on abaloparatide as outpt DVT PPx Lovenox The patinet will likely need overnight hospital stay for treatment of ESBL E.Coli infection pending ID evaluation and PICC line placement. Quality Stroke Does the patient have a stroke diagnosis?: No VTE Prior VTE?: No VTE Risk Level:: Medical - moderate - high VTE Device Contraindication: Treatment Not Indicated VTE Drug Contraindication: N/A - Med Ordered
[2024-05-04 15:11] VITALS: BP 131/69; PULSE 60; RESP 20; TEMP 36.9; O2SAT 95
[2024-05-04] MEDS: Enoxaparin Sodium 40 MG/0.4 ML SYRINGE SUBCUT (16:06)
[2024-05-04 19:10] VITALS: BP 115/71; PULSE 77; RESP 18; TEMP 37.1; O2SAT 95
[2024-05-04] MEDS: Acetaminophen 325 MG TABLET 650 MG PO (21:26)
[2024-05-04] MEDS: Escitalopram Oxalate 10 MG TABLET PO (21:26)
[2024-05-05 03:35] VITALS: BP 142/80; PULSE 69; RESP 16; TEMP 36.6; O2SAT 95
[2024-05-05] MEDS: Meropenem 1 GM VIAL IVPUSH (03:39)
[2024-05-05 07:28] VITALS: BP 143/71; PULSE 59; RESP 16; TEMP 36.2; O2SAT 96
[2024-05-05] MEDS: Valsartan 80 MG TABLET PO (08:23)
[2024-05-05] MEDS: Atorvastatin Calcium 80 MG TABLET PO (08:23)
[2024-05-05] MEDS: amLODIPine Besylate 2.5 MG TABLET PO (08:24)
[2024-05-05] MEDS: Famotidine 20 MG TABLET 10 MG PO (08:24)
[2024-05-05] MEDS: 0.9 % Sodium Chloride Flush 3 ML SYRINGE IVFLUSH (08:27)
--- NOTE | 2024-05-05 10:30 | HO.MIDLINE ---
Midline Insertion MIDLINE INSERTION Diagnosis: UTI ESBL Indication: 12Days ABT Pertinent Labs: reviewed Technique: Using sterile technique including cap and mask, glove and drape, the right arm was prepped and draped in the usual sterile fashion of full barrier technique with CHG. Using ultrasound guidance, right basilic vein access was obtained . 4fr x 20 cm non PASV powermidline trimmed to 14cm was positioned. The procedure was performed in [facility]. Ultrasound was used to document vein patency and for needle entry. A formal ultrasound picture was recorded. [employer] has released the line for use and it is currently dressed with a StatLock, Tegaderm, and CHG disc. Verification has been performed for blood return and line patency. Arm Circumference: 30cm Equipment: BARD POWER MIDLINE Catheter Catheter Type: 4fr x 20cm non PASV Lot #: [id number]
[2024-05-05] MEDS: Ertapenem Sodium 1 GM VIAL IVPUSH (11:06)
--- NOTE | 2024-05-05 11:24 | P.DS_ITS ---
DS: Providers Provider Date of Service: 05/05/24 Date of admission: 05/01/24 16:01 Date of discharge: 05/05/24 Primary care physician: Jeannie Fabian NP Consults: 05/01/24 16:01 Consult to Infectious Diseases Routine Consulting Provider: [facility] Reason for consultation: ESBL E.Coli UTI vs Colonization for Abx choice. 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 The patient has been treated with multiple oral Abx as outpatient with no improvement of symptoms. He is reporting dysurea and increase frequency. No chest pain, palpitations, SOB, nausea, vomiting, diarrhea. decrease PO intake and feeling weak. U.Cx growing ESBL E.Coli sensitive only to Cefepime, Meropenem and Gentamycin. In ED blood work showing stable blood work will be admitted for IV antiibotics treatment. Hospital course The patient was treated for ESBL E.Coli UTI with negative blood cultures. Seen by ID specialist who recommended 10 days of IV Meropenem. He was treated with IV Meropenem Q12 renally adjusted dose. Placed Midline by Friday 05/05. Will be discharged on 5 more days of Ertapenem. Frequency and dysurea resolved. He will be followed at home by [facility] to finish the treatment and provide training. Discharge plan Continue Ertapenem for 5 more days Follow with radiology for Midline removal Time Attestation Discharge Coordination Time (in mins): 43 Quality: Safe Use of Opioids Does Pt have an Active Cancer Diagnosis on the Problem List?: No Quality: Stroke Does the patient have a stroke diagnosis?: No Physical Exam Vital Signs: Vital Signs: Last Vital Signs Temp 97.2 F 05/05/24 07:28 Pulse 59 05/05/24 07:28 Resp 16 05/05/24 07:28 BP 143/71 H 05/05/24 07:28 Pulse Ox 96 05/05/24 07:28 O2 Del Method Room Air 05/05/24 07:28 BMI result Body Mass Index 26.1 Const: Other: Constitutional : Awake, interactive, not in distress Neck : Normal inspection, Supple Cardiovascular : RRR, no JVP, no lower extremity edema Respiratory : good bilateral air entry, no crackles, wheezes or rhonchi Gastrointestinal: soft, lax, Normal bowel sounds, Non tender Skin : Warm, Dry Neurological : Alert & oriented to slef, No focal deficit DS: Data Data Completed and Pending Completed studies during hospitalization [Text1]: Procedures Insertion of Infusion Device into Right Basilic Vein, Percutaneous Approach (06/20/22) Labs on day of discharge: Preliminary micro results at discharge 05/01/24 12:37 Blood Culture - Preliminary Blood - Venous No growth after 48 hours. 05/01/24 12:37 Blood Culture - Preliminary Blood - Venous No growth after 48 hours. Discharge Plan Discharge Anticipated Discharge Date/Time: 05/05/24 11:20 Patient Disposition: Home Health Service Discharge Diagnosis: ESBL UTI Referrals: [facility] [Outside] - 1 Day Jeannie Fabian [employer] SUPERVISOR [Primary Care Provider] - 1 Week Discharge Medications: New ertapenem 1 gram recon soln 1 g IV DAILY Qty: 5 0RF Continued Tymlos 80 mcg (3,120 mcg/1.56 mL) pen injector 80 mcg subcut DAILY Qty: 1.56 11RF Rx Instructions: inject into abdomen; do not inject within 2 inches of belly button/navel; rotate sites atorvastatin 80 mg tablet 80 mg PO DAILY famotidine [Acid Security Operations Engineer (famotidine)] 10 mg tablet 10 mg PO BID amlodipine 2.5 mg tablet 2.5 mg PO DAILY olmesartan 20 mg tablet 20 mg PO DAILY escitalopram oxalate 10 mg tablet 10 mg PO BEDTIME Discontinued ciprofloxacin HCl 500 mg tablet 500 mg PO BID Rx Instructions: End date 05-02-24 Discharge Orders: Discharge Order (Routine); Ordered 05/05/24 Ordered By: Jud Gresham Diet: Advance to usual diet Activity on Discharge: As tolerated Stand Alone Forms: Patient Portal Discharge page Print Language: Georgian Care Plan Goals: Ertapenem for 5 more days Follow with Radiology for Midline removal Health Concerns: resistent Urine infection Plan of Treatment: Ertapenem Assessment: as above
--- NOTE | 2024-05-05 11:24 | HO.PM.IMPN ---
Subjective Subjective Date of Service: 05/05/24 Physical Exam Vital Signs: Vital Signs: Last Vital Signs Temp 97.2 F 05/05/24 07:28 Pulse 59 05/05/24 07:28 Resp 16 05/05/24 07:28 BP 143/71 H 05/05/24 07:28 Pulse Ox 96 05/05/24 07:28 O2 Del Method Room Air 05/05/24 07:28 BMI result Body Mass Index 26.1 Objective Data Active Medications Acetaminophen (Acetaminophen 325 Mg Tablet) 650 mg PO Q6H PRN PRN Reason: Pain, Mild 1-3,fever,headache Last Admin: 05/04/24 21:26 Dose: 650 mg Documented By: STANISLAW Comments: per pt request Amlodipine Besylate (Amlodipine Besylate 2.5 Mg Tablet) 2.5 mg PO DAILY [facility]; Protocol Last Admin: 05/05/24 08:24 Dose: 2.5 mg Documented By: VANESSA Atorvastatin Calcium (Atorvastatin Calcium 80 Mg Tablet) 80 mg PO DAILY [facility] Last Admin: 05/05/24 08:23 Dose: 80 mg Documented By: VANESSA Calcium Carbonate (Calcium Carbonate 750 Mg Tab.Chew) 750 mg PO Q4H PRN PRN Reason: Heartburn Last Admin: 05/03/24 10:07 Dose: 750 mg Documented By: HELGA Heparin Sodium (Porcine) 50 (units/ Sodium Chloride 5 ml) 0 units IVFLUSH TID [facility] Cyclobenzaprine HCl (Cyclobenzaprine Hcl 5 Mg Tablet) 5 mg PO TID PRN PRN Reason: Muscle Spasm Last Admin: 05/02/24 10:59 Dose: 5 mg Documented By: WILLY Enoxaparin Sodium (Enoxaparin Sodium 40 Mg/0.4 Ml Syringe) 40 mg SUBCUT Q24H [facility] Last Admin: 05/04/24 16:06 Dose: 40 mg Documented By: HELGA Escitalopram Oxalate (Escitalopram Oxalate 10 Mg Tablet) 10 mg PO BEDTIME [facility] Last Admin: 05/04/24 21:26 Dose: 10 mg Documented By: STANISLAW Famotidine (Famotidine 20 Mg Tablet) 10 mg PO BID [facility] Last Admin: 05/05/24 08:24 Dose: 10 mg Documented By: VANESSA Magnesium Hydroxide (Milk Of Magnesia 30 Ml Oral.Susp) 30 ml PO DAILY PRN PRN Reason: Constipation Melatonin (Melatonin 3 Mg Tablet) 6 mg PO BEDTIME PRN PRN Reason: Insomnia Ondansetron HCl (Ondansetron Hcl 4 Mg/2 Ml Vial) 4 mg IVPUSH Q8H PRN PRN Reason: Nausea and Vomiting Sodium Chloride (0.9 % Sodium Chloride Flush 3 Ml Syringe) 3 ml IVFLUSH QSHIFT [facility] Last Admin: 05/05/24 08:27 Dose: 3 ml Documented By: VANESSA Valsartan (Valsartan 80 Mg Tablet) 80 mg PO DAILY [facility] Last Admin: 05/05/24 08:23 Dose: 80 mg Documented By: VANESSA Labs 05/01/24 12:37 05/02/24 06:27 Quality Stroke Does the patient have a stroke diagnosis?: No VTE Prior VTE?: No VTE Risk Level:: Medical - moderate - high VTE Device Contraindication: Treatment Not Indicated VTE Drug Contraindication: N/A - Med Ordered
--- NOTE | 2024-05-05 11:25 | MHC.CM.PN ---
Addendum entered by Elizabeth Cueva 05/05/24 13:58: TEACH COMPLETED WITH PT AND DAUGHTER, PT WILL DC HOME TODAY, [facility] WILL DELIVER MEDS AND SUPPLIES BEFORE DOSE TOMORROW [facility] WILL PROVIDE SOC TOMOR[facility] TO TRANSPORT Addendum entered by Elizabeth Cueva 05/05/24 12:35: [facility] ACCEPTING, [facility] PRESENT AND WILL DO VIRTUAL TEACH WITH PTS DAUGHTERLISA, WHO LIVES IN THE HOME WITH PT. Original Note: PT MEDICALLY READY TO DC, HE WILL NEED 5 DAYS OF IV ABX, MIDLINE IN PLACE REFERRALS MADE TO [facility], AWAITING RESPONSES
--- NOTE | 2024-05-05 14:02 | P.F2F_ITS ---
Service Date Service Date: 05/05/24 Encounter Date of encounter: 05/05/24 Reasons for Services Signs and symptoms assessed: ESBL E.Coli Reason for group home: administration of IV, SQ, or IM injection, medication management and teach disease management Homebound: Leaving the home is medically contraindicated at this time without the asist of a device and/or another person due th the listed conditions above and below. Reason homebound: unable to drive Certification: Based on the above findings, I certify that this patient is confined to the home and needs intermittent group home care, physical therapy and/or speech therapy, or continues to need occupational therapy. The patient is under my care, and I have initiated the establishment of the plan of care. The patient will be followed by a physician who will periodically review the plan of care. Time Spent With Patient Time: Total time managing care of this patient today ____ minutes.
[2024-05-05 14:23] VITALS: BP 137/70; PULSE 101; RESP 16; O2SAT 94
== END 2024-05-05 14:09 | disposition home health service (06) | DRG 690 ==
LOC: HO.ED 15:32 → HO.EDOVER 16:23 → HO.S3 05-02 07:47
PROVIDERS: Physician Assistant Medical; Admitting Provider Student in an Organized Health Care Education/Training Program; Emergency Provider Emergency Medicine; PCP Nurse Practitioner Primary Care; Visit Provider Student in an Organized Health Care Education/Training Program
DX: N39.0 Urinary tract infection, site not specified (principal); Z16.12 Extended spectrum beta lactamase (ESBL) resistance; Z16.24 Resistance to multiple antibiotics; I12.9 Hypertensive chronic kidney disease with stage 1 through stage 4 chronic kidney disease, or unspecified chronic kidney disease; N18.30 Chronic kidney disease, stage 3 unspecified; F03.90 Unspecified dementia, unspecified severity, without behavioral disturbance, psychotic disturbance, mood disturbance, and anxiety; B96.20 Unspecified Escherichia coli [E. coli] as the cause of diseases classified elsewhere; M81.0 Age-related osteoporosis without current pathological fracture; E78.5 Hyperlipidemia, unspecified; Z85.528 Personal history of other malignant neoplasm of kidney; Z90.5 Acquired absence of kidney; Z87.440 Personal history of urinary (tract) infections; Z79.899 Other long term (current) drug therapy
CPT/HCPCS: 36410; 36415; 80048; 80076; 81001; 85025; 87040; 87086; 87493; 89055; 99285; C1751; C1894; J1335; J1650; J2185

== ENCOUNTER → 2024-05-01 14:45 | Outpatient (BNV) | payer OTHER, SELFPAY | PROVIDERS: Emergency Provider Emergency Medicine; PCP Nurse Practitioner Primary Care; Visit Provider Student in an Organized Health Care Education/Training Program | DX: N13.5 Crossing vessel and stricture of ureter without hydronephrosis (principal); N39.0 Urinary tract infection, site not specified; A49.9 Bacterial infection, unspecified; Z16.12 Extended spectrum beta lactamase (ESBL) resistance | CPT/HCPCS: 99232; 99239 ==

== ENCOUNTER → 2024-05-01 16:01 | Outpatient (BNV) | payer OTHER, SELFPAY | PROVIDERS: Admitting Provider Student in an Organized Health Care Education/Training Program; Emergency Provider Emergency Medicine; PCP Nurse Practitioner Primary Care; Visit Provider Internal Medicine | DX: N13.5 Crossing vessel and stricture of ureter without hydronephrosis (principal); N39.0 Urinary tract infection, site not specified; I10 Essential (primary) hypertension | CPT/HCPCS: 99222 ==

== ENCOUNTER 2024-05-12 05:51 | Day surgery (SDC) | payer OTHER, SELFPAY ==
[2024-05-08 10:40] VITALS: BMI 26.3
--- NOTE | 2024-05-08 13:58 | P.CONAN_ITS ---
Documented by User: Ann Marie Molina NP 05/08/24 13:59 HPI - Anesthesia Eval Consult details Narrative: 83yo M for Left Cystoscopy with stent EXCHANGE s/p same 11/2023 with MAC Renal CA s/p R nephrectomy PMFSH Active Problems Active Problems: All Active Problems Acquired stricture of ureter (Acute) Complicated UTI (urinary tract infection) (Acute) Essential hypertension (Acute) H/O kidney removal (Acute) Insomnia (Acute) ESBL (extended spectrum beta-lactamase) producing bacteria infection (Acute) Osteoporosis (Acute) H/O prostatectomy (Acute) UTI (urinary tract infection) (Acute) Past Medical History Medical History Elevated cholesterol Insomnia Solitary kidney, acquired History of kidney cancer Ureteral stent present Osteoporosis ESBL (extended spectrum beta-lactamase) producing bacteria infection Hydronephrosis Weight loss Poor appetite HTN (hypertension) UTI (urinary tract infection) Family History Family History Mother No problems noted. Father Cancer Family history of problems with anesthesia: No Surgical History Surgical History Hx of cystoscopy History of right nephrectomy H/O prostatectomy Hx of cholecystectomy History of Problems with Anesthesia: No Social History Social History Household Members: Spouse Household Members Other:: Housing: Apartment Are you a primary women's health care nurse practitioner to a significant other at home: No Do you presently have visiting nurse or other home services: No Alcohol intake: never Comment: tylenol and pyridium given Patient Tobacco Use Status: Never used Tobacco Second Hand Smoke Exposure: No Use of substances other than those prescribed or required for medical reasons: No Have you been hit, kicked, punched, or otherwise hurt by someone within the past year? If so, by whom?: No Are you DNR?: No Advance Directives: No Advance Directives Information Provided: Yes Recently lost weight without trying: No Nutrition Risks: No Nutritional Risk Poor oral hygiene: No service: No Current occupational status: disabled Meds Allergies Allergy/AdvReac Type Severity Reaction Status Date / Time No Known Allergies Allergy Verified 05/12/24 06:19 Home Medications ?Medication ?Instructions ?Recorded ?Confirmed ?Last Taken ?Type escitalopram oxalate 10 mg tablet 10 mg PO BEDTIME anxiety 05/08/23 05/08/24 Unknown History amlodipine 2.5 mg tablet 2.5 mg PO DAILY 05/01/24 05/12/24 Unknown History atorvastatin 80 mg tablet 80 mg PO DAILY 05/01/24 05/12/24 Unknown History famotidine 10 mg tablet (Acid 10 mg PO BID 05/01/24 05/08/24 Unknown History Section Forest Fire Warden (famotidine)) olmesartan 20 mg tablet 20 mg PO DAILY 05/01/24 05/08/24 Unknown History Exam Height,Weight and Vital Signs: Height 5 ft 4 in Weight 69.4 kg Pertinent Lab Results Pertinent Lab Results: Laboratory Tests 05/01/24 05/02/24 12:37 06:27 WBC 6.2 Hgb 13.7 L Hct 40.7 L Plt Count 121 L Sodium 141 Potassium 4.1 Chloride 110 H Carbon Dioxide 23 BUN 19 H Creatinine 0.94 Assessment and Plan Assessment Anesthesia Assessment: Chart Reviewed Final Anesthetic Review Family History of Problems with Anesthesia: No History of Problems with Anesthesia: No Documented by User: Clay Gale MD 05/12/24 07:32 PMFSH Past Medical History Medical History Elevated cholesterol Insomnia Solitary kidney, acquired History of kidney cancer Ureteral stent present Osteoporosis ESBL (extended spectrum beta-lactamase) producing bacteria infection Hydronephrosis Weight loss Poor appetite HTN (hypertension) UTI (urinary tract infection) Family History Family History Mother No problems noted. Father Cancer Surgical History Surgical History Hx of cystoscopy History of right nephrectomy H/O prostatectomy Hx of cholecystectomy Social History Social History Household Members: Spouse Household Members Other:: Housing: Apartment Are you a primary women's health care nurse practitioner to a significant other at home: No Do you presently have visiting nurse or other home services: No Alcohol intake: never Comment: tylenol and pyridium given Patient Tobacco Use Status: Never used Tobacco Second Hand Smoke Exposure: No Use of substances other than those prescribed or required for medical reasons: No Have you been hit, kicked, punched, or otherwise hurt by someone within the past year? If so, by whom?: No Are you DNR?: No Advance Directives: No Advance Directives Information Provided: Yes Recently lost weight without trying: No Nutrition Risks: No Nutritional Risk Poor oral hygiene: No service: No Current occupational status: disabled Meds Allergies Allergy/AdvReac Type Severity Reaction Status Date / Time No Known Allergies Allergy Verified 05/12/24 06:19 Home Medications ?Medication ?Instructions ?Recorded ?Confirmed ?Last Taken ?Type escitalopram oxalate 10 mg tablet 10 mg PO BEDTIME anxiety 05/08/23 05/08/24 Unknown History amlodipine 2.5 mg tablet 2.5 mg PO DAILY 05/01/24 05/12/24 Unknown History atorvastatin 80 mg tablet 80 mg PO DAILY 05/01/24 05/12/24 Unknown History famotidine 10 mg tablet (Acid 10 mg PO BID 05/01/24 05/08/24 Unknown History Section Forest Fire Warden (famotidine)) olmesartan 20 mg tablet 20 mg PO DAILY 05/01/24 05/08/24 Unknown History Exam Airway Mallampati Class: I TM Dist: >3cm Neck ROM: Full Denture: Upper and Lower Heart: ok Lungs: ok Assessment and Plan Assessment Anesthesia Assessment: Anesthesia Plan Discussed Final Anesthetic Review NPO: Yes ASA Class: III Final Preanesthetic Review: No Changes in Pt Med Stat, Meds/Allgs Chart Reviewed, Consent Obtained/Reviewed and Anes Risks/Benef Reviewed Patient Risk: Intermediate Procedure Risk: Low Anesthetic Plan Anesthetic Plan: GA, MAC: and Agree w/ Assess. and Plan Disposition: Standard PACU and Inp. Admit - Standard Bed
--- NOTE | ~2024-05-12 | FL_ITS ---
EXAMINATION: FL GUIDANCE ONLY HISTORY: stent exchange COMPARISON: None available. TECHNIQUE: Fluoroscopy time: 10.0 seconds. Cumulative Dose: 2.30 mGy. Images: 2. FINDINGS: Images demonstrate a left nephroureteral stent. FL/FL guidance in OR IMPRESSION: Fluoroscopy during procedure. Please see procedure report for additional information. Electronically signed by: Sam Canales MD 05/12/2024 09:02 AM EDT
[2024-05-12 06:33] VITALS: BP 139/74; PULSE 73; RESP 14; TEMP 36.3; O2SAT 95; BMI 26.5
[2024-05-12] MEDS: Lactated Ringers 1,000 ML 100 ML IVCONT (06:47)
--- NOTE | 2024-05-12 07:34 | MHC.SHP ---
Pre-Procedural Eval Section A - 24 Hr Update-Section A only Date of Service: 05/12/24 The patient is an INPATIENT: No Changes since office visit: No Cold of Flu in the past 2 weeks, No New Medical Problems, No Changes in Medication and No Patient answered all questions The patient has been examined within 24 hours of the surgical procedure. The History & Physical has been completed within 30 days and I have reviewed it.: Yes Section B - Complete if H&P > 30 days Chief Complaint: Left ureteric stricture Allergies: Allergies Allergy/AdvReac Type Severity Reaction Status Date / Time No Known Allergies Allergy Verified 05/12/24 06:19 Plan Diagnosis/Plan: Unchanged (Cystoscopy, left stent removal, left stent replacement) I have reviewed the history and physical and performed a pertinent physical examination on my patient. No changes have occurred unless specified. Time Spent With Patient Time: Total time managing care of this patient today ____ minutes.
[2024-05-12] MEDS: levoFLOXacin 500 MG TABLET PO (07:38)
--- NOTE | 2024-05-12 08:01 | P.OP_ITS ---
Operative Note Operative Note Date of Service: 05/12/24 Narrative: PreOperative Diagnosis:? indwelling left stent Post Operative Diagnosis:? indwelling left stent Procedure:? cystoscopy, left retrograde, left stent exchange Surgeon: Dr Fabrizio Ramos Anesthesia:? sedation Indications for procedure:??hydronephrosis left side.? Requires permanent stent that is changed every 4 months Procedure: After informed consent was verified the patient was brought to the operating room and placed in a supine position.? Anesthesia was administered per protocol. The patient was placed in modified dorsal lithotomy position and prepped and draped in a sterile fashion.? A safety pause time-out was performed. Laterality of procedure and antibiotics were confirmed. A 22 Hungarian cystoscope was introduced per urethra.? No abnormality was noted. ? Left stent seen coming from left ureter. The Sensor wire was placed alongside the indwelling stent up to the level of the renal pelvis. Indwelling stent was grasped and removed. A Six Hungarian by 24 cm stent was placed over the wire with good coil seen under fluoroscopy in the renal pelvis. Stent was deployed. Good coil seen within the bladder. The bladder was emptied and the cystoscope removed The patient tolerated the procedure well and was transferred in stable condition to the recovery area. Pathology: ?none Drains: ?6 Hungarian by 24 cm double-J stent
[2024-05-12 08:08] VITALS: BP 130/69; PULSE 62; RESP 17; TEMP 36.3; O2SAT 95
[2024-05-12 08:10] VITALS: BP 135/74; PULSE 62; RESP 17; O2SAT 95
[2024-05-12 08:15] VITALS: BP 129/67; PULSE 62; RESP 17; O2SAT 95
[2024-05-12 08:20] VITALS: BP 132/72; PULSE 62; RESP 17; O2SAT 95
[2024-05-12 08:26] VITALS: BP 123/75; PULSE 62; RESP 17; TEMP 36.3; O2SAT 95
[2024-05-12] MEDS: Phenazopyridine HCL 100 MG TABLET PO (08:36)
== END 2024-05-12 09:32 | disposition home or self-care (01) ==
PROVIDERS: PCP Nurse Practitioner Primary Care; Visit Provider Urology
PROC: (CPT 52332; principal; 2024-05-12 07:30)
DX: N13.30 Unspecified hydronephrosis (principal); Z85.528 Personal history of other malignant neoplasm of kidney; Z90.5 Acquired absence of kidney; Z96.0 Presence of urogenital implants; E78.00 Pure hypercholesterolemia, unspecified; I10 Essential (primary) hypertension; M81.0 Age-related osteoporosis without current pathological fracture; Z79.899 Other long term (current) drug therapy; Z98.890 Other specified postprocedural states
CPT/HCPCS: 52332; C1758; C1769; C2617; J2003; J2704; J3010; Q9967

== ENCOUNTER → 2024-05-12 05:51 | Outpatient (BNV) | payer OTHER, SELFPAY | PROVIDERS: PCP Nurse Practitioner Primary Care; Visit Provider Urology | DX: N13.30 Unspecified hydronephrosis (principal); Z96.0 Presence of urogenital implants | CPT/HCPCS: 52332; 74420 ==

== ENCOUNTER 2024-06-12 14:52 | Outpatient (AMB) | payer OTHER, SELFPAY ==
--- NOTE | 2024-06-12 15:00 | A.OFFVIS_ITS ---
Vital Signs 06/12/24 15:01 Height 5 ft 4 in Weight 160 lb 14.999 oz BMI 27.6 BP 120/70 Blood Pressure Location Rt brachial Position Sitting Pulse 87 Pulse Source Pulse Oximeter Pulse Oximetry (%) 98 Oxygen Delivery Method Room Air Intake Visit Reasons: Osteoporosis Intake Note: Patient present today for Osteoporosis follow up visit. Tobacco Packing Machine Operator Required: Yes Tobacco Packing Machine Operator Language: Show Card Letterer Services: Tobacco Packing Machine Operator Present Tobacco Packing Machine Operator Name: [facility] Accompanied by: Daughter Allergies No Known Allergies Allergy (Verified 05/12/24 06:19) Medication List - Last Reconciled 06/12/24 by Sam Fry MD abaloparatide (Tymlos) 80 mcg (0.04 mL) subcut DAILY amlodipine 2.5 mg PO DAILY atorvastatin 80 mg PO DAILY ertapenem 1 g IV DAILY escitalopram oxalate 10 mg PO BEDTIME famotidine (Acid Mail Carrier (famotidine)) 10 mg PO BID olmesartan 20 mg PO DAILY HPI Comments Details: 83 YO M with] is seen in consultation at the request of PCP for Osteoporosis. Pt sent today for osteoporosis Received treatment in 6-7 yrs ago in the past with alendronate , for 1 yr Tolerated treatment well without complication. States currently not taking alendronate No history of pathologic fracture or ONJ. Has few servings of dietary calcium per day in the form of milk . Not Takes Calcium supplement . Not Takes Vitamin D daily. takes PPI, anticoagulant, antiepileptic or glucocorticoid medication. Not Does weight bearing exercise but walk 7 days per week Fracture history: No Height loss: No Denies history of Kidney stones: Has family history of Osteoporosis in brother but no hip fracture. UTD on dental cleanings and sees dentist every 6 months. No planned upcoming dental work or extractions. DXA dated 09/07/21:TECHNIQUE: Using a [employer] DXA System (software version: 13.1) manufactured by [employer], dual-energy x-ray absorptiometry was performed of the lumbar spine and left hip. The images are of good technical quality. Summary results are attached. FINDINGS: AP SPINE L1-L4: BMD 0.746 g/cm2, Z-score -3.3, T-score -3.9, osteoporosis. LEFT FEMUR, NECK: BMD 0.684 g/cm2, Z-score -1.5, T-score -3.0, osteoporosis. LEFT FEMUR, TOTAL: BMD 0.706 g/cm2, Z-score -1.6, T-score -2.7, osteoporosis. IDENTIFIED RISK FACTORS: Osteoporosis, renal. Labs: Secondary workup was negative except for low testosterone and patient not a candidate for testosterone replacement. Was started on Tymlos 3 mos ago off for 1 mo . Did not receive Tymlos in 04/2023 currently on Tymlos since 04/2023 but stopped a month ago.. No fx since this visit . The patient is an 83-year-old male presenting with osteoporosis management concerns. He was prescribed Tymlos injections beginning in September for osteoporosis treatment. There was ambiguity regarding the continuity and completion of the Tymlos regimen. The patient has been without any fractures since the previous appointment, indicating no acute exacerbation of the condition. Concern arose as the patient had not undergone a bone density test in three years, while they are stipulated every two years. This test is critical to asses s how Tymlos has influenced bone density, determining whether to initiate alendronate therapy again. Ensuring no treatment deficiency is crucial to prevent loss of therapeutic benefits. [facility] Medical History Elevated cholesterol Insomnia Solitary kidney, acquired History of kidney cancer Ureteral stent present Osteoporosis ESBL (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 Father Cancer Social History Household Members: Spouse Household Members Other:: Housing: Apartment Are you a primary career advisor to a significant other at home: No Do you presently have visiting nurse or other home services: No Alcohol intake: never Comment: tylenol and pyridium given Patient Tobacco Use Status: Never used Tobacco Second Hand Smoke Exposure: No service: No Current occupational status: disabled Physical Exam Vital Signs: Last Vital Signs Pulse 87 06/12/24 15:01 BP 120/70 06/12/24 15:01 Pulse Ox 98 06/12/24 15:01 Oxygen Delivery Method Room Air 06/12/24 15:01 BMI result Body Mass Index 27.6 Assessment & Plan Assessment & Plan (1) Osteoporosis: Code(s): M81.0 - Age-related osteoporosis without current pathological fracture Category: Medical Plan: This 82-year-old male with a history of osteoporosis. Secondary causes have been ruled out except for low testosterone. However, patient is not a candidate for testosterone replacement considering the past history of prostate cancer. Currently on Tymlos We will get DEXA prior to transitioning anti resorptive to determine whether to transition to alendronate vs Prolia 1. Osteoporosis This patient with osteoporosis received Tymlos injections and showed no recent fractures. Immediate priority is conducting a bone density test within two weeks, due to be redone as last completed three years prior. Further treatment planning involves potentially resuming alendronate or using Prolia based on the test results to ensure effectiveness of osteoporosis management. I thoroughly reviewed with the patient and their family about the necessity of conducting a bone density test to evaluate the effectiveness of Tymlos on bone strength and density. We discussed the potential changeover to alendronate therapy based on the results obtained from this scan, which is strongly encouraged to be completed promptly within a two-week timeframe. The benefits and risks associated with both maintaining Tymlos and potentially revisiting alendronate therapy were explored, ensuring the importance of continuity in osteoporosis treatment was highlighted to prevent treatment gaps. I will arrange for a follow-up appointment within four weeks after the bone density test to review findings and develop an appropriate management plan. They were advised to call if no contact was made for scheduling this test within the next two weeks to expedite it. - Schedule bone density test within the next two weeks. - Attend follow-up appointment in three to four weeks after testing. - Call my office should testing not be scheduled within two weeks. - The patient had an opportunity to ask questions regarding treatment plan. The patient expressed understanding and agreement with the above treatment plan. Patient was informed and verbally consented to the use of an ambient scribe for clinic note documentation during this visit. Orders: Orders XR DEXA axial skeleton Today M81.0 - Age-related osteoporosis without current pathological fracture Coding Level of Care Code Est Pt Level 3 (80837) Diagnoses Osteoporosis M81.0
[2024-06-12 15:01] VITALS: BP 120/70; PULSE 87; O2SAT 98; BMI 27.6
--- OUTSIDE RECORDS SUMMARY | 2024-06-12 16:51 | XMS_ITS | Encounter Summary ---
Author Organization [employer] [facility] Address [address] [place] [address] Care Team Providers Care Human Intelligence Name Role Phone Jeannie Fabian Primary Care Provider Fabrizio Ramos MD Unavailable [phone] Reason for Visit * Reason Onset Date Comments FYI 09/06/2022 Encounter Details Date Type Department Care Team (Late st Contact Info) Description 09/06/[address] [facility] MEDICINE [address] [place] [address] Jeannie Fabian ANP [address] [place] [address] FYI Social History Tobacco Use Types Packs/Day [...] Department Care Team (Late Contact Info) Description 09/02/2024 1:00 PM EDT Office Visit [facility] MEDICINE [address] [place] [address] Jeannie Fabian ANP [address] [place] [address] documented as of this encounter Visit Diagnoses Not on filedocumented in this encounter Care Teams Human Intelligence Relationship Specialty Start Date End Date Jeannie Fabian ANP [address] [place] [address] PCP - General Family Medicine 12/27/20 Fabrizio Ramos MD [address] [place] [address] Urology 01/04/24 [facility] 05/08/24 documented as of this encounter
--- OUTSIDE RECORDS SUMMARY | 2024-06-12 16:51 | XMS_ITS | Continuity of Care Document ---
Author Organization [employer] Address [address] [place] [address] Care Team Providers Care Sample Case Porter Name Role Phone Macy Villanueva MD, Kaity [...] Diagnoses Date Provider Providers Copied on Encounter [facility], [address], [place], [place], [id number], [place] M[facility] Adult No Information 0 Macy Briceno. [address] [place] [address], [place], [place], [id number], [place]. tel:[phone] [facility], [address], [place], [place], [id number], [place] [facility] Adult No Information 9 Macy Briceno. [address] [place] [address], [place], [place], [id number], [place]. tel:[phone] [facility], [address], [place], [place], [id number], [place] [facility] Adult No Information 9 Rosalinda Brown. [address] [place], [place] [address], [address], [place]. tel:[phone] [facility], [address], [place], [place], [id number], [place] Md Adult No Information 9 Macy Briceno. [address] [place] [address], [place], [place], [id number], [place]. tel:[phone] [facility], [address], [place], [place], [id number], [place] Md Adult No Information 9 Macy Briceno. [address] [place] [address], [place], [id number], [place]. tel:[phone] PSYCH DIAGNOSTIC EVALUATION [facility], [address], [place], [place], [id number], [place] [facility]hav [facility] CHER (generalized anxiety disorder) 9 Kash Mckeon. [address] [place] [address], [place], [id number], [place]. tel:[phone] Referring Provider: Gabby Gonzalez, [address] [place] [address], [place], [address] . tel:[phone] OFFICE/OUTPA TIENT VISIT, [facility], [address], [place], [id number], [place] Radha Adult Insomnia (chief complaint)mor e (chief complaint) Other insomniaAnxietyA ge-related osteoporosis without current pathological fractureEssentia l hypertensionUPJ (ureteropelvic junction) obstructionPredi abetesCold feeling 9 Lisa Pierre. [address], [place], [id number], [place]. tel:[phone] Referring Provider: Gabby Gonzalez, [address], [place], [address] . tel:[phone] [facility], [address], [place], [id number], [place] Radha Adult No Information 9 Tracey Villalobos. [address] [place] [address], [place], [address], [place]. tel:[phone] [facility], [address], [place], [id number], [place] Radha Adult Chronic bilateral low back pain without sciaticaOther chronic pain 8 Webb Griselda. [address] [place] [address], [place], [address], [place]. tel:[phone] OFFICE/OUTPA TIENT VISIT, EST [facility], [address], [place], [id number], [place] Radha Adult Follow up visit (chief complaint)hyp ertension (chief complaint) Body mass index (BMI) 29.0-29.9, adultChronic bilateral low back pain without sciaticaOther chronic painEssential hypertensionUPJ (ureteropelvic junction) obstruction 8 Webb Griselda. [address] [place] [address], [place], [address], [place]. tel:[phone] PREV VISIT, EST, 65 & OVER [facility], [address], [place], [id number], [place] Radha Adult preventive exam (chief complaint) Encounter for general adult medical examination with abnormal findingsEssentia l hypertensionGast roesophageal reflux disease without esophagitisChron ic ischemic colitisMalignant neoplasm prostateAge-rela clint osteoporosis without current pathological fractureHiatal herniaUPJ (ureteropelvic junction) obstructionBody mass index (BMI) 30.0-30.9, adult 8 Tracey Villalobos. [address] [place] [address], [place], [address], [place]. tel:[phone] OFFICE/OUTPA TIENT VISIT, [facility], [address], [place], [place], [id number], [place] MdlS Adult hypertension (chief complaint)abd ominal pain (chief complaint)dry skin (chief complaint) Dry skin dermatitisEssent ial hypertensionGast roesophageal reflux disease without esophagitisSolit joe kidney Tracey Villalobos. [address] [place] [address], [place], [address], [place]. tel:[phone] OFFICE/OUTPA TIENT VISIT, [facility], [address] [place], [id number], [place] MdlS Adult hypertension (chief complaint)Cou gh (chief complaint) CoughEssential hypertension 8 Tracey Villalobos. [address] [place] [address], [place], [address], [place]. tel:[phone] OFFICE/OUTPA TIENT VISIT, [facility], [address] [place], [id number], [place] MdlS Adult hypertension (chief complaint)shelby st pain (chief complaint) CoughEssential hypertension Tracey Villalobos. [address] [place] [address], [place], [address], [place]. tel:[phone] OFFICE/OUTPA TIENT VISIT, [facility], [address] [place], [id number], [place] MdlS Adult Discuss test results (chief complaint)hyp ertension (chief complaint)dry skin (chief complaint) Essential hypertensionAge- related osteoporosis without current pathological fractureDry skin dermatitis 7 Tracey Villalobos. [address] [place] [address], [place], [address], [place]. tel:[phone] OFFICE/OUTPA TIENT VISIT, [facility], [address], [place], [place], [id number], [place] MdlS Adult hypertension (chief complaint)hyp erlipidemia (chief complaint) Essential hypertensionHype rlipidemia, mixedBody mass index (BMI) 29.0-29.9, adult 7 Webb Griselda. [address] [facility], [place], [address], [place]. tel:[phone] [facility], [address], [place], [place], [id number], [place] MdlS Adult Screening for diabetes mellitus [address] [place] [facility], [place], [place], [id number], [place]. tel:[phone] OFFICE/OUTPA TIENT VISIT, [facility], [address], [place], [id number], [place] MdlS Adult hypertension (chief complaint)aki h (chief complaint) Dry skin dermatitisHyperl ipidemia, mixedEssential hypertension 7 Tracey Villalobos. [address] [place] [address], [place], [address], [place]. tel:[phone] [facility], [address], [place], [id number], [place] MdlS Adult No Information May-0 [address] [place] [facility], [place], [id number], [place]. tel:[phone] [facility], [address], [place], [id number], [place] MdlS Adult Hyperlipidemia, mixedEssential hypertension Apr-0 3-201 [address] [place] [facility], [place], [id number], [place]. tel:[phone] OFFICE/OUTPA TIENT VISIT, [facility], [address], [place], [id number], [place] MdlS Adult hypertension (chief complaint)cou gh (chief complaint)Med ication Refills (chief complaint) Malignant neoplasm prostateChronic ischemic colitisKidney stoneScreening for osteoporosisCoug hEssential hypertensionScre ening for diabetes mellitusMultiple joint pain 0 7 [place]. [address] [place] [address], [facility] [place], [place], [id number], [place]. 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 [address] [place] [address] [place], [address], [place]. tel:[phone] OFFICE/OUTPA TIENT VISIT, [facility], [address], [facility] [place], [id number], [place] MdlS Adult Discuss test results (chief complaint)hyp ertension (chief complaint)aki h (chief complaint) Essential hypertensionDry skin dermatitis Tracey Villalobos. [address] [place] [address] [place], [address], [place]. tel:[phone] OFFICE/OUTPA TIENT VISIT, [facility], [address], [facility] [place], [id number], [place] MdlS Adult Medication Refill (chief complaint)Pre vention (chief complaint)hyp ertension (chief complaint)hyp erlipidemia (chief complaint) Body mass index (BMI) 28.0-28.9, adultEssential hypertensionHype rlipidemia, mixedKidney diseaseScreen for STD (sexually transmitted disease)Screenin g PSA (prostate specific antigen)Screen for colon cancer 6 Rosalinda Brown. [address] [place], [address], [place]. tel:[phone] Family History Family Member Type Diagnosis Age [...] Record Payers Payer name Insurance type Covered republican ID Authoriza tion(s) Medicare 2014 NGS MB [id number] Medicaid [id number] [place] [id number] [place] [id number] Social History Type Description Quantity Date Captured [...] Goal Influenza Vaccine. Due on due Goal Lipid panel. Due on due Goal Depression scree raomna. Due on due Goal Zoster Vaccine. Due on due Goal Prevnar 13 (PCV13). Due on due Goal Cognitive assess ment. Due on due Goal BMP. Due on due Goal Lipid panel. Due on due Goal Cognitive assess ment. [...] 13 (PCV13). Due on M due Goal Prevnar 13 (PCV13). Due on due Goal Zoster Vaccine. Due on due Goal Influenza Vaccine. Due on due Goal Cognitive assess ment. Due on due Goal Prevnar 13 (PCV13). Due on A due Goal Cognitive assess ment. Due on [...] Fe ned, [place]. Due on due Goal Lifestyle education regardin g diet completed Referral Referred To: low back brace Ordered: Referrals: low back brace ordered Referral Ordered: DXA BONE DENSITY, AXIAL ordered Referral Referred To: [facility]/ GI Ordered: Referrals: Gastroenterology. [facility]/ GI. Evaluate and treat ordered Patient Education Dry Skin: After Your Vi sit completed Patient Education Dry Skin: After Your Vi sit completed Patient Education Dry Skin: After Your Vi sit completed Future Order: Lab Order LIPID PA DAVID ([id number]), Collected on: Ordered Future Order: Lab Order HEMOGLOB IN A1C ([id number]), Ordered on: Ordered Future Order: Lab Order Hep B Segal rface Ab ([id number]), Ordered on: Ordered Future Order: Lab Order PSA ([id number]), O rdered on: Ordered Future Order: Lab Order HIV SCRE EN ([id number]), Ordered on: Ordered Future Order: Lab Order Microalb umin with creatinine and ratio ([id number]), Ordered on: Ordered Future Order: Lab Order HEPATITI S C Ab ([id number]), Ordered on: Ordered Future Order: Lab Order LIPID PA DAVID ([id number]), Ordered on: Ordered Future Order: Lab Order BMP ([id number]), O rdered on: Ordered History Of Present [...] memoryCRC screening was completed on 10/27/15 at [facility]. 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 Discuss test results pt went to [facility] ,wants to know result of testFeels like [...] did colonosc opy 4 years ago in [place]. Functional Status Date Functional Assessmen t No Information Instructions Date Instruction Additional Infor lizzie Following with Dr. Reyna Flores [facility] UrologyHistory of a left proximal ureteral stricture s/p robotic ureteral reconstruction, now with recurrent obstruction - says next appt in June 2018 Related to UPJ (ureteropelvic junction) obstruction Following with Dr. Reyna Flores [facility] UrologyHistory of a left proximal ureteral stricture [...] low back pain without sciatica Well adult male.[place] care every 6 months.Eye doctor appt [...] neoplasm prostate Following with Dr. Reyna Flores [facility] UrologyMost recent note by Dr. Flores 06/14/17: [...] atorvastati n 40 [address] and CVAFollow healthy diet for cholesterol Related [...] breath, edemaContinue current medications - sent to [facility] pharmacy now that pt doesn't have [...]
--- OUTSIDE RECORDS SUMMARY | 2024-06-12 16:51 | XMS_ITS | Clinical Summary ---
Author Organization [employer] Address [address] [facility] 7t [place] [address] Care Team Providers Care Global Technical Writer Name Role Phone [facility] Primary Care Provider [phone] Fabrizio Ramos MD Unavailable [phone] Allergies Active Allergy Reactions Criticality Noted Date Comments Ciprofloxacin Dizziness 12/27/2020 Medications * This document contains information received from the source organization and may not represent a complete record from that organization. Tymlos 3120 MCG/1.56ML solution pen-injector 06/01/19 23 Active Alcohol Swabs (Alcohol Prep) 70 % pads 06/01/19 23 Active polyethylene glycol, PEG, 3350 [...] daily. 575 g 2 12/29/19 23 Active atorvastatin (Lipitor) 80 MG tabletIndication s:Cardiovascular event risk TAKE 1 TABLET BY MOUTH AT BEDTIME 90 tablet 3 12/31/19 24 Active escitalopram (Lexapro) 10 MG tabletIndication s:Anxiety TAKE 1 TABLET BY MOUTH AT BEDTIME FOR ANXIETY 90 tablet 1 04/10/19 25 Active clotrimazole (Lotrimin) 1 % creamIndications :Genital pruritus Apply twice daily for 7 days to affected area 28 g 02/27/20 25 Active olmesartan (Benicar) 20 MG tabletIndication s:Albuminuria,Es sential hypertension Take 1 tablet (20 mg) by mouth Once per day. 90 tablet 3 04/24/19 25 026 Active amLODIPine (Norvasc) 2.5 MG tabletIndication s:Essential hypertension Take 1 tablet (2.5 mg) by mouth Once per day. 30 tablet 11 04/24/19 25 026 Active famotidine (Pepcid) 20 MG tabletIndication s:Gastroesophage al reflux disease, unspecified whether esophagitis present Take 1 tablet (20 mg) by mouth Once daily. 30 tablet 11 06/04/19 25 026 Active B-D ULTRAFINE III SHORT PEN 31G X 8 MM misc 06/01/19 23 025 Discontinued(Me d list cleanup (will not trigger notification to Pharmacy)) famotidine (Pepcid) 10 MG tabletIndication s:Gastroesophage al reflux disease, unspecified whether esophagitis present Take 1 tablet (10 mg) by mouth 2 times daily. 60 tablet 11 09/28/19 24 025 Discontinued(Re order (will not trigger [...] with addressing anxiety. At this time Augustine Juan José Sandy meets criteria for Visit Diagnoses: Problem List Items Addressed This Visit Other Anxiety disorder, unspecified Patient ready to address current needs Yes Strengths include dhiraj and family PLAN: 1. Follow up with [facility]: Not recommended for follow-up 2. Patient goal is decrease anxiety symptoms. 3. Behavioral Recommendations a. Will comply with medication b. Will utilize coping techniques provided c. Will reach out to [facility], if additional support is needed Preoperative examination [...] an 82 year old male with a PMH prostate ca s/p prostatectomy, R nephrectomy, L [...] Encounters Date Type Department Care Team Description 06/03/2024 10:30 AM EDT Office Visit [address] [address] [place] ANP ESBL (extended spectrum beta-lactamase) producing bacteria infection (Primary Dx); Complicated UTI (urinary tract infection); Solitary kidney, acquired; Essential hypertension; Ureteral stent present; Hospital discharge follow-up; Gastroesophageal reflux disease, unspecified whether esophagitis present 06/03/2024 Travel 05/29/[address] [address] [place] ANP chartprep 05/26/[address] [facility] [address] [place] [id number] [place] ANP Transition Of Care (Tcm) (HDF- Scheduled ) 05/26/[address] [address] [place] ANP Hospital Follow-up; chartprep 05/20/[address] [address] [place] ANP Eileen recall 05/13/[address] [address] [place] ANP Medication Question 05/12/2024 Orders Only [facility] External Provider, [facility] 05/01/2024 Orders Only GENERIC EXTERNAL DATA DEPARTMENT Provider, Generic External Data 04/28/[address] [facility] [address] [place] [address] [place] ANP 04/25/2024 Orders Only [address] [address] [place] ANP Acute cystitis with hematuria (Primary Dx) 04/25/2024 Orders Only [address] [address] [place] ANP History of kidney cancer (Primary Dx); Hematuria, unspecified type 04/25/2024 Orders Only [address] [address] [place] ANP Elevated ferritin (Primary Dx); Acute cystitis with hematuria; History of renal carcinoma; Hematuria, unspecified type 04/24/2024 Orders Only [address] [address] [place] ANP 04/23/[address] [address] Raeann Raman, RN Results 04/23/2024 Orders Only [address] [address] [place] ANP Albuminuria (Primary Dx); Essential hypertension 04/10/2024 11:00 AM EST Office Visit [address] [address] [place] ANP Prediabetes (Primary Dx); Anxiety; Anemia, unspecified type; Dysuria; Genital pruritus; Acute cystitis with hematuria 04/10/2024 Orders Only [address] [address] [place] ANP 04/10/2024 Travel 04/07/[address] [place] [address] [place] ANP Chart Prep 03/28/2024 Patient Outreach [facility] [address] [place] [address] [place] ANP Pre-visit Planning (SDOH Screening negative and Tobacco screening negative) 03/26/[address] [facility] [address] [place] [address] [place] ANP from Last 3 Months Immunizations Name Administration [...] Sign Reading Time Taken Comments Blood Pressure 136/75 06/03/2024 10:17 AM EDT Pulse 82 06/03/2024 10:17 AM EDT Temperature 36.3 ??C (97.4 ??F) 06/03/2024 10:17 AM E DT Respiratory Rate 16 06/03/2024 10:17 AM EDT Oxygen Saturation 96% 06/03/2024 10:17 AM EDT Inhaled Oxygen Concentration - - Weight 74.2 kg (163 lb 9.6 oz) 06/03/2024 10:17 AM EDT Height 162.6 cm (5' 4 ) 06/03/2024 10:17 AM EDT Body Mass Index 28.08 06/03/2024 10:17 AM EDT Plan of Treatment Upcoming Encounters Date Type Department Care Team (Late st Contact Info) Description 09/02/2024 1:00 PM EDT Office Visit [facility] [address] [place] [address] [place], ANP [address] [place] [address] Health Maintenance Due Date Last Done Comments Zoster Vaccines (1 of 2) 1990 RSV Patients and Patients Aged 60 years or older (1 - 1-dose 75+ series) 08/10/2015 COVID-19 Vaccine ( season) 2023 02/07/2021, 01/17/2021, 03/18/2020 Influenza Vaccine (#1) 2023 , 11/22/2011, 11/15/2010 Depression Screening 01/03/2025 01/04/2024, 10/18/19 SDOH Screening 03/28/2025 03/28/2024 Diabetes: Hemoglobin A1C 04/10/2025 025, 01/04/2024, 09/28/2023, Additional history exists Alcohol/Substance Use Screening 06/03/2025 06/03/2024 Tobacco Screening 06/03/2025 06/03/2024 Lipid Panel 04/24/2029 04/24/2024, 06/13, 11/29/2022 DTaP/Tdap/Td Vaccines (2 - Td or [...] Author Blood Pressure < 140/90 Blood Pressure 136/75( 025 10:17 AM EDT) Jaylen Rosen, Nicki Procedures Procedure Name Priority Date/Time Associated Diagnosis Comments FL GUIDANCE IN OR Routine 05/12/2024 7:5 0 AM EDT BASIC METABOLIC PANEL Routine 05/01/2024 12:38 PM EDT HEPATIC FUNCTION PANEL Routine 12:38 PM EDT CBC WITH AUTO DIFFERENTIAL Routine 05/01/2024 12:37 PM EDT URINALYSIS, COMPLETE, WITH REFLEX TO CULTURE Routine 05/01/2024 12:37 PM EDT CYTOPATH-CELL ENHANCED Routine 3:39 PM EDT URINALYSIS, COMPLETE, WITH REFLEX TO CULTURE Routine 04/24/2024 3:39 PM EDT Dysuria CBC WITH AUTO DIFFERENTIAL Routine 04/24/2024 3:39 PM EDT Anemia, unspecified type IRON AND TOTAL IRON BINDING CAPACITY Routine 04/24/2024 3:39 PM EDT Anemia, unspecified type TRANSFERRIN Routine 04/24/2024 3:39 PM EDT Anemia, unspecified type FERRITIN Routine 04/24/2024 3:39 PM EDT Anemia, unspecified type COMPREHENSIVE METABOLIC PANEL Routine 04/24/2024 3:39 PM EDT Prediabetes LIPID PANEL, STANDARD Routine 04/24/2024 3:39 PM EDT Prediabetes CULTURE, URINE, ROUTINE Routine 04/24/2024 3:39 PM EDT Dysuria POCT URINALYSIS DIPSTICK Routine 04/10/2024 11:59 AM EST Prediabetes ALBUMIN, RANDOM URINE W/CREATININE Routine 04/10/2024 11:50 AM EST POCT GLYCATED HEMOGLOBIN, TOTAL Routine 04/10/2024 11:28 AM EST Prediabetes POCT GLUCOSE Routine 04/10/2024 11:27 AM EST Prediabetes from Last 3 Months Results * FL Guidance in OR (05/12/2024 7:50 AM EDT) Anatomical Region Laterality Modality X-Ray Angiograph y 05/12/2024 7:50 AM EDT Narrative 05/12/2024 9:04 AM EDT ? [facility] ?[address] ?[place] [address] ? Fluoroscopy Report ? Signed ? Patient: Juan José Sandy,Augustine ?MR#: M ?? [id number] ? : 1940 ?Acct:[id number] ? Age/Sex: 83 / M ?ADM Date: 05/12/24 ? Loc: HO.SSS ? Attending Dr: Fabrizio Ramos MD ? Ordering Physician: Fabrizio Ramos MD ?? Date of Service: 05/12/24 ?? Procedure(s): FL guidance in OR ?? Accession Number(s): [id number] ? cc: Fabrizio Ramos MD; [facility] NP ? EXAMINATION: ??FL GUIDANCE ONLY ? HISTORY: stent exchange ? COMPARISON: ?? None available. ? TECHNIQUE: ?? Fluoroscopy time: 10.0 seconds. ?? Cumulative Dose: 2.30 mGy. ?? Images: 2. ? FINDINGS: ?? Images demonstrate a left nephroureteral stent. ? FL/FL guidance in OR ?? IMPRESSION: ?? Fluoroscopy during procedure. Please see procedure report for ?? additional information. ? Electronically signed by: ??Sam Canales MD ??05/12/2024 09:02 AM EDT ? Dictated By: ?Sam Canales MD ? Signed By: ?<Electronically signed by Sam Canales MD in OV> ?05/12/24 0902 ? DD/ 0750 ? TD/TT: 05/12/24 0800 ? Head Paper Tester: ? Procedure Note Riaz, Lou - 05/12/[address] [address] Fluoroscopy Report Signed Patient: Augustine Rodriguez#: M [id number] : 1Acct:[id number] Age/Sex: 83 / MADM Date: 05/12/24 Loc: HO.SSS Attending Dr: Fabrizio Ramos MD Ordering Physician: Fabrizio Ramos MD Date of Service: 05/12/24 Procedure(s): FL guidance in OR Accession Number(s): [id number] cc: Fabrizio Ramos MD; CORRY HILL NP EXAMINATION: FL GUIDANCE ONLY HISTORY: stent exchange COMPARISON: None available. TECHNIQUE: Fluoroscopy time: 10.0 seconds. Cumulative Dose: 2.30 mGy. Images: 2. FINDINGS: Images demonstrate a left nephroureteral stent. FL/FL guidance in OR IMPRESSION: Fluoroscopy during procedure. Please see procedure report for additional information. Electronically signed by: Sam Canales MD 05/12/2024 09:02 AM EDT Dictated By: Sam Canales MD Signed By: <Electronically signed by Sam Canales MD in OV> 05/12/24 09 DD/ 0750 TD/TT: 05/12/24 0800 Head Paper Tester: [facility] External Provider IMG IR PROCEDURES Final Result * (ABNORMAL) Hepatic Function Panel (05/01/2024 12:38 PM EDT) Bilirubin, Total 0.2 0.0 - 1.0 mg/dL [facility] Bilirubin, Direct <0.2 0.0 - 0.5 mg/dL [facility] Aspartate Amino Transferase 23 5 - 37 U/L [facility] Alanine Aminotransferase 21 0 - 40 U/L [facility] Total Protein 8.6(H) 6.5 - 8.0 g/dL [facility] Albumin Level 4.2 3.5 - 5.0 g/dL [facility] Alkaline Phosphatase 55 39 - 117 U/L [facility] 05/01/2024 12:3 8 PM EDT 05/01/2024 12:45 PM EDT Generic External Data Provider LAB BLOOD ORDERAB LES Final Result [facility] [address] [place] [phone] * (ABNORMAL) Basic Metabolic Panel (05/01/2024 12:38 PM EDT) Sodium 140 135 - 145 mmol/L [facility] Potassium 3.8 3.3 - 5.1 mmol/L [facility] Chloride 111(H) 96 - 108 mmol/L [facility] Carbon Dioxide 21(L) 22 - 29 mmol/L [facility] Anion Gap 12 12 - 20 [facility] Urea Nitrogen (BUN) 25(H) 9 - 16 mg/dL [facility] Creatinine, Serum 1.09 0.5 - 1.4 mg/dL [facility] Creatinine Clr Calc Pharmacy 46.9 [facility] Comment:eGFR (calculated fro m the MDRD study equation) and eCrCl(calculated from the Cockcroft-Gault equation) are based ondifferent parameters and may not yield comparable results.If eCrCl result is absurd, please check patient'sheight/weight. Estimated Glomerular Filt Rate >60 [facility] Comment:Chronic Kidney Disea se: Estimated GFR < 60 mL/min/1.40g6Lndbzz Kidney Disease: Estimated GFR < 15 mL/min/1.73m2 Glucose 125(H) 60 - 115 mg/dL [facility] Calcium 9.6 8.4 - 10.2 mg/dL [facility] 05/01/2024 12:3 8 PM EDT 05/01/2024 12:45 PM EDT us Generic External Data Provider LAB BLOOD ORDERAB LES Final Result [facility] [address] [place] [phone] * (ABNORMAL) Urinalysis, Complete, with Reflex to Culture (05/01/2024 12:37 PM EDT) Only the most recent of2 resultswithin the time period is included. Color Urine Yellow [facility] Appearance Urine Cloudy [facility] PH 5.5 5.0 - 9.0 [facility] Glucose Urine UA Negative Negative mg/dL [facility] Urine Blood Large (3+)(A) Negative [facility] Specific [place] - Urine 1.015 1.005 - 1.025 [facility] Urine Protein 30 (1+)(A) Neg-Trace mg/dL [facility] Urine Ketones Negative Negative mg/dL [facility] Nitrite Urine Positive(A) Negative [facility] Leukocyte Esterase Urine Large (3+)(A) Negative [facility] RBC Urine >20(A) 0 - 2 /HPF [facility] Urine WBC >50(A) 0 - 5 /HPF [facility] Urine Squamous Epithelial Cell 0-2 0 - 2 /HPF [facility] Urine Bacteria 4+ None Seen [facility] Hyaline Casts, Urine 0-2 0 - 2 /LPF [facility] 05/01/2024 12:3 7 PM EDT 05/01/2024 12:45 PM EDT Narrative [facility] - 05/01/2024 1:10 PM EDT [id number], Clean Catch us Generic External Data Provider LAB URINE ORDERAB LES Final Result [facility] [address] [place] [phone] * (ABNORMAL) CBC auto differential (05/01/2024 12:37 PM EDT) Only the most recent of2 resultswithin the time period is included. White Blood Count 6.2 4.8 - 10.8 X10*3/uL [facility] Red Blood Count 4.40(L) 4.60 - 5.80 X10*6/uL [facility] Hemoglobin 13.7(L) 14.0 - 18.0 g/dl [facility] Hematocrit 40.7(L) 42.0 - 52.0 % [facility] Mean Corpuscular Volume 92.5 80.0 - 98.0 fL [facility] Mean Corpuscular Hemoglobin 31.1 27.0 - 33.0 pg [facility] Mean Corpuscular HGB Conc 33.7 31.0 - 36.0 g/dl [facility] Red Cell Distribution Width 13.3 11.0 - 16.0 % [facility] Platelet Count 121(L) 160 - 400 X10*3/uL [facility] Mean Platelet Volume 10.9 9.4 - 12.4 fL [facility] Neutrophils Percent Auto 43.2(L) 45 - 73 % [facility] Imm Gran Pct Auto 0.5(H) 0.0 - 0.4 % [facility] Lymphocytes Percent Auto 40.3(H) 20 - 40 % [facility] Monocytes Percent Auto 12.2(H) 2 - 11 % [facility] Eosinophils Percent Auto 3.2 0 - 4 % [facility] Basophils Percent Auto 0.6 0 - 2 % [facility] NRBC Pct Auto 0.0 0.0 - 0.2 /100WBC [facility] Neutrophils Absolute Auto 2.7 2.0 - 8.3 x10*3/uL [facility] Imm Gran Abs Auto 0.03 0.00 - 0.03 X10*3/uL [facility] Lymphocytes Absolute Auto 2.5 1.2 - 4.9 X10*3/uL [facility] Monocytes Absolute Auto 0.8 0.1 - 1.2 X10*3/uL [facility] Eosinophils Absolute Auto 0.2 0.0 - 0.4 X10*3/uL [facility] Basophils Absolute Auto 0.0 0.0 - 0.2 X10*3/uL [facility] NRBC Abs Auto 0.000 0.0 - 0.012 X10*3/uL [facility] 05/01/2024 12:3 7 PM EDT 05/01/2024 12:45 PM EDT us Generic External Data Provider LAB BLOOD ORDERAB LES Final Result [facility] [address] [place] [phone] * Cytopath-cell enhanced (04/24/2024 3:39 PM EDT) 04/24/2024 3:39 PM EDT 04/25/2024 10:40 AM EDT [facility] - 04/28/2024 10:20 AM EDT ----- ------- Name: Augustine Rodriguez ?Age/Sex: 83/M ? : 1940 Unit#: [id number] ?? Attend Dr: CORRY HILL VP REVENUE CYCLE ?Re04/24/24 ?Status: DEP REF ? Location: HO.HHCL ? Disch: ? ----- ------- SPEC : [id number] ? RECD: 04/25/24-1039 ? STATUS: ??SOUT ? REQ NUM: [id number] ? FAMILIA: 04/24/24-1539 ? SUBM DR: CORRY HILL NP ? ENTERED: ??04/25/24-1043 ?SP TYPE: Cytology ? OTHR : ? ORDERED: ??Cyto-enhanced ? Diagnosis ?? Urine, cytology: ??Negative for high-grade urothelial carcinoma. ? COMMENT: ??Review of the cytology preparation demonstrates a mildly cellular specimen ?? composed of abundant acute inflammatory cells and few squames and urothelial cells. Red ?? blood cells are noted. There is no significant atypia seen. ?Clinical History Hematuria, dysuria ? Material Received ?? Urine ? Gross Description Received is 5 cc of cloudy pale yellow fluid from which a ThinPrep slide is prepared. ----- ------- Signed (signature on file) Romina Barnett MD 04/28/24 1020 ? ----- ------- ? END OF REPORT ? [facility] ANP LAB CYTOLOGY ORDERABLES Final Re sult Performing Organization Address [facility] Co de Phone Number [facility] [address] [place] [phone] [phone] * (ABNORMAL) Iron And Total Iron Binding Capacity (04/24/2024 3:39 PM EDT) Iron 67 45 - 160 mcg/dL [facility] Total Iron Binding Capacity 170(L) 228 - 428 mcg/dL [facility] Percent Iron Saturation 39 15 - 50 % [facility] Unsaturated Iron Binding 103 ug/dL [facility] Blood Venous blood specimen / Unknown 04/24/2024 3:39 PM EDT 04/24/2024 5:44 PM EDT [facility] ANP LAB BLOOD ORDERABLES Final Resul t Performing Organization Address [facility] de Phone Number [facility] [address] [place] [phone] * Culture, Urine, Routine (04/24/2024 3:39 PM EDT) Urine Urine specimen obtained by clean catch procedure / Unknown 04/24/2024 3:39 PM EDT 04/24/2024 5:25 PM EDT Comment:UACC Narrative [facility] - 04/27/2024 7:41 AM EDT Escherichia coli ESBL Note: NOTE: Extended-Spectrum Beta-Lactamase enzyme present Quant > 100,000 cfu/mL Escherichia coli: Ampicillin >=32(R) Escherichia coli: Cefazolin (Urine) >=32(R) Escherichia coli: Cefepime 1(S) Escherichia coli: Ceftriaxone 32(R) Escherichia coli: Ciprofloxacin >=4(R) Escherichia coli: Ertapenem <=0.12(S) Escherichia coli: Gentamicin <=1(S) Escherichia coli: Nitrofurantoin 64(I) Escherichia coli: Trimethoprim/Sulfamethoxazole >=320(R) Specimen Source: Urine clean catch [place] [facility] MICROBIOLOGY - GENERAL ORDER DAVID Final Result Performing Organization Address [facility] Co de Phone Number [facility] [address] [place] [phone] * (ABNORMAL) Transferrin (04/24/2024 3:39 PM EDT) [facility] Transferrin 143(A) 188 - 341 mg/dL [facility] Comment:THIS TEST WAS PERFOR MED AT:[facility] [place] [phone] ROSENBERG MD Blood Venous blood specimen / Unknown 04/24/2024 3:39 PM EDT 04/24/2024 5:44 PM EDT [place] [facility] BLOOD ORDERABLES Final Resul t Performing Organization Address [facility] Phone Number [facility] [address] [place] [phone] * (ABNORMAL) Ferritin (04/24/2024 3:39 PM EDT) [facility] Ferritin 1,984(H) 20 - 250 ng/mL [facility] Comment:Verified by dilution Blood Venous blood specimen / Unknown 04/24/2024 3:39 PM EDT 04/24/2024 5:44 PM EDT [place] [facility] BLOOD ORDERABLES Final Resul t Performing Organization Address [facility] Co de Phone Number [facility] [address] [place] [phone] * (ABNORMAL) Lipid Panel, Standard (04/24/2024 3:39 PM EDT) Triglycerides 437(H) <150 mg/dL [facility] Comment:Slight Lipemia.Carly able Triglyceride: less than 150 mg/dLBorderline High Triglyceride 150-199 mg/dLHigh Triglyceride: 200-499 mg/dLVery High Triglyceride: greater than or equal to 5OO mg/dL Cholesterol 159 <200 mg/dL [facility] Comment:Desirable Cholestero l: less than 200 mg/dLBorderline High Cholesterol: 200-239 mg/dLHigh Cholesterol: greater than 239 mg/dL LDL Cholesterol Calculated TNP <100 mg/dL [facility] Comment:Unable to calculate the LDL. The formula of Friedwald,Perez, and Gilmar is only valid if the triglycerides areless than 400 mg/dl. HDL Cholesterol 26(L) >40 mg/dL [facility] Comment:Desirable HDL: great er than 40 mg/dL Note: This HDL assay may give artificially low results in patients with liver disease. Blood Venous blood specimen / Unknown 04/24/2024 3:39 PM EDT 04/24/2024 5:44 PM EDT [facility] LAB BLOOD ORDERABLES Final Resul t [facility] [address] [place] [phone] * (ABNORMAL) Comprehensive Metabolic Panel (04/24/2024 3:39 PM EDT) Pathologist [facility] Sodium 140 135 - 145 mmol/L [facility] Potassium 4.2 3.3 - 5.1 mmol/L [facility] Chloride 110(H) 96 - 108 mmol/L [facility] Carbon Dioxide 20(L) 22 - 29 mmol/L [facility] Anion Gap 14 12 - 20 [facility] Urea Nitrogen (BUN) 20(H) 9 - 16 mg/dL [facility] Creatinine, Serum 1.07 0.5 - 1.4 mg/dL [facility] Estimated Glomerular Filt Rate >60 [facility] Comment:Chronic Kidney Disea se: Estimated GFR < 60 mL/min/1.93o1Xosgye Kidney Disease: Estimated GFR < 15 mL/min/1.73m2 Glucose 136(H) 60 - 115 mg/dL [facility] Calcium 9.7 8.4 - 10.2 mg/dL [facility] Bilirubin, Total 0.3 0.0 - 1.0 mg/dL [facility] Aspartate Amino Transferase 35 5 - 37 U/L [facility] Alanine Aminotransferase 29 0 - 40 U/L [facility] Total Protein 8.8(H) 6.5 - 8.0 g/dL [facility] Albumin Level 4.2 3.5 - 5.0 g/dL [facility] Alkaline Phosphatase 56 39 - 117 U/L [facility] Blood Venous blood specimen / Unknown 04/24/2024 3:39 PM EDT 04/24/2024 5:44 PM EDT us [place] AN[facility] LAB BLOOD ORDERABLES Final Resul t [facility] [address] [place] [phone] * (ABNORMAL) POCT Urinalysis (04/10/2024 11:59 AM [...] Date Urine 04/10/2024 11:5 9 AM EST [place] ANP POINT OF CARE TEST ENTER/EDIT OR DERABLES Final Result * (ABNORMAL) Albumin, Random Urine W/Creatinine (04/10/2024 11:50 AM EST) Creatinine, Urine 89.60 mg/dL [facility] Microalbumin Urine 153.0 mg/L [facility] Microalbum Creatinine Ratio Ur 170.7(H) <30 ug/mg cr [facility] Comment:Albumin/Creatinine R atio Reference Ranges: Normal: < 30 ug/mg creatinine Microalbuminuria: 30 - 300 ug/mg creatinineClinical Albuminuria: > 300 ug/mg creatinine 04/10/2024 11:5 0 AM EST 04/10/2024 4:17 PM EST us [facility] URINE ORDERABLES Final Resul t [facility] [address] [place] [phone] * (ABNORMAL) POCT HGB A1C (04/10/2024 11:28 AM EST) Hemoglobin A1C 6.4(A) 4.0 - 6.0 % QC Media Lot # [id number] Lot# Expiration Date , Blood 04/10/2024 11:2 8 AM EST us [place] ANP POINT OF CARE TEST ENTER/EDIT OR DERABLES Final Result * POCT Glucose (04/10/2024 11:27 AM EST) Glucose Blood, POC 109 60 - 200 mg/dL [employer] Lot # [id number] Lot# Expiration Date 8605,[id number] Blood Capillary blood specimen / Unknown 04/10/2024 11:27 AM EST us [place] ANP POINT OF CARE TEST ENTER/EDIT OR DERABLES Final Result from Last 3 Months Insurance [facility] RESIDENTIAL OPT[employer] (HMO D-SNP) JOBY HANSEN [id number] Care Teams Global Technical Writer Relationship Specialty Start Date End Date [place] ANP [address] [place] [address] PCP - General Family Medicine 12/27/20 Fabrizio Ramos MD [address] [place], [place] Urology 01/04/24 [facility] 05/08/24
--- OUTSIDE RECORDS SUMMARY | 2024-06-12 16:51 | XMS_ITS ---
Author Name David KELSEYDee Address [address] [place] [address] Phone [phone] [facility] Care Team Providers Care Excavator Backhoe Operator Name Role Phone Dee Hernandez Unavailable [phone] Reason for Referral Not Available Allergies, adverse [...] (do not use for phone, instead use 11116-55) [facility]20[place] Essential (primary) hypertensionHyperlipidemia, unspecifiedAge-related osteoporosis without current pathological fractureGastro-esophageal reflux disease without esophagitisConstipation, unspecifiedInsomnia, unspecifiedUnspecified dementia without behavioral disturbanceTinnitus, unspecified earAnxiety disorder, unspecifiedLow back pain, unspecified New patient,40-59min; chronic exacerbation, 2 stable chronic or 1 acute illness add add modifier 95 for video (do not use for phone, instead use 98457-12) [facility]29/[place] New patient,40-59min; chronic exacerbation, 2 stable chronic or 1 acute illness add add modifier 95 for video (do not use for phone, instead use 47194-19) [facility] 12/29/2022 New patient,40-59min; chronic exacerbation, 2 stable chronic or 1 acute illness add add modifier 95 for video (do not use for phone, instead use 54859-21) [facility] 12/29/2022 New patient,40-59min; chronic exacerbation, 2 stable chronic or 1 acute illness add add modifier 95 for video (do not use for phone, instead use 20778-37) [facility] 12/29/2022 New patient,40-59min; chronic exacerbation, 2 stable chronic or 1 acute illness add add modifier 95 for video (do not use for phone, instead use 64991-42) [facility] 12/29/2022 Vital Signs Date of Collection Vitals 2022-12-29 05:51:12 Height - 167.64 cmWe ight - 78.47 kgBody Mass Index (BMI) - 27.92 kg/m2BP Diastolic - 85.0 mm[Hg]BP Systolic - 155.0 mm[Hg]Pain Scale - 8.0 {score} Social History Social History Social History Observation Description Effec tive Time Current Smoking Status Never smoker 1 Sex Male History of Procedures Procedures Service Procedure code Service date Servicing provider Phone# New patient,40-59min; chronic exacerbation, 2 stable chronic or 1 acute illness add add modifier 95 for video (do not use for phone, instead use 37658-43) 63888 2022-12-29 No Data Available No Data Availa ble Pain Assessment - Pain Documented on a Pain Scale (1125F) 1125F 2022-12-29 No Data Available No Data Edisy ilable Medication List Documented (1159F) 1159F 2022-12-29 [...] BP regularly at home. Evaluate BP with PCP/Supervisor Phosphoric Acid f/u visits. Follow a low sodium diet/diet [...] had a detailed discussion with patient/caregiver about [facility] 04/09 services, their diagnosis, and medications. Patient/caregiver verbalized understanding by teach-back method. All available medications were reconciliated, counseled patient/caregiver on treatment plan, compliance, and f/u care coordination with their established PCP and specialists. Health Concerns Date Concern 2022-12-29 Visit completed by a udio and video. Patient and Granddaughter, agreed to visit via telehealth. Introductory visit with [facility] to establish care. Today, patient has chief complaint of: establishing care.Reviewed Allergies, Medications, Active Medical conditions, past medical/surgical history, Social history. 2022-12-29 Most recent hospital stay(s) or ER visit(s) and precipitating factors: Denies any recent visit
--- OUTSIDE RECORDS SUMMARY | 2024-06-12 16:51 | XMS_ITS | Encounter Summary ---
Author Organization [facility] Address [address] [place] [address] Care Team Providers Care Architecture Technician Name Role Phone Corry [place] Primary Care Provider [phone] Fabrizio Ramos MD Unavailable [phone] Encounter Details Date Type Department Care Team (Late st Contact Info) Description 02/28/2022 Orders Only [facility] CH[facility] MED & PEDS [address] [place] [address] Stephanie Licea LPN Social History Tobacco Use [...] Description 09/02/2024 1:00 PM EDT Office Visit [facility] MEDICINE [address] [place] [address] Corry Hill ANP [address] [place] [address] documented as of this encounter Procedures Procedure [...] (06/20/2022 7:20 PM EDT) Color Urine Yellow [facility] Appearance Urine Cloudy [facility] PH 7.0 5.0 - 9.0 [facility] Glucose Urine UA Negative Negative mg/dL [facility] Urine Blood Moderate (2+)(A) Negative [facility] Specific [place] - Urine 1.015 1.005 - 1.025 [facility] Urine Protein 30 (1+)(A) Neg-Trace mg/dL [facility] Urine Ketones Negative Negative mg/dL [facility] Nitrite Urine Negative Negative [facility] Leukocyte Esterase Urine Large (3+)(A) Negative [facility] RBC Urine 11-20(A) 0 - 2 /HPF [facility] Urine WBC >50(A) 0 - 5 /HPF [facility] Urine Squamous Epithelial Cell 0-2 0 - 2 /HPF [facility] Urine Bacteria 4+ None Seen [facility] Hyaline Casts, Urine 0-2 0 - 2 /LPF [facility] 06/20/2022 7:20 PM EDT 06/20/2022 7:23 PM EDT Narrative [facility] - 06/20/2022 7:55 PM EDT [id number], Clean Catch [facility] External Provider LAB URI NE ORDERABLES Final Result Performing Organization Address [facility]/ZIP Co de Phone Number [facility] [address] [place] [phone] * High Sensitivity Troponin I (06/20/2022 3:07 PM EDT) [facility] TROPONIN I HIGH SENSITIVITY <2.7 <3.5 - 35.0 ng/L [facility] Comment:The [place] high sens itivity Troponin-I results should beused in conjunction with other diagnostic information suchas ECG, clinical observations and information, and patientsymptoms to aid in the diagnosis of [place]. 06/20/2022 3:07 PM EDT 06/20/2022 3:14 PM EDT [facility] External Provider LAB BLO OD ORDERABLES Final Result Performing Organization Address [facility] Co de Phone Number [facility] [address] [place] [phone] * B Type Natriuretic Peptide (BNP) (06/20/2022 3:07 PM EDT) [facility] B Type Natriuretic Peptide 27 <100 pg/mL [facility] Comment:For those patients w ho are being treated with Natrecor(nesiritide, recombinant BNP), BNP testing should beperformed at least two hours post treatment in order toensure that only endogenous levels of BNP are detected. 06/20/2022 3:07 PM EDT 06/20/2022 3:14 PM EDT [facility] External Provider LAB BLO OD ORDERABLES Final Result Performing Organization Address [facility] Co de Phone Number [facility] [address] [place] [phone] * Magnesium (06/20/2022 3:07 PM EDT) Magnesium 1.8 1.6 - 2.6 mg/dL [facility] 06/20/2022 3:07 PM EDT 06/20/2022 3:14 PM EDT [facility] External Provider LAB BLO OD ORDERABLES Final Result [facility] [address] [place] [address] [phone] * (ABNORMAL) Comprehensive Metabolic Panel (06/20/2022 3:07 PM EDT) Sodium 141 135 - 145 mmol/L [facility] Potassium 4.1 3.3 - 5.1 mmol/L [facility] Chloride 108 96 - 108 mmol/L [facility] Carbon Dioxide 25 22 - 29 mmol/L [facility] Anion Gap 12 12 - 20 [facility] Urea Nitrogen (BUN) 20(H) 9 - 16 mg/dL [facility] Creatinine, Serum 1.27 0.5 - 1.4 mg/dL [facility] Creatinine Clr Calc Pharmacy 41.9 [facility] Comment:eGFR (calculated fro m the MDRD study equation) and eCrCl(calculated from the Cockcroft-Gault equation) are based ondifferent parameters and may not yield comparable results.If eCrCl result is absurd, please check patient'sheight/weight. Estimated Glomerular Filt Rate 54 [facility] Comment:NOTE: For -Am erican individuals, multiply the result by 1.210.Chronic Kidney Disease: Estimated GFR < 60 mL/min/1.19q9Pdqpif Kidney Disease: Estimated GFR < 15 mL/min/1.73m2 Glucose 148(H) 60 - 115 mg/dL [facility] Calcium 9.6 8.4 - 10.2 mg/dL [facility] Bilirubin, Total 0.4 0.0 - 1.0 mg/dL [facility] Aspartate Amino Transferase 21 5 - 37 U/L [facility] Alanine Aminotransferase 20 0 - 40 U/L [facility] Total Protein 7.1 6.5 - 8.0 g/dL [facility] Albumin Level 3.9 3.5 - 5.0 g/dL [facility] Alkaline Phosphatase 72 39 - 117 U/L [facility] 06/20/2022 3:07 PM EDT 06/20/2022 3:14 PM EDT us [facility] External Provider LAB BLO OD ORDERABLES Final Result [facility] [address] [place] [address] [phone] * (ABNORMAL) CBC auto differential (06/20/2022 3:07 PM EDT) White Blood Count 5.4 4.8 - 10.8 X10*3/uL [facility] Red Blood Count 4.25(L) 4.60 - 5.80 X10*6/uL [facility] Hemoglobin 12.9(L) 14.0 - 18.0 g/dl [facility] Hematocrit 39.8(L) 42.0 - 52.0 % [facility] Mean Corpuscular Volume 93.6 80.0 - 98.0 fL [facility] Mean Corpuscular Hemoglobin 30.4 27.0 - 33.0 pg [facility] Mean Corpuscular HGB Conc 32.4 31.0 - 36.0 g/dl [facility] Red Cell Distribution Width 13.2 11.0 - 16.0 % [facility] Platelet Count 112(L) 160 - 400 X10*3/uL [facility] Mean Platelet Volume 11.3 9.4 - 12.4 fL [facility] Neutrophils Percent Auto 42.1(L) 45 - 73 % [facility] Imm Gran Pct Auto 0.2 0.0 - 0.4 % [facility] Lymphocytes Percent Auto 43.9(H) 20 - 40 % [facility] Monocytes Percent Auto 10.3 2 - 11 % [facility] Eosinophils Percent Auto 2.6 0 - 4 % [facility] Basophils Percent Auto 0.9 0 - 2 % [facility] NRBC Pct Auto 0.0 0.0 - 0.2 /100WBC [facility] Neutrophils Absolute Auto 2.3 2.0 - 8.3 x10*3/uL [facility] Imm Gran Abs Auto 0.01 0.00 - 0.03 X10*3/uL [facility] Lymphocytes Absolute Auto 2.4 1.2 - 4.9 X10*3/uL [facility] Monocytes Absolute Auto 0.6 0.1 - 1.2 X10*3/uL [facility] Eosinophils Absolute Auto 0.1 0.0 - 0.4 X10*3/uL [facility] Basophils Absolute Auto 0.1 0.0 - 0.2 X10*3/uL [facility] NRBC Abs Auto 0.000 0.0 - 0.012 X10*3/uL [facility] 06/20/2022 3:07 PM EDT 06/20/2022 3:14 PM EDT [facility] External Provider LAB BLO OD ORDERABLES Final Result [facility] [address] [place] [phone] * Cytopath-cell enhanced (05/02/2022 9:42 AM EDT) 05/02/2022 9:42 AM EDT 05/03/2022 6:39 AM EDT Narrative [facility] - 05/03/2022 4:46 PM EDT ----- ------- Name: Augustine Rodriguez ?Age/Sex: 81/M ? : 1940 Unit#: [id number] ?? Attend Dr: Fabrizio Ramos MD ?Re05/02/22 ?Status: DEP REF ? Location: HO.LAB ?Disch: ? ----- ------- SPEC : [id number] ? RECD: 05/03/22 ? STATUS: ??SOUT ? REQ NUM: [id number] ? FAMILIA: 05/02/22-941 ? SUBM DR: Fabrizio Ramos MD ? ENTERED: ??05/03/22-464 ?SP TYPE: Cytology ? OTHR : CORRY [...] To: ?? Fabrizio Ramos MD ?? [address] ?? [place] [address] ?? [phone] ?? CORRY HILL NP ?? [address] [facility] [address] ?? [place] [address] ?? [phone] ----- ------- Signed (signature on file) Jesica Wolfe 05/03/221645 ? ----- ------- ? END OF REPORT ? us [facility] External Provider LAB CYT OLOGY ORDERABLES Final Result [facility] [address] [place] [address] [phone] * Culture, Urine, Routine (05/02/2022 9:42 AM EDT) 05/02/2022 9:42 AM EDT 05/02/2022 4:36 PM EDT Comment:CC Narrative [facility] - 05/05/2022 8:23 AM EDT Escherichia coli ESBL Note: NOTE: Extended-Spectrum Beta-Lactamase enzyme present Quant > 100,000 cfu/mL Escherichia coli: Ampicillin >=32(R) Escherichia coli: Ceftriaxone 16(I) Escherichia coli: Ertapenem <=0.12(S) Escherichia coli: Gentamicin 4(S) Escherichia coli: Levofloxacin >=8(R) Escherichia coli: Nitrofurantoin 32(S) Escherichia coli: Trimethoprim/Sulfamethoxazole >=320(R) Specimen Source: Urine clean catch [facility] Exter nal Provider LAB MICROBIOLOGY - GENERAL ORDERABLES Final Result Performing Organization Address City/State/[facility] Co de Phone Number [facility] [address] [place] [phone] documented in this encounter Visit Diagnoses Not on filedocumented in this encounter Care Teams Architecture Technician Relationship Specialty Start Date End Date [place]ry Hill ANP [address] [place] [phone] PCP - General Family Medicine 12/27/20 Fabrizio Ramos MD [address] [place] [address] Urology 01/04/24 [facility] 05/08/24 documented as of this encounter
--- OUTSIDE RECORDS SUMMARY | 2024-06-12 16:51 | XMS_ITS | Encounter Summary ---
Author Organization [employer] Address [address] [facility] [address] [facility] 7t [place] [address] Care Team Providers Care Manager Of Allied Health Services Name Role Phone Jeannie Fabian Primary Care Provider [phone] Fabrizio Ramos MD Unavailable [phone] Reason for Visit * Reason Comments Med Refill Encounter Details Date Type Department Care Team ([facility] st Contact Info) Description 02/18/2023 Refill [facility] MEDICINE [address] [place], [place] [phone] Jeannie Fabian ANP [address] [place] [address] Anxiety Social History Tobacco Use Types Packs/Day [...] Description 09/02/2024 1:00 PM EDT Office Visit [facility] MEDICINE [address] [place] [address] Jeannie Fabian ANP [address] [place] [address] documented as of this encounter Goals Goal Patient Goal Type Associated Problems Recent Progress Patient-Stated? Author Blood Pressure < 140/90 Blood Pressure 136/75( 025 10:17 AM EDT) No Jaylen Blanca, PharmD documented as of this encounter Visit Diagnoses Diagnosis Anxiety Anxiety state, unspecified documented in this encounter Additional Health Concerns Assessment Noted Time PHQ-9 Depression Total Score: 6 10/18/19 23 1:31 PM EDT documented as of this encounter Care Teams Manager Of Allied Health Services Relationship Specialty Start Date End Date Jeannie Fabian ANP [address] [place] [phone] PCP - General Family Medicine 12/27/20 Fabrizio Ramos MD [address] [place] [address] Urology 01/04/24 [facility] 05/08/24 documented as of this encounter
--- OUTSIDE RECORDS SUMMARY | 2024-06-12 16:51 | XMS_ITS | Encounter Summary ---
Author Organization [facility] Address [address] [facility] 7t [place] [address] Care Team Providers Care Mouse Breeder Name Role Phone Jeannie Fabian Primary Care Provider [phone] Fabrizio Ramos MD Unavailable [phone] Reason for Visit * Reason Comments Med Refill Encounter Details Date Type Department Care Team (Late st Contact Info) Description 02/28/2022 Refill [facility] CHC MED & PEDS [address] [place] [address] Jeannie Fabian ANP [address] [place] [address] Cardiovascular event risk (Primary Dx) Social History [...] Description 09/02/2024 1:00 PM EDT Office Visit [facility] MEDICINE [address] [place] [phone] Jeannie Fabian ANP [address] [place] [address] documented as of this encounter Visit Diagnoses Diagnosis Cardiovascular event risk- Primary documented in this encounter Care Teams Mouse Breeder Relationship Specialty Start Date End Date Jeannie Fabian ANP [address] [place] [phone] PCP - General Family Medicine 12/27/20 Fabrizio Ramos MD [address] [place] [address] Urology 01/04/24 [facility] 05/08/24 documented as of this encounter
== END 2024-06-12 15:13 | disposition home or self-care (01) ==
LOC: HO.ENCR 14:53
PROVIDERS: PCP Nurse Practitioner Primary Care; Visit Provider Internal Medicine Endocrinology, Diabetes & Metabolism
DX: M81.0 Age-related osteoporosis without current pathological fracture (principal)
CPT/HCPCS: 99213

== ENCOUNTER → 2024-06-12 14:52 | Outpatient (BNVA) | payer OTHER, SELFPAY | PROVIDERS: PCP Nurse Practitioner Primary Care; Visit Provider Internal Medicine Endocrinology, Diabetes & Metabolism | DX: M81.0 Age-related osteoporosis without current pathological fracture (principal) | CPT/HCPCS: 99212 ==

== ENCOUNTER 2024-06-23 10:48 | Outpatient (REF) | payer OTHER, SELFPAY ==
--- NOTE | ~2024-06-23 | MM_ITS ---
EXAMINATION: DXA BONE DENSITY AXIAL HISTORY: M81.0 - Age-related osteoporosis without current pathological fracture TECHNIQUE: [employer] Dual energy absorptiometry (DEXA) of the lumbar spine, total left hip, and femoral neck was performed. COMPARISON: Comparison is made with the prior examination dated 09/07/2021. FINDINGS: The bone mineral density of the lumbar spine is 0.810 with a T-score of -3.4, and a Z-score of -2.7. This is indicative of osteoporosis. This represents a BMD change of 8.6% compared to the prior exam. This is statistically significant. The bone mineral density of the left total hip is 0.693 with a T-score of -2.8, and a Z-score of -1.6. This is indicative of osteoporosis. This represents a BMD change of -1.8% compared to the prior exam. This is not statistically significant. The bone mineral density of the left femoral neck is 0.726 with a T-score of -2.6, and a Z-score of -1.1. This is indicative of osteoporosis. This represents a BMD change of 9.1% compared to the prior exam. FRACTURE RISK: The FRAX index suggests a ten year probability of major osteoporotic fracture of 7.4%, and of hip fracture 3.3%. MM/XR DEXA axial skeleton IMPRESSION: Based on bone mineral density, and according to World Health Organization (WHO) criteria, the diagnosis is consistent with osteoporosis. All bone density values are in grams per centimeter squared (g/cm2). Statistically, 68% of repeat scans fall within 1 SD (+/- 0.010 g/cm2 for AP spine L1-L4) and 1 SD (+/- 0.012 g/cm2 for femur total) FRAX is a trademark of the [employer]'s [place] [facility] Metabolic Bone Disease, a World Health Organization (WHO) Collaborating Center. Electronically signed by: Sam Canales MD 06/23/2024 11:37 AM EDT
--- OUTSIDE RECORDS SUMMARY | 2024-06-23 11:33 | XMS_ITS | Encounter Summary ---
Author Organization [employer] Address [address] [facility] 7t [place] [address] Care Team Providers Care Bi Data Architect Name Role Phone Jeannie Fabian Primary Care Provider [phone] Fabrizio Ramos MD Unavailable [phone] Reason for Visit * Reason Comments Med Refill Encounter Details Date Type Department Care Team (Late st Contact Info) Description 02/28/2022 Refill [facility] MED & PEDS [address] [place] [address] Jeannie Fabian ANP [address] [place] [address] Cardiovascular event risk (Primary Dx) Social History [...] Description 09/02/2024 1:00 PM EDT Office Visit [facility] MEDICINE [address] [place] [phone] Jeannie Fabian ANP [address] [place] [address] documented as of this encounter Visit Diagnoses Diagnosis Cardiovascular event risk- Primary documented in this encounter Care Teams Bi Data Architect Relationship Specialty Start Date End Date Jeannie Fabian ANP [address] [place] [phone] PCP - General Family Medicine 12/27/20 Fabrizio Ramos MD [address] [place] [address] Drive [address] [place] [address] Urology 01/04/24 [facility] 05/08/24 documented as of this encounter
--- OUTSIDE RECORDS SUMMARY | 2024-06-23 11:33 | XMS_ITS | Encounter Summary ---
Author Organization [employer] Address [address] [place] [address] Care Team Providers Care Cake Knocker Name Role Phone [facility] Primary Care Provider [phone] Fabrizio Ramos MD Unavailable [phone] Encounter Details Date Type Department Care Team (Late st Contact Info) Description 02/28/2022 Orders Only [facility] P[facility] [address] [place] [address] Stephanie Licea LPN Social History Tobacco Use [...] Description 09/02/2024 1:00 PM EDT Office Visit [facility] MEDICINE [address] [place] [address] [place] ANP [address] [place] [address] documented as of this encounter Procedures Procedure [...] (06/20/2022 7:20 PM EDT) Color Urine Yellow [facility] Appearance Urine Cloudy [facility] PH 7.0 5.0 - 9.0 [facility] Glucose Urine UA Negative Negative mg/dL [facility] Urine Blood Moderate (2+)(A) Negative [facility] Specific [place] - Urine 1.015 1.005 - 1.025 [facility] Urine Protein 30 (1+)(A) Neg-Trace mg/dL [facility] Urine Ketones Negative Negative mg/dL [facility] Nitrite Urine Negative Negative [facility] Leukocyte Esterase Urine Large (3+)(A) Negative [facility] RBC Urine 11-20(A) 0 - 2 /HPF [facility] Urine WBC >50(A) 0 - 5 /HPF [facility] Urine Squamous Epithelial Cell 0-2 0 - 2 /HPF [facility] Urine Bacteria 4+ None Seen [facility] Hyaline Casts, Urine 0-2 0 - 2 /LPF [facility] 06/20/2022 7:20 PM EDT 06/20/2022 7:23 PM EDT Narrative [facility] - 06/20/2022 7:55 PM EDT [id number], Clean Catch [facility] External Provider LAB URI NE ORDERABLES Final Result Performing Organization Address [facility]/ZIP Co de Phone Number [facility] [address] [place] [phone] * High Sensitivity Troponin I (06/20/2022 3:07 PM EDT) [facility] TROPONIN I HIGH SENSITIVITY <2.7 <3.5 - 35.0 ng/L [facility] Comment:The [place] high sens itivity Troponin-I results should beused in conjunction with other diagnostic information suchas ECG, clinical observations and information, and patientsymptoms to aid in the diagnosis of [place]. 06/20/2022 3:07 PM EDT 06/20/2022 3:14 PM EDT [facility] External Provider LAB BLO OD ORDERABLES Final Result Performing Organization Address [facility] de Phone Number [facility] [address] [place] [phone] * B Type Natriuretic Peptide (BNP) (06/20/2022 3:07 PM EDT) [facility] B Type Natriuretic Peptide 27 <100 pg/mL [facility] Comment:For those patients w ho are being treated with Natrecor(nesiritide, recombinant BNP), BNP testing should beperformed at least two hours post treatment in order toensure that only endogenous levels of BNP are detected. 06/20/2022 3:07 PM EDT 06/20/2022 3:14 PM EDT [facility] External Provider LAB BLO OD ORDERABLES Final Result Performing Organization Address [facility] Co de Phone Number [facility] [address] [place] [phone] * Magnesium (06/20/2022 3:07 PM EDT) Magnesium 1.8 1.6 - 2.6 mg/dL [facility] 06/20/2022 3:07 PM EDT 06/20/2022 3:14 PM EDT [facility] External Provider LAB BLO OD ORDERABLES Final Result [facility] [address] [place] [phone] * (ABNORMAL) Comprehensive Metabolic Panel (06/20/2022 3:07 PM EDT) Pathologist [facility] Sodium 141 135 - 145 mmol/L [facility] Potassium 4.1 3.3 - 5.1 mmol/L [facility] Chloride 108 96 - 108 mmol/L [facility] Carbon Dioxide 25 22 - 29 mmol/L [facility] Anion Gap 12 12 - 20 [facility] Urea Nitrogen (BUN) 20(H) 9 - 16 mg/dL [facility] Creatinine, Serum 1.27 0.5 - 1.4 mg/dL [facility] Creatinine Clr Calc Pharmacy 41.9 [facility] Comment:eGFR (calculated fro m the MDRD study equation) and eCrCl(calculated from the Cockcroft-Gault equation) are based ondifferent parameters and may not yield comparable results.If eCrCl result is absurd, please check patient'sheight/weight. Estimated Glomerular Filt Rate 54 [facility] Comment:NOTE: For -Am erican individuals, multiply the result by 1.210.Chronic Kidney Disease: Estimated GFR < 60 mL/min/1.28l5Jsujbx Kidney Disease: Estimated GFR < 15 mL/min/1.73m2 Glucose 148(H) 60 - 115 mg/dL [facility] Calcium 9.6 8.4 - 10.2 mg/dL [facility] Bilirubin, Total 0.4 0.0 - 1.0 mg/dL [facility] Aspartate Amino Transferase 21 5 - 37 U/L [facility] Alanine Aminotransferase 20 0 - 40 U/L [facility] Total Protein 7.1 6.5 - 8.0 g/dL [facility] Albumin Level 3.9 3.5 - 5.0 g/dL [facility] Alkaline Phosphatase 72 39 - 117 U/L [facility] 06/20/2022 3:07 PM EDT 06/20/2022 3:14 PM EDT [facility] External Provider LAB BLO OD ORDERABLES Final Result [facility] [address] [place] [address] [phone] * (ABNORMAL) CBC auto differential (06/20/2022 3:07 PM EDT) White Blood Count 5.4 4.8 - 10.8 X10*3/uL [facility] Red Blood Count 4.25(L) 4.60 - 5.80 X10*6/uL [facility] Hemoglobin 12.9(L) 14.0 - 18.0 g/dl [facility] Hematocrit 39.8(L) 42.0 - 52.0 % [facility] Mean Corpuscular Volume 93.6 80.0 - 98.0 fL [facility] Mean Corpuscular Hemoglobin 30.4 27.0 - 33.0 pg [facility] Mean Corpuscular HGB Conc 32.4 31.0 - 36.0 g/dl [facility] Red Cell Distribution Width 13.2 11.0 - 16.0 % [facility] Platelet Count 112(L) 160 - 400 X10*3/uL [facility] Mean Platelet Volume 11.3 9.4 - 12.4 fL [facility] Neutrophils Percent Auto 42.1(L) 45 - 73 % [facility] Imm Gran Pct Auto 0.2 0.0 - 0.4 % [facility] Lymphocytes Percent Auto 43.9(H) 20 - 40 % [facility] Monocytes Percent Auto 10.3 2 - 11 % [facility] Eosinophils Percent Auto 2.6 0 - 4 % [facility] Basophils Percent Auto 0.9 0 - 2 % [facility] NRBC Pct Auto 0.0 0.0 - 0.2 /100WBC [facility] Neutrophils Absolute Auto 2.3 2.0 - 8.3 x10*3/uL [facility] Imm Gran Abs Auto 0.01 0.00 - 0.03 X10*3/uL [facility] Lymphocytes Absolute Auto 2.4 1.2 - 4.9 X10*3/uL [facility] Monocytes Absolute Auto 0.6 0.1 - 1.2 X10*3/uL [facility] Eosinophils Absolute Auto 0.1 0.0 - 0.4 X10*3/uL [facility] Basophils Absolute Auto 0.1 0.0 - 0.2 X10*3/uL [facility] NRBC Abs Auto 0.000 0.0 - 0.012 X10*3/uL [facility] 06/20/2022 3:07 PM EDT 06/20/2022 3:14 PM EDT [facility] External Provider LAB BLO OD ORDERABLES Final Result [facility] [address] [place] [phone] * Cytopath-cell enhanced (05/02/2022 9:42 AM EDT) 05/02/2022 9:42 AM EDT 05/03/2022 6:39 AM EDT Narrative [facility] - 05/03/2022 4:46 PM EDT ----- ------- Name: Augustine Rodriguez ?Age/Sex: 81/M ? : 1940 Unit#: [id number] ?? Attend Dr: Fabrizio Ramos MD ?Re05/02/22 ?Status: DEP REF ? Location: HO.LAB ?Disch: ? ----- ------- SPEC : [id number] ? RECD: 05/03/22 ? STATUS: ??SOUT ? REQ NUM: [id number] ? FAMILIA: 05/02/22 ? SUBM DR: Fabrizio Ramos MD ? ENTERED: ??05/03/22-6910 ?SP TYPE: Cytology ? OTHR : CORRY [...] To: ?? Fabrizio Ramos MD ?? [address] ?? [place] [address] ?? [phone] ?? [place] NP ?? [address] ?? [place] [address] ?? [phone] ----- ------- Signed (signature on file) Jesica Wolfe 05/03/226 ? ----- ------- ? END OF REPORT ? us [facility] External Provider LAB CYT OLOGY ORDERABLES Final Result [facility] [address] [place] [address] [phone] * Culture, Urine, Routine (05/02/2022 9:42 AM EDT) 05/02/2022 9:42 AM EDT 05/02/2022 4:36 PM EDT Comment:[facility] Narrative [facility] - 05/05/2022 8:23 AM EDT Escherichia coli ESBL Note: NOTE: Extended-Spectrum Beta-Lactamase enzyme present Quant > 100,000 cfu/mL Escherichia coli: Ampicillin >=32(R) Escherichia coli: Ceftriaxone 16(I) Escherichia coli: Ertapenem <=0.12(S) Escherichia coli: Gentamicin 4(S) Escherichia coli: Levofloxacin >=8(R) Escherichia coli: Nitrofurantoin 32(S) Escherichia coli: Trimethoprim/Sulfamethoxazole >=320(R) Specimen Source: Urine clean catch [facility] Exter nal Provider LAB MICROBIOLOGY - GENERAL ORDERABLES Final Result Performing Organization Address City/State/[facility] Co de Phone Number [facility] [address] [place] [phone] documented in this encounter Visit Diagnoses Not on filedocumented in this encounter Care Teams Cake Knocker Relationship Specialty Start Date End Date [place] [place] ANP [address] [place] [phone] PCP - General Family Medicine 12/27/20 Fabrizio Ramos MD [address] [place] [address] Urology 01/04/24 [facility] 05/08/24 documented as of this encounter
--- OUTSIDE RECORDS SUMMARY | 2024-06-23 11:33 | XMS_ITS | Clinical Summary ---
Author Organization [employer] Address [address] [facility] 7t [place] [address] Care Team Providers Care Brazing Machine Operator Automatic Name Role Phone Caren Corry CLAYTON Primary Care Provider [phone] Fabrizio Ramos MD Unavailable [phone] Allergies Active Allergy Reactions Criticality Noted [...] affected area 28 g 04/10/19 25 Active olmesartan (Benicar) 20 MG tabletIndication [...] family PLAN: 1. Follow up with [facility]: Not recommended for follow-up 2. Patient goal is decrease anxiety symptoms. 3. Behavioral Recommendations a. Will comply with medication b. Will utilize coping techniques provided c. Will reach out to [facility], if additional support is needed Preoperative examination [...] Description 06/03/2024 10:30 AM EDT Office Visit [address] [address] [place] Hill ANP ESBL (extended spectrum beta-lactamase) producing bacteria infection (Primary Dx); Complicated UTI (urinary tract infection); Solitary kidney, acquired; Essential hypertension; Ureteral stent present; Hospital discharge follow-up; Gastroesophageal reflux disease, unspecified whether esophagitis present 06/03/2024 Travel 05/29/[address] [address] Corry Hill ANP chartprep 05/26/2024 Patient Outreach [address] [address] Corry Hill ANP Transition Of Care (Tcm) (HDF- Scheduled ) 05/26/[address] [address] Corry Hill ANP Hospital Follow-up; chartprep 05/20/[address] [address] Corry Hill ANP Eileen recall 05/13/[address] [address] Corry [place] ANP Medication Question 05/12/2024 Orders Only [facility] External Provider, [facility] 05/01/2024 Orders Only GENERIC EXTERNAL DATA DEPARTMENT Provider, Generic External Data 04/28/2024 Orders Only [facility] [address] [place] [address] Corry Hill ANP 04/25/2024 Orders Only [address] [address] Corry Hill ANP Acute cystitis with hematuria (Primary Dx) 04/25/2024 Orders Only [address] [address] Corry Hill ANP History of kidney cancer (Primary Dx); Hematuria, unspecified type 04/25/2024 Orders Only [address] [address] Corry Hill ANP Elevated ferritin (Primary Dx); Acute cystitis with hematuria; History of renal carcinoma; Hematuria, unspecified type 04/24/2024 Orders Only [address] [address] [place] Hill ANP 04/23/[address] [address] Raeann Raman, RN Results 04/23/2024 Orders Only [address] [address] [place]ry Hill ANP Albuminuria (Primary Dx); Essential hypertension 04/10/2024 11:00 AM EST Office Visit [address] [address] Corry Hill ANP Prediabetes (Primary Dx); Anxiety; Anemia, unspecified type; Dysuria; Genital pruritus; Acute cystitis with hematuria 04/10/2024 Orders Only [address] [address] [place] ANP 04/10/2024 Travel 04/07/[address] [place] [address] Corry Hill ANP Chart Prep 03/28/2024 Patient Outreach [facility] [address] [place] [address] [place] ANP Pre-visit Planning (SDOH Screening negative and Tobacco screening negative) 03/26/2024 Refill [facility] [address] [place] [address] Corry Hill ANP from Last 3 Months [...] Description 09/02/2024 1:00 PM EDT Office Visit [facility] [address] [place] [address] [place]ry [place], ANP [address] [place] [address] Health Maintenance Due Date Last Done Comments Zoster Vaccines (1 of 2) 1990 RSV Patients and Patients Aged 60 years or older (1 - 1-dose 75+ series) 08/10/2015 COVID-19 Vaccine ( season) 2023 02/07/2021, 01/17/2021, 03/18/2020 Influenza Vaccine (#1) 2023 , 11/22/2011, 11/15/2010 Depression Screening 01/03/2025 01/04/2024, 09/05/20 23 SDOH Screening 03/28/2025 03/28/2024 Diabetes: Hemoglobin [...] EDT Narrative 05/12/2024 9:04 AM EDT ? [facility] ?[address] ?[place] [address] ? Fluoroscopy Report ? Signed ? Patient: Juan José Sandy,Augustine ?MR#: M ?? [id number] ? : 1940 ?Acct:[id number] ? Age/Sex: 83 / M ?ADM Date: 05/12/24 ? Loc: HO.SSS ? Attending Dr: Fabrizio Ramos MD ? Ordering Physician: Fabrizio Ramos MD ?? Date of Service: 05/12/24 ?? Procedure(s): FL guidance in OR ?? Accession Number(s): [id number] ? cc: Fabrizio Ramos MD; CORRY HILL [...] DD/ 0750 ? TD/TT: 05/12/24 0800 ? Waist Fitter: ? Procedure Note Riaz, Lou - 05/12/[address] [address] Fluoroscopy Report Signed Patient: Augustine Rodriguez#: M [id number] : 1Acct:[id number] Age/Sex: 83 / MADM Date: 05/12/24 Loc: HO.SSS Attending Dr: Fabrizio Ramos MD Ordering Physician: Fabrizio Ramos MD Date of Service: 05/12/24 Procedure(s): FL guidance in OR Accession Number(s): [id number] cc: Fabrizio Ramos MD; CORRY HILL NP [...] signed by Sam Canales MD in OV> 05/12/[address] DD/ 0750 TD/TT: 05/12/24 0800 Waist Fitter: [facility] External Provider IMG IR PROCEDURES Final Result * (ABNORMAL) Hepatic Function Panel (05/01/2024 12:38 PM EDT) Bilirubin, Total 0.2 0.0 - 1.0 mg/dL [facility] Bilirubin, Direct <0.2 0.0 - 0.5 mg/dL [facility] Aspartate Amino Transferase 23 5 - 37 U/L [facility] Alanine Aminotransferase 21 0 - 40 U/L [facility] Total Protein 8.6(H) 6.5 - 8.0 g/dL [facility] Albumin Level 4.2 3.5 - 5.0 g/dL [facility] Alkaline Phosphatase 55 39 - 117 U/L [facility] 05/01/2024 12:3 8 PM EDT 05/01/2024 12:45 PM EDT Generic External Data Provider LAB BLOOD ORDERAB LES Final Result [facility] [address] [place] [address] [phone] * (ABNORMAL) Basic Metabolic Panel (05/01/2024 12:38 PM EDT) Sodium 140 135 - 145 mmol/L [facility] Potassium 3.8 3.3 - 5.1 mmol/L [facility] Chloride 111(H) 96 - 108 mmol/L [facility] Carbon Dioxide 21(L) 22 - 29 mmol/L [facility] Anion Gap 12 12 - 20 [facility] Urea Nitrogen (BUN) 25(H) 9 - 16 mg/dL [facility] Creatinine, Serum 1.09 0.5 - 1.4 mg/dL [facility] Creatinine Clr Calc Pharmacy 46.9 [facility] Comment:eGFR (calculated fro m the MDRD study equation) and eCrCl(calculated from the Cockcroft-Gault equation) are based ondifferent parameters and may not yield comparable results.If eCrCl result is absurd, please check patient'sheight/weight. Estimated Glomerular Filt Rate >60 [facility] Comment:Chronic Kidney Disea se: Estimated GFR < 60 mL/min/1.18z2Mjcffw Kidney Disease: Estimated GFR < 15 mL/min/1.73m2 Glucose 125(H) 60 - 115 mg/dL [facility] Calcium 9.6 8.4 - 10.2 mg/dL [facility] 05/01/2024 12:3 8 PM EDT 05/01/2024 12:45 PM EDT us Generic External Data Provider LAB BLOOD ORDERAB LES Final Result [facility] [address] [place] [phone] * (ABNORMAL) Urinalysis, Complete, with Reflex to Culture (05/01/2024 12:37 PM EDT) Only the most recent of2 resultswithin the time period is included. Color Urine Yellow [facility] Appearance Urine Cloudy [facility] PH 5.5 5.0 - 9.0 [facility] Glucose Urine UA Negative Negative mg/dL [facility] Urine Blood Large (3+)(A) Negative [facility] Specific [place] - Urine 1.015 1.005 - 1.025 [facility] Urine Protein 30 (1+)(A) Neg-Trace mg/dL [facility] Urine Ketones Negative Negative mg/dL [facility] Nitrite Urine Positive(A) Negative [facility] Leukocyte Esterase Urine Large (3+)(A) Negative [facility] RBC Urine >20(A) 0 - 2 /HPF [facility] Urine WBC >50(A) 0 - 5 /HPF [facility] Urine Squamous Epithelial Cell 0-2 0 - 2 /HPF [facility] Urine Bacteria 4+ None Seen [facility] Hyaline Casts, Urine 0-2 0 - 2 /LPF [facility] 05/01/2024 12:3 7 PM EDT 05/01/2024 12:45 PM EDT Narrative [facility] - 05/01/2024 1:10 PM EDT [id number], Clean Catch us Generic External Data Provider LAB URINE ORDERAB LES Final Result [facility] [address] [place] [phone] * (ABNORMAL) CBC auto differential (05/01/2024 12:37 PM EDT) Only the most recent of2 resultswithin the time period is included. White Blood Count 6.2 4.8 - 10.8 X10*3/uL [facility] Red Blood Count 4.40(L) 4.60 - 5.80 X10*6/uL [facility] Hemoglobin 13.7(L) 14.0 - 18.0 g/dl [facility] Hematocrit 40.7(L) 42.0 - 52.0 % [facility] Mean Corpuscular Volume 92.5 80.0 - 98.0 fL [facility] Mean Corpuscular Hemoglobin 31.1 27.0 - 33.0 pg [facility] Mean Corpuscular HGB Conc 33.7 31.0 - 36.0 g/dl [facility] Red Cell Distribution Width 13.3 11.0 - 16.0 % [facility] Platelet Count 121(L) 160 - 400 X10*3/uL [facility] Mean Platelet Volume 10.9 9.4 - 12.4 fL [facility] Neutrophils Percent Auto 43.2(L) 45 - 73 % [facility] Imm Gran Pct Auto 0.5(H) 0.0 - 0.4 % [facility] Lymphocytes Percent Auto 40.3(H) 20 - 40 % [facility] Monocytes Percent Auto 12.2(H) 2 - 11 % [facility] Eosinophils Percent Auto 3.2 0 - 4 % [facility] Basophils Percent Auto 0.6 0 - 2 % [facility] NRBC Pct Auto 0.0 0.0 - 0.2 /100WBC [facility] Neutrophils Absolute Auto 2.7 2.0 - 8.3 x10*3/uL [facility] Imm Gran Abs Auto 0.03 0.00 - 0.03 X10*3/uL [facility] Lymphocytes Absolute Auto 2.5 1.2 - 4.9 X10*3/uL [facility] Monocytes Absolute Auto 0.8 0.1 - 1.2 X10*3/uL [facility] Eosinophils Absolute Auto 0.2 0.0 - 0.4 X10*3/uL [facility] Basophils Absolute Auto 0.0 0.0 - 0.2 X10*3/uL [facility] NRBC Abs Auto 0.000 0.0 - 0.012 X10*3/uL [facility] 05/01/2024 12:3 7 PM EDT 05/01/2024 12:45 PM EDT us Generic External Data Provider LAB BLOOD ORDERAB LES Final Result [facility] [address] [place] [address] [phone] * Cytopath-cell enhanced (04/24/2024 3:39 PM EDT) 04/24/2024 3:39 PM EDT 04/25/2024 10:40 AM EDT [facility] - 04/28/2024 10:20 AM EDT ----- ------- Name: Augustine Rodriguez ?Age/Sex: 83/M ? : 1940 Unit#: [id number] ?? Attend Dr: CORRY HILL ACCOUNT RESOLUTION ANALYST ?Re04/24/24 ?Status: DEP REF ? Location: HO.CL ? Disch: ? ----- ------- SPEC : [id number] ? RECD: 04/25/24-1039 ? STATUS: ??SOUT ? REQ NUM: [id number] ? FAMILIA: 04/24/24-1538 ? SUBM DR: CORRY HILL NP ? [...] ORDERABLES Final Re sult Performing Organization Address [facility] de Phone Number [facility] [address] [place] [address] [phone] * (ABNORMAL) Iron And Total Iron Binding Capacity (04/24/2024 3:39 PM EDT) Iron 67 45 - 160 mcg/dL [facility] Total Iron Binding Capacity 170(L) 228 - 428 mcg/dL [facility] Percent Iron Saturation 39 15 - 50 % [facility] Unsaturated Iron Binding 103 ug/dL [facility] Blood Venous blood specimen / Unknown 04/24/2024 3:39 PM EDT 04/24/2024 5:44 PM EDT [place]ry Hill ANP LAB BLOOD ORDERABLES Final Resul t Performing Organization Address [facility] de Phone Number [facility] [address] [place] [phone] * Culture, Urine, Routine (04/24/2024 3:39 PM EDT) Urine Urine specimen obtained by clean catch procedure / Unknown 04/24/2024 3:39 PM EDT 04/24/2024 5:25 PM EDT Comment:UACC Narrative [facility] - 04/27/2024 7:41 AM EDT [...] Specimen Source: Urine clean catch Corry [place] [facility] MICROBIOLOGY - GENERAL ORDER DAVID Final Result Performing Organization Address [facility] de Phone Number [facility] [address] [place] [phone] * (ABNORMAL) Transferrin (04/24/2024 3:39 PM EDT) Transferrin 143(A) 188 - 341 mg/dL [facility] Comment:THIS TEST WAS PERFOR MED AT:[employer] [place] [phone] ROSENBERG MD Blood Venous blood specimen / Unknown 04/24/2024 3:39 PM EDT 04/24/2024 5:44 PM EDT Corry Hill [facility] BLOOD ORDERABLES Final Resul t Performing Organization Address [facility] de Phone Number [facility] [address] [place] [phone] * (ABNORMAL) Ferritin (04/24/2024 3:39 PM EDT) Pathologist [facility] Ferritin 1,984(H) 20 - 250 ng/mL [facility] Comment:Verified by dilution Blood Venous blood specimen / Unknown 04/24/2024 3:39 PM EDT 04/24/2024 5:44 PM EDT Corry Hill [facility] BLOOD ORDERABLES Final Resul t Performing Organization Address [facility] Co de Phone Number [facility] [address] [place] [phone] * (ABNORMAL) Lipid Panel, Standard (04/24/2024 3:39 PM EDT) Triglycerides 437(H) <150 mg/dL [facility] Comment:Slight Lipemia.Carly able Triglyceride: less than 150 mg/dLBorderline High Triglyceride 150-199 mg/dLHigh Triglyceride: 200-499 mg/dLVery High Triglyceride: greater than or equal to 5OO mg/dL Cholesterol 159 <200 mg/dL [facility] Comment:Desirable Cholestero l: less than 200 mg/dLBorderline High Cholesterol: 200-239 mg/dLHigh Cholesterol: greater than 239 mg/dL LDL Cholesterol Calculated TNP <100 mg/dL [facility] Comment:Unable to calculate the LDL. The formula of Friedwald,Perez, and Gilmar is only valid if the triglycerides areless than 400 mg/dl. HDL Cholesterol 26(L) >40 mg/dL [facility] Comment:Desirable HDL: great er than 40 mg/dL Note: This HDL assay may give artificially low results in patients with liver disease. Blood Venous blood specimen / Unknown 04/24/2024 3:39 PM EDT 04/24/2024 5:44 PM EDT Count includes the [facility] LAB BLOOD ORDERABLES Final Resul t [facility] [address] [place] [phone] * (ABNORMAL) Comprehensive Metabolic Panel (04/24/2024 3:39 PM EDT) Sodium 140 135 - 145 mmol/L [facility] Potassium 4.2 3.3 - 5.1 mmol/L [facility] Chloride 110(H) 96 - 108 mmol/L [facility] Carbon Dioxide 20(L) 22 - 29 mmol/L [facility] Anion Gap 14 12 - 20 [facility] Urea Nitrogen (BUN) 20(H) 9 - 16 mg/dL [facility] Creatinine, Serum 1.07 0.5 - 1.4 mg/dL [facility] Estimated Glomerular Filt Rate >60 [facility] Comment:Chronic Kidney Disea se: Estimated GFR < 60 mL/min/1.65l5Ydmjiu Kidney Disease: Estimated GFR < 15 mL/min/1.73m2 Glucose 136(H) 60 - 115 mg/dL [facility] Calcium 9.7 8.4 - 10.2 mg/dL [facility] Bilirubin, Total 0.3 0.0 - 1.0 mg/dL [facility] Aspartate Amino Transferase 35 5 - 37 U/L [facility] Alanine Aminotransferase 29 0 - 40 U/L [facility] Total Protein 8.8(H) 6.5 - 8.0 g/dL [facility] Albumin Level 4.2 3.5 - 5.0 g/dL [facility] Alkaline Phosphatase 56 39 - 117 U/L [facility] Blood Venous blood specimen / Unknown 04/24/2024 3:39 PM EDT 04/24/2024 5:44 PM EDT [place] ANP LAB BLOOD ORDERABLES Final Resul t [facility] [address] [place] [phone] * (ABNORMAL) POCT Urinalysis (04/10/2024 11:59 [...] Urine 04/10/2024 11:5 9 AM EST us [place] ANP POINT OF CARE TEST ENTER/EDIT OR DERABLES Final Result * (ABNORMAL) Albumin, Random Urine W/Creatinine (04/10/2024 11:50 AM EST) Creatinine, Urine 89.60 mg/dL [facility] Microalbumin Urine 153.0 mg/L H [facility] Microalbum Creatinine Ratio Ur 170.7(H) <30 ug/mg cr [facility] Comment:Albumin/Creatinine R atio Reference Ranges: Normal: < 30 ug/mg creatinine Microalbuminuria: 30 - 300 ug/mg creatinineClinical Albuminuria: > 300 ug/mg creatinine 04/10/2024 11:5 0 AM EST 04/10/2024 4:17 PM EST us Corry C[facility]TON LAB URINE ORDERABLES Final Resul t Performing Organization Address City/State/[facility] Co de Phone Number [facility] [address] [place] [phone] * (ABNORMAL) POCT HGB A1C (04/10/2024 11:28 AM EST) Hemoglobin A1C 6.4(A) 4.0 - 6.0 % QC Media Lot # [id number] Lot# Expiration Date ,026 Blood 04/10/2024 11:2 8 AM EST us [place] ANP POINT OF CARE TEST ENTER/EDIT OR DERABLES Final Result * POCT Glucose (04/10/2024 11:27 AM EST) Glucose Blood, POC 109 60 - 200 mg/dL QC Media Lot # [id number] Lot# Expiration Date [id number] Blood Capillary blood specimen / Unknown 04/10/2024 11:27 AM EST us [place] ANP POINT OF CARE TEST ENTER/EDIT OR DERABLES Final Result from Last 3 Months Insurance [facility] [employer] (HMO D-SNP) JOBY HANSEN [id number] Care Teams Brazing Machine Operator Automatic Relationship Specialty Start Date End Date [place] ANP [address] [place] [address] PCP - General Family Medicine 12/27/20 Fabrizio Ramos MD [address] [place], [place] Urology 01/04/24 [facility] 05/08/24
--- OUTSIDE RECORDS SUMMARY | 2024-06-23 11:33 | XMS_ITS ---
Author Name David KELSEYDee Address [address] [place] [address] Phone [phone] [facility] Care Team Providers Care Bread Distributor Name Role Phone Dee Hernandez Unavailable [phone] Reason for Referral Not Available Allergies, adverse [...] (do not use for phone, instead use [id number]) [facility]/29/2022 Essential (primary) hypertensionHyperlipidemia, unspecifiedAge-related osteoporosis without current pathological fractureGastro-esophageal reflux disease without esophagitisConstipation, unspecifiedInsomnia, unspecifiedUnspecified dementia without behavioral disturbanceTinnitus, unspecified earAnxiety disorder, unspecifiedLow back pain, unspecified New patient,40-59min; chronic exacerbation, 2 stable chronic or 1 acute illness add add modifier 95 for video (do not use for phone, instead use 07974-74) [facility] New patient,40-59min; chronic exacerbation, 2 stable chronic or 1 acute illness add add modifier 95 for video (do not use for phone, instead use 78603-19) [facility]22 New patient,40-59min; chronic exacerbation, 2 stable chronic or 1 acute illness add add modifier 95 for video (do not use for phone, instead use 79946-86) [facility]22 New patient,40-59min; chronic exacerbation, 2 stable chronic or 1 acute illness add add modifier 95 for video (do not use for phone, instead use 87555-20) [facility]29/2022 New patient,40-59min; chronic exacerbation, 2 stable chronic or 1 acute illness add add modifier 95 for video (do not use for phone, instead use 66837-76) [facility]29/2022 Vital Signs Date of Collection Vitals 2022-12-29 05:51:12 Height - 167.64 cmWe ight - 78.47 kgBody Mass Index (BMI) - 27.92 kg/m2BP Diastolic - 85.0 mm[Hg]BP Systolic - 155.0 mm[Hg]Pain Scale - 8.0 {score} Social History Social History Social History Observation Description Effec tive Time Current Smoking Status Never smoker 2024-06-12 2 Sex Male History of Procedures Procedures Service Procedure code Service date Servicing provider Phone# New patient,40-59min; chronic exacerbation, 2 stable chronic or 1 acute illness add add modifier 95 for video (do not use for phone, instead use 02116-33) [id number] 2022-12-29 No Data Available No Data Availa [...] BP regularly at home. Evaluate BP with PCP/Artists[employer] Model f/u visits. Follow a low sodium diet/diet [...] had a detailed discussion with patient/caregiver about [facility] 04/09 services, their diagnosis, and medications. Patient/caregiver verbalized understanding by teach-back method. All available medications were reconciliated, counseled patient/caregiver on treatment plan, compliance, and f/u care coordination with their established PCP and specialists. Health Concerns Date Concern 2022-12-29 Visit completed by a udio and video. Patient and Granddaughter, agreed to visit via telehealth. Introductory visit with [facility] to establish care. Today, patient has chief complaint of: establishing care.Reviewed Allergies, Medications, Active Medical conditions, past medical/surgical history, Social history. 2022-12-29 Most recent hospital stay(s) or ER visit(s) and precipitating factors: Denies any recent visit
--- OUTSIDE RECORDS SUMMARY | 2024-06-23 11:33 | XMS_ITS | Encounter Summary ---
Author Organization [employer] Address [address] [facility] [address]t [place] [address] Care Team Providers Care Table Cover Folder Name Role Phone Jeannie Fabian Primary Care Provider [phone] Fabrizio Ramos MD Unavailable [phone] Reason for Visit * Reason Comments Med Refill Encounter Details Date Type Department Care Team ([facility] st Contact Info) Description 02/18/2023 Refill [facility] [address] [place], [place] [phone] Jeannie Fabian ANP [address] [place] [address] Anxiety Social History Tobacco Use Types Packs/Day [...] Description 09/02/2024 1:00 PM EDT Office Visit [facility] [address] [place] [address] Jeannie Fabian ANP [address] [place] [address] documented as of this encounter Goals Goal [...] documented as of this encounter Care Teams Table Cover Folder Relationship Specialty Start Date End Date Jeannie Fabian ANP [address] [place] [address] PCP - General Family Medicine 12/27/20 Fabrizio Ramos MD [address] [place] [address] Urology 01/04/24 [facility] 05/08/24 documented as of this encounter
--- OUTSIDE RECORDS SUMMARY | 2024-06-23 11:33 | XMS_ITS | Encounter Summary ---
Author Organization [employer] Address [address] [facility] 7[address] [place] [address] Care Team Providers Care Drier Feeder Name Role Phone Jeannie Fabian Primary Care Provider [phone] Fabrizio Ramos MD Unavailable [phone] Reason for Visit * Reason Onset Date Comments FYI 09/06/2022 Encounter Details Date Type Department Care Team (Late Contact Info) Description 09/06/2022 Telephone [facility] [address] [place] [address] Jeannie Fabian ANP [address] [place] [address] FYI Social History Tobacco Use Types Packs/Day [...] Description 09/02/2024 1:00 PM EDT Office Visit [facility] [address] [place] [address] Jeannie Fabian ANP [address] [place] [address] documented as of this encounter Visit Diagnoses Not on filedocumented in this encounter Care Teams Drier Feeder Relationship Specialty Start Date End Date Jeannie Fabian ANP [address] [place] [address] PCP - General Family Medicine 12/27/20 Fabrizio Ramos MD [address] [place] [address] Urology 01/04/24 [facility] 05/08/24 documented as of this encounter
== END 2024-06-23 10:49 | disposition home or self-care (01) ==
LOC: HO.MAMMO 10:48
PROVIDERS: PCP Nurse Practitioner Primary Care; Visit Provider Internal Medicine Endocrinology, Diabetes & Metabolism
DX: M81.0 Age-related osteoporosis without current pathological fracture (principal)
CPT/HCPCS: 77080

== ENCOUNTER → 2024-06-23 10:49 | Outpatient (BNV) | payer OTHER, SELFPAY | PROVIDERS: PCP Nurse Practitioner Primary Care; Visit Provider Radiology Diagnostic Radiology | DX: M81.0 Age-related osteoporosis without current pathological fracture (principal) | CPT/HCPCS: 77080 ==

== ENCOUNTER 2024-07-15 10:40 | Outpatient (AMB) | payer OTHER, SELFPAY ==
[2024-07-15 11:05] VITALS: BP 100/58; PULSE 70; O2SAT 96; BMI 27.4
--- NOTE | 2024-07-15 11:05 | A.OFFVIS_ITS ---
Vital Signs 07/15/24 11:05 Height 5 ft 4.25 in Weight 160 lb 14.999 oz BMI 27.4 BP 100/58 L Blood Pressure Location Rt brachial Position Sitting Pulse 70 Pulse Source Pulse Oximeter Pulse Oximetry (%) 96 Oxygen Delivery Method Room Air Intake Visit Reasons: Osteoporosis Intake Note: Patient present today for Osteoporosis follow up. Patient reports around the fall months of 2023 is when he last injected Tymlos. 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 Services: It Specialist Present It Specialist Name: [facility] [place] [place] Information Interpreted: non-clinical & clinical Accompanied by: Daughter Allergies No Known Allergies Allergy (Verified 07/15/24 11:06) Medication List - Last Reconciled 07/15/24 by Sam Fry MD abaloparatide (Tymlos) 80 mcg (0.04 mL) subcut DAILY amlodipine 2.5 mg PO DAILY atorvastatin 80 mg PO DAILY ertapenem 1 g IV DAILY escitalopram oxalate 10 mg PO BEDTIME famotidine (Acid Assistant Professor Of Sociology (famotidine)) 10 mg PO BID olmesartan 20 mg PO DAILY HPI Comments Details: 83 YO M with] is seen in consultation at the request of PCP for Osteoporosis. Pt sent today for osteoporosis Received treatment in 6-7 yrs ago in the past with alendronate , for 1 yr Tolerated treatment well without complication. States currently not taking alendronate No history of pathologic fracture or ONJ. Has few servings of dietary calcium per day in the form of milk . Not Takes Calcium supplement . Not Takes Vitamin D daily. takes PPI, anticoagulant, antiepileptic or glucocorticoid medication. Not Does weight bearing exercise but walk 7 days per week Fracture history: No Height loss: No Denies history of Kidney stones: Has family history of Osteoporosis in brother but no hip fracture. UTD on dental cleanings and sees dentist every 6 months. No planned upcoming dental work or extractions. DXA dated 09/07/21:TECHNIQUE: Using a [employer] DXA System (software version: 13.1) manufactured by [employer], dual-energy x-ray absorptiometry was performed of the lumbar spine and left hip. The images are of good technical quality. Summary results are attached. FINDINGS: AP SPINE L1-L4: BMD 0.746 g/cm2, Z-score -3.3, T-score -3.9, osteoporosis. LEFT FEMUR, NECK: BMD 0.684 g/cm2, Z-score -1.5, T-score -3.0, osteoporosis. LEFT FEMUR, TOTAL: BMD 0.706 g/cm2, Z-score -1.6, T-score -2.7, osteoporosis. IDENTIFIED RISK FACTORS: Osteoporosis, renal. Labs: Secondary workup was negative except for low testosterone and patient not a candidate for testosterone replacement. Was started on Tymlos 3 mos ago off for 1 mo . Did not receive Tymlos in 04/2023 currently on Tymlos since 04/2023 but stopped a month ago.. No fx since this visit . The patient is an 83-year-old male presenting with osteoporosis management concerns. He was prescribed Tymlos injections beginning in September for osteoporosis treatment. There was ambiguity regarding the continuity and completion of the Tymlos regimen. The patient has been without any fractures since the previous appointment, indicating no acute exacerbation of the condition. Concern arose as the patient had not undergone a bone density test in three years, while they are stipulated every two years. This test is critical to assess how Tymlos has influenced bone density, determining whether to initiate alendronate therapy again. Ensuring no treatment deficiency is crucial to prevent loss of therapeutic benefits. Repeat DEXA shows the presence of moderate to severe osteoporosis FINDINGS: The bone mineral density of the lumbar spine is 0.810 with a T-score of -3.4, and a Z-score of -2.7. This is indicative of osteoporosis. This represents a BMD change of 8.6% compared to the prior exam. This is statistically significant. The bone mineral density of the left total hip is 0.693 with a T-score of -2.8, and a Z-score of -1.6. This is indicative of osteoporosis. This represents a BMD change of -1.8% compared to the prior exam. This is not statistically significant. The bone mineral density of the left femoral neck is 0.726 with a T-score of -2.6, and a Z-score of -1.1. This is indicative of osteoporosis. This represents a BMD change of 9.1% compared to the prior exam. The patient is an 83-year-old male presenting with osteoporosis management. He has been on Tymlos for the past year, resulting in improved bone density. Despite this, osteoporosis remains. The patient has completed 18 months on Tymlos but missed a couple of injections, indicating prior non-compliance issues. Prior to Tymlos, he was on alendronate. The goal is to transition to Prolia injections every six months for ongoing osteoporosis management as bone density improvement is observed. [facility] Medical History Elevated cholesterol Insomnia Solitary kidney, acquired History of kidney cancer Ureteral stent present Osteoporosis ESBL (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 Father Cancer Social History Household Members: Spouse Household Members Other:: Housing: Apartment Are you a primary acute care nurse practitioner to a significant other at home: No Do you presently have visiting nurse or other home services: No Alcohol intake: never Comment: tylenol and pyridium given Patient Tobacco Use Status: Never used Tobacco Second Hand Smoke Exposure: No service: No Current occupational status: disabled Physical Exam Vital Signs: Last Vital Signs Pulse 70 07/15/24 11:05 BP 100/58 L 07/15/24 11:05 Pulse Ox 96 07/15/24 11:05 Oxygen Delivery Method Room Air 07/15/24 11:05 BMI result Body Mass Index 27.4 Assessment & Plan Assessment & Plan (1) Osteoporosis: Code(s): M81.0 - Age-related osteoporosis without current pathological fracture Category: Medical Plan: This 83-year-old male with a history of osteoporosis. Secondary causes have been ruled out except for low testosterone. However, patient is not a candidate for testosterone replacement considering the past history of prostate cancer. Currently on Tymlos. DEXA showed that continuation of moderate to severe osteoporosis 1. Osteoporosis The patient's osteoporosis will be managed by transitioning from Tymlos to Prolia injections every six months in the office to maintain bone density improvements. Continued adherence to the treatment plan is emphasized. The patient had an opportunity to ask questions regarding treatment plan. The patient expressed understanding and agreement with the above treatment plan. I discussed with the patient the diagnosis of osteoporosis and the current management plan involving Tymlos, which has led to some improvement in bone density despite persistent osteoporosis. We reviewed the plan to switch to Prolia injections to maintain this progress. The risks and benefits of Prolia were outlined, including its role in preserving bone density. The importance of compliance with the injection schedule to avoid interruption in treatment was emphasized. Follow-up in four months was agreed upon to evaluate the transition to Prolia and ensure adherence to the schedule. - Continue taking Tymlos daily as prescribed until further instructions. - Transition to Prolia injections every six months as planned. - Ensure not to miss any injections and follow up in four months for evaluation and to maintain the bone density. - Adhere strictly to the treatment regimen to preserve bone health. The patient was counseled to achieve a target A1C of 7% (154 avg). Fasting blood sugars should be 90-130 in the morning and less than 180 two hours after meals. Reviewed the relationship between poor diabetic control and the development of complications. Check your feet daily looking for any signs of infection, drainage, redness, ulceration and seek medical attention if this occurs. Break in shoes gradually and do not wear open-toed shoes or walk stocking footed or barefooted. The patient had an opportunity to ask questions regarding treatment plan. The patient expressed understanding and agreement with the above treatment plan. Patient was informed and verbally consented to the use of an ambient scribe for clinic note documentation during this visit. Medications: Refilled abaloparatide (Tymlos) inject into abdomen; do not inject within 2 inches of belly button/navel; rotate sites 80 mcg (0.04 mL) subcut DAILY 1.56 mL 2RF Coding Level of Care Code Est Pt Level 3 (14264) Diagnoses Osteoporosis M81.0
--- OUTSIDE RECORDS SUMMARY | 2024-07-15 12:18 | XMS_ITS | Clinical Summary ---
Author Organization [employer] Address [address] [facility] [address] [place] [address] Care Team Providers Care Senior Credit Officer Name Role Phone [facility] Primary Care Provider [phone] Fabrizio Ramos MD Unavailable [phone] Allergies Active Allergy Reactions Criticality Noted Date Comments Ciprofloxacin Dizziness 12/27/2020 Medications * This document contains information received from the source organization and may not represent a complete record from that organization. Tymlos 3120 MCG/1.56ML solution pen-injector 3 Active Alcohol Swabs (Alcohol Prep) 70 % pads 3 Active polyethylene glycol, PEG, 3350 (MiraLax) 17 GM/SCOOP powderIndications :Constipation, unspecified constipation type Take 17 g by mouth in the morning. As needed once daily for constipation. Can use 2 times/d for up to 3 days if needed. 527 g 3 Active psyllium (Metamucil) 28.3 % powderIndications :Constipation, unspecified constipation type Take 12 g (3.4 g of fiber) by mouth 2 times daily. 575 g 2 3 Active atorvastatin (Lipitor) 80 MG tabletIndications :Cardiovascular event risk TAKE 1 TABLET BY MOUTH AT BEDTIME 90 tablet 3 4 Active escitalopram (Lexapro) 10 MG tabletIndications :Anxiety TAKE 1 TABLET BY MOUTH AT BEDTIME FOR ANXIETY 90 tablet 1 5 Active clotrimazole (Lotrimin) 1 % creamIndications: Genital pruritus Apply twice daily for 7 days to affected area 28 g 5 Active olmesartan (Benicar) 20 MG tabletIndications :Albuminuria,Esse ntial hypertension Take 1 tablet (20 mg) by mouth Once per day. 90 tablet 3 5 04/24/19 26 Active amLODIPine (Norvasc) 2.5 MG tabletIndications :Essential hypertension Take 1 tablet (2.5 mg) by mouth Once per day. 30 tablet 11 5 04/24/19 26 Active famotidine (Pepcid) 20 MG tabletIndications :Gastroesophageal reflux disease, unspecified whether esophagitis present Take 1 tablet (20 mg) by mouth Once daily. 30 tablet 11 5 06/04/19 26 Active Active Problems Problem Noted Date Diagnosed Date [...] and family PLAN: 1. Follow up with [facility]: Not recommended for follow-up 2. Patient goal is decrease anxiety symptoms. 3. Behavioral Recommendations a. Will comply with medication b. Will utilize coping techniques provided c. Will reach out to [facility], if additional support is needed Preoperative [...] absence of any injury. Intensity when severe /10 after he takes tylenol drops down to [...] Encounters Date Type Department Care Team Description 06/23/2024 Orders Only [facility] External Provider, [facility] 06/03/2024 10:30 AM EDT Office Visit [address] [address] [place] ANP ESBL (extended spectrum beta-lactamase) producing bacteria infection (Primary Dx); Complicated UTI (urinary tract infection); Solitary kidney, acquired; Essential hypertension; Ureteral stent present; Hospital discharge follow-up; Gastroesophageal reflux disease, unspecified whether esophagitis present 06/03/2024 Travel 05/29/[address] [address] [place] ANP chartprep 05/26/2024 Patient Outreach [address] [address] [place] ANP Transition Of Care (Tcm) (HDF- Scheduled ) 05/26/[address] [address] [place] ANP Hospital Follow-up; chartprep 05/20/[address] [address] [place] ANP August recall 05/13/[address] [address] [place] ANP Medication Question 05/12/2024 Orders Only [facility] External Provider, [facility] 05/01/2024 Orders Only GENERIC EXTERNAL DATA DEPARTMENT Provider, Generic External Data 04/28/2024 Orders Only [facility] [address] [place] [address] [place] ANP 04/25/2024 Orders Only [address] [address] [place] ANP Acute cystitis with hematuria (Primary Dx) 04/25/2024 Orders Only [address] [address] [place] ANP History of kidney cancer (Primary Dx); Hematuria, unspecified type 04/25/2024 Orders Only [address] [address] [place] ANP Elevated ferritin (Primary Dx); Acute cystitis with hematuria; History of renal carcinoma; Hematuria, unspecified type 04/24/2024 Orders Only [address] [address] [place] ANP 04/23/[address] [address] Raeann Raman RN Results 04/23/2024 Orders Only [address] [address] [place] ANP Albuminuria (Primary Dx); Essential hypertension from Last 3 Months Immunizations Immunization Administration Dates Next Due Influenza injectable quadrivalent [...] Description 09/02/2024 1:00 PM EDT Office Visit [facility] [address] [place] [address] [place], ANP [address] [place] [address] Health Maintenance Due Date Last Done Comments Zoster Vaccines (1 of 2) 1990 RSV Patients and Patients Aged 60 years or older (1 - 1-dose 75+ series) 08/10/2015 COVID-19 Vaccine ( season) 2023 02/07/2021, 01/17/2021, 03/18/2020 Influenza Vaccine (Season Ended) 2024 12/27/2020, 11/22/2011, 11/15/2010 Depression Screening 01/03/2025 01/04/2024, 10/18/19 [...] patient's age to complete this topic Meningococcal B Vaccine Aged Out No l onger eligible based on patient's age to complete [...] 136/75( 025 10:17 AM EDT) No Jaylen Blanca PharmD Procedures Procedure Name Priority Date/Time Associated Diagnosis Comments BD DEXA AXIAL Routine 06/23/2024 10:49 AM EDT FL GUIDANCE IN OR Routine 05/12/2024 7:5 [...] Routine 04/24/2024 3:39 PM EDT Dysuria POCT GLYCATED HEMOGLOBIN, TOTAL Routine 04/10/2024 11:28 AM EST Prediabetes from Last 3 Months or Most Recently Relevant to Health Maintenance Results * BD DEXA Axial (06/23/2024 10:49 AM EDT) Anatomical Region Laterality Modality Body Radiographic Tara ging 06/23/2024 10:4 9 AM EDT Narrative 06/23/2024 11:40 AM EDT ? [facility] ? [address] ?[place] [address] ?[phone] ? Mammography Report ? Signed ? Patient: Juan José Sandy,Augustine ?MR#: M ?? [id number] ? : 1940 ?Acct:[id number] ? Age/Sex: 83 / M ?ADM Date: 06/23/24 ? Loc: HO.MAMMO ? Attending Dr: Sam Fry MD ? Ordering Physician: Sam Fry MD ?Results: ? Date of Service: 06/23/24 ?Follow Up: ? Procedure(s): XR DEXA axial skeleton ?? Accession Number(s): [id number] ? cc: Sam Fry MD; CORRY H[place] NP ? EXAMINATION: ??DXA BONE DENSITY AXIAL ? HISTORY: ??M81.0 - Age-related osteoporosis without current pathological ?? fracture ? TECHNIQUE: NextInput Dual energy absorptiometry (DEXA) ?? of the lumbar spine, total left hip, and femoral neck was performed. ? COMPARISON: Comparison is made with the prior examination dated ?? 09/07/2021. ? FINDINGS: ? The bone mineral density of the lumbar spine is 0.810 with a T-score of ?? -3.4, and a Z-score of -2.7. This is indicative of osteoporosis. ? This represents a BMD change of 8.6% compared to the prior exam. ??This ?? is statistically significant. ? The bone mineral density of the left total hip is 0.693 with a T-score ?? of -2.8, and a Z-score of -1.6. This is indicative of osteoporosis. ? This represents a BMD change of -1.8% compared to the prior exam. ??This ?? is not statistically significant. ? The bone mineral density of the left femoral neck is 0.726 with a ?? T-score of -2.6, and a Z-score of -1.1. This is indicative of ?? osteoporosis. ? This represents a BMD change of 9.1% compared to the prior exam. ? FRACTURE RISK: ?? The FRAX index suggests a ten year probability of major osteoporotic ?? fracture of 7.4%, and of hip fracture 3.3%. ? MM/XR DEXA axial skeleton ?? IMPRESSION: ?? Based on bone mineral density, and according to World Health ?? Organization (WHO) criteria, the diagnosis is consistent with ?? osteoporosis. ? All bone density values are in grams per centimeter squared (g/cm2). ?? Statistically, 68% of repeat scans fall within 1 SD (+/- 0.010 g/cm2 ?? for AP spine L1-L4) and 1 SD (+/- 0.012 g/cm2 for femur total) ?? FRAX is a trademark of the [employer]'s ?? [place] for Metabolic Bone Disease, a World Health Organization (WHO) ?? Collaborating Center. ? Electronically signed by: ??Sam Canales MD ??06/23/2024 11:37 AM EDT ?? RP ? Dictated By: ?Sam Canales MD ? Signed By: ?<Electronically signed by Sam Canales MD in OV> ?06/23/241136 ? DD/ 1049 ? TD/TT: 06/23/24 1128 ? Associate Juvenile Court Judge: ? Procedure Note Donottanishainterpreter, Image - 06/23/2024 [facility] [address] [place] [address] Mammography Report Signed Patient: Augustine Rodriguez#: M [id number] : 1940cct:[id number] Age/Sex: 83 / MADM Date: 06/23/24 Loc: CARO Attending Dr: Sam Fry MD Ordering Physician: Sam Fryesults: Date of Service: 06/23/24Follow Up: Procedure(s): XR DEXA axial skeleton Accession Number(s): [id number] cc: Sam Fry MD; CORRY HILL NP EXAMINATION: DXA BONE DENSITY AXIAL HISTORY: M81.0 - Age-related osteoporosis without current pathological fracture TECHNIQUE: NextInput Dual energy absorptiometry (DEXA) of the lumbar spine, total left hip, and femoral neck was performed. COMPARISON: Comparison is made with the prior examination dated 09/07/2021. FINDINGS: The bone mineral density of the lumbar spine is 0.810 with a T-score of -3.4, and a Z-score of -2.7. This is indicative of osteoporosis. This represents a BMD change of 8.6% compared to the prior exam. This is statistically significant. The bone mineral density of the left total hip is 0.693 with a T-score of -2.8, and a Z-score of -1.6. This is indicative of osteoporosis. This represents a BMD change of -1.8% compared to the prior exam. This is not statistically significant. The bone mineral density of the left femoral neck is 0.726 with a T-score of -2.6, and a Z-score of -1.1. This is indicative of osteoporosis. This represents a BMD change of 9.1% compared to the prior exam. FRACTURE RISK: The FRAX index suggests a ten year probability of major osteoporotic fracture of 7.4%, and of hip fracture 3.3%. MM/XR DEXA axial skeleton IMPRESSION: Based on bone mineral density, and according to World Health Organization (WHO) criteria, the diagnosis is consistent with osteoporosis. All bone density values are in grams per centimeter squared (g/cm2). Statistically, 68% of repeat scans fall within 1 SD (+/- 0.010 g/cm2 for AP spine L1-L4) and 1 SD (+/- 0.012 g/cm2 for femur total) FRAX is a trademark of the [employer]'s [place] for Metabolic Bone Disease, a World Health Organization (WHO) Collaborating Center. Electronically signed by: Sam Canales MD 06/23/2024 11:37 AM EDT Dictated By: Sam Canales MD Signed By: <Electronically signed by Sam Canales MD in OV> 06/23/24 1137 DD/ 1049 TD/TT: 06/23/[address] Judge: [facility] External Provider IMG DXA PROCEDURES Final Result * FL Guidance in OR (05/12/2024 7:50 AM EDT) Anatomical Region Laterality Modality X-Ray Angiograph y 05/12/2024 7:50 AM EDT Narrative 05/12/2024 9:04 AM EDT ? [facility] ?[address] ?[place] [address] ? Fluoroscopy Report ? Signed ? Patient: Juan José Sandy,Augustine ?MR#: M ?? [id number] ? : 1940 ?Acct:[id number] ? Age/Sex: 83 / M ?ADM Date: 05/12/24 ? Loc: HO.SSS ? Attending Dr: Fabrizio Ramos MD ? Ordering Physician: Fabrizio Ramos MD ?? Date of Service: 05/12/24 ?? Procedure(s): FL guidance in OR ?? Accession Number(s): [id number] ? cc: Fabrizio Ramos MD; CORRY HILL [...] DD/ 0750 ? TD/TT: 05/12/24 0800 ? Associate Juvenile Court Judge: ? Procedure Note Lou Mello - 05/12/2024 [place] [address] Fluoroscopy Report Signed Patient: Augustine RodriguezMR#: M [id number] : 1940cct:[id number] Age/Sex: 83 / MADM Date: 05/12/24 Loc: HO.SSS Attending Dr: Fabrizio Ramos MD Ordering Physician: Fabrizio Ramos MD Date of Service: 05/12/24 Procedure(s): FL guidance in OR Accession Number(s): [id number] cc: Fabrizio Ramos MD; CORRY HILL NP [...] by Sam Canales MD in OV> 05/12/24 0902 DD/ 0750 TD/TT: 05/12/[address] Judge: [facility] External Provider IMG IR PROCEDURES Final Result * (ABNORMAL) Hepatic Function Panel (05/01/2024 12:38 PM EDT) [facility] Bilirubin, Total 0.2 0.0 - 1.0 mg/dL [facility] Bilirubin, Direct <0.2 0.0 - 0.5 mg/dL [facility] Aspartate Amino Transferase 23 5 - 37 U/L [facility] Alanine Aminotransferase 21 0 - 40 U/L [facility] Total Protein 8.6(H) 6.5 - 8.0 g/dL [facility] Albumin Level 4.2 3.5 - 5.0 g/dL [facility] Alkaline Phosphatase 55 39 - 117 U/L [facility] 05/01/2024 12:3 8 PM EDT 05/01/2024 12:45 PM EDT Generic External Data Provider LAB BLOOD ORDERAB LES Final Result [facility] [address] [place] [address] [phone] * (ABNORMAL) Basic Metabolic Panel (05/01/2024 12:38 PM EDT) [facility] Sodium 140 135 - 145 mmol/L [facility] Potassium 3.8 3.3 - 5.1 mmol/L [facility] Chloride 111(H) 96 - 108 mmol/L [facility] Carbon Dioxide 21(L) 22 - 29 mmol/L [facility] Anion Gap 12 12 - 20 [facility] Urea Nitrogen (BUN) 25(H) 9 - 16 mg/dL [facility] Creatinine, Serum 1.09 0.5 - 1.4 mg/dL [facility] Creatinine Clr Calc Pharmacy 46.9 [facility] Comment:eGFR (calculated fro m the MDRD study equation) and eCrCl(calculated from the Cockcroft-Gault equation) are based ondifferent parameters and may not yield comparable results.If eCrCl result is absurd, please check patient'sheight/weight. Estimated Glomerular Filt Rate >60 [facility] Comment:Chronic Kidney Disea se: Estimated GFR < 60 mL/min/1.10f7Nhsbel Kidney Disease: Estimated GFR < 15 mL/min/1.73m2 Glucose 125(H) 60 - 115 mg/dL [facility] Calcium 9.6 8.4 - 10.2 mg/dL [facility] 05/01/2024 12:3 8 PM EDT 05/01/2024 12:45 PM EDT us Generic External Data Provider LAB BLOOD ORDERAB LES Final Result [facility] [address] [place] [phone] * (ABNORMAL) Urinalysis, Complete, with Reflex to Culture (05/01/2024 12:37 PM EDT) Only the most recent of2 resultswithin the time period is included. Color Urine Yellow [facility] Appearance Urine Cloudy [facility] PH 5.5 5.0 - 9.0 [facility] Glucose Urine UA Negative Negative mg/dL [facility] Urine Blood Large (3+)(A) Negative [facility] Specific [place] - Urine 1.015 1.005 - 1.025 [facility] Urine Protein 30 (1+)(A) Neg-Trace mg/dL [facility] Urine Ketones Negative Negative mg/dL [facility] Nitrite Urine Positive(A) Negative [facility] Leukocyte Esterase Urine Large (3+)(A) Negative [facility] RBC Urine >20(A) 0 - 2 /HPF [facility] Urine WBC >50(A) 0 - 5 /HPF [facility] Urine Squamous Epithelial Cell 0-2 0 - 2 /HPF [facility] Urine Bacteria 4+ None Seen [facility] Hyaline Casts, Urine 0-2 0 - 2 /LPF [facility] 05/01/2024 12:3 7 PM EDT 05/01/2024 12:45 PM EDT Narrative [facility] - 05/01/2024 1:10 PM EDT [id number], Clean Catch us Generic External Data Provider LAB URINE ORDERAB LES Final Result [facility] [address] [place] [phone] * (ABNORMAL) CBC auto differential (05/01/2024 12:37 PM EDT) Only the most recent of2 resultswithin the time period is included. White Blood Count 6.2 4.8 - 10.8 X10*3/uL [facility] Red Blood Count 4.40(L) 4.60 - 5.80 X10*6/uL [facility] Hemoglobin 13.7(L) 14.0 - 18.0 g/dl [facility] Hematocrit 40.7(L) 42.0 - 52.0 % [facility] Mean Corpuscular Volume 92.5 80.0 - 98.0 fL [facility] Mean Corpuscular Hemoglobin 31.1 27.0 - 33.0 pg [facility] Mean Corpuscular HGB Conc 33.7 31.0 - 36.0 g/dl [facility] Red Cell Distribution Width 13.3 11.0 - 16.0 % [facility] Platelet Count 121(L) 160 - 400 X10*3/uL [facility] Mean Platelet Volume 10.9 9.4 - 12.4 fL [facility] Neutrophils Percent Auto 43.2(L) 45 - 73 % [facility] Imm Gran Pct Auto 0.5(H) 0.0 - 0.4 % [facility] Lymphocytes Percent Auto 40.3(H) 20 - 40 % [facility] Monocytes Percent Auto 12.2(H) 2 - 11 % [facility] Eosinophils Percent Auto 3.2 0 - 4 % [facility] Basophils Percent Auto 0.6 0 - 2 % [facility] NRBC Pct Auto 0.0 0.0 - 0.2 /100WBC [facility] Neutrophils Absolute Auto 2.7 2.0 - 8.3 x10*3/uL [facility] Imm Gran Abs Auto 0.03 0.00 - 0.03 X10*3/uL [facility] Lymphocytes Absolute Auto 2.5 1.2 - 4.9 X10*3/uL [facility] Monocytes Absolute Auto 0.8 0.1 - 1.2 X10*3/uL [facility] Eosinophils Absolute Auto 0.2 0.0 - 0.4 X10*3/uL [facility] Basophils Absolute Auto 0.0 0.0 - 0.2 X10*3/uL [facility] NRBC Abs Auto 0.000 0.0 - 0.012 X10*3/uL [facility] 05/01/2024 12:3 7 PM EDT 05/01/2024 12:45 PM EDT us Generic External Data Provider LAB BLOOD ORDERAB LES Final Result [facility] [address] [place] [phone] * Cytopath-cell enhanced (04/24/2024 3:39 PM EDT) 04/24/2024 3:39 PM EDT 04/25/2024 10:40 AM EDT Narrative [facility] - 04/28/2024 10:20 AM EDT ----- ------- Name: Augustine Rodriguez ?Age/Sex: 83/M ? : 1940 Unit#: [id number] ?? Attend Dr: CORRY HILL NP ?Re04/24/24 ?Status: DEP REF ? Location: [facility] ? Disch: ? ----- ------- SPEC : [id number] ? RECD: 04/25/24 ? STATUS: ??SOUT ? REQ NUM: [id number] ? FAMILIA: 04/24/24-1538 ? SUBM DR: CORRY HILL NP ? ENTERED: ??04/25/24 ?SP TYPE: Cytology ? OTHR : ? [...] ORDERABLES Final Re sult Performing Organization Address [facility] de Phone Number [facility] [address] [place] [phone] * (ABNORMAL) Iron And Total Iron Binding Capacity (04/24/2024 3:39 PM EDT) Iron 67 45 - 160 mcg/dL [facility] Total Iron Binding Capacity 170(L) 228 - 428 mcg/dL [facility] Percent Iron Saturation 39 15 - 50 % [facility] Unsaturated Iron Binding 103 ug/dL [facility] Blood Venous blood specimen / Unknown 04/24/2024 3:39 PM EDT 04/24/2024 5:44 PM EDT [place] ANP LAB BLOOD ORDERABLES Final Resul t Performing Organization Address [facility] Co de Phone Number [facility] [address] [place] [phone] * Culture, Urine, Routine (04/24/2024 3:39 PM EDT) Urine Urine specimen obtained by clean catch procedure / Unknown 04/24/2024 3:39 PM EDT 04/24/2024 5:25 PM EDT Comment:UACC Narrative [facility] - 04/27/2024 7:41 AM EDT [...] Source: Urine clean catch [place] [facility] MICROBIOLOGY - GENERAL ORDER DAVID Final Result Performing Organization Address [facility] de Phone Number [facility] [address] [place] [phone] * (ABNORMAL) Transferrin (04/24/2024 3:39 PM EDT) Transferrin 143(A) 188 - 341 mg/dL [facility] Comment:THIS TEST WAS PERFOR MED AT:[facility] [place] [phone] ROSENBERG MD Blood Venous blood specimen / Unknown 04/24/2024 3:39 PM EDT 04/24/2024 5:44 PM EDT [place] ANP LAB BLOOD ORDERABLES Final Resul t Performing Organization Address [facility] de Phone Number [facility] [address] [place] [phone] * (ABNORMAL) Ferritin (04/24/2024 3:39 PM EDT) Ferritin 1,984(H) 20 - 250 ng/mL [facility] Comment:Verified by dilution Blood Venous blood specimen / Unknown 04/24/2024 3:39 PM EDT 04/24/2024 5:44 PM EDT [place] ANP LAB BLOOD ORDERABLES Final Resul t Performing Organization Address [facility] Co de Phone Number [facility] [address] [place] [phone] * (ABNORMAL) Lipid Panel, Standard (04/24/2024 3:39 PM EDT) Triglycerides 437(H) <150 mg/dL [facility] Comment:Slight Lipemia.Carly able Triglyceride: less than 150 mg/dLBorderline High Triglyceride 150-199 mg/dLHigh Triglyceride: 200-499 mg/dLVery High Triglyceride: greater than or equal to 5OO mg/dL Cholesterol 159 <200 mg/dL [facility] Comment:Desirable Cholestero l: less than 200 mg/dLBorderline High Cholesterol: 200-239 mg/dLHigh Cholesterol: greater than 239 mg/dL LDL Cholesterol Calculated TNP <100 mg/dL [facility] Comment:Unable to calculate the LDL. The formula of Friedwald,Perez, and Gilmar is only valid if the triglycerides areless than 400 mg/dl. HDL Cholesterol 26(L) >40 mg/dL [facility] Comment:Desirable HDL: great er than 40 mg/dL Note: This HDL assay may give artificially low results in patients with liver disease. Blood Venous blood specimen / Unknown 04/24/2024 3:39 PM EDT 04/24/2024 5:44 PM EDT [place] [facility] BLOOD ORDERABLES Final Resul t [facility] [address] [place] [phone] * (ABNORMAL) Comprehensive Metabolic Panel (04/24/2024 3:39 PM EDT) Sodium 140 135 - 145 mmol/L [facility] Potassium 4.2 3.3 - 5.1 mmol/L [facility] Chloride 110(H) 96 - 108 mmol/L [facility] Carbon Dioxide 20(L) 22 - 29 mmol/L [facility] Anion Gap 14 12 - 20 [facility] Urea Nitrogen (BUN) 20(H) 9 - 16 mg/dL [facility] Creatinine, Serum 1.07 0.5 - 1.4 mg/dL [facility] Estimated Glomerular Filt Rate >60 [facility] Comment:Chronic Kidney Disea se: Estimated GFR < 60 mL/min/1.07c2Ynkjci Kidney Disease: Estimated GFR < 15 mL/min/1.73m2 Glucose 136(H) 60 - 115 mg/dL [facility] Calcium 9.7 8.4 - 10.2 mg/dL [facility] Bilirubin, Total 0.3 0.0 - 1.0 mg/dL [facility] Aspartate Amino Transferase 35 5 - 37 U/L [facility] Alanine Aminotransferase 29 0 - 40 U/L [facility] Total Protein 8.8(H) 6.5 - 8.0 g/dL [facility] Albumin Level 4.2 3.5 - 5.0 g/dL [facility] Alkaline Phosphatase 56 39 - 117 U/L [facility] Blood Venous blood specimen / Unknown 04/24/2024 3:39 PM EDT 04/24/2024 5:44 PM EDT us [facility] LAB BLOOD ORDERABLES Final Resul t [facility] [address] [place] [phone] * (ABNORMAL) POCT HGB A1C (04/10/2024 11:28 AM EST) Hemoglobin A1C 6.4(A) 4.0 - 6.0 % QC Media Lot # [id number] Lot# Expiration Date Blood 04/10/2024 11:2 8 AM EST us [place] ANP POINT OF CARE TEST ENTER/EDIT OR DERABLES Final Result from Last 3 Months or Most Recently Relevant to Health Maintenance Insurance [facility] [employer] (HMO D-SNP) Care Teams Senior Credit Officer Relationship Specialty Start Date End Date [place] ANP [address] [place] [phone] PCP - General Family Medicine 12/27/20 Fabrizio Ramos MD [address] [place] [address] Urology 01/04/24 [facility] 05/08/24
== END 2024-07-15 11:22 | disposition home or self-care (01) ==
PROVIDERS: PCP Nurse Practitioner Primary Care; Visit Provider Internal Medicine Endocrinology, Diabetes & Metabolism
DX: M81.0 Age-related osteoporosis without current pathological fracture (principal)
CPT/HCPCS: 99213

== ENCOUNTER → 2024-07-15 10:40 | Outpatient (BNVA) | payer OTHER, SELFPAY | PROVIDERS: PCP Nurse Practitioner Primary Care; Visit Provider Internal Medicine Endocrinology, Diabetes & Metabolism | DX: M81.0 Age-related osteoporosis without current pathological fracture (principal) | CPT/HCPCS: 99212 ==

== ENCOUNTER 2024-08-19 11:12 | Outpatient (AMB) | payer OTHER, SELFPAY ==
--- OUTSIDE RECORDS SUMMARY | 2019-02-20 03:48 | XMS_ITS | Continuity of Care Document ---
Author Organization [facility] Address [address] [place] [address] Care Team Providers Care Advisory Intern Name Role Phone Macy Villanueva MD, Kaity [...] route every day 10 MG - Active loratadine 10 mg tablet 1 TABLET ONCE DAILY (COMEZON) - Active atorvastatin 40 mg tablet 1 TABLET AT BEDTIME EVERY DAY FOR CHOLESTEROL - Active amlodipine 10 mg tablet 1 TABLET EACH DAY FOR BLOOD PRESSURE AND HEART - Active Vitamin D3 1,000 unit capsule tomese 1 tableta freda vez al irma para huesos - Active ammonium lactate 12 % topical cream Use diario para piel seca - Active Procedures Procedure Date PSYCH DIAGNOSTIC [...] Diagnoses Date Provider Providers Copied on Encounter [facility], [address], [place], [place], [id number], [place] [facility] Adult No Information 0 Macy Briceno. [address] [place] [address], [place], [id number], [place]. tel:[phone] [facility], [address], [place], [place], [id number], [place] [facility] Adult No Information 9 Macy Briceno. [address] [place] [address], [place], [place], [id number], [place]. tel:[phone] [facility], [address], [place], [place], [id number], [place] [facility] Adult No Information 9 Rosalinda Brown. [address] [place], [place] [address], [address], [place]. tel:[phone] [facility], [address], [place], [place], [id number], [place] Md Adult No Information 9 Macy Briceno. [address] [place] [address], [place], [place], [id number], [place]. tel:[phone] [facility], [address], [place], [place], [id number], [place] Md Adult No Information 9 Macy Briceno. [address] [place] [address], [place], [id number], [place]. tel:[phone] PSYCH DIAGNOSTIC EVALUATION [facility], [address], [place], [place], [id number], [place] [facility] (generalized anxiety disorder) 9 Kash Mckeon. [address] [place] [address], [place], [id number], [place]. tel:[phone] Referring Provider: Gabby Gonzalez, [address] [place] [address], [place], [address] . tel:[phone] OFFICE/OUTPA TIENT VISIT, [facility], [address], [place], [id number], [place] Radha Adult Insomnia (chief complaint)mor e (chief complaint) Other insomniaAnxietyA ge-related osteoporosis without current pathological fractureEssentia l hypertensionUPJ (ureteropelvic junction) obstructionPredi abetesCold feeling 9 Lisa Pierre. [address] [facility], [place], [id number], [place]. tel:[phone] Referring Provider: Gabby Gonzalez, [address] [facility], [place], [address] . tel:[phone] [facility], [address], [place], [id number], [place] Radha Adult No Information 9 Tracey Villalobos. [address] [place] [address], [place], [address], [place]. tel:[phone] [facility], [address], [place], [id number], [place] Radha Adult Chronic bilateral low back pain without sciaticaOther chronic pain 8 Webb Griselda. [address] [place] [address], [place], [address], [place]. tel:[phone] OFFICE/OUTPA TIENT VISIT, EST [facility], [address], [place], [id number], [place] aRdha Adult Follow up visit (chief complaint)hyp ertension (chief complaint) Body mass index (BMI) 29.0-29.9, adultChronic bilateral low back pain without sciaticaOther chronic painEssential hypertensionUPJ (ureteropelvic junction) obstruction 8 Webb Griselda. [address] [place] [address], [place], [address], [place]. tel:[phone] PREV VISIT, EST, 65 & OVER [facility], [address], [place], [id number], [place] Radha Adult preventive exam (chief complaint) Encounter for general adult medical examination with abnormal findingsEssentia l hypertensionGast roesophageal reflux disease without esophagitisChron ic ischemic colitisMalignant neoplasm prostateAge-rela clint osteoporosis without current pathological fractureHiatal herniaUPJ (ureteropelvic junction) obstructionBody mass index (BMI) 30.0-30.9, adult 8 Tracey Villalobos. [address] [place] [address], [place], [address], [place]. tel:[phone] OFFICE/OUTPA TIENT VISIT, [facility], [address], [place], [place], [id number], [place] MdlS Adult hypertension (chief complaint)abd ominal pain (chief complaint)dry skin (chief complaint) Dry skin dermatitisEssent ial hypertensionGast roesophageal reflux disease without esophagitisSolit joe kidney Tracey Villalobos. [address] [place] [address], [place], [address], [place]. tel:[phone] OFFICE/OUTPA TIENT VISIT, [facility], [address] [place] [place], [id number], [place] M[facility] Adult hypertension (chief complaint)Cou gh (chief complaint) CoughEssential hypertension 8 Tracey Villalobos. [address] [place] [address], [place], [address], [place]. tel:[phone] OFFICE/OUTPA TIENT VISIT, [facility], [address] [place], [id number], [place] MdlS Adult hypertension (chief complaint)shelby st pain (chief complaint) CoughEssential hypertension Tracey Villalobos. [address] [place] [address], [place], [address], [place]. tel:[phone] OFFICE/OUTPA TIENT VISIT, [facility], [address] [place], [id number], [place] M[facility] Adult Discuss test results (chief complaint)hyp ertension (chief complaint)dry skin (chief complaint) Essential hypertensionAge- related osteoporosis without current pathological fractureDry skin dermatitis 7 Tracey Villalobos. [address] [place] [address], [place], [address], [place]. tel:[phone] OFFICE/OUTPA TIENT VISIT, [facility], [address], [place], [place], [id number], [place] MdlS Adult hypertension (chief complaint)hyp erlipidemia (chief complaint) Essential hypertensionHype rlipidemia, mixedBody mass index (BMI) 29.0-29.9, adult 7 Webb Griselda. [address] [facility], [place], [address], [place]. tel:[phone] [facility], [address], [place], [place], [id number], [place] M[facility] Adult Screening for diabetes mellitus [address] [place] [facility], [place], [place], [id number], [place]. tel:[phone] OFFICE/OUTPA TIENT VISIT, [facility], [address], [place], [id number], [place] Mdl[place] Adult hypertension (chief complaint)aki h (chief complaint) Dry skin dermatitisHyperl ipidemia, mixedEssential hypertension 7 Tracey Villalobos. [address] [place] [address], [place], [address], [place]. tel:[phone] [facility], [address], [place], [id number], [place] M[facility] Adult No Information May-0 [address] [facility], [place], [id number], [place]. tel:[phone] [facility], [address], [place], [id number], [place] MdlS Adult Hyperlipidemia, mixedEssential hypertension Apr-0 3-201 [address] [address] [facility], [place], [id number], [place]. tel:[phone] OFFICE/OUTPA TIENT VISIT, [facility], [address], [place], [id number], [place] M[facility] Adult hypertension (chief complaint)cou gh (chief complaint)Med ication Refills (chief complaint) Malignant neoplasm prostateChronic ischemic colitisKidney stoneScreening for osteoporosisCoug hEssential hypertensionScre ening for diabetes mellitusMultiple joint pain 0 7 [place]. [address] [place] [address], [facility] [place], [place], [id number], [place]. 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 [address] [place] [address] [place], [address], [place]. tel:[phone] OFFICE/OUTPA TIENT VISIT, [facility], [address], [facility] [place], [id number], [place] Mdl[place] Adult Discuss test results (chief complaint)hyp ertension (chief complaint)aki h (chief complaint) Essential hypertensionDry skin dermatitis Tracey Villalobos. [address] [place] [address] [place], [address], [place]. tel:[phone] OFFICE/OUTPA TIENT VISIT, [facility], [address], [facility] [place], [id number], [place] M[facility] Adult Medication Refill (chief complaint)Pre vention (chief complaint)hyp ertension (chief complaint)hyp erlipidemia (chief complaint) Body mass index (BMI) 28.0-28.9, adultEssential hypertensionHype rlipidemia, mixedKidney diseaseScreen for STD (sexually transmitted disease)Screenin g PSA (prostate specific antigen)Screen for colon cancer 6 Rosalinda Brown. [address] [place], [address], [place]. tel:[phone] Family History Family Member Type Diagnosis Age [...] ID Authoriza tion(s) Medicare 2014 NGS MB [id number] Medicaid [id number] Medicaid [place] [id number] Medicaid [place] [id number] Social History Type Description Quantity Date Captured [...] Goal Lipid panel. Due on due Goal Prevnar 13 (PCV13). Due on due Goal Zoster Vaccine. Due on due Goal Cognitive assess ment. Due on due Goal Depression scree ramona. Due on due Goal Lipid panel. Due on due Goal BMP. Due on due Goal Influenza Vaccine. Due on due Goal Depression scree [...] Cognitive assess ment. Due on due Goal BMP. Due on due Goal Lipid panel. Due on due Goal Prevnar 13 (PCV13). Due on due Goal Zoster Vaccine. Due on due Goal Influenza Vaccine. Due on due Goal Cognitive assess ment. Due on due Goal Depression scree ramona. Due on due Goal Lifestyle education regardin g diet completed Goal Lipid panel. Due on 018 due Goal Influenza Vaccine. Due on due Goal Zoster Vaccine. Due on due Goal BMP. Due on due Goal Depression scree ramona. Due on due Goal Cognitive assess ment. Due on due Goal Prevnar 13 (PCV13). Due on M due Goal Influenza Vaccine. Due on due Goal Prevnar 13 (PCV13). Due on due Goal Zoster Vaccine. Due on due Goal Cognitive assess ment. Due on due Goal Influenza Vaccine. Due on due Goal Zoster Vaccine. Due on due Goal Cognitive assess ment. Due on due Goal Prevnar 13 (PCV13). Due on A due Goal Influenza Vaccine. Due on due [...] due Goal FOBT. Due on due Goal Zoster Vaccine. Due on due Goal Influenza Vaccine. Due on due Goal Pneumococcal vaccine due Goal Zoster Vaccine. Due on due [...] BONE DENSITY, AXIAL ordered Referral Referred To: [facility]/ GI Ordered: Referrals: Gastroenterology. [facility]/ GI. Evaluate and treat ordered Patient Education Dry Skin: After Your Vi sit completed Patient Education Dry Skin: After Your Vi sit completed Patient Education Dry Skin: After Your Vi sit completed Future Order: Lab Order LIPID PA DAVID ([id number]), Collected on: Ordered Future Order: Lab Order HEMOGLOB IN A1C ([id number]), Ordered on: Ordered Future Order: Lab Order Hep B Segal rface Ab ([id number]), Ordered on: Ordered Future Order: Lab Order PSA ([id number]), O rdered on: Ordered Future Order: Lab Order HIV SCRE EN ([id number]), Ordered on: Ordered Future Order: Lab Order Microalb umin with creatinine and ratio ([id number]), Ordered on: Ordered Future Order: Lab Order HEPATITI S C Ab ([id number]), Ordered on: Ordered Future Order: Lab Order LIPID PA DAVID ([id number]), Ordered on: Ordered Future Order: Lab Order BMP ([id number]), O rdered on: Ordered History Of Present [...] memoryCRC screening was completed on 10/27/15 at [facility]. BULK SAUSAGE CASING TIER OFF [facility] insurance anymoreHas appt for ?cathetization in [...] gender. Discuss test results pt went to [facility] ,wants to know result of testFeels like [...] did colonosc opy 4 years ago in [place]. Functional Status Date Functional Assessmen t No Information Instructions Date Instruction Additional Infor lizzie Following with Dr. Reyna Flores [facility] UrologyHistory of a left proximal ureteral stricture s/p robotic ureteral reconstruction, now with recurrent obstruction - says next appt in June 2018 Related to UPJ (ureteropelvic junction) obstruction Following with Dr. Reyna Flores [facility] UrologyHistory of a left proximal ureteral stricture [...] low back pain without sciatica Well adult male.[place] care every 6 months.Eye doctor appt [...] neoplasm prostate Following with Dr. Reyna Flores [facility] UrologyMost recent note by Dr. Flores 06/14/17: [...] to Age-related osteoporosis without current pathological fracture Giving encouragement to exercise Related to Body mass index (BMI) 30.0-30.9, adult Lifestyle education regarding di et Related [...] Essential hypertension Stable and at goal t neo. JNC 8 goals are <140/90 if less than <60 yo, <150/90 if older than 65 yo. Low salt dietReport chest pain, shortness of breath, edemaContinue current medications RTO 3 months Related to Essential hypertension Continue atorvastati n 40 mg to protect against [place] and CVAFollow healthy diet for cholesterol Related [...] breath, edemaContinue current medications - [facility] to [facility] pharmacy now that pt doesn't have insuranceRTO [...]
--- NOTE | 2024-08-19 11:12 | A.OFFVIS_ITS ---
Intake Visit Reasons: H&P Stent Exchange/L Ureteric stricture Intake Note: Patient is present for H&P STENT exchange , left ueretriv strictiure Urology Medication:NONE Antibiotic Allergy:NONE Blood Thinner:NONE Regulatory Specialist Required: Yes Accompanied by: Self / Same As Patient Allergies No Known Allergies Allergy (Verified 07/15/24 11:06) HPI Comments Details: Augustine is a pleasant Pashto-speaking male. He is a patient of Dr. Fabian. Seen for the following urologic conditions - renal cancer - persistent left hydronephrosis managed with indwelling stent Telemedicine Evaluation 15 min Consultation Next[employer] Manuelito Video Pashto translation provided by qualified medical program specialist Left stent exchanged 05/06 - doing well Plan on exchange in 5 months - 09/2024 Confirmed minimal difficulty with stent in past 5 months Renal cancer Prior right nephrectomy Left hydronephrosis Initially managed through [facility] Indwelling stent changed every 5 months [facility] Medical History (Updated 08/20/24 @ 08:30 by Fabrizio Ramos MD) Acquired stricture of ureter Ureteral stent present Essential hypertension Elevated cholesterol Insomnia Solitary kidney, acquired History of kidney cancer Osteoporosis ESBL (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 Father Cancer Social History Household Members: Spouse Household Members Other:: Housing: Apartment Are you a primary healthcare consultant to a significant other at home: No Do you presently have visiting nurse or other home services: No Alcohol intake: never Comment: tylenol and pyridium given Patient Tobacco Use Status: Never used Tobacco Second Hand Smoke Exposure: No service: No Current occupational status: disabled Review of Systems Const All systems reviewed & are unremarkable except as noted in HPI and below Reports no additional complaints Resp Reports no additional complaints GI Reports no additional complaints Reports as per HPI Musc Reports no additional complaints Physical Exam Telemedicine evaluation Appropriate responses Regular breathing rate and rhythm HEENT Head: Yes normal to inspection Ears: hearing grossly normal bilaterally Eyes General: appearance normal, both eyes and all related structures Neck Neck: Yes normal visual inspection Chest Chest palpation & inspection: normal inspection of the chest Resp Effort & Inspection: normal respiratory effort and able to speak in complete sentences Telehealth Telehealth Telehealth Platform: NextGame Location of provider rendering services: practice address Location of patient: address on file Patient Identification confirmed using: Name, : Yes Telehealth method: video Patient verbally consented to treatment: Yes Patient verbally consented to billing insurance company: Yes Patient informed of any privacy concerns related to visit: Yes Minutes spent on Phone/Video with Pt.: 15 Assessment & Plan Assessment & Plan (1) Ureteral stent present: Code(s): Z96.0 - Presence of urogenital implants Category: Medical (2) Acquired stricture of ureter: Code(s): N13.5 - Crossing vessel and stricture of ureter without hydronephrosis Category: Medical Plan Risks, benefits and alternatives to therapy were discussed. These include but are not limited to infection, bleeding, damage to local organs and tissues, need for further interventions. Anesthetic risks regarding cardiac arrhythmia, blood clots, and potential mortality were discussed. The patient understands the typical recovery time and the outpatient nature of the procedure. After consideration of these risks the patient gives full informed consent and they wish to move ahead with the procedure. Patient Instructions: This note is constructed using voice recognition software. While every effort has been made to ensure accuracy transcription manager errors may have been included. Imaging studies, laboratory and physical exam results were discussed and reviewed in detail. No major barriers to patient understanding were identified. An opportunity to ask questions regarding the treatment plan was provided. All questions were answered. The patient expressed understanding and agreement with the above treatment plan. The patient is aware they should contact our office by phone for worsening of their current condition or the appearance of new urologic symptoms. Compliance is encouraged with any medications and followup testing that is ordered. It is a privilege to participate in the urologic care of your patient. If you have any questions or concerns regarding treatment for the above conditions, or other urologic issues, please do not hesitate to contact me. The office telephone contact is [phone]. Sincerely, Dr Fabrizio Ramos MD, JOHNNIE [facility] - Urology Compassionate Specialist Care for the Genitourinary System Coding Level of Care Code Tele Est Pt Level 3 (52390) Complex EM visit Add On G2211 Diagnoses Ureteral stent present Z96.0 Acquired stricture of ureter N13.5
--- OUTSIDE RECORDS SUMMARY | 2024-08-19 12:18 | XMS_ITS ---
Author Name Dee Hernandez NP Address [address] [place] [address] Phone [phone] [facility] Care Team Providers Care Metal Tank Builder Name Role Phone Dee Hernandez Unavailable [phone] Reason for Referral Not Available Allergies, adverse [...] List Problem Status Onset Date Resolved Date Synopsis Unspecified dementia, unspecified severity, without behavioral disturbance, psychotic disturbance, mood disturbance, and anxiety Active 2022-12-29 N/A N/A Essential (primary) hypertension Active 2022-12-29 N/A Monitor BP regul naman at home. Evaluate BP with PCP/Leather Grader f/u visits. Follow a low sodium diet/diet prescribed by PCP/Cardio. Engage in physical activity, if possible and as tolerated. Maintain a healthy weight. Follow medication regimen as directed: amLODIPine Besylate 10 mg Tab TOME JR TABLETA TODOS LOS D PARA LA PRESI N ARTERIAL Hyperlipidemia Active 2022-12-29 N/A Discussed health risk r/t Dx; stroke. Monitor lipid [...] Tab take 1 tablet orally once daily evening. Osteoporosis Active 2022-12-29 N/A Discussed th e importance of DEXA exam as scheduled and continuing preventative measures as tolerated and able to; consuming calcium rich diet, adequate vitamin D intake. Encouraged regular weight-bearing exercises (walking, strength training) and the use of assistive devices. GERD (gastroesophageal reflux disease) Active 2022-12-29 N/A Discussed health y lifestyle, maintaining healthy weight, avoiding triggering foods such - spicy, fatty, acidic, caffeine carbonated beverages, alcohol, and chocolate. Eating small meals at a time and avoid laying down immediately after eating. Follow medication regimen as prescribed; [employer] Acid Controller 10 mg Tab TOME JR TABLETA TODOS LOS D EN LA MA GRACE Constipation Active 2022-12-29 N/ Discussed pa rticipating in regular exercise - as tolerated, which [...] of water twice a day by mouth Insomnia Active 2022-12-29 N/A Monitor for ca use; lack of sleep - stress, anxiety, depression, chronic pain, caffeine, alcohol, irregular sleep schedule, or environmental factors. Evaluate the s/s - difficulty falling asleep, waking up frequently, waking up too early, daytime sleepiness. Discussed non-pharmacological approaches - good sleep hygiene, comfortable environment, avoiding stimulants (tv, phone). Assess lifestyle habits - regular exercise (if able/tolerable), avoid caffeine/nicotine, limit alcohol (if applicable). F/U with PCP/specialist Tinnitus Active 2022-12-29 N/A Encouraged pt to f/u with scheduled appointments with specialist. Discussed management techniques - white noise or hearing aids if tolerable. Discussed reducing exposure to loud noises, manage stress levels, regular exercise. Anxiety Active 2022-12-29 N/A Monitor for s/ s - excessive worrying, restlessness, irritability, difficulty concentrating, sleep disturbance, SOB. Encouraged self-care techniques - regular exercise (if able/tolerable), deep breathing, maintaining a balanced diet, getting enough sleep, engaging in enjoyable activities. F/U with PCP/specialist as scheduled/PRN and adhere to medication regimen; Escitalopram Oxalate 10 mg Tab take 1 tablet by mouth daily Lower back pain Active 2022-12-29 N/A Encourage d pt to regularly f/u with PCP/specialist and PRN. Using heat or cold therapy as appropriate. Adhere to prescribed and OTC medication regimen - discussed the importance of never adjusting dosages unless ordered by prescribing provider. Encounters Encounters Type Facility Date of Service Diagnosis/Co mplaint New patient,40-59min; chronic exacerbation, 2 stable chronic or 1 acute illness add add modifier 95 for video (do not use for phone, instead use 52936-86) [facility]/2022 Essential (primary) hypertensionHyperlipidemia, unspecifiedAge-related osteoporosis without current pathological fractureGastro-esophageal reflux disease without esophagitisConstipation, unspecifiedInsomnia, unspecifiedUnspecified dementia without behavioral disturbanceTinnitus, unspecified earAnxiety disorder, unspecifiedLow back pain, unspecified New patient,40-59min; chronic exacerbation, 2 stable chronic or 1 acute illness add add modifier 95 for video (do not use for phone, instead use 64113-55) [facility] [place]/2022 New patient,40-59min; chronic exacerbation, 2 stable chronic or 1 acute illness add add modifier 95 for video (do not use for phone, instead use 14359-39) [facility]/2022 New patient,40-59min; chronic exacerbation, 2 stable chronic or 1 acute illness add add modifier 95 for video (do not use for phone, instead use 39221-55) [facility] [place]/2022 New patient,40-59min; chronic exacerbation, 2 stable chronic or 1 acute illness add add modifier 95 for video (do not use for phone, instead use 18709-36) [facility] [place]/29/2022 New patient,40-59min; chronic exacerbation, 2 stable chronic or 1 acute illness add add modifier 95 for video (do not use for phone, instead use 50405-61) [facility] [place] 12/29/2022 Vital Signs Date of Collection Vitals 2022-12-29 05:51:12 Height - 167.64 cmWe ight - 78.47 kgBody Mass Index (BMI) - 27.92 kg/m2BP Diastolic - 85.0 mm[Hg]BP Systolic - 155.0 mm[Hg]Pain Scale - 8.0 {score} Social History Social History Social History Observation Description Effec tive Time Current Smoking Status Never smoker 8 Sex Male History of Procedures Procedures Service Procedure code Service date Servicing provider Phone# New patient,40-59min; chronic exacerbation, 2 stable chronic or 1 acute illness add add modifier 95 for video (do not use for phone, instead use 38897-40) 65635 2022-12-29 No Data Available No Data Availa [...] modifier 95Advance care planning discussed and documented advance care plan or surrogate decision-maker was documented in the medical record. (1123F)Pain Assessment - Pain Documented (1125F)Continue to see PCP. Follow-up with [facility] as needed for any acute or disease education needs that may arise.Monitor BP regularly at home. Evaluate BP with PCP/Leather Grader f/u visits. Follow a low sodium diet/diet [...] provider. Goals Date Goal 2022-12-29 Verbal consent obtai joe to conduct assessment, and take profile photo, had a detailed discussion with [facility], their diagnosis, and medications. Patient/caregiver verbalized understanding by teach-back method. All available medications were reconciliated, counseled patient/caregiver on treatment plan, compliance, and f/u care coordination with their established PCP and specialists. Health Concerns Date Concern 2022-12-29 Visit completed by a ed and video. Patient and Granddaughter, agreed to visit via telehealth. Introductory visit with Rickey to establish care. Today, patient has chief complaint of: establishing care.Reviewed Allergies, Medications, Active Medical conditions, past medical/surgical history, Social history. 2022-12-29 Most recent hospital stay(s) or ER visit(s) and precipitating factors: Denies any recent visit
--- OUTSIDE RECORDS SUMMARY | 2024-08-19 12:19 | XMS_ITS | Clinical Summary ---
Author Organization [employer] Address [address] [place] [address] Care Team Providers Care Bridal Sales Consultant Name Role Phone [facility] Primary Care Provider [phone] Fabrizio Ramos MD Unavailable [phone] Allergies Active Allergy Reactions Criticality Noted [...] techniques provided c. Will reach out to [facility], if additional support is needed Preoperative [...] Department Care Team Description 06/23/2024 Orders Only [facility] External Provider, [facility] 06/03/2024 10:30 AM EDT Office Visit [address] [address] [place] ANP ESBL (extended spectrum beta-lactamase) producing bacteria infection (Primary Dx); Complicated UTI (urinary tract infection); Solitary kidney, acquired; Essential hypertension; Ureteral stent present; Hospital discharge follow-up; Gastroesophageal reflux disease, unspecified whether esophagitis present 06/03/2024 Travel 05/29/[address] [address] [facility] ANP chartprep 05/26/2024 Patient Outreach [address] [address] [facility] ANP Transition Of Care (Tcm) (HDF- Scheduled ) 05/26/[address] [address] [facility] ANP Hospital Follow-up; chartprep 05/20/[address] [address] [facility] ANP August recall from Last 3 Months Immunizations Immunization Administration [...] 82 06/03/2024 10:17 AM EDT Temperature 36.3 C (97.4 F) 06/03/2024 10:17 AM EDT Respiratory Rate 16 06/03/2024 10:17 AM EDT [...] 1:00 PM EDT Office Visit [facility] [address] [place], [place] [phone] [facility] ANP [address] [place], [place] [phone] Health Maintenance Due Date Last Done Comments Zoster Vaccines (1 of 2) 1990 RSV Patients and Patients Aged 60 years or older (1 - 1-dose 75+ series) 08/10/2015 COVID-19 Vaccine ( season) 2023 02/07/2021, 01/17/2021, 03/18/2020 Influenza Vaccine (#1) 2024 , 11/22/2011, 11/15/2010 Depression Screening 01/03/2025 01/04/2024, 10/18/19 23 SDOH Screening 03/28/2025 03/28/2024 Diabetes: Hemoglobin A1C 04/10/2025 025, 01/04/2024, 09/28/2023, Additional history exists Alcohol/Substance Use Screening 06/03/2025 06/03/2024 Tobacco Screening 06/03/2025 06/03/2024 Lipid Panel 04/24/2029 04/24/2024, 0504/2023, 11/29/2022 DTaP/Tdap/Td Vaccines (2 - Td or [...] Pressure 136/75( 025 10:17 AM EDT) Jaylen Rosen PharmD Procedures Procedure Name Priority Date/Time Associated Diagnosis Comments BD DEXA AXIAL Routine 06/23/2024 10:49 AM EDT LIPID PANEL, STANDARD Routine 04/24/2024 3:39 PM EDT Prediabetes POCT GLYCATED HEMOGLOBIN, TOTAL Routine 04/10/2024 11:28 AM EST Prediabetes from Last 3 Months or Most Recently Relevant to Health Maintenance Results * BD DEXA Axial (06/23/2024 10:49 AM EDT) Anatomical Region Laterality Modality Body Radiographic Tara ging 06/23/2024 10:4 9 AM EDT Narrative 06/23/2024 11:40 AM EDT [facility] [address] [place] [address] Mammography Report Signed Patient: Augustine Rodriguez MR#: [id number] : 1940 Acct:[id number] Age/Sex: 83 / M ADM Date: 06/23/24 Loc: HO.MAMMO Attending Dr: Sam Fry MD Ordering Physician: Sam Fry MD Results: Date of Service: 06/23/24 Follow Up: Procedure(s): XR DEXA axial skeleton Accession Number(s): [id number] cc: Sam Fry MD; [facility] NP EXAMINATION: DXA BONE DENSITY AXIAL HISTORY: M81.0 - Age-related osteoporosis without current pathological fracture TECHNIQUE: [employer] Dual energy absorptiometry (DEXA) of the lumbar [...] of the [employer] [place] for Metabolic Bone Disease, a World Health Organization (WHO) Collaborating Center. Electronically signed by: Sam Canales MD 06/23/2024 11:37 AM EDT Dictated By: Sam Canales MD Signed By: <Electronically signed by Sam Canales MD in OV> 06/23/24 1137 DD/ 1049 TD/TT: 06/23/24 1128 Special Skills Officer: Procedure Note Donotuseinterpreter, Image - 06/23/2024 [place] [facility] [address] [place] [address] Mammography Report Signed Patient: Augustine Rodriguez#: M [id number] : 1940cct:[id number] Age/Sex: 83 / MADM Date: 06/23/24 Loc: CARO Attending Dr: Sam Fry MD Ordering Physician: Sam Fry MDResults: Date of Service: 06/23/24Follow Up: Procedure(s): XR DEXA axial skeleton Accession Number(s): [id number] cc: Sam Fry MD; [facility] NP EXAMINATION: DXA BONE DENSITY AXIAL HISTORY: M81.0 - Age-related osteoporosis without current pathological fracture TECHNIQUE: [employer] Dual energy absorptiometry (DEXA) of the lumbar [...] is a trademark of the [employer]'s [place] for Metabolic Bone Disease, a World Health Organization (WHO) Collaborating Center. Electronically signed by: Sam Canales MD 06/23/2024 11:37 AM EDT RP Dictated By: Sam Canales MD Signed By: <Electronically signed by Sam Canales MD in OV> 06/23/24 1137 DD/ 1049 TD/TT: 06/23/24 1128 Special Skills Officer: [facility] External Provider IMG DXA PROCEDURES Final Result * (ABNORMAL) Lipid Panel, Standard (04/24/2024 3:39 PM EDT) Triglycerides 437(H) <150 mg/dL [facility] Comment:Slight Lipemia.Carly able Triglyceride: less than 150 mg/dLBorderline High Triglyceride 150-199 mg/dLHigh Triglyceride: 200-499 mg/dLVery High Triglyceride: greater than or equal to 5OO mg/dL Cholesterol 159 <200 mg/dL [facility] Comment:Desirable Cholestero l: less than 200 mg/dLBorderline High Cholesterol: 200-239 mg/dLHigh Cholesterol: greater than 239 mg/dL LDL Cholesterol Calculated TNP <100 mg/dL [facility] Comment:Unable to calculate the LDL. The formula of Friedwald,Perez, and Gilmar is only valid if the triglycerides areless than 400 mg/dl. HDL Cholesterol 26(L) >40 mg/dL [facility] Comment:Desirable HDL: great er than 40 mg/dL Note: This HDL assay may give artificially low results in patients with liver disease. Blood Venous blood specimen / Unknown 04/24/2024 3:39 PM EDT 04/24/2024 5:44 PM EDT [facility] ANP LAB BLOOD ORDERABLES Final Resul t [facility] [address] [place] [address] [phone] * (ABNORMAL) POCT HGB A1C (04/10/2024 11:28 AM EST) Hemoglobin A1C 6.4(A) 4.0 - 6.0 % QC Media Lot # [id number] Lot# Expiration Date Blood 04/10/2024 11:2 8 AM EST us [facility]P POINT OF CARE TEST ENTER/EDIT OR DERABLES Final Result from Last 3 Months or Most Recently Relevant to Health Maintenance Insurance [facility] CORRECTION OPTIONS (O D-SNP) JOBY HANSEN [id number] [address] [place] [address] Care Teams Bridal Sales Consultant Relationship Specialty Start Date End Date [facility] ANP [address] [place] [address] PCP - General Family Medicine 12/27/20 Fabrizio Ramos MD [address] [place] [address] Drive [address] [place] [address] Urology 01/04/24
== END 2024-08-19 15:27 | disposition home or self-care (01) ==
LOC: HO.HUSH 11:12
PROVIDERS: PCP Nurse Practitioner Primary Care; Visit Provider Urology
DX: Z96.0 Presence of urogenital implants (principal); N13.5 Crossing vessel and stricture of ureter without hydronephrosis
CPT/HCPCS: 99213; G2211

== ENCOUNTER 2024-09-03 08:31 | Outpatient (REF) | payer OTHER, SELFPAY ==
--- OUTSIDE RECORDS SUMMARY | 2019-02-20 03:48 | XMS_ITS | Continuity of Care Document ---
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 [address] [place] [address], [place], [place], [id number], [place]. tel:[phone] [facility], [address], [place], [place], [id number], [place] [facility] Adult No Information 9 Macy Briceno. [address] [place] [address], [place], [place], [id number], [place]. tel:[phone] [facility], [address], [place], [place], [id number], [place] [facility] Adult No Information 9 Rosalinda Brown. [address] [place], [place] [address], [address], [place]. tel:[phone] [facility], [address], [place], [place], [id number], [place] Md Adult No Information 9 Macy Briceno. [address] [place] [address], [place], [place], [id number], [place]. tel:[phone] [facility], [address], [place], [id number], [place] Md Adult No Information 9 Macy Briceno. [address] [place] [address], [place], [id number], [place]. tel:[phone] PSYCH DIAGNOSTIC EVALUATION [facility], [address], [place], [place], [id number], [place] [facility] (generalized anxiety disorder) 9 Kash Mckeon. [address] [place] [address], [place], [id number], [place]. tel:[phone] Referring Provider: Gabby Gonzalez, [address] [place] [address], [place], [address] . tel:[phone] OFFICE/OUTPA TIENT VISIT, [facility], [address], [place], [id number], [place] Radha Adult Insomnia (chief complaint)mor e (chief complaint) Other insomniaAnxietyA ge-related osteoporosis without current pathological fractureEssentia l hypertensionUPJ (ureteropelvic junction) obstructionPredi abetesCold feeling 9 Lisa Pierre. [address] [facility], [place], [id number], [place]. tel:[phone] Referring Provider: Gabby Gonzalez, [address] [facility], [place], [address] . tel:[phone] [facility], [address], [place], [id number], [place] Radha Adult No Information 9 Tracey Villalobos. [address] [place] [address], [place], [address], [place]. tel:[phone] [facility], [address], [place], [id number], [place] Radha Adult Chronic bilateral low back pain without sciaticaOther chronic pain 8 Webb Griselda. [address] [place] [address], [place], [address], [place]. tel:[phone] OFFICE/OUTPA TIENT VISIT, EST [facility], [address], [place], [id number], [place] Radha Adult Follow up visit (chief complaint)hyp ertension (chief complaint) Body mass index (BMI) 29.0-29.9, adultChronic bilateral low back pain without sciaticaOther chronic painEssential hypertensionUPJ (ureteropelvic junction) obstruction 8 Webb Griselda. [address] [place] [address], [place], [address], [place]. tel:[phone] PREV VISIT, EST, 65 & OVER [facility], [address], [place], [id number], [place] Radha Adult preventive exam (chief complaint) Encounter for general adult medical examination with abnormal findingsEssentia l hypertensionGast roesophageal reflux disease without esophagitisChron ic ischemic colitisMalignant neoplasm prostateAge-rela clint osteoporosis without current pathological fractureHiatal herniaUPJ (ureteropelvic junction) obstructionBody mass index (BMI) 30.0-30.9, adult 8 Tracey Villalobos. [address] [place] [address], [place], [address], [place]. tel:[phone] OFFICE/OUTPA TIENT VISIT, [facility], [address], [place], [place], [id number], [place] [facility] Adult hypertension (chief complaint)abd ominal pain (chief complaint)dry skin (chief complaint) Dry skin dermatitisEssent ial hypertensionGast roesophageal reflux disease without esophagitisSolit joe kidney Tracey Villalobos. [address] [place] [address], [place], [address], [place]. tel:[phone] OFFICE/OUTPA TIENT VISIT, [facility], [address] [place], [id number], [place] [facility] Adult hypertension (chief complaint)Cou gh (chief complaint) CoughEssential hypertension 8 Tracey Villalobos. [address] [place] [address], [place], [address], [place]. tel:[phone] OFFICE/OUTPA TIENT VISIT, [facility], [address] [place], [id number], [place] M[facility] Adult hypertension (chief complaint)shelby st pain (chief complaint) CoughEssential hypertension Tracey Villalobos. [address] [place] [address], [place], [address], [place]. tel:[phone] OFFICE/OUTPA TIENT VISIT, [facility], [address] [place], [id number], [place] [facility] Adult Discuss test results (chief complaint)hyp ertension (chief complaint)dry skin (chief complaint) Essential hypertensionAge- related osteoporosis without current pathological fractureDry skin dermatitis 7 Tracey Villalobos. [address] [place] [address], [place], [address], [place]. tel:[phone] OFFICE/OUTPA TIENT VISIT, [facility], [address], [place], [place], [id number], [place] [facility] Adult hypertension (chief complaint)hyp erlipidemia (chief complaint) Essential hypertensionHype rlipidemia, mixedBody mass index (BMI) 29.0-29.9, adult 7 Webb Griselda. [address] [facility], [place], [address], [place]. tel:[phone] [facility], [address], [place], [place], [id number], [place] [facility] Adult Screening for diabetes mellitus 7 [place] [facility], [place], [place], [id number], [place]. tel:[phone] OFFICE/OUTPA TIENT VISIT, [facility], [address], [place], [id number], [place] M[facility] Adult hypertension (chief complaint)aki h (chief complaint) Dry skin dermatitisHyperl ipidemia, mixedEssential hypertension 7 Tracey Villalobos. [address] [place] [address], [place], [address], [place]. tel:[phone] [facility], [address], [place], [id number], [place] [facility] Adult No Information May-0 [address] [place] [facility], [place], [id number], [place]. tel:[phone] [facility], [address], [place], [id number], [place] M[facility] Adult Hyperlipidemia, mixedEssential hypertension Apr-0 3-201 [address] [place] [facility], [place], [id number], [place]. tel:[phone] OFFICE/OUTPA TIENT VISIT, [facility], [address], [place], [id number], [place] [facility] Adult hypertension (chief complaint)cou gh (chief complaint)Med ication Refills (chief complaint) Malignant neoplasm prostateChronic ischemic colitisKidney stoneScreening for osteoporosisCoug hEssential hypertensionScre ening for diabetes mellitusMultiple joint pain 0 7 [place]. [address] [place] [address], [facility] [place], [place], [id number], [place]. 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 [address] [place] [address] [place], [address], [place]. tel:[phone] OFFICE/OUTPA TIENT VISIT, [facility], [address], [facility] [place], [id number], [place] [facility] Adult Discuss test results (chief complaint)hyp ertension (chief complaint)aki h (chief complaint) Essential hypertensionDry skin dermatitis Tracey Villalobos. [address] [place] [address] [place], [address], [place]. tel:[phone] OFFICE/OUTPA TIENT VISIT, [facility], [address], [facility] [place], [id number], [place] [facility] Adult Medication Refill (chief complaint)Pre vention (chief complaint)hyp ertension (chief complaint)hyp erlipidemia (chief complaint) Body mass index (BMI) 28.0-28.9, adultEssential hypertensionHype rlipidemia, mixedKidney diseaseScreen for STD (sexually transmitted disease)Screenin g PSA (prostate specific antigen)Screen for colon cancer 6 Rosalinda Brown. [address] [place], [address], [place]. tel:[phone] Family History Family Member Type Diagnosis Age [...] ID Authoriza tion(s) Medicare 2014 NGS MB [id number] Medicaid [id number] Medicaid [place] [id number] Medicaid [place] [id number] Social History Type Description Quantity Date Captured [...] Goal Influenza Vaccine. Due on due Goal BMP. Due on due Goal Lipid panel. Due on due Goal Depression scree ramona. Due on due Goal Cognitive assess ment. Due on due Goal Zoster Vaccine. Due on due Goal Cognitive assess ment. Due on due Goal BMP. Due on due Goal Prevnar 13 (PCV13). Due on due Goal Zoster Vaccine. Due on due Goal Depression scree ramona. Due on due Goal Lipid panel. Due on due Goal Influenza Vaccine. Due on due Goal Influenza Vaccine. Due on due Goal Depression scree ramona. Due on due Goal Cognitive assess ment. Due on due Goal Prevnar 13 (PCV13). Due on due Goal BMP. Due on due Goal Zoster Vaccine. Due on due Goal Lipid panel. Due on due Goal Prevnar 13 (PCV13). Due on due Goal Influenza Vaccine. Due on due Goal Zoster Vaccine. Due on due Goal Cognitive assess ment. Due on due Goal Depression scree ramona. Due on due Goal Lifestyle education regardin g diet completed Goal Influenza Vaccine. Due on Ma due Goal Prevnar 13 (PCV13). Due on M due Goal Lipid panel. Due on 018 due Goal Cognitive assess ment. Due on due Goal BMP. Due on due Goal Zoster Vaccine. Due on due Goal Depression scree ramona. Due on due Goal Prevnar 13 (PCV13). Due on due Goal Zoster Vaccine. Due on due Goal Influenza Vaccine. Due on due Goal Cognitive assess ment. Due on due Goal Cognitive assess ment. Due on due Goal Influenza Vaccine. Due on due Goal Zoster Vaccine. Due on due Goal Prevnar 13 (PCV13). Due on A due Goal Prevnar 13 (PCV13). Due on due Goal Cognitive assess ment. Due on due Goal Zoster Vaccine. Due on due Goal Influenza Vaccine. Due on due Goal Zoster Vaccine. Due on due Goal Prevnar 13 (PCV13). Due on due Goal Influenza Vaccine. Due on due Goal Cognitive assess ment. Due on due Goal Cognitive assess ment. Due on due Goal FOBT. Due on due Goal Zoster Vaccine. Due on due Goal Prevnar 13 (PCV13). Due on J due Goal Influenza Vaccine. Due on Ju due Goal Pneumococcal vaccine due Goal Influenza Vaccine. Due on Ma due Goal Zoster Vaccine. Due on due Goal Zoster Vaccine. Due on due Goal Zoster Vaccine. Due on due Goal Zoster Vaccine. Due on due Goal Zoster Vaccine. Due on due Goal Zoster Vaccine. Due on due Goal Pneumococcal vaccine due Goal Occult Blood, [place], [place]. Due on due Goal Zoster Vaccine. Due on due Goal Pneumococcal vac cine. Due on due Goal Colonoscopy. Due on 016 due Goal Lifestyle education regardin g diet completed Referral Referred To: low back brace Ordered: Referrals: low back brace ordered Referral Ordered: DXA BONE DENSITY, AXIAL ordered Referral Referred To: [facility]/ GI Ordered: Referrals: Gastroenterology. [facility]/ GI. Evaluate and treat ordered Patient Education Dry Skin: After Your Vi sit completed Patient Education Dry Skin: After Your Vi sit completed Patient Education Dry Skin: After Your Vi sit completed Future Order: Lab Order LIPID PA DAVID ([id number]), Collected on: Ordered Future Order: Lab Order HEMOGLOB IN A1C ([id number]), Ordered on: Ordered Future Order: Lab Order Hep B Segal rface Ab ([id number]), Ordered on: Ordered Future Order: Lab Order PSA ([id number]), O rdered on: Ordered Future Order: Lab Order HIV SCRE EN ([id number]), Ordered on: Ordered Future Order: Lab Order Microalb umin with creatinine and ratio ([id number]), Ordered on: Ordered Future Order: Lab Order HEPATITI S C Ab ([id number]), Ordered on: Ordered Future Order: Lab Order LIPID PA DAVID ([id number]), Ordered on: Ordered Future Order: Lab Order BMP ([id number]), O rdered on: Ordered History Of Present [...] memoryCRC screening was completed on 10/27/15 at [facility]. 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 insurance anymoreHas appt for ?cathetization in [...] gender. Discuss test results pt went to [place] ,wants to know result of testFeels like [...] did colonosc opy 4 years ago in [place]. Functional Status Date Functional Assessmen t No Information Instructions Date Instruction Additional Infor lizzie Following with Dr. Reyna Flores [facility] UrologyHistory of a left proximal ureteral stricture s/p robotic ureteral reconstruction, now with recurrent obstruction - says next appt in June 2018 Related to UPJ (ureteropelvic junction) obstruction Following with Dr. Reyna Flores [facility] UrologyHistory of a left proximal ureteral stricture [...] low back pain without sciatica Well adult male.[place] care every 6 months.Eye doctor appt [...] neoplasm prostate Following with Dr. Reyna Flores [facility] UrologyMost recent note by Dr. Flores 06/14/17: [...] atorvastati n 40 mg to protect against MD and CVAFollow healthy diet for cholesterol Related [...] breath, edemaContinue current medications - sent to [facility] pharmacy now that pt doesn't have insuranceRTO [...]
--- NOTE | ~2024-09-03 | XR_ITS ---
EXAMINATION: XR CERVICAL SPINE CLINICAL INFORMATION: atraumatic neck pain, osteoporosis COMPARISON: None available. TECHNIQUE: AP lateral and atlantoodontoid views. FINDINGS: Craniocervical junction is intact. Marginal osteophyte formation and decreased intervertebral disc height and mild endplate sclerosis at C5-6 and C6-7 levels. Small marginal osteophyte formation at C4. Grade 1 anterolisthesis C5-6 and C6-7 levels. Osteopenia versus osteoporosis. No lytic or blastic lesions. No subcutaneous emphysema. Edentulous.. XR/XR cervical spine 3V IMPRESSION: Multilevel cervical spondylosis pronounced at C4-5 and C5-6 levels. Osteopenia versus osteoporosis. Electronically signed by: Ian Tao MD 09/03/2024 09:11 AM EDT
--- OUTSIDE RECORDS SUMMARY | 2024-09-03 08:46 | XMS_ITS | Encounter Summary ---
Author Organization [employer] Address [address] [address] [place] [address] Care Team Providers Care Airplane Rental Clerk Name Role Phone Jeannie Fabian Primary Care Provider [phone] Fabrizio Ramos MD Unavailable [phone] Reason for Visit * Reason Onset Date Comments FYI 09/06/2022 Encounter Details Date Type Department Care Team ([facility] st Contact Info) Description 09/06/2022 Telephone [facility] [address] [place] [address] Jeannie Fabian ANP [address] [place] [address] FYI Social History Tobacco Use Types Packs/Day [...] on filedocumented in this encounter Care Teams Airplane Rental Clerk Relationship Specialty Start Date End Date Jeannie Fabian ANP [address] [place] [address] PCP - General Family Medicine 12/27/20 Fabrizio Ramos MD [address] [place] [address] Urology 01/04/24 [facility] 05/08/24 07/27/24 documented as of this encounter
--- OUTSIDE RECORDS SUMMARY | 2024-09-03 08:46 | XMS_ITS ---
Author Name Dee Hernandez NP Address [address] [place] [address] Phone [phone] Organization [facility] Care Team Providers Care Vegetable Cutter Name Role Phone Dee Hernandez Unavailable [phone] Reason for Referral Not Available Allergies, adverse [...] regul naman at home. Evaluate BP with PCP/Airport Operations Specialist f/u visits. Follow a low sodium diet/diet [...] (do not use for phone, instead use 54496-96) [facility] [place]/29/2022 Essential (primary) hypertensionHyperlipidemia, unspecifiedAge-related osteoporosis without current pathological fractureGastro-esophageal reflux disease without esophagitisConstipation, unspecifiedInsomnia, unspecifiedUnspecified dementia without behavioral disturbanceTinnitus, unspecified earAnxiety disorder, unspecifiedLow back pain, unspecified New patient,40-59min; chronic exacerbation, 2 stable chronic or 1 acute illness add add modifier 95 for video (do not use for phone, instead use 40580-69) [facility] [place] New patient,40-59min; chronic exacerbation, 2 stable chronic or 1 acute illness add add modifier 95 for video (do not use for phone, instead use 62108-34) [facility] [place] New patient,40-59min; chronic exacerbation, 2 stable chronic or 1 acute illness add add modifier 95 for video (do not use for phone, instead use 46052-44) [facility] [place] New patient,40-59min; chronic exacerbation, 2 stable chronic or 1 acute illness add add modifier 95 for video (do not use for phone, instead use 75830-91) [facility] [place] New patient,40-59min; chronic exacerbation, 2 stable chronic or 1 acute illness add add modifier 95 for video (do not use for phone, instead use 51739-63) [facility] [place]2022 Vital Signs Date of Collection Vitals 2022-12-29 05:51:12 Height - 167.64 cmWe ight - 78.47 kgBody Mass Index (BMI) - 27.92 kg/m2BP Diastolic - 85.0 mm[Hg]BP Systolic - 155.0 mm[Hg]Pain Scale - 8.0 {score} Social History Social History Social History Observation Description Effec tive Time Current Smoking Status Never smoker 2024-08-13 3 Sex Male History of Procedures Procedures Service Procedure code Service date Servicing provider Phone# New patient,40-59min; chronic exacerbation, 2 stable chronic or 1 acute illness add add modifier 95 for video (do not use for phone, instead use 93933-13) [id number] 2022-12-29 No Data Available No Data Availa [...] BP regularly at home. Evaluate BP with PCP/Airport Operations Specialist f/u visits. Follow a low sodium diet/diet [...] had a detailed discussion with [facility], their diagnosis, and medications. [...]
[2024-09-03 11:40] LABS: Hemoglobin A1C 142.8260 umol/L; Total Hemoglobin (HGBA1C) 3466.5685 umol/L
[2024-09-03 11:50] LABS: Albumin Level 4.4 g/dL (3.5-5.0); Anion Gap 13 (12-20); Blood Urea Nitrogen 33 mg/dL (9-16); Calcium 9.9 mg/dL (8.4-10.2); Carbon Dioxide 21 mmol/L (22-29); Chloride 112 mmol/L (96-108); Cholesterol 216 mg/dL (<200); Estimated Glomerular Filt Rate 53; HDL Cholesterol 29 mg/dL (>40); Potassium 4.5 mmol/L (3.3-5.1); Sodium 141 mmol/L (135-145); Triglycerides 389 mg/dL (<150)
[2024-09-03 11:56] LABS: Microalbum/Creatinine Ratio Ur 36.4 ug/mg cr (<30)
== END 2024-09-03 08:32 | disposition home or self-care (01) ==
LOC: HO.HHCL 08:31
PROVIDERS: Internal Medicine Endocrinology, Diabetes & Metabolism; PCP Nurse Practitioner Primary Care; Visit Provider Nurse Practitioner Primary Care
DX: M54.2 Cervicalgia (principal); M81.0 Age-related osteoporosis without current pathological fracture; R73.03 Prediabetes; I10 Essential (primary) hypertension; R73.01 Impaired fasting glucose
CPT/HCPCS: 36415; 72040; 80048; 80061; 82040; 82043; 82570; 83036

== ENCOUNTER → 2024-09-03 08:39 | Outpatient (BNV) | payer OTHER, SELFPAY | PROVIDERS: PCP Nurse Practitioner Primary Care; Visit Provider Radiology Diagnostic Radiology | DX: M43.12 Spondylolisthesis, cervical region (principal) | CPT/HCPCS: 72040 ==

== ENCOUNTER 2024-09-15 08:01 | Outpatient (AMB) | payer OTHER, SELFPAY ==
--- OUTSIDE RECORDS SUMMARY | 2019-02-20 03:48 | XMS_ITS | Continuity of Care Document ---
Author Organization [employer] 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 [address] [place] [address], [place], [place], [id number], [place]. tel:[phone] [facility], [address], [place], [place], [id number], [place] MdlS Adult No Information 9 Macy Briceno. [address] [place] [address], [place], [place], [id number], [place]. tel:[phone] [facility], [address], [place], [place], [id number], [place] [facility] Adult No Information 9 Rosalinda Brown. [address] [place] [employer], [place] [address], [address], [place]. tel:[phone] [facility], [address], [place], [place], [id number], [place] Md Adult No Information 9 Macy Briceno. [address] [place] [address], [place], [place], [id number], [place]. tel:[phone] [facility], [address], [place], [id number], [place] Md Adult No Information 9 Macy Briceno. [address] [place] [address], [place], [id number], [place]. tel:[phone] PSYCH DIAGNOSTIC EVALUATION [facility], [address], [place], [id number], [place] Md Behav [facility] CHER (generalized anxiety disorder) 9 Kash Mckeon. [address] [place] [address], [place], [id number], [place]. tel:[phone] Referring Provider: Gabby Gonzalez, [address] [address], [place], [address] . tel:[phone] OFFICE/OUTPA TIENT VISIT, [facility], [address], [place], [id number], [place] Radha Adult Insomnia (chief complaint)mor e (chief complaint) Other insomniaAnxietyA ge-related osteoporosis without current pathological fractureEssentia l hypertensionUPJ (ureteropelvic junction) obstructionPredi abetesCold feeling 9 Lisa Pierre. [address] [facility], [place], [id number], [place]. tel:[phone] Referring Provider: Gabby Gonzalez, [address] [facility], [place], [address] . tel:[phone] [facility], [address], [place], [id number], [place] Radha Adult No Information 9 Tracey Villalobos. [address] [place] [address], [place], [address], [place]. tel:[phone] [facility], [address], [place], [id number], [place] Radha Adult Chronic bilateral low back pain without sciaticaOther chronic pain 8 Webb Griselda. [address] [place] [address], [place], [address], [place]. tel:[phone] OFFICE/OUTPA TIENT VISIT, EST [facility], [address], [place], [id number], [place] Radha Adult Follow up visit (chief complaint)hyp ertension (chief complaint) Body mass index (BMI) 29.0-29.9, adultChronic bilateral low back pain without sciaticaOther chronic painEssential hypertensionUPJ (ureteropelvic junction) obstruction 8 Webb Griselda. [address] [place] [address], [place], [address], [place]. tel:[phone] PREV VISIT, EST, 65 & OVER [facility], [address], [place], [id number], [place] Radha Adult preventive exam (chief complaint) Encounter for general adult medical examination with abnormal findingsEssentia l hypertensionGast roesophageal reflux disease without esophagitisChron ic ischemic colitisMalignant neoplasm prostateAge-rela clint osteoporosis without current pathological fractureHiatal herniaUPJ (ureteropelvic junction) obstructionBody mass index (BMI) 30.0-30.9, adult 8 Tracey Villalobos. [address] [place] [address], [place], [address], [place]. tel:[phone] OFFICE/OUTPA TIENT VISIT, [facility], [address], [place], [place], [id number], [place] MdlS Adult hypertension (chief complaint)abd ominal pain (chief complaint)dry skin (chief complaint) Dry skin dermatitisEssent ial hypertensionGast roesophageal reflux disease without esophagitisSolit joe kidney Tracey Villalobos. [address] [place] [address], [place], [address], [place]. tel:[phone] OFFICE/OUTPA TIENT VISIT, [facility], [address] [place], [id number], [place] MdlS Adult hypertension (chief complaint)Cou gh (chief complaint) CoughEssential hypertension 8 Tracey Villalobos. [address] [place] [address], [place], [address], [place]. tel:[phone] OFFICE/OUTPA TIENT VISIT, [facility], [address] [place], [id number], [place] MdlS Adult hypertension (chief complaint)shelby st pain (chief complaint) CoughEssential hypertension Tracey Villalobos. [address] [place] [address], [place], [address], [place]. tel:[phone] OFFICE/OUTPA TIENT VISIT, [facility], [address] [place], [id number], [place] MdlS Adult Discuss test results (chief complaint)hyp ertension (chief complaint)dry skin (chief complaint) Essential hypertensionAge- related osteoporosis without current pathological fractureDry skin dermatitis 7 Tracey Villalobos. [address] [place] [address], [place], [address], [place]. tel:[phone] OFFICE/OUTPA TIENT VISIT, [facility], [address], [place], [place], [id number], [place] MdlS Adult hypertension (chief complaint)hyp erlipidemia (chief complaint) Essential hypertensionHype rlipidemia, mixedBody mass index (BMI) 29.0-29.9, adult 7 Webb Griselda. [address] [facility], [place], [address], [place]. tel:[phone] [facility], [address], [place], [id number], [place] MdlS Adult Screening for diabetes mellitus 7 Chap[place]ir. [address] [facility], [place], [place], [id number], [place]. tel:[phone] OFFICE/OUTPA TIENT VISIT, [facility], [address], [place], [id number], [place] MdlS Adult hypertension (chief complaint)aki h (chief complaint) Dry skin dermatitisHyperl ipidemia, mixedEssential hypertension 7 Tracey Villalobos. [address] [place] [address], [place], [address], [place]. tel:[phone] [facility], [address], [place], [id number], [place] MdlS Adult No Information May-0 7 [place]. [address] [facility], [place], [id number], [place]. tel:[phone] [facility], [address], [place], [id number], [place] MdlS Adult Hyperlipidemia, mixedEssential hypertension Apr-0 3-201 7 [place]. [address] [facility], [place], [id number], [place]. tel:[phone] OFFICE/OUTPA TIENT VISIT, [facility], [address], [place], [id number], [place] MdlS Adult hypertension (chief complaint)cou gh (chief complaint)Med ication Refills (chief complaint) Malignant neoplasm prostateChronic ischemic colitisKidney stoneScreening for osteoporosisCoug hEssential hypertensionScre ening for diabetes mellitusMultiple joint pain 0 7 [place]. [address] [place] [address], [facility] [place], [place], [id number], [place]. 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 [address] [place] [address] [place], [address], [place]. tel:[phone] OFFICE/OUTPA TIENT VISIT, [facility], [address], [facility] [place], [id number], [place] MdlS Adult Discuss test results (chief complaint)hyp ertension (chief complaint)aki h (chief complaint) Essential hypertensionDry skin dermatitis Tracey Villalobos. [address] [place] [address] [place], [address], [place]. tel:[phone] OFFICE/OUTPA TIENT VISIT, [facility], [address], [facility] [place], [id number], [place] MdlS Adult Medication Refill (chief complaint)Pre vention (chief complaint)hyp ertension (chief complaint)hyp erlipidemia (chief complaint) Body mass index (BMI) 28.0-28.9, adultEssential hypertensionHype rlipidemia, mixedKidney diseaseScreen for STD (sexually transmitted disease)Screenin g PSA (prostate specific antigen)Screen for colon cancer 6 Rosalinda Brown. [address] [place], [address], [place]. tel:[phone] Family History Family Member Type Diagnosis Age [...] Record Payers Payer name Insurance type Covered green party ID Authoriza tion(s) Medicare 2014 NGS MB [id number] Medicaid [id number] Medicaid [place] [id number] Medicaid [place] [id number] Social History Type Description Quantity Date Captured [...] Lifestyle education regardin g diet completed Goal Cognitive assess ment. Due on due Goal BMP. Due on due Goal Zoster Vaccine. Due on due Goal Depression scree ramona. Due on due Goal Influenza Vaccine. Due on Ma due Goal Prevnar 13 (PCV13). Due on M due Goal Lipid panel. Due on 018 due Goal Prevnar 13 (PCV13). Due on [...] Cognitive assess ment. Due on due Goal Pneumococcal vaccine due Goal Influenza Vaccine. Due on due Goal Zoster Vaccine. Due on due Goal Zoster Vaccine. Due on due Goal Zoster Vaccine. Due on due Goal Zoster Vaccine. Due on due Goal Zoster Vaccine. Due on due Goal Pneumococcal vaccine due Goal Zoster Vaccine. Due on due Goal Colonoscopy. Due on 016 due Goal Occult Blood, [place], [place]. Due on due Goal Zoster Vaccine. Due on due Goal Pneumococcal vac cine. Due on due Goal Lifestyle education regardin g diet completed Referral Referred To: low back brace Ordered: Referrals: low back brace ordered Referral Ordered: DXA BONE DENSITY, AXIAL ordered Referral Referred To: [facility]/ GI Ordered: Referrals: Gastroenterology. [facility]/ GI. Evaluate and treat ordered Patient Education Dry Skin: After Your Vi sit completed Patient Education Dry Skin: After Your Vi sit completed Patient Education Dry Skin: After Your Vi sit completed Future Order: Lab Order LIPID PA DAVID ([id number]), Collected on: Ordered Future Order: Lab Order HEMOGLOB IN A1C ([id number]), Ordered on: Ordered Future Order: Lab Order Hep B Segal rface Ab ([id number]), Ordered on: Ordered Future Order: Lab Order PSA ([id number]), O rdered on: Ordered Future Order: Lab Order HIV SCRE EN ([id number]), Ordered on: Ordered Future Order: Lab Order Microalb umin with creatinine and ratio ([id number]), Ordered on: Ordered Future Order: Lab Order HEPATITI S C Ab ([id number]), Ordered on: Ordered Future Order: Lab Order LIPID PA DAVID ([id number]), Ordered on: Ordered Future Order: Lab Order BMP ([id number]), O rdered on: Ordered History Of Present [...] 10/27/15 at [facility]. 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 Discuss test results pt went to [place] ,wants to know result of testFeels like [...] did colonosc opy 4 years ago in [place]. Functional Status Date Functional Assessmen t No Information Instructions Date Instruction Additional Infor lizzie Following with Dr. Reyna Flores [facility] UrologyHistory of a left proximal ureteral stricture s/p robotic ureteral reconstruction, now with recurrent obstruction - says next appt in June 2018 Related to UPJ (ureteropelvic junction) obstruction Following with Dr. Reyna Flores [facility] UrologyHistory of a left proximal [...] low back pain without sciatica Well adult male.[place] al care every 6 months.Eye doctor appt [...] Reyna Flores [facility] UrologyMost recent note by Dr. [...] to Cough Stable and at goal t one. JNC 8 goals are <140/90 if less [...] atorvastati n 40 mg to protect against GA and CVAFollow healthy diet for cholesterol Related [...] breath, edemaContinue current medications - sent to [facility] pharmacy now that pt doesn't have insuranceRTO [...]
--- NOTE | 2024-09-15 08:03 | A.OFFVIS_ITS ---
Vital Signs 09/15/24 08:06 Height 5 ft 4.25 in Weight 160 lb 14.999 oz BMI 27.4 BP 128/68 Blood Pressure Location Rt brachial Position Sitting Pulse 58 Pulse Source Pulse Oximeter Pulse Oximetry (%) 96 Oxygen Delivery Method Room Air Intake Visit Reasons: f/u osteoporosis Intake Note: Patient present today for Osteoporosis follow up Humanities Instructor Required: Yes Humanities Instructor Language: Garage Supervisor Name: BAKARI Garcia Accompanied by: Daughter Allergies No Known Allergies Allergy (Verified 09/15/24 08:20) HPI Comments Details: 84 YO M with] is seen in consultation at the request of PCP for Osteoporosis. Pt sent today for osteoporosis Received treatment in 6-7 yrs ago in the past with alendronate , for 1 yr Tolerated treatment well without complication. States currently not taking alendronate No history of pathologic fracture or ONJ. Has few servings of dietary calcium per day in the form of milk . Not Takes Calcium supplement . Not Takes Vitamin D daily. takes PPI, anticoagulant, antiepileptic or glucocorticoid medication. Not Does weight bearing exercise but walk 7 days per week Fracture history: No Height loss: No Denies history of Kidney stones: Has family history of Osteoporosis in brother but no hip fracture. UTD on dental cleanings and sees dentist every 6 months. No planned upcoming dental work or extractions. DXA dated 09/07/21:TECHNIQUE: Using a [employer] DXA System (software version: 13.1) manufactured by [employer], dual-energy x-ray absorptiometry was performed of the lumbar spine and left hip. The images are of good technical quality. Summary results are attached. FINDINGS: AP SPINE L1-L4: BMD 0.746 g/cm2, Z-score -3.3, T-score -3.9, osteoporosis. LEFT FEMUR, NECK: BMD 0.684 g/cm2, Z-score -1.5, T-score -3.0, osteoporosis. LEFT FEMUR, TOTAL: BMD 0.706 g/cm2, Z-score -1.6, T-score -2.7, osteoporosis. IDENTIFIED RISK FACTORS: Osteoporosis, renal. Labs: Secondary workup was negative except for low testosterone and patient not a candidate for testosterone replacement. Was started on Tymlos 3 mos ago off for 1 mo . Did not receive Tymlos in 04/2023 currently on Tymlos since 04/2023 but stopped a month ago.. No fx since this visit . The patient is an 83-year-old male presenting with osteoporosis management concerns. He was prescribed Tymlos injections beginning in September for osteoporosis treatment. There was ambiguity regarding the continuity and completion of the Tymlos regimen. The patient has been without any fractures since the previous appointment, indicating no acute exacerbation of the condition. Concern arose as the patient had not undergone a bone density test in three years, while they are stipulated every two years. This test is critical to asse ss how Tymlos has influenced bone density, determining whether to initiate alendronate therapy again. Ensuring no treatment deficiency is crucial to prevent loss of therapeutic benefits. Repeat DEXA shows the presence of moderate to severe osteoporosis FINDINGS: The bone mineral density of the lumbar spine is 0.810 with a T-score of -3.4, and a Z-score of -2.7. This is indicative of osteoporosis. This represents a BMD change of 8.6% compared to the prior exam. This is statistically significant. The bone mineral density of the left total hip is 0.693 with a T-score of -2.8, and a Z-score of -1.6. This is indicative of osteoporosis. This represents a BMD change of -1.8% compared to the prior exam. This is not statistically significant. The bone mineral density of the left femoral neck is 0.726 with a T-score of -2.6, and a Z-score of -1.1. This is indicative of osteoporosis. This represents a BMD change of 9.1% compared to the prior exam. The patient is an 83-year-old male presenting with osteoporosis management. He has been on Tymlos for the past year, resulting in improved bone density. Despite this, osteoporosis remains. The patient has completed 18 months on Tymlos but missed a couple of injections, indicating prior non-compliance issues. Prior to Tymlos, he was on alendronate. The goal is to transition to Prolia injections ongoing osteoporosis management as bone density improvement is observed. Unfortunately, patient has been starting and stopping the medication despite being told he needs to be on continuous therapy for 18 months. Been on co ntinuously since 07/2024. Was 15 days off. PENDING SALE TO [facility] Medical History Acquired stricture of ureter Ureteral stent present Essential hypertension Elevated cholesterol Insomnia Solitary kidney, acquired History of kidney cancer Osteoporosis ESBL (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 Father Cancer Social History Household Members: Spouse Household Members Other:: Housing: Apartment Are you a primary outdoor emergency care technician to a significant other at home: No Do you presently have visiting nurse or other home services: No Alcohol intake: never Comment: tylenol and pyridium given Patient Tobacco Use Status: Never used Tobacco Second Hand Smoke Exposure: No service: No Current occupational status: disabled Assessment & Plan Assessment & Plan (1) Osteoporosis: Code(s): M81.0 - Age-related osteoporosis without current pathological fracture Category: Medical Plan: This 83-year-old male with a history of osteoporosis. Secondary causes have been ruled out except for low testosterone. However, patient is not a candidate for testosterone replacement considering the past history of prostate cancer. Currently on Tymlos. DEXA showed that continuation of moderate to severe osteoporosis but this may be reflection of intermittent not continuous loose of Tymlos 1. Osteoporosis The patient's osteoporosis will be managed by transitioning from Tymlos to Prolia injections every six months in the office to maintain bone density improvements. Continued adherence to the treatment plan is emphasized. The patient had an opportunity to ask questions regarding treatment plan. The patient expressed understanding and agreement with the above treatment plan. I discussed with the patient the diagnosis of osteoporosis and the current management plan involving Tymlos, which has led to some improvement in bone density despite persistent osteoporosis. We reviewed the plan to switch to Prolia injections to maintain this progress. The risks and benefits of Prolia were outlined, including its role in preserving bone density. The importance of compliance with the injection schedule to avoid interruption in treatment was emphasized. Follow-up in four months was agreed upon to evaluate the transition to Prolia and ensure adherence to the schedule. - Continue taking Tymlos daily as prescribed until further instructions. - Transition to Prolia injections every six months as planned. - Ensure not to miss any injections and follow up in four months for evaluation and to maintain the bone density. - Adhere strictly to the treatment regimen to preserve bone health. The patient had an opportunity to ask questions regarding treatment plan. The patient expressed understanding and agreement with the above treatment plan. Patient was informed and verbally consented to the use of an ambient scribe for clinic note documentation during this visit. Coding Level of Care Code Est Pt Level 3 (51284) Diagnoses Osteoporosis M81.0
--- OUTSIDE RECORDS SUMMARY | 2024-09-15 08:05 | XMS_ITS ---
Author Name Dee Hernandez NP Address [address] [place] [address] Phone [phone] [facility] Care Team Providers Care Risk Control Manager Name Role Phone Dee Hernandez Unavailable [phone] Reason for Referral Not Available Allergies, adverse [...] regul naman at home. Evaluate BP with PCP/Mechanical Designer f/u visits. Follow a low sodium diet/diet [...] (do not use for phone, instead use 63198-84) [facility], ([place]) 12/29/2022 Essential (primary) hypertensionHyperlipidemia, unspecifiedAge-related osteoporosis without current pathological fractureGastro-esophageal reflux disease without esophagitisConstipation, unspecifiedInsomnia, unspecifiedUnspecified dementia without behavioral disturbanceTinnitus, unspecified earAnxiety disorder, unspecifiedLow back pain, unspecified New patient,40-59min; chronic exacerbation, 2 stable chronic or 1 acute illness add add modifier 95 for video (do not use for phone, instead use 11572-14) [facility], ([place]) 12/29/2022 New patient,40-59min; chronic exacerbation, 2 stable chronic or 1 acute illness add add modifier 95 for video (do not use for phone, instead use 77894-43) [facility] ([place] 12/29/2022 New patient,40-59min; chronic exacerbation, 2 stable chronic or 1 acute illness add add modifier 95 for video (do not use for phone, instead use 43233-80) [facility] 12/29/2022 New patient,40-59min; chronic exacerbation, 2 stable chronic or 1 acute illness add add modifier 95 for video (do not use for phone, instead use 23685-18) [facility] 12/29/2022 New patient,40-59min; chronic exacerbation, 2 stable chronic or 1 acute illness add add modifier 95 for video (do not use for phone, instead use 14505-79) [facility] 12/29/2022 Vital Signs Date of Collection Vitals 2022-12-29 05:51:12 Height - 167.64 cmWe ight - 78.47 kgBody Mass Index (BMI) - 27.92 kg/m2BP Diastolic - 85.0 mm[Hg]BP Systolic - 155.0 mm[Hg]Pain Scale - 8.0 {score} Social History Social History Social History Observation Description Effec tive Time Current Smoking Status Never smoker 4 Sex Male History of Procedures Procedures Service Procedure code Service date Servicing provider Phone# New patient,40-59min; chronic exacerbation, 2 stable chronic or 1 acute illness add add modifier 95 for video (do not use for phone, instead use 73427-11) 21253 2022-12-29 No Data Available No Data Availa [...] BP regularly at home. Evaluate BP with PCP/Mechanical Designer f/u visits. Follow a low sodium diet/diet [...] had a detailed discussion with [facility], their diagnosis, and medications. Patient/caregiver [...]
--- OUTSIDE RECORDS SUMMARY | 2024-09-15 08:05 | XMS_ITS | Encounter Summary ---
Author Organization [employer] Address [address] [place] [address] Care Team Providers Care Spinner Iron Name Role Phone Jeannie Fabian Primary Care Provider [phone] Fabrizio Ramos MD Unavailable [phone] Reason for Visit * Reason Onset Date Comments FYI 09/06/2022 Encounter Details Date Type Department Care Team (Late st Contact Info) Description 09/06/2022 Telephone [facility] MEDICINE [address] [place] [address] Jeannie aFbian ANP [address] [place] [address] FYI Social History Tobacco Use Types Packs/Day [...] Description 12/24/2024 10:30 AM EST Office Visit [facility] OPTOMETRY [address] [place] [address] Violet Suazo, OD [address] [place] [address] documented as of this encounter Visit Diagnoses Not on filedocumented in this encounter Care Teams Spinner Iron Relationship Specialty Start Date End Date Jeannie Fabian ANP [address] [place] [address] PCP - General Family Medicine 12/27/20 Fabrizio Ramos MD [address] [place] [address] Urology 01/04/24 [facility] 05/08/24 07/27/24 documented as of this encounter
[2024-09-15 08:06] VITALS: BP 128/68; PULSE 58; O2SAT 96; BMI 27.4
== END 2024-09-15 08:35 | disposition home or self-care (01) ==
LOC: HO.ENCR 08:02
PROVIDERS: PCP Nurse Practitioner Primary Care; Visit Provider Internal Medicine Endocrinology, Diabetes & Metabolism
DX: M81.0 Age-related osteoporosis without current pathological fracture (principal)
CPT/HCPCS: 99213

== ENCOUNTER → 2024-09-15 08:01 | Outpatient (BNVA) | payer OTHER, SELFPAY | PROVIDERS: PCP Nurse Practitioner Primary Care; Visit Provider Internal Medicine Endocrinology, Diabetes & Metabolism | DX: M81.0 Age-related osteoporosis without current pathological fracture (principal) | CPT/HCPCS: 99212 ==

== ENCOUNTER 2024-09-25 11:04 | Day surgery (SDC) | payer OTHER, SELFPAY ==
--- OUTSIDE RECORDS SUMMARY | 2019-02-20 03:48 | XMS_ITS | Continuity of Care Document ---
Author Organization [employer] Address [address] [place] [address] Care Team Providers Care Psychological Tests Sales Agent Name Role Phone Macy Villanueva MD, Kaity Unavailable Unavaila ble Allergies, Adverse Reactions, Alerts Substance Reaction Status Criticality ibuprofen Renal impairment Active No Informat ion Medications Medication Instructions Dosage Effective Dates (start - stop) Status Comments OMEPRAZOLE 20 MG CAPSULE,DELAYED RELEASE 1 CAPSULE ONCE DAILY 30 MINUTES BEFORE BREAKFAST FOR STOMACH -TAKE ARIELLA EMPTY STOMACH - Active CALCIUM CARBONATE 500 MG (1,250 MG)-VITAMIN D3 400 UNIT TABLET 1 pastilla diaria - Active CARVEDILOL 6.25 MG TABLET take 1 tablet by oral route every day with food 6.25 MG - Active ALENDRONATE 70 MG TABLET 1 TABLET BY MOUTH ONCE A WEEK 30 MINUTES BEFORE BREAKFAST -TOME ELMISMOS IRMA CADA SEMANA (HUESOS) -DRINK PLENTY OF WATER - Active Lexapro 10 mg tablet take 1 tablet by or al route every day 10 MG - Active amlodipine 10 mg tablet 1 TABLET EACH DAY FOR BLOOD PRESSURE AND HEART - Active atorvastatin 40 mg tablet 1 TABLET AT BEDTIME EVERY DAY FOR CHOLESTEROL - Active loratadine 10 mg tablet 1 TABLET ONCE DAILY (COMEZON) - Active ammonium lactate 12 % topical cream Use diario para piel seca - Active Vitamin D3 1,000 unit capsule tomese 1 tableta freda vez al irma para huesos - Active Procedures Procedure Date PSYCH DIAGNOSTIC EVALUATION OFFICE/OUTPATIENT VISIT, EST GLYCATED HEMOGLOBIN TEST ROUTINE VENIPUNCTURE BASIC METABOLIC PANEL ASSAY THYROID STIM HORMONE MICROALBUMIN, QUANTITATIVE BLOOD FOLIC ACID SERUM VITAMIN B-12 REAGENT STRIP/BLOOD GLUCOSE OFFICE/OUTPATIENT VISIT, EST REAGENT STRIP/BLOOD GLUCOSE ADULT IMMUNIZATION ADMIN, EACH ADD PNEUMOCOCCAL VACC, 13 PRINCESS IM ADULT IMMUNIZATION ADMIN, 8 TDAP VACCINE >7 IM LIPID PANEL ROUTINE VENIPUNCTURE MICROALBUMIN, QUANTITATIVE BASIC METABOLIC PANEL GLYCATED HEMOGLOBIN TEST Screening For Depresion PREV VISIT, EST, 65 & OVER OFFICE/OUTPATIENT VISIT, EST OFFICE/OUTPATIENT VISIT, EST OFFICE/OUTPATIENT VISIT, EST OFFICE/OUTPATIENT VISIT, EST OFFICE/OUTPATIENT VISIT, EST REAGENT STRIP/BLOOD GLUCOSE OFFICE/OUTPATIENT VISIT, EST OFFICE/OUTPATIENT VISIT, EST LIPID PANEL ROUTINE VENIPUNCTURE BASIC METABOLIC PANEL MICROALBUMIN, QUANTITATIVE LIPID PANEL GLYCATED HEMOGLOBIN TEST COMPREHEN METABOLIC PANEL OFFICE/OUTPATIENT VISIT, EST UNLISTED E&M SERVICE OFFICE/OUTPATIENT VISIT, EST ADULT IMMUNIZATION ADMIN, 6 PNEUMOCOCCAL VACCINE OFFICE/OUTPATIENT VISIT, EST OFFICE/OUTPATIENT VISIT, NEW UNLISTED E&M SERVICE Advance Directives Directive Yes / No Effective Date File Name No Information Encounters Encounter Description Practice Location Reason(s) For Visit Diagnoses Date Provider Providers Copied on Encounter [facility], [address], [place], [place], [id number], [place] [facility] Adult No Information 0 Macy Briceno. [address] [place] [address], [place], [id number], [place]. tel:[phone] [facility], [address], [place], [place], [id number], [place] [facility] No Information 9 Macy Briceno. [address] [place] [address], [place], [place], [id number], [place]. tel:[phone] [facility], [address], [place], [place], [id number], [place] [facility] Adult No Information 9 Rosalinda Brown. [address] [place], [place] [address], [address], [place]. tel:[phone] [facility], [address], [place], [place], [id number], [place] Md Adult No Information 9 Macy Briceno. [address] [place] [address], [place], [id number], [place]. tel:[phone] [facility], [address], [place], [id number], [place] Md Adult No Information 9 Macy Briceno. [address] [place] [address], [place], [id number], [place]. tel:[phone] PSYCH DIAGNOSTIC EVALUATION [facility], [address], [place], [place], [id number], [place] [facility] (generalized anxiety disorder) 9 Kash Mckeon. [address] [place] [address], [place], [id number], [place]. tel:[phone] Referring Provider: Gabby Gonzalez, [address] [place] [address], [place], [address] . tel:[phone] OFFICE/OUTPA TIENT VISIT, [facility], [address], [place], [id number], [place] Rad[facility] Adult Insomnia (chief complaint)mor e (chief complaint) Other insomniaAnxietyA ge-related osteoporosis without current pathological fractureEssentia l hypertensionUPJ (ureteropelvic junction) obstructionPredi abetesCold feeling 9 Lisa Pierre. [address] [facility], [place], [id number], [place]. tel:[phone] Referring Provider: Gabby Gonzalez, [address] [facility], [place], [address] . tel:[phone] [facility], [address], [place], [id number], [place] Rad[facility] Adult No Information 9 Tracey Villalobos. [address] [place] [address], [place], [address], [place]. tel:[phone] [facility], [address], [place], [id number], [place] [facility] Adult Chronic bilateral low back pain without sciaticaOther chronic pain 8 Webb Griselda. [address] [place] [address], [place], [address], [place]. tel:[phone] OFFICE/OUTPA TIENT VISIT, EST [facility], [address], [place], [id number], [place] [facility] Adult Follow up visit (chief complaint)hyp ertension (chief complaint) Body mass index (BMI) 29.0-29.9, adultChronic bilateral low back pain without sciaticaOther chronic painEssential hypertensionUPJ (ureteropelvic junction) obstruction 8 Webb Griselda. [address] [place] [address], [place], [address], [place]. tel:[phone] PREV VISIT, EST, 65 & OVER [facility], [address], [place], [id number], [place] [facility] Adult preventive exam (chief complaint) Encounter for general adult medical examination with abnormal findingsEssentia l hypertensionGast roesophageal reflux disease without esophagitisChron ic ischemic colitisMalignant neoplasm prostateAge-rela clint osteoporosis without current pathological fractureHiatal herniaUPJ (ureteropelvic junction) obstructionBody mass index (BMI) 30.0-30.9, adult 8 Tracey Villalobos. [address] [place] [address], [place], [address], [place]. tel:[phone] OFFICE/OUTPA TIENT VISIT, [facility], [address], [place], [place], [id number], [place] [facility] Adult hypertension (chief complaint)abd ominal pain (chief complaint)dry skin (chief complaint) Dry skin dermatitisEssent ial hypertensionGast roesophageal reflux disease without esophagitisSolit joe kidney Tracey Villalobos. [address] [place] [address], [place], [address], [place]. tel:[phone] OFFICE/OUTPA TIENT VISIT, [facility], [address] [place], [id number], [place] [facility] Adult hypertension (chief complaint)Cou gh (chief complaint) CoughEssential hypertension 8 Tracey Villalobos. [address] [place] [address], [place], [address], [place]. tel:[phone] OFFICE/OUTPA TIENT VISIT, [facility], [address] [place] [place], [id number], [place] [facility] Adult hypertension (chief complaint)shelby st pain (chief complaint) CoughEssential hypertension Tracey Villalobos. [address] [place] [address], [place], [address], [place]. tel:[phone] OFFICE/OUTPA TIENT VISIT, [facility], [address] [place], [id number], [place] [facility] Adult Discuss test results (chief complaint)hyp ertension (chief complaint)dry skin (chief complaint) Essential hypertensionAge- related osteoporosis without current pathological fractureDry skin dermatitis 7 Tracey Villalobos. [address] [place] [address], [place], [address], [place]. tel:[phone] OFFICE/OUTPA TIENT VISIT, [facility], [address], [place], [place], [id number], [place] [facility] Adult hypertension (chief complaint)hyp erlipidemia (chief complaint) Essential hypertensionHype rlipidemia, mixedBody mass index (BMI) 29.0-29.9, adult 7 Webb Griselda. [address] [facility], [place], [address], [place]. tel:[phone] [facility], [address], [place], [id number], [place] [facility] Adult Screening for diabetes mellitus 7 Chapo Muir. [address] [facility], [place], [place], [id number], [place]. tel:[phone] OFFICE/OUTPA TIENT VISIT, [facility], [address], [place], [id number], [place] [facility] Adult hypertension (chief complaint)aki h (chief complaint) Dry skin dermatitisHyperl ipidemia, mixedEssential hypertension 7 Tracey Villalobos. [address] [place] [address], [place], [address], [place]. tel:[phone] [facility], [address], [place], [id number], [place] [facility] Adult No Information May-0 7 [place]. [address] [facility], [place], [id number], [place]. tel:[phone] [facility], [address], [place], [id number], [place] [facility] Adult Hyperlipidemia, mixedEssential hypertension Apr-0 3-201 7 [place]. [address] [facility], [place], [id number], [place]. tel:[phone] OFFICE/OUTPA TIENT VISIT, [facility], [address], [place], [id number], [place] [facility] Adult hypertension (chief complaint)cou gh (chief complaint)Med ication Refills (chief complaint) Malignant neoplasm prostateChronic ischemic colitisKidney stoneScreening for osteoporosisCoug hEssential hypertensionScre ening for diabetes mellitusMultiple joint pain 0 7 [place]. [address] [place] [address], [facility] [place], [place], [id number], [place]. tel:[phone] OFFICE/OUTPA TIENT VISIT, [facility], [address], [facility] [place], [place], [id number], [place] [facility] Adult hypertension (chief complaint)TIPPLE TENDER (chief complaint)Dry skin dermatitis (chief complaint) Essential hypertensionDry skin dermatitisGastro esophageal reflux disease without esophagitis 6 Tracey Villalobos. [address] [place] [address] [place], [address], [place]. tel:[phone] OFFICE/OUTPA TIENT VISIT, [facility], [address], [facility] [place], [id number], [place] [facility] Adult Discuss test results (chief complaint)hyp ertension (chief complaint)aki h (chief complaint) Essential hypertensionDry skin dermatitis Tracey Villalobos. [address] [place] [address] [place], [address], [place]. tel:[phone] OFFICE/OUTPA TIENT VISIT, [facility], [address], [facility] [place], [id number], [place] [facility] Adult Medication Refill (chief complaint)Pre vention (chief complaint)hyp ertension (chief complaint)hyp erlipidemia (chief complaint) Body mass index (BMI) 28.0-28.9, adultEssential hypertensionHype rlipidemia, mixedKidney diseaseScreen for STD (sexually transmitted disease)Screenin g PSA (prostate specific antigen)Screen for colon cancer 6 Rosalinda Brown. [address] [place], [address], [place]. tel:[phone] Family History Family Member Type Diagnosis Age At Onset Father Problem (finding) stomach cancer (Cause O f ) 80 Mother Problem (finding) diabetes melli tus type 2 (Cause Of ) Immunizations Vaccine Date Status Comments Prevnar 13 administered Source: New Imm unization Record Tdap administered Source: New Imm unization Record Fluzone/Flulaval multi-dose (over 3 y/o) refused Source: New Immuniza tion Record Influenza, injectable, quadrivalent, split virus, 3 years or older Flulaval Quad not administered Note: Flu shot not Available. ; Source: New Immunization Record Pneumococcal polysaccharide PPV23 administered Source: New Immuniza tion Record Payers Payer name Insurance type Covered libertarian ID Authoriza tion(s) Medicare 2014 NGS MB [id number] Medicaid [id number] Medicaid [place] [id number] Medicaid MC [id number] Social History Type Description Quantity Date Captured Comments Sex Male Smoking Status No Information Sexual Orientation Straight or heterosexual June Gender Identity Male Chief Complaint And Reason For Visit No Information Reason For Referral Reason For Referral No Information Plan Of Treatment Date Type Action Status Goal Influenza Vaccine. Due on due Goal Cognitive assess ment. Due on due Goal Zoster Vaccine. Due on due Goal Depression scree ramona. Due on due Goal Prevnar 13 (PCV13). Due on due Goal BMP. Due on due Goal Lipid panel. Due on 019 due Goal Influenza Vaccine. Due on due Goal Cognitive assess ment. Due on due Goal Depression scree ramona. Due on due Goal Prevnar 13 (PCV13). Due on due Goal Zoster Vaccine. Due on due Goal BMP. Due on due Goal Lipid panel. Due on due Goal Lipid panel. Due on due Goal BMP. Due on due Goal Influenza Vaccine. Due on due Goal Prevnar 13 (PCV13). Due on due Goal Zoster Vaccine. Due on due Goal Cognitive assess ment. Due on due Goal Depression scree ramona. Due on due Goal Depression scree ramona. Due on due Goal Prevnar 13 (PCV13). Due on due Goal Cognitive assess ment. Due on due Goal Influenza Vaccine. Due on due Goal Zoster Vaccine. Due on due Goal BMP. Due on due Goal Lipid panel. Due on due Goal BMP. Due on due Goal Cognitive assess ment. Due on due Goal Influenza Vaccine. Due on due Goal Zoster Vaccine. Due on due Goal Prevnar 13 (PCV13). Due on due Goal Depression scree ramona. Due on due Goal Lipid panel. Due on due Goal Depression scree ramona. Due on due Goal Cognitive assess ment. Due on due Goal Influenza Vaccine. Due on due Goal Zoster Vaccine. Due on due Goal Prevnar 13 (PCV13). Due on due Goal Lifestyle education regardin g diet completed Goal BMP. Due on due Goal Depression scree ramona. Due on due Goal Cognitive assess ment. Due on due Goal Prevnar 13 (PCV13). Due on due Goal Influenza Vaccine. Due on due Goal Zoster Vaccine. Due on due Goal Lipid panel. Due on 018 due Goal Zoster Vaccine. Due on due Goal Cognitive assess ment. Due on due Goal Influenza Vaccine. Due on due Goal Prevnar 13 (PCV13). Due on due Goal Prevnar 13 (PCV13). Due on due Goal Cognitive assess ment. Due on due Goal Zoster Vaccine. Due on due Goal Influenza Vaccine. Due on due Goal Influenza Vaccine. Due on due Goal Zoster Vaccine. Due on due Goal Cognitive assess ment. Due on due Goal Prevnar 13 (PCV13). Due on due Goal Prevnar 13 (PCV13). Due on due Goal Zoster Vaccine. Due on due Goal Cognitive assess ment. Due on due Goal Influenza Vaccine. Due on due Goal Influenza Vaccine. Due on due Goal Zoster Vaccine. Due on due Goal Cognitive assess ment. Due on due Goal FOBT. Due on due Goal Prevnar 13 (PCV13). Due on J due Goal Pneumococcal vaccine due Goal Influenza Vaccine. Due on Ma due Goal Zoster Vaccine. Due on due Goal Zoster Vaccine. Due on due Goal Zoster Vaccine. Due on due Goal Zoster Vaccine. Due on due Goal Zoster Vaccine. Due on due Goal Zoster Vaccine. Due on due Goal Pneumococcal vaccine due Goal Occult Blood, [place], [place]. Due on due Goal Colonoscopy. Due on 016 due Goal Zoster Vaccine. Due on due Goal Pneumococcal vac cine. Due on due Goal Lifestyle education regardin g diet completed Referral Referred To: low back brace Ordered: Referrals: low back brace ordered Referral Ordered: DXA BONE DENSITY, AXIAL ordered Referral Referred To: [facility]/ GI Ordered: Referrals: Gastroenterology. [facility]/ GI. Evaluate and treat ordered Patient Education Dry Skin: After Your Vi sit completed Patient Education Dry Skin: After Your Vi sit completed Patient Education Dry Skin: After Your Vi sit completed Future Order: Lab Order LIPID PA DAVID ([id number]), Collected on: Ordered Future Order: Lab Order HEMOGLOB IN A1C ([id number]), Ordered on: Ordered Future Order: Lab Order Hep B Segal rface Ab ([id number]), Ordered on: Ordered Future Order: Lab Order PSA ([id number]), O rdered on: Ordered Future Order: Lab Order HIV SCRE EN ([id number]), Ordered on: Ordered Future Order: Lab Order Microalb umin with creatinine and ratio ([id number]), Ordered on: Ordered Future Order: Lab Order HEPATITI S C Ab ([id number]), Ordered on: Ordered Future Order: Lab Order LIPID PA DAVID ([id number]), Ordered on: Ordered Future Order: Lab Order BMP ([id number]), O rdered on: Ordered History Of Present Illness Encounter Date Complaint History Of Prese nt Illness Insomnia The patient pres ents with sleep problems. The symptoms are worsening. The patient's symptoms began 1 month ago. These complaints are continual. The patient does not have: use of alcohol. The patient is experiencing difficulty concentrating and difficulty initiating sleep. more SLEEPING ISSUESN ormally was sleeping 7-8hrin the past month sleeping less- like 4 hoursfeels more anxious than usual because not sleepingdenies any stress at homedoes note that his mother suffered from anxietylaying down at 12 to sleep, goes to sleep around 12:20, says wakes up again at 3amdoesn't try to go to bed earlier because not sleepinglays in bed until 7-8am but doesn't feel tireddoesn't feel tired during the dayfeels well during the dayjust sometimes notes feels cold, is wearing gloves in the visit todaywe review all meds- he is able to name all themgoing to therapist weekly on to talk about anxiety, though notes is no longer taking escitalopram or doxepin Follow up visit Is requesting abdon sosa for lumbar. hypertension The HTN started in 2011. Comorbid conditions include chronic kidney disease. Risk factors include family history HTN, gout or CAD, inactive lifestyle and male gender. preventive exam Men's preventive visit. Patient is on a high calorie diet. Relevant history is negative for passive smoke exposure, alcohol use. dry skin is bathing 5time s per week and is using lotion sometimes. Skin is very dry. abdominal pain Pain scale: 0/10 . The location is epigastric. These symptoms occur after meals. Associated symptoms include diarrhea and heartburn. Pertinent negatives include blood in stool, constipation, dyspnea, fever, nausea and vomiting. Additional information: Verduras are worse and cause more diarrhea. hypertension The HTN started in 2011. Comorbid conditions include chronic kidney disease. Risk factors include family history HTN, gout or CAD, inactive lifestyle and male gender. Pertinent negatives include chest pain and headache. Cough Onset: 2 months ago. Severity: 7. The patient describes the cough as dry. It occurs persistently. The problem has not changed. Symptoms are aggravated by cold air. Associated symptoms include cough. Pertinent negatives include dyspnea, dyspnea on exertion, fever, nasal congestion, pleuritic pain, post-nasal drainage, rhinorrhea, sinus pressure, sore throat and wheezing. Additional information: Still same cough from September but intermittent. cp with coughing only. Not daily -- usually coughs 2-3 times when it comes on and then it passes. hypertension The HTN started in 2011. Comorbid conditions include chronic kidney disease. Risk factors include family history HTN, gout or CAD, inactive lifestyle and male gender. Pertinent negatives include chest pain and headache. chest pain The patient pres ents with a complaint of chest pain. The symptom(s) began gradually. The patient denies dyspnea, fatigue, nausea, palpitations and vomiting. Relevant history for this patient excludes tobacco use. The patient denies any dyspnea on exertion or headache. Additional information: Feels congestion, dry cough present, and throat and ear pain. Worsens with cough. Dry cough x 2 weeks. h as been taking loratadine and omeprazole - thinks could be r/t GERD. hypertension The HTN started in 2011. Comorbid conditions include chronic kidney disease. Risk factors include family history HTN, gout or CAD, inactive lifestyle and male gender. Associated symptoms include chest pain. hypertension The HTN started in 2011. Comorbid conditions include chronic kidney disease. Risk factors include family history HTN, gout or CAD, inactive lifestyle and male gender. Pertinent negatives include chest pain and fatigue. Discuss test results DEXA SCAN - States that he used to take alendronate. 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 He reports taking alendronate in past and stopped in February for unknown reason. dry skin hypertension The HTN started in 2011. Comorbid conditions include chronic kidney disease. Risk factors include family history HTN, gout or CAD, inactive lifestyle and male gender. hyperlipidemia Risk factors inc lude age over 50 and renal disease. hypertension The HTN started in 2011. Comorbid conditions include chronic kidney disease. Risk factors include family history HTN, gout or CAD, inactive lifestyle and male gender. Pertinent negatives include chest pain and headache. rash The patient pres ents for rash. Affected area(s) include the entire body. The patient describes the affected area(s) as itchy. Associated symptoms include dry skin and pruritus. Pertinent negatives include bleeding, cracking, crusting, erythema (skin), hypopigmentation, painful rash, scaling and urticaria. There are no other household members with similar symptoms. Relevant history positive for history of allergies. Additional information: Itching only at night and when he eats something acidic. Hasn't tried anything. No rash present, just with itching. hypertension The HTN started in 2011. Comorbid conditions include chronic kidney disease. Risk factors include family history HTN, gout or CAD, inactive lifestyle and male gender. Pertinent negatives include chest pain. cough Onset: 3 months ago. Associated symptoms include cough, heartburn and pleuritic pain. Pertinent negatives include chills, fever, hemoptysis, rhinitis, sinus pressure and sore throat. Medication Refills reports he wa s taking calcium and has run out of medication. Reports he has osteoporosis, determined via blood test; also reporing that his B/L breasts hurt, he needs a shower chair, has discoloration and brittle nails, and needs vitamin for his head d/t memoryCRC screening was completed on 10/27/15 at [facility]. TIPPLE TENDER [facility] insurance anymoreHas appt for ?cathetization in January and he is concerned b/c he doesn't have insurance. Dry skin dermatitis Didn't get l otion b/c he said that he doesn't have insurance. He still has a lot of itchy dry skin w/o rash. hypertension The HTN started in 2011. Comorbid conditions include chronic kidney disease. Risk factors include family history HTN, gout or CAD, inactive lifestyle and male gender. Pertinent negatives include chest pain. hypertension The HTN started in 2011. Comorbid conditions include chronic kidney disease. Risk factors include family history HTN, gout or CAD, inactive lifestyle and male gender. Discuss test results pt went to [facility] ,wants to know result of testFeels like he isn't digesting his food. He has small hiatus hernia noted on endoscopy. Colonoscopy was normal. Endoscopy is awaiting pathology results. Briefly reviewed with patient and advised to keep f/u appt with GI to discuss further. rash The patient pres ents for rash. Affected area(s) include both arms, back and both legs. The patient describes the affected area(s) as itchy. The symptoms are not associated with contact with chemicals, contact with plants, new perfume and stress. Associated symptoms include pruritus. Pertinent negatives include dry skin, painful rash, pharyngitis and scaling. There are no other household members with similar symptoms. Relevant history negative for family history of allergies, family history of asthma, family history of dermatitis, history of allergies, history of asthma and history of atopic dermatitis. hypertension The HTN started in 2011. Comorbid conditions include chronic kidney disease. It is currently stable. Risk factors include family history HTN, gout or CAD, inactive lifestyle and male gender. The hypertension is exacerbated by nothing. Pertinent negatives include chest pain, claudication, dyspnea, fatigue, hematuria, irregular heartbeat/palpitations and vomiting. hyperlipidemia Risk factors inc lude age over 50 and renal disease. The patient is adhering to medication and follow-up for their hyperlipidemia. The patient is not adhering to diet and exercise for their hyperlipidemia. Pertinent negatives include chest pain, claudication, constipation, diarrhea, dyspnea, hematuria, palpitations, polydipsia, polyuria, rash, vision loss and'+ vomiting. Medication Refill New patientyolanda enies discomfort. Prevention Pt. did colonosc opy 4 years ago in [place]. Functional Status Date Functional Assessmen t No Information Instructions Date Instruction Additional Infor lizzie Following with Dr. Reyna Flores [facility] UrologyHistory of a left proximal ureteral stricture s/p robotic ureteral reconstruction, now with recurrent obstruction - says next appt in June 2018 Related to UPJ (ureteropelvic junction) obstruction Following with Dr. 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 Last sent change 07/2017 Ureteral obstruction - cystoscopy and next ureteral stent change (Dec 2017). Related to UPJ (ureteropelvic junction) obstruction Stable and at goal t noe. JNC 8 goals are <140/90 if less than <60 yo, <150/90 if older than 65 yo. Low salt dietReport chest pain, shortness of breath, edemaContinue current medications RTO 3 months Related to Essential hypertension Will order lumbar segal pport brace for patient per his request, but also encouraged strengthening exercises, stretchesF/u PRN Related to Chronic bilateral low back pain without sciatica Well adult male.[place] al care every 6 months.Eye doctor appt every 2 years.Immunizations: - TDaP/Td every 10 yrs- Flu: Annually- HPV: <26 y/oLabs: todayAnticipatory guidance given: healthy lifestyle choices including safe sexual practices/condom use, regular exercise, healthy diet, healthy weight.Follow up: 1 year for next annual preventative exam Related to Encounter for general adult medical examination with abnormal findings currently f/u as directed by uro logy Related to Malignant neoplasm prostate Following with Dr. Reyna Flores [facility] UrologyMost recent note by Dr. Flores 06/14/17: Mr. Can is a 76 y.o. 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 Last sent change 01/2017 Ureteral obstruction - Schedule OR for cystoscopy and next ureteral stent change (July 20, 2017). Related to UPJ (ureteropelvic junction) obstruction Noted on EGD 2016Sta bleContinue omeprazole PRN Related to Hiatal hernia Stable and at goal t noe. JNC 8 goals are <140/90 if less than <60 yo, <150/90 if older than 65 yo. Low salt dietReport chest pain, shortness of breath, edemaContinue current medications RTO 3 months Related to Essential hypertension Omeprazole 20 mg PRN is working well for patient -- avoid daily or overuse d/t solitary kidney status Related to Gastroesophageal reflux disease without esophagitis Rx: alendronate week ly as written - discussed how to properly take this medicationVitamin D3 orderedMay continue calcium 500 mg once dailyStay active, but report difficulties with balanceDiscussed goals are to strengthen him, but avoid falls and pt verbalized understanding Related to Age-related osteoporosis without current pathological fracture Lifestyle education regarding di et Related to Body mass index (BMI) 30.0-30.9, adult Giving encouragement to exercise Related to Body mass index (BMI) 30.0-30.9, adult f/u Dr. Flores- urology Related t o Solitary kidney Omeprazole 20 mg cherry ly for 6-8 weeks, then PRN -- has one functioning kidney and osteoporosis, but with sig GERD sxsIf sxs very well controlled after a few weeks, may titrate downRanitidine to be trialed if possible, though some risk for cognitive SEst/c f/u with GI if indicated Related to Gastroesophageal reflux disease without esophagitis Stable and at goal t noe. JNC 8 goals are <140/90 if less than <60 yo, <150/90 if older than 65 yo. Low salt dietReport chest pain, shortness of breath, edemaContinue current medications RTO 3 months Related to Essential hypertension Dry skin handout giv enAdvised to buy aveeno, aquaphor, eucerin or similar and apply right after showerDON'T SCRATCH - may use cool packsRTO PRN if no improvement Related to Dry skin dermatitis Stable and at goal t noe. JNC 8 goals are <140/90 if less than <60 yo, <150/90 if older than 65 yo. Low salt dietReport chest pain, shortness of breath, edemaContinue current medications RTO 3 months Related to Essential hypertension Is improvingOpts to continue monitoringt/c spirometry Related to Cough Stable and at goal t noe. JNC 8 goals are <140/90 if less than <60 yo, <150/90 if older than 65 yo. Low salt dietReport chest pain, shortness of breath, edemaContinue current medications RTO 3 months Related to Essential hypertension Cp has improved sign ficantly and is only with coughing and deep breathingrx: tessalon perlesTeaspoon honey recommendedsugar free hard candyA lot of warm fluidsCXRF/u pending cxr results Related to Cough Rx: alendronate week ly as written - discussed how to properly take this medicationVitamin D3 orderedMay continue calcium 500 mg once dailyStay active, but report difficulties with balanceDiscussed goals are to strengthen him, but avoid falls and pt verbalized understanding Related to Age-related osteoporosis without current pathological fracture Dry skin handout giv enAdvised to buy aveeno, aquaphor, eucerin or similar and apply right after showerDON'T SCRATCH - may use cool packsRTO PRN if no improvement Related to Dry skin dermatitis Stable and at goal t noe. JNC 8 goals are <140/90 if less than <60 yo, <150/90 if older than 65 yo. Low salt dietReport chest pain, shortness of breath, edemaContinue current medications RTO 3 months Related to Essential hypertension Here for nutrition uri marie reading class with Belinda TumaxHypertriglyceridemia severeAdvised to continue f/u with Belinda and follow a strict dietPatient verbalized understanding and agreed with plan Related to Hyperlipidemia, mixed Stable and at goal t noe. JNC 8 goals are <140/90 if less than <60 yo, <150/90 if older than 65 yo. Low salt dietReport chest pain, shortness of breath, edemaContinue current medicationsRTO 1 month w/ PCP Related to Essential hypertension Stable and at goal t noe. JNC 8 goals are <140/90 if less than <60 yo, <150/90 if older than 65 yo. Low salt dietReport chest pain, shortness of breath, edemaContinue current medications RTO 3 months Related to Essential hypertension Continue atorvastati n 40 mg to protect against [place] and CVAFollow healthy diet for cholesterol Related to Hyperlipidemia, mixed Dry skin handout giv enAdvised to buy aveeno, aquaphor, eucerin or similar and apply right after showerDON'T SCRATCHRTO PRN if no improvement Related to Dry skin dermatitis GERD, allergic rhinits Related t o Cough DECREASE omeprazole to 20 mg (pt states he's been taking omeprazole since 1999)Will continue to monitor sxst/c f/u with GI if insurance reinstated Related to Gastroesophageal reflux disease without esophagitis Dry skin handout giv enAdvised to buy aveeno, aquaphor, eucerin or similar and apply right after showerDON'T SCRATCHRTO PRN if no improvement Related to Dry skin dermatitis Stable and at goal t noe. JNC 8 goals are <140/90 if less than <60 yo, <150/90 if older than 65 yo. Low salt dietReport chest pain, shortness of breath, edemaContinue current medications - sent to [facility] pharmacy now that pt doesn't have insuranceRTO 3 months Related to Essential hypertension rx: lac-hydrinTake s howers every other day, whenever possibleKeep showers warm, not HOTApply lotion immediately upon leaving shower, and dailyRTO PRN Related to Dry skin dermatitis Stable and at goal t noe. JNC 8 goals are <140/90 if less than <60 yo, <150/90 if older than 65 yo. Low salt dietReport chest pain, shortness of breath, edemaContinue current medicationsRTO 3 months Related to Essential hypertension Giving encouragement to exercise Related to Body mass index (BMI) 28.0-28.9, adult Lifestyle education regarding di et Related to Body mass index (BMI) 28.0-28.9, adult Counseled on weight reduction Counseled on dietary changes Assessments Type Assessment Date No Information Patient Care Teams Name Effective Dates (start - stop) Status Members No Information
--- OUTSIDE RECORDS SUMMARY | 2024-09-10 12:43 | XMS_ITS ---
Author Name Dee Hernandez NP Address [address] [place] [address] Phone [phone] Organization [facility] Care Team Providers Care Well Logging Captain Mud Analysis Name Role Phone Dee Hernandez Unavailable [phone] Reason for Referral Not Available Allergies, adverse [...] regul naman at home. Evaluate BP with PCP/Development Officer f/u visits. Follow a low sodium diet/diet [...] (do not use for phone, instead use 04293-57) [facility], ([place]) 12/29/2022 Essential (primary) hypertensionHyperlipidemia, unspecifiedAge-related osteoporosis without current pathological fractureGastro-esophageal reflux disease without esophagitisConstipation, unspecifiedInsomnia, unspecifiedUnspecified dementia without behavioral disturbanceTinnitus, unspecified earAnxiety disorder, unspecifiedLow back pain, unspecified New patient,40-59min; chronic exacerbation, 2 stable chronic or 1 acute illness add add modifier 95 for video (do not use for phone, instead use 58638-10) [facility], ([place]) 12/29/[place] New patient,40-59min; chronic exacerbation, 2 stable chronic or 1 acute illness add add modifier 95 for video (do not use for phone, instead use 49576-28) [facility] New patient,40-59min; chronic exacerbation, 2 stable chronic or 1 acute illness add add modifier 95 for video (do not use for phone, instead use 74459-29) [facility] New patient,40-59min; chronic exacerbation, 2 stable chronic or 1 acute illness add add modifier 95 for video (do not use for phone, instead use 54400-69) [facility]29/20[place] New patient,40-59min; chronic exacerbation, 2 stable chronic or 1 acute illness add add modifier 95 for video (do not use for phone, instead use 79613-50) [facility] ([place] 12/29/2022 Vital Signs Date of Collection Vitals 2022-12-29 05:51:12 Height - 167.64 cmWe ight - 78.47 kgBody Mass Index (BMI) - 27.92 kg/m2BP Diastolic - 85.0 mm[Hg]BP Systolic - 155.0 mm[Hg]Pain Scale - 8.0 {score} Social History Social History Social History Observation Description Effec tive Time Current Smoking Status Never smoker 2024-08-14 0 Sex Male History of Procedures Procedures Service Procedure code Service date Servicing provider Phone# New patient,40-59min; chronic exacerbation, 2 stable chronic or 1 acute illness add add modifier 95 for video (do not use for phone, instead use 62697-11) [id number] 2022-12-29 No Data Available No Data Availa [...] BP regularly at home. Evaluate BP with PCP/Development Officer f/u visits. Follow a low sodium diet/diet [...] had a detailed discussion with patient[facility], their diagnosis, and medications. Patient/caregiver [...]
--- OUTSIDE RECORDS SUMMARY | 2024-09-10 12:43 | XMS_ITS | Encounter Summary ---
Author Organization [employer] Address [address] [place] [address] Care Team Providers Care Paginator Name Role Phone Jeannie Fabian Primary Care Provider [phone] Fabrizio Ramos MD Unavailable [phone] Reason for Visit * Reason Onset Date Comments FYI 09/06/2022 Encounter Details Date Type Department Care Team (Late st Contact Info) Description 09/06/2022 Telephone [facility] MEDICINE [address] [place] [address] Jeannie Fabian ANP [address] [place] [address] FYI Social History Tobacco Use Types Packs/Day [...] Department Care Team (Late Contact Info) Description 12/24/2024 10:30 AM EST Office Visit [facility] OPTOMETRY [address] [place] [address] Violet Suazo, OD [address] [place] [address] documented as of this encounter Visit Diagnoses Not on filedocumented in this encounter Care Teams Paginator Relationship Specialty Start Date End Date Jeannie Fabian ANP [address] [place] [address] PCP - General Family Medicine 12/27/20 Fabrizio Ramos MD [address] [place] [address] Urology 01/04/24 [facility] 05/08/24 07/27/24 documented as of this encounter
[2024-09-23 08:11] VITALS: BMI 26.5
--- NOTE | 2024-09-24 09:20 | P.CONAN_ITS ---
Documented by User: Ann Marie Molina NP 09/24/24 10:37 HPI - Anesthesia Eval Consult details Narrative: 84yo M for Left Cystoscopy,Stent Exchange s/p same 04/2024 with TIVA s/p right nephrectomy d/t ca PMF Active Problems Active Problems: All Active Problems Acquired stricture of ureter (Acute) Ureteral stent present (Acute) H/O kidney removal (Acute) Insomnia (Acute) Osteoporosis (Acute) H/O prostatectomy (Acute) UTI (urinary tract infection) (Acute) Past Medical History Medical History Acquired stricture of ureter Ureteral stent present Essential hypertension Elevated cholesterol Insomnia Solitary kidney, acquired History of kidney cancer Osteoporosis ESBL (extended spectrum beta-lactamase) producing bacteria infection Hydronephrosis Weight loss Poor appetite HTN (hypertension) UTI (urinary tract infection) Family History Family History Mother No problems noted. Father Cancer Family history of problems with anesthesia: No Surgical History Surgical History Hx of cystoscopy History of right nephrectomy H/O prostatectomy Hx of cholecystectomy History of Problems with Anesthesia: No Social History Social History Household Members: Spouse Household Members Other:: Housing: Apartment Are you a primary assurance services manager health care to a significant other at home: No Do you presently have visiting nurse or other home services: No Alcohol intake: never Comment: tylenol and pyridium given Patient Tobacco Use Status: Never used Tobacco Second Hand Smoke Exposure: No Use of substances other than those prescribed or required for medical reasons: No Advance Directives: No Advance Directives Information Provided: Yes service: No Current occupational status: disabled Meds Allergies Allergy/AdvReac Type Severity Reaction Status Date / Time No Known Allergies Allergy Verified 09/15/24 08:20 Home Medications ?Medication ?Instructions ?Recorded ?Confirmed ?Last Taken ?Type escitalopram oxalate 10 mg tablet 10 mg PO BEDTIME anx iety 05/08/23 07/15/24 Unknown History amlodipine 2.5 mg tablet 2.5 mg PO DAILY 05/01/2405/0609/25/24 08:00 History atorvastatin 80 mg tablet 80 mg PO DAILY 05/01/2405/06 Unknown History famotidine 10 mg tablet (Acid 10 mg PO BID 05/01/24 Unknown History Senior Oracle Applications Developer (famotidine)) olmesartan 20 mg tablet 20 mg PO DAILY 05/01/2405/06 Unknown History mirtazapine 7.5 mg tablet 7.5 mg PO BEDTIME 09/15/24 Unknown History Exam Height,Weight and Vital Signs: Height 5 ft 4 in Weight 70 kg Pertinent Lab Results Pertinent Lab Results: Laboratory Tests 05/01/24 09/03/24 12:37 09:10 WBC 6.2 Hgb 13.7 L Hct 40.7 L Plt Count 121 L Sodium 141 Potassium 4.5 Chloride 112 H Carbon Dioxide 21 L BUN 33 H Creatinine 1.30 Assessment and Plan Assessment Anesthesia Assessment: Chart Reviewed Final Anesthetic Review Family History of Problems with Anesthesia: No History of Problems with Anesthesia: No Documented by User: Clay Gale MD 09/25/24 13:00 [facility] Past Medical History Medical History Acquired stricture of ureter Ureteral stent present Essential hypertension Elevated cholesterol Insomnia Solitary kidney, acquired History of kidney cancer Osteoporosis ESBL (extended spectrum beta-lactamase) producing bacteria infection Hydronephrosis Weight loss Poor appetite HTN (hypertension) UTI (urinary tract infection) Family History Family History Mother No problems noted. Father Cancer Surgical History Surgical History Hx of cystoscopy History of right nephrectomy H/O prostatectomy Hx of cholecystectomy Social History Social History Household Members: Spouse Household Members Other:: Housing: Apartment Are you a primary assurance services manager health care to a significant other at home: No Do you presently have visiting nurse or other home services: No Alcohol intake: never Comment: tylenol and pyridium given Patient Tobacco Use Status: Never used Tobacco Second Hand Smoke Exposure: No Use of substances other than those prescribed or required for medical reasons: No Advance Directives: No Advance Directives Information Provided: Yes service: No Current occupational status: disabled Meds Allergies Allergy/AdvReac Type Severity Reaction Status Date / Time No Known Allergies Allergy Verified 09/15/24 08:20 Home Medications ?Medication ?Instructions ?Recorded ?Confirmed ?Last Taken ?Type escitalopram oxalate 10 mg tablet 10 mg PO BEDTIME anx iety 05/08/23 07/15/24 Unknown History amlodipine 2.5 mg tablet 2.5 mg PO DAILY 05/01/2405/0609/25/24 08:00 His tory atorvastatin 80 mg tablet 80 mg PO DAILY 05/01/2405/06 Unknown History famotidine 10 mg tablet (Acid 10 mg PO BID 05/01/24 Unknown History Senior Oracle Applications Developer (famotidine)) olmesartan 20 mg tablet 20 mg PO DAILY 05/01/2405/06 Unknown History mirtazapine 7.5 mg tablet 7.5 mg PO BEDTIME 09/15/24 Unknown History Exam Airway Mallampati Class: II TM Dist: >3cm Neck ROM: Full Denture: Upper Heart: ok Lungs: ok Assessment and Plan Assessment Anesthesia Assessment: Anesthesia Plan Discussed Final Anesthetic Review NPO: Yes ASA Class: III and IV Final Preanesthetic Review: No Changes in Pt Med Stat, Meds/Allgs Chart Reviewed, Consent Obtained/Reviewed and Anes Risks/Benef Reviewed Patient Risk: High Procedure Risk: Low Anesthetic Plan Anesthetic Plan: Agree w/ Assess. and Plan and TIVA Disposition: Standard PACU
--- NOTE | ~2024-09-25 | FL_ITS ---
EXAMINATION: FL GUIDANCE ONLY HISTORY: left stent exchange COMPARISON: None available. TECHNIQUE: Fluoroscopy time: 8.27 seconds. Cumulative Dose: 1.89 mGy. Images: 2. FINDINGS: Fluoroscopic spot films demonstrate a left nephroureteral stent in place. FL/FL guidance in OR IMPRESSION: Fluoroscopy during procedure. Please see procedure report for additional information. Electronically signed by: Sam Canales MD 09/26/2024 07:02 AM EDT
[2024-09-25 12:01] VITALS: BP 142/54; PULSE 57; RESP 16; TEMP 36.6; O2SAT 96
[2024-09-25] MEDS: Lactated Ringers 1,000 ML 100 ML IVCONT (12:02)
--- NOTE | 2024-09-25 13:07 | MHC.SHP ---
Pre-Procedural Eval Section A - 24 Hr Update-Section A only Date of Service: 09/25/24 The patient is an INPATIENT: No Changes since office visit: No Cold of Flu in the past 2 weeks, No New Medical Problems, No Changes in Medication and No Patient answered all questions The patient has been examined within 24 hours of the surgical procedure. The History & Physical has been completed within 30 days and I have reviewed it.: Yes Section B - Complete if H&P > 30 days Chief Complaint: Presence of urogenital implants Details of Present Illness: stent exchange Allergies: Allergies Allergy/AdvReac Type Severity Reaction Status Date / Time No Known Allergies Allergy Verified 09/15/24 08:20 Plan I have reviewed the history and physical and performed a pertinent physical examination on my patient. No changes have occurred unless specified. Time Spent With Patient Time: Total time managing care of this patient today ____ minutes.
[2024-09-25 13:37] VITALS: BP 142/54; PULSE 57; RESP 16; TEMP 36.6; O2SAT 96
--- NOTE | 2024-09-25 13:46 | W.PM.OPN ---
Operative Note Operative Note Date of Service: 09/25/24 Narrative: PreOperative Diagnosis:? indwelling left stent Post Operative Diagnosis:? indwelling left stent Procedure:? cystoscopy, left retrograde, left stent exchange Surgeon: Dr Fabrizio Ramos Anesthesia:? sedation Indications for procedure:??hydronephrosis left side.? Requires permanent stent that is changed every 4 months Procedure: After informed consent was verified the patient was brought to the operating room and placed in a supine position.? Anesthesia was administered per protocol. The patient was placed in modified dorsal lithotomy position and prepped and draped in a sterile fashion.? A safety pause time-out was performed. Laterality of procedure and antibiotics were confirmed. A 22 [place] cystoscope was introduced per urethra.? No abnormality was noted. ? Left stent seen coming from left ureter. The Sensor wire was placed alongside the indwelling stent up to the level of the renal pelvis. Indwelling stent was grasped and removed. A Six [place] by 24 cm stent was placed over the wire with good coil seen under fluoroscopy in the renal pelvis. Stent was deployed. Good coil seen within the bladder. The bladder was emptied and the cystoscope removed The patient tolerated the procedure well and was transferred in stable condition to the recovery area. Pathology: ?none Drains: ?6 [place] by 24 cm double-J stent
[2024-09-25 13:52] VITALS: BP 107/68; PULSE 60; RESP 16; O2SAT 98
[2024-09-25 14:10] VITALS: BP 131/45; PULSE 61; RESP 16; TEMP 36.3; O2SAT 98
== END 2024-09-25 14:50 | disposition home or self-care (01) ==
PROVIDERS: PCP Nurse Practitioner Primary Care; Visit Provider Urology
PROC: (CPT 52332; principal; 2024-09-25 13:00)
DX: N13.30 Unspecified hydronephrosis (principal); Z96.0 Presence of urogenital implants; N13.5 Crossing vessel and stricture of ureter without hydronephrosis; Z85.528 Personal history of other malignant neoplasm of kidney; Z90.5 Acquired absence of kidney; Z90.49 Acquired absence of other specified parts of digestive tract; I10 Essential (primary) hypertension; E78.00 Pure hypercholesterolemia, unspecified
CPT/HCPCS: 52332; C1758; C1769; C2617; J1956; J2003; J2704; J3010; Q9967

== ENCOUNTER → 2024-09-25 11:04 | Outpatient (BNV) | payer OTHER, SELFPAY | PROVIDERS: PCP Nurse Practitioner Primary Care; Visit Provider Urology | DX: N13.30 Unspecified hydronephrosis (principal) | CPT/HCPCS: 52332; 74420 ==

== ENCOUNTER 2024-11-13 10:44 | Outpatient (AMB) | payer OTHER, SELFPAY ==
--- NOTE | 2024-11-13 10:45 | MHC.OFFVIS ---
Intake Visit Reasons: Stent Exchange/L Ureteric stricture f/u Intake Note: Patient is present for H&P STENT exchange Telehealth Urology Medication:NONE Antibiotic Allergy:NONE Blood Thinner:NONE [employer] Consultant Required: Yes Accompanied by: Self / Same As Patient Allergies No Known Allergies Allergy (Verified 11/13/24 10:45) HPI Comments Details: Augustine is a pleasant Azerbaijani-speaking male. He is a patient of Dr. Fabian. Seen for the following urologic conditions - renal cancer - persistent left hydronephrosis managed with indwelling stent Telemedicine Evaluation 15 min Consultation [employer] [place] Manuelito Video Azerbaijani translation provided by qualified medical records manager Left stent exchanged 10/06 Plan on exchange in 4 months - 01/2025 Renal cancer Prior right nephrectomy Left hydronephrosis Initially managed through [facility] Indwelling stent changed every 5 months [facility] Medical History Acquired stricture of ureter Ureteral stent present Essential hypertension Elevated cholesterol Insomnia Solitary kidney, acquired History of kidney cancer Osteoporosis ESBL (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 Father Cancer Social History Household Members: Spouse Household Members Other:: Housing: Apartment Are you a primary critical care physician assistant to a significant other at home: No Do you presently have visiting nurse or other home services: No Alcohol intake: never Patient Tobacco Use Status: Never used Tobacco Second Hand Smoke Exposure: No service: No Current occupational status: disabled Review of Systems Const Denies chills and Denies fever(s) Card Reports no additional complaints and Denies syncope Resp Denies cough GI Denies abdominal pain and Denies heartburn Reports as per HPI and Denies change in libido Neuro Denies syncope Psych Denies change in libido Endo Denies change in libido Physical Exam Const General: cooperative, healthy appearing, comfortable and no acute distress Orientation/consciousness: patient oriented x3 HEENT Face and sinus: Yes normal facial exam Mouth: moist mucous membranes Neck Neck: Yes normal visual inspection, Yes full ROM and Yes trachea midline Chest Chest palpation & inspection: normal inspection of the chest Resp Effort & Inspection: normal respiratory effort, able to speak in complete sentences and no respiratory distress GI Inspection: Yes normal to inspection Back/Spine/Pelvis Cervical Spine: normal cervical lordosis Thoracic/Lumbar Spine: thoracic and lumbar spine normal to inspection Skin General skin exam: no rashes or lesions noted Neuro General: patient oriented x3, gait normal, tone normal and moves all extremities Extrem General: Yes normal to inspection and Yes capillary refill normal Telehealth Telehealth Telehealth Platform: Built [place] Location of provider rendering services: practice address Location of patient: address on file Patient Identification confirmed using: Name, : Yes Telehealth method: video Patient verbally consented to treatment: Yes Patient verbally consented to billing insurance company: Yes Patient informed of any privacy concerns related to visit: Yes Minutes spent on Phone/Video with Pt.: 15 Assessment & Plan Assessment & Plan (1) Acquired stricture of ureter: Code(s): N13.5 - Crossing vessel and stricture of ureter without hydronephrosis Category: Medical Plan Stent exchange left side January Patient Instructions: This note is constructed using voice recognition software. While every effort has been made to ensure accuracy city recorder errors may have been included. Imaging studies, laboratory and physical exam results were discussed and reviewed in detail. No major barriers to patient understanding were identified. An opportunity to ask questions regarding the treatment plan was provided. All questions were answered. The patient expressed understanding and agreement with the above treatment plan. The patient is aware they should contact our office by phone for worsening of their current condition or the appearance of new urologic symptoms. Compliance is encouraged with any medications and followup testing that is ordered. It is a privilege to participate in the urologic care of your patient. If you have any questions or concerns regarding treatment for the above conditions, or other urologic issues, please do not hesitate to contact me. The office telephone contact is [phone]. Sincerely, Dr Fabrizio Ramos MD, [facility] - Urology Compassionate Specialist Care for the Genitourinary System Coding Level of Care Code Tele Est Pt Level 3 (76907) Complex EM visit Add On G2211 Diagnoses Acquired stricture of ureter N13.5
--- OUTSIDE RECORDS SUMMARY | 2024-11-13 12:32 | XMS_ITS | Encounter Summary ---
Author Organization [employer] Address [address] [facility] [address] [place] [address] Care Team Providers Care Retail Furniture Sales Name Role Phone Jeannie Fabian Primary Care Provider [phone] Fabrizio Ramos MD Unavailable [phone] Reason for Visit * Reason Onset Date Comments FYI 09/06/2022 Encounter Details Date Type Department Care Team (Late st Contact Info) Description 09/06/2022 Telephone [facility] [address] [place] [address] Jeannie Fabian ANP [address] [place] [address] FYI Social History Tobacco Use Types Packs/Day [...] Department Care Team (Late Contact Info) Description 12/03/2024 3:45 PM EDT Office Visit [facility] [address] [place] [address] Jeannie Fabian ANP [address] [place] [address] 12/24/2024 10:30 AM EST Office Visit [facility] [address] [place] [address] Violet Suazo, OD [address] [place] [address] documented as of this encounter Visit Diagnoses Not on filedocumented in this encounter Care Teams Retail Furniture Sales Relationship Specialty Start Date End Date Jeannie Fabian ANP [address] [place] [address] PCP - General Family Medicine 12/27/20 Fabrizio Ramos MD [address] [place] [address] Urology 01/04/24 [facility] 05/08/24 07/27/24 documented as of this encounter
--- OUTSIDE RECORDS SUMMARY | 2024-11-13 12:32 | XMS_ITS | Encounter Summary ---
Author Organization [employer] Address [address] [facility] 7[address] [place] [address] Care Team Providers Care Blender Snuff Name Role Phone Jeannie Fabian Primary Care Provider [phone] Fabrizio Ramos MD Unavailable [phone] Reason for Visit * Reason Comments Med Refill Encounter Details Date Type Department Care Team ([facility] st Contact Info) Description 02/18/2023 Refill [facility] [address] [place] [address] Jeannie Fabian ANP [address] [place] [address] Anxiety Social History Tobacco Use Types Packs/Day [...] Care Team (Late st Contact Info) Description 12/03/2024 3:45 PM EDT Office Visit [facility] [address] [place] [address] Jeannie Fabian ANP [address] [place] [address] 12/24/2024 10:30 AM EST Office Visit [facility] [address] [place] [address] Gabriele, Violet, OD [address] [place] [address] documented as of this encounter Goals Goal Patient Goal Type Associated Problems Recent Progress Patient-Stated? Author Blood Pressure < 140/90 Blood Pressure 126/69( 025 12:55 PM EDT) No Jaylen Blanca, PharmD documented as of this encounter Visit Diagnoses Diagnosis Anxiety Anxiety state, unspecified documented in this encounter Additional Health Concerns Assessment Noted Time PHQ-9 Depression Total Score: 6 10/18/19 23 1:31 PM EDT documented as of this encounter Care Teams Blender Snuff Relationship Specialty Start Date End Date Jeannie Fabian ANP [address] [place] [address] PCP - General Family Medicine 12/27/20 Fabrizio Ramos MD [address] [place] [address] Urology 01/04/24 [facility] 05/08/24 07/27/24 documented as of this encounter
--- OUTSIDE RECORDS SUMMARY | 2024-11-13 12:32 | XMS_ITS | Clinical Summary ---
Author Organization [employer] Address [address] [facility] 7t [place] [address] Care Team Providers Care Head Of Housekeeping Name Role Phone Corry Hill Primary Care Provider [phone] Fabrizio Ramos MD Unavailable [phone] Allergies Active Allergy Reactions Criticality Noted [...] 30 tablet 11 5 06/04/19 26 Active mirtazapine (Remeron) 7.5 MG tabletIndications :Primary insomnia Take 1 tablet (7.5 mg) by mouth at bedtime. 30 tablet 5 Active Active Problems Problem Noted Date Diagnosed [...] and family PLAN: 1. Follow up with [facility]: Not recommended for follow-up 2. Patient goal [...] Encounters Date Type Department Care Team Description 09/25/2024 Results Follow-Up [address] [address] Corry Hill ANP Hemoglobin A1c, Lipid Panel, Standard, XR CERVICAL SPINE 3V 09/03/2024 Orders Only GENERIC EXTERNAL DATA DEPARTMENT Provider, Generic External Data 09/02/2024 1:00 PM EDT Office Visit [address] [address] Corry Hill ANP Prediabetes (Primary Dx); Ureteral stent present; Osteoporosis without current pathological fracture, unspecified osteoporosis type; Primary insomnia; Neck pain; Blurry vision, bilateral 09/02/2024 Travel 09/01/[address] [address] Corry Hill ANP Chart Prep 08/26/2024 Patient Outreach [facility] [address] [place] [address] Corry Hill ANP Pre-visit Planning (SDOH was already completed) from Last 3 Months Immunizations Immunization Administration [...] Sign Reading Time Taken Comments Blood Pressure 126/69 09/02/2024 12:55 PM EDT Pulse 67 09/02/2024 12:55 PM EDT Temperature 36.3 C (97.4 F) 06/03/2024 10:17 AM EDT Respiratory Rate 16 09/02/2024 12:55 PM EDT Oxygen Saturation 96% 06/03/2024 10:17 AM EDT Inhaled Oxygen Concentration - - Weight 72.6 kg (160 lb) 09/02/2024 12:55 PM EDT Height 162.6 cm (5' 4 ) 09/02/2024 12:55 PM EDT Body Mass Index 27.46 09/02/2024 12:55 PM EDT Plan of Treatment Upcoming Encounters Date Type Department Care Team (Late st Contact Info) Description 12/03/2024 3:45 PM EDT Office Visit [facility] [address] [place] [address] Corry Hill, ANP [address] [place] [address] 12/24/2024 10:30 AM EST Office Visit [facility] OPT[facility] [address] [place] [address] GabrieleViolet brown, OD [address] [place] [address] Health Maintenance Due Date Last Done Comments Zoster Vaccines (1 of 2) 1990 RSV Patients and Patients Aged 60 years or older (1 - 1-dose 75+ series) 08/10/2015 COVID-19 Vaccine ( season) 2024 02/07/2021, 01/17/2021, 03/18/2020 Influenza Vaccine (#1) 2024 , 11/22/2011, 11/15/2010 Depression Screening 01/03/2025 01/04/2024, 10/18/19 23 SDOH Screening 03/28/2025 03/28/2024 Alcohol/Substance Use Screening 06/03/2025 06/03/2024 Tobacco Screening 09/02/2025 09/02/2024 Diabetes: Hemoglobin A1C 09/03/2025 025, 04/10/2024, 01/04/2024, Additional history exists Lipid Panel 09/03/2029 09/03/2024, 04/12, 07/05/2023, Additional history exists DTaP/Tdap/Td Vaccines (2 - Td or Tdap) [...] 025 12:55 PM EDT) No Jaylen Blanca, Nicki Procedures Procedure Name Priority Date/Time Associated Diagnosis Comments FL GUIDANCE IN OR Routine 09/25/2024 1:1 9 PM EDT ALBUMIN, RANDOM URINE W/CREATININE Routine 09/03/2024 9:10 AM EDT ALBUMIN Routine 09/03/2024 9:10 AM EDT BASIC METABOLIC PANEL Routine 09/03/2024 9:10 AM EDT LIPID PANEL, STANDARD Routine 09/03/2024 9:10 AM EDT Prediabetes HEMOGLOBIN A1C Routine 09/03/2024 9:10 AM EDT Prediabetes XR CERVICAL SPINE 3V Routine 09/03/2024 8:01 AM EDT Neck pain from Last 3 Months Results * FL Guidance in OR (09/25/2024 1:19 PM EDT) Anatomical Region Laterality Modality X-Ray Angiograph y 09/25/2024 1:19 PM EDT Narrative 09/26/2024 7:05 AM EDT [address] [address] Fluoroscopy Report Signed Patient: Augustine Rodriguez MR#: M [id number] : 1940 Acct:[id number] Age/Sex: 84 / M ADM Date: 09/25/24 Loc: HO.SSS Attending Dr: Fabrizio Ramos MD Ordering Physician: Fabrizio Ramos MD Date of Service: 09/25/24 Procedure(s): FL guidance in OR Accession Number(s): [id number] cc: Fabrizio Ramos MD; CORRY HILL NP EXAMINATION: FL GUIDANCE ONLY HISTORY: left stent exchange COMPARISON: None available. TECHNIQUE: Fluoroscopy time: 8.27 seconds. Cumulative Dose: 1.89 mGy. Images: 2. FINDINGS: Fluoroscopic spot films demonstrate a left nephroureteral stent in place. FL/FL guidance in OR IMPRESSION: Fluoroscopy during procedure. Please see procedure report for additional information. Electronically signed by: Sam Canales MD 09/26/2024 07:02 AM EDT Dictated By: Sam Canales MD Signed By: <Electronically signed by Sam Canales MD in OV> 09/26/24 0702 DD/ 1319 TD/TT: 09/25/24 1328 Cloth Cutter: Procedure Note Donotuseinterpreter, Image - 09/26/[address] [address] Fluoroscopy Report Signed Patient: Augustine RodriguezMR#: M [id number] : 1940cct:[id number] Age/Sex: 84 / MADM Date: 09/25/24 Loc: HO.SSS Attending Dr: Fabrizio Ramos MD Ordering Physician: Fabrizio Ramos MD Date of Service: 09/25/24 Procedure(s): FL guidance in OR Accession Number(s): [id number] cc: Fabrizio Ramos MD; CORRY HILL NP EXAMINATION: FL GUIDANCE ONLY HISTORY: left stent exchange COMPARISON: None available. TECHNIQUE: Fluoroscopy time: 8.27 seconds. Cumulative Dose: 1.89 mGy. Images: 2. FINDINGS: Fluoroscopic spot films demonstrate a left nephroureteral stent in place. FL/FL guidance in OR IMPRESSION: Fluoroscopy during procedure. Please see procedure report for additional information. Electronically signed by: Sam Canales MD 09/26/2024 07:02 AM EDT RP Dictated By: Sam Canales MD Signed By: <Electronically signed by Sam Canales MD in OV> 09/26/24 0702 DD/ 1319 TD/TT: 09/25/24 1328 Cloth Cutter: [facility] External Provider IMG IR PROCEDURES Final Result * (ABNORMAL) Albumin, Random Urine W/Creatinine (09/03/2024 9:10 AM EDT) Creatinine, Urine 104.25 mg/dL [facility] Microalbumin Urine 38.0 mg/L [facility] Microalbum Creatinine Ratio Ur 36.4(H) <30 ug/mg cr [facility] Comment:Albumin/Creatinine R atio Reference Ranges: Normal: < 30 ug/mg creatinine Microalbuminuria: 30 - 300 ug/mg creatinineClinical Albuminuria: > 300 ug/mg creatinine 09/03/2024 9:10 AM EDT 09/03/2024 11:17 AM EDT Corry Hill ANP LAB URINE ORDERABLES Final Resul t [facility] [address] [place] [phone] * Hemoglobin A1c (09/03/2024 9:10 AM EDT) Hemoglobin A1c 5.9 <6.0 % [facility] Comment:Hemoglobin A1C Refer ence Range Adults: 4.8 - 6.0 % Non diabetic: < 6.0 % Goal: < 7.0 %Additional Action Suggested: > 8.0 %Note: Hemoglobin A1c results are invalid for patients with abnormal amounts of HbF. Blood transfusions may impact the HbA1c concentration in the patient sample. Estimated Average Glucose 123 mg/dL [facility] Comment:eAG = Estimated ave rage glucose which is %A1C expressed asaverage glucose, using the formula of the F5G-FlpwzgyAsmvoes Glucose study (ADAG), Diabetes Care, Vol.31,#8,Sep. 2007 Blood Venous blood specimen / Unknown 09/03/2024 9:10 AM EDT 09/03/2024 11:24 AM EDT Corry [facility] LAB BLOOD ORDERABLES Final Resul t Performing Organization Address City/[facility]/ZIP Co de Phone Number [facility] [address] [place] [phone] * Albumin (09/03/2024 9:10 AM EDT) Albumin Level 4.4 3.5 - 5.0 g/dL [facility] 09/03/2024 9:10 AM EDT 09/03/2024 11:24 AM EDT [facility] External Data Provider LAB BLOOD ORDERAB LES Final Result Performing Organization Address City/[facility]/ZIP Co de Phone Number [facility] [address] [place] [phone] * (ABNORMAL) Lipid Panel, Standard (09/03/2024 9:10 AM EDT) Triglycerides 389(H) <150 mg/dL [facility] Comment:Desirable Triglyceri de: less than 150 mg/dLBorderline High Triglyceride 150-199 mg/dLHigh Triglyceride: 200-499 mg/dLVery High Triglyceride: greater than or equal to 5OO mg/dL Cholesterol 216(H) <200 mg/dL [facility] Comment:Desirable Cholestero l: less than 200 mg/dLBorderline High Cholesterol: 200-239 mg/dLHigh Cholesterol: greater than 239 mg/dL LDL Cholesterol Calculated 110(H) <100 mg/dL [facility] Comment:Desirable LDL: less than 100 mg/dLNear Optimal/Above Optimal LDL: 110- 129 mg/dLBorderline High LDL: 130-159 mg/dLHigh LDL: 160-189 mg/dLVery High LDL: greater than or equal to 190 mg/dL HDL Cholesterol 29(L) >40 mg/dL [facility] Comment:Desirable HDL: great er than 40 mg/dL Note: This HDL assay may give artificially low results in patients with liver disease. Blood Venous blood specimen / Unknown 09/03/2024 9:10 AM EDT 09/03/2024 11:24 AM EDT us Corry Hill [facility] LAB BLOOD ORDERABLES Final Resul t [facility] [address] [place] [phone] * (ABNORMAL) Basic Metabolic Panel (09/03/2024 9:10 AM EDT) Sodium 141 135 - 145 mmol/L [facility] Potassium 4.5 3.3 - 5.1 mmol/L [facility] Chloride 112(H) 96 - 108 mmol/L [facility] Carbon Dioxide 21(L) 22 - 29 mmol/L [facility] Anion Gap 13 12 - 20 [facility] Urea Nitrogen (BUN) 33(H) 9 - 16 mg/dL [facility] Creatinine, Serum 1.30 0.5 - 1.4 mg/dL [facility] Estimated Glomerular Filt Rate 53 [facility] Comment:Chronic Kidney Disea se: Estimated GFR < 60 mL/min/[id number] Kidney Disease: Estimated GFR < 15 mL/min/1.73m2 Glucose 97 60 - 115 mg/dL [facility] Calcium 9.9 8.4 - 10.2 mg/dL [facility] 09/03/2024 9:10 AM EDT 09/03/2024 11:24 AM EDT us Generic External Data Provider LAB BLOOD ORDERAB LES Final Result [facility] [address] [place] [phone] * XR CERVICAL SPINE 3V (09/03/2024 8:01 AM EDT) Anatomical Region Laterality Modality Abdomen Radiographic Tara ging 09/03/2024 8:01 AM EDT Narrative 09/03/2024 9:14 AM EDT [address] [address] XRay Report Signed Patient: Augustine Rodriguez MR#: M [id number] : 1940 Acct:[id number] Age/Sex: 84 / M ADM Date: 09/03/24 Loc: [facility] Attending Dr: Corry Hill [employer] Ordering Physician: CORRY HILL NP Date of Service: 09/03/24 Procedure(s): XR cervical spine 3V Accession Number(s): [id number] cc: CORRY HILL NP EXAMINATION: XR CERVICAL SPINE CLINICAL INFORMATION: atraumatic neck pain, osteoporosis COMPARISON: None available. TECHNIQUE: AP lateral and atlantoodontoid views. FINDINGS: Craniocervical junction is intact. Marginal osteophyte formation and decreased intervertebral disc height and mild endplate sclerosis at C5-6 and C6-7 levels. Small marginal osteophyte formation at C4. Grade 1 anterolisthesis C5-6 and C6-7 levels. Osteopenia versus osteoporosis. No lytic or blastic lesions. No subcutaneous emphysema. Edentulous.. XR/XR cervical spine 3V IMPRESSION: Multilevel cervical spondylosis pronounced at C4-5 and C5-6 levels. Osteopenia versus osteoporosis. Electronically signed by: Ian Tao MD 09/03/2024 09:11 AM EDT RP Dictated By: Ian Preston MD Signed By: <Electronically signed by Ian Raman MD in OV> 09/03/24 0911 DD/ 08 TD/TT: 09/03/24 08 Cloth Cutter: Procedure Note Donotuseinterpreter, Image - 09/03/[address] [address] XRay Report Signed Patient: Augustine RodriguezMR#: M [id number] : 1940cct:[id number] Age/Sex: 84 / MADM Date: 09/03/24 Loc: HO.HHCL Attending Dr: Corry Hill NP Ordering Physician: CORRY HILL NP Date of Service: 09/03/24 Procedure(s): XR cervical spine 3V Accession Number(s): [id number] cc: CORRY HILL NP EXAMINATION: XR CERVICAL SPINE CLINICAL INFORMATION: atraumatic neck pain, osteoporosis COMPARISON: None available. TECHNIQUE: AP lateral and atlantoodontoid views. FINDINGS: Craniocervical junction is intact. Marginal osteophyte formation and decreased intervertebral disc height and mild endplate sclerosis at C5-6 and C6-7 levels. Small marginal osteophyte formation at C4. Grade 1 anterolisthesis C5-6 and C6-7 levels. Osteopenia versus osteoporosis. No lytic or blastic lesions. No subcutaneous emphysema. Edentulous.. XR/XR cervical spine 3V IMPRESSION: Multilevel cervical spondylosis pronounced at C4-5 and C5-6 levels. Osteopenia versus osteoporosis. Electronically signed by: Ian Tao MD 09/03/2024 09:11 AM EDT Dictated By: Ian Preston MD Signed By: <Electronically signed by Ian Raman MDin OV> 09/03/24 0911 DD/ 08 TD/TT: 09/03/24 08 Cloth Cutter: Corry Hill ANP IMG XR PROCEDURES Final Result from Last [address] [facility] [employer] (HMO D-SNP) JOBY HANSEN [id number] Care Teams Head Of Housekeeping Relationship Specialty Start Date End Date Corry Hill ANP [address] [place] [address] PCP - General Family Medicine 12/27/20 Fabrizio Ramos MD [address] [place], [place] Urology 01/04/24
--- OUTSIDE RECORDS SUMMARY | 2024-11-13 12:32 | XMS_ITS | Encounter Summary ---
Author Organization [employer] Address [address] [facility] [address] [place] [address] Care Team Providers Care Joy Loader Name Role Phone Corry Hill Primary Care Provider [phone] Fabrizio Ramos MD Unavailable [phone] Encounter Details Date Type Department Care Team (Late st Contact Info) Description 02/28/2022 Orders Only [facility] CHC MED & PEDS [address] [place], [place] [phone] Stephanie Licea LPN Social History Tobacco Use [...] 3:45 PM EDT Office Visit [facility] MEDICINE [address] [place] [address] Corry Hill ANP [address] [place] [address] 12/24/2024 10:30 AM EST Office Visit [facility] OPTOMETRY [address] [place] [address] Violet Suazo, OD [address] [place] [address] documented as of this encounter Procedures Procedure [...] (06/20/2022 7:20 PM EDT) Color Urine Yellow [facility] Appearance Urine Cloudy [facility] PH 7.0 5.0 - 9.0 [facility] Glucose Urine UA Negative Negative mg/dL [facility] Urine Blood Moderate (2+)(A) Negative [facility] Specific [place] - Urine 1.015 1.005 - 1.025 [facility] Urine Protein 30 (1+)(A) Neg-Trace mg/dL [facility] Urine Ketones Negative Negative mg/dL [facility] Nitrite Urine Negative Negative [facility] Leukocyte Esterase Urine Large (3+)(A) Negative [facility] RBC Urine 11-20(A) 0 - 2 /HPF [facility] Urine WBC >50(A) 0 - 5 /HPF [facility] Urine Squamous Epithelial Cell 0-2 0 - 2 /HPF [facility] Urine Bacteria 4+ None Seen [facility] Hyaline Casts, Urine 0-2 0 - 2 /LPF [facility] 06/20/2022 7:20 PM EDT 06/20/2022 7:23 PM EDT Narrative [facility] - 06/20/2022 7:55 PM EDT [id number], Clean Catch [facility] External Provider LAB URI NE ORDERABLES Final Result Performing Organization Address City/[facility]/ZIP Co de Phone Number [facility] [address] [place] [address] [phone] * High Sensitivity Troponin I (06/20/2022 3:07 PM EDT) [facility] TROPONIN I HIGH SENSITIVITY <2.7 <3.5 - 35.0 ng/L [facility] Comment:The [place] high sens itivity Troponin-I results should beused in conjunction with other diagnostic information suchas ECG, clinical observations and information, and patientsymptoms to aid in the diagnosis of NV. 06/20/2022 3:07 PM EDT 06/20/2022 3:14 PM EDT [facility] External Provider LAB BLO OD ORDERABLES Final Result Performing Organization Address [facility] Co de Phone Number [facility] [address] [place] [address] [phone] * B Type Natriuretic Peptide (BNP) (06/20/2022 3:07 PM EDT) Pathologist [facility] B Type Natriuretic Peptide 27 <100 pg/mL [facility] Comment:For those patients w ho are being treated with Natrecor(nesiritide, recombinant BNP), BNP testing should beperformed at least two hours post treatment in order toensure that only endogenous levels of BNP are detected. 06/20/2022 3:07 PM EDT 06/20/2022 3:14 PM EDT [facility] External Provider LAB BLO OD ORDERABLES Final Result Performing Organization Address City/[facility]/ZIP Co de Phone Number [facility] [address] [place] [address] [phone] * Magnesium (06/20/2022 3:07 PM EDT) Pathologist [facility] Magnesium 1.8 1.6 - 2.6 mg/dL [facility] 06/20/2022 3:07 PM EDT 06/20/2022 3:14 PM EDT [facility] External Provider LAB BLO OD ORDERABLES Final Result Performing Organization Address [facility] Co de Phone Number [facility] [address] [place] [address] [phone] * (ABNORMAL) Comprehensive Metabolic Panel (06/20/2022 3:07 PM EDT) [facility] Sodium 141 135 - 145 mmol/L [facility] Potassium 4.1 3.3 - 5.1 mmol/L [facility] Chloride 108 96 - 108 mmol/L [facility] Carbon Dioxide 25 22 - 29 mmol/L [facility] Anion Gap 12 12 - 20 [facility] Urea Nitrogen (BUN) 20(H) 9 - 16 mg/dL [facility] Creatinine, Serum 1.27 0.5 - 1.4 mg/dL [facility] Creatinine Clr Calc Pharmacy 41.9 [facility] Comment:eGFR (calculated fro m the MDRD study equation) and eCrCl(calculated from the Cockcroft-Gault equation) are based ondifferent parameters and may not yield comparable results.If eCrCl result is absurd, please check patient'sheight/weight. Estimated Glomerular Filt Rate 54 [facility] Comment:NOTE: For -Am erican individuals, multiply the result by 1.210.Chronic Kidney Disease: Estimated GFR < 60 mL/min/[id number] Kidney Disease: Estimated GFR < 15 mL/min/1.73m2 Glucose 148(H) 60 - 115 mg/dL [facility] Calcium 9.6 8.4 - 10.2 mg/dL [facility] Bilirubin, Total 0.4 0.0 - 1.0 mg/dL [facility] Aspartate Amino Transferase 21 5 - 37 U/L [facility] Alanine Aminotransferase 20 0 - 40 U/L [facility] Total Protein 7.1 6.5 - 8.0 g/dL [facility] Albumin Level 3.9 3.5 - 5.0 g/dL [facility] Alkaline Phosphatase 72 39 - 117 U/L [facility] 06/20/2022 3:07 PM EDT 06/20/2022 3:14 PM EDT us [facility] External Provider LAB BLO OD ORDERABLES Final Result [facility] [address] [place] [phone] * (ABNORMAL) CBC auto differential (06/20/2022 3:07 PM EDT) White Blood Count 5.4 4.8 - 10.8 X10*3/uL [facility] Red Blood Count 4.25(L) 4.60 - 5.80 X10*6/uL [facility] Hemoglobin 12.9(L) 14.0 - 18.0 g/dl [facility] Hematocrit 39.8(L) 42.0 - 52.0 % [facility] Mean Corpuscular Volume 93.6 80.0 - 98.0 fL [facility] Mean Corpuscular Hemoglobin 30.4 27.0 - 33.0 pg [facility] Mean Corpuscular HGB Conc 32.4 31.0 - 36.0 g/dl [facility] Red Cell Distribution Width 13.2 11.0 - 16.0 % [facility] Platelet Count 112(L) 160 - 400 X10*3/uL [facility] Mean Platelet Volume 11.3 9.4 - 12.4 fL [facility] Neutrophils Percent Auto 42.1(L) 45 - 73 % [facility] Imm Gran Pct Auto 0.2 0.0 - 0.4 % [facility] Lymphocytes Percent Auto 43.9(H) 20 - 40 % [facility] Monocytes Percent Auto 10.3 2 - 11 % [facility] Eosinophils Percent Auto 2.6 0 - 4 % [facility] Basophils Percent Auto 0.9 0 - 2 % [facility] NRBC Pct Auto 0.0 0.0 - 0.2 /100WBC [facility] Neutrophils Absolute Auto 2.3 2.0 - 8.3 x10*3/uL [facility] Imm Gran Abs Auto 0.01 0.00 - 0.03 X10*3/uL [facility] Lymphocytes Absolute Auto 2.4 1.2 - 4.9 X10*3/uL [facility] Monocytes Absolute Auto 0.6 0.1 - 1.2 X10*3/uL [facility] Eosinophils Absolute Auto 0.1 0.0 - 0.4 X10*3/uL [facility] Basophils Absolute Auto 0.1 0.0 - 0.2 X10*3/uL [facility] NRBC Abs Auto 0.000 0.0 - 0.012 X10*3/uL [facility] 06/20/2022 3:07 PM EDT 06/20/2022 3:14 PM EDT us [facility] External Provider LAB BLO OD ORDERABLES Final Result [facility] [address] [place], [place] [phone] * Cytopath-cell enhanced (05/02/2022 9:42 AM EDT) 05/02/2022 9:42 AM EDT 05/03/2022 6:39 AM EDT Narrative [facility] - 05/03/2022 4:46 PM EDT ----- ------- Name: Augustine Rodriguez Age/Sex: 81/M : 1940 Unit#: [id number] Attend Dr: Fabrizio Ramos MD Re05/02/22 Status: [facility] REF Location: [facility] Disch: ----- ------- SPEC : [id number] RECD: 05/03/22 STATUS: RADHA RE NUM: [id number] FAMILIA: 05/02/[address] [facility] [address]: Fabrizio Ramos MD ENTERED: 05/03/22-1410 SP TYPE: Cytology OTHR DR: CORRY HILL NP ORDERED: Cyto-enhanced Diagnosis Urine: Negative for high-grade urothelial carcinoma. COMMENT: Examination of a monolayer preparation slide shows numerous acute inflammatory cells with scattered benign urothelial cells and squamous cells. Clinical History UTI, acquired absence of kidney Material Received Urine Gross Description 50cc hazy yellow fluid received Copies To: Fabrizio Ramos MD [address] [place] [address] DrTorri [address] [place] [address] CORRY HILL NP [address] [facility] [address] [place] [address] ----- ------- Signed (signature on file) Jesica Yaneth 05/03/22 1646 ----- ------- END OF REPORT [facility] External Provider LAB CYT OLOGY ORDERABLES Final Result Performing Organization Address [facility] de Phone Number [facility] [address] [place] [phone] * Culture, Urine, Routine (05/02/2022 9:42 AM EDT) 05/02/2022 9:42 AM EDT 05/02/2022 4:36 PM EDT Comment:[facility] - 05/05/2022 8:23 AM EDT Escherichia coli ESBL Note: NOTE: Extended-Spectrum Beta-Lactamase enzyme present Quant > 100,000 cfu/mL Escherichia coli: Ampicillin >=32(R) Escherichia coli: Ceftriaxone 16(I) Escherichia coli: Ertapenem <=0.12(S) Escherichia coli: Gentamicin 4(S) Escherichia coli: Levofloxacin >=8(R) Escherichia coli: Nitrofurantoin 32(S) Escherichia coli: Trimethoprim/Sulfamethoxazole >=320(R) Specimen Source: Urine clean catch [facility] Exter nal Provider LAB MICROBIOLOGY - GENERAL ORDERABLES Final Result Performing Organization Address [facility] de Phone Number [facility] [address] [place] [phone] documented in this encounter Visit Diagnoses Not on filedocumented in this encounter Care Teams Joy Loader Relationship Specialty Start Date End Date Corry Hill ANP [address] [place] [address] PCP - General Family Medicine 12/27/20 Fabrizio Ramos MD [address] [place] [address] Urology 01/04/24 [facility] 05/08/24 07/27/24 documented as of this encounter
--- OUTSIDE RECORDS SUMMARY | 2024-11-13 12:32 | XMS_ITS | Encounter Summary ---
Author Organization [employer] Address [address] [facility] [address] [place] [address] Care Team Providers Care Acid Pumper Name Role Phone Jeannie Fabian Primary Care Provider [phone] Fabrizio Ramos MD Unavailable [phone] Reason for Visit * Reason Comments Med Refill Encounter Details Date Type Department Care Team (Late st Contact Info) Description 02/28/2022 Refill [facility] CHC MED & PEDS [address] [place] [address] Jeannie Fabian ANP [address] [place] [address] Cardiovascular event risk (Primary Dx) Social History [...] Description 12/03/2024 3:45 PM EDT Office Visit [facility] MEDICINE [address] [place] [address] Jeannie Fabian ANP [address] [place] [address] 12/24/2024 10:30 AM EST Office Visit [facility] OPTOMETRY [address] [place] [address] Violet Suazo, OD [address] [place] [address] documented as of this encounter Visit Diagnoses Diagnosis Cardiovascular event risk- Primary documented in this encounter Care Teams Acid Pumper Relationship Specialty Start Date End Date Jeannie Fabian ANP [address] [place] [address] PCP - General Family Medicine 12/27/20 Fabrizio Ramos MD [address] [place] [address] Drive [address] [place] [address] Urology 01/04/24 [facility] 05/08/24 07/27/24 documented as of this encounter
--- OUTSIDE RECORDS SUMMARY | 2024-11-13 12:32 | XMS_ITS ---
Author Name Dee Hernandez NP Address [address] [place] [address] Phone [phone] Organization [facility] Care Team Providers Care Corn Lab Technician Name Role Phone Dee Hernandez Unavailable [phone] Reason for Referral Not Available Allergies, adverse [...] regul naman at home. Evaluate BP with PCP/[employer] f/u visits. Follow a low sodium diet/diet [...] (do not use for phone, instead use 02784-37) [facility] ([facility]) 12/29/2022 Essential (primary) hypertensionHyperlipidemia, unspecifiedAge-related osteoporosis without current pathological fractureGastro-esophageal reflux disease without esophagitisConstipation, unspecifiedInsomnia, unspecifiedUnspecified dementia without behavioral disturbanceTinnitus, unspecified earAnxiety disorder, unspecifiedLow back pain, unspecified New patient,40-59min; chronic exacerbation, 2 stable chronic or 1 acute illness add add modifier 95 for video (do not use for phone, instead use 16989-19) [facility] ([facility]) 12/29/2022 New patient,40-59min; chronic exacerbation, 2 stable chronic or 1 acute illness add add modifier 95 for video (do not use for phone, instead use 17821-67) [facility], ([facility]) 12/29/2022 New patient,40-59min; chronic exacerbation, 2 stable chronic or 1 acute illness add add modifier 95 for video (do not use for phone, instead use 46954-99) [facility], ([facility]) 12/29/2022 New patient,40-59min; chronic exacerbation, 2 stable chronic or 1 acute illness add add modifier 95 for video (do not use for phone, instead use 95937-86) [facility], ([facility]) 12/29/2022 New patient,40-59min; chronic exacerbation, 2 stable chronic or 1 acute illness add add modifier 95 for video (do not use for phone, instead use 92826-31) [facility], ([facility]) 12/29/2022 Vital Signs Date of Collection Vitals 2022-12-29 05:51:12 Height - 167.64 cmWe ight - 78.47 kgBody Mass Index (BMI) - 27.92 kg/m2BP Diastolic - 85.0 mm[Hg]BP Systolic - 155.0 mm[Hg]Pain Scale - 8.0 {score} Social History Social History Social History Observation Description Effec tive Time Current Smoking Status Never smoker 2 Sex Male History of Procedures Procedures Service Procedure code Service date Servicing provider Phone# New patient,40-59min; chronic exacerbation, 2 stable chronic or 1 acute illness add add modifier 95 for video (do not use for phone, instead use 41372-24) [id number] 2022-12-29 No Data Available No Data Availa [...] BP regularly at home. Evaluate BP with PCP/[employer] f/u visits. Follow a low sodium diet/diet [...] had a detailed [facility], their diagnosis, and medications. [...]
== END 2024-11-13 11:47 | disposition home or self-care (01) ==
LOC: HO.HUSH 10:44
PROVIDERS: PCP Nurse Practitioner Primary Care; Visit Provider Urology
DX: N13.5 Crossing vessel and stricture of ureter without hydronephrosis (principal)
CPT/HCPCS: 99213; G2211

== ENCOUNTER 2025-01-12 08:54 | Day surgery (SDC) | payer OTHER, SELFPAY ==
[2025-01-06 09:36] VITALS: BMI 26.5
--- NOTE | 2025-01-06 13:12 | HO.ANESPROP2 ---
Documented by User: Ann Marie Molina NP 01/06/25 13:13 HPI - Anesthesia Eval Consult details Narrative: 84yo M for Left Cystoscopy,Stent Exchange s/p same 09/2024 with TIVA s/p right nephrectomy d/t ca PMFSH Active Problems Active Problems: All Active Problems Acquired stricture of ureter (Acute) Ureteral stent present (Acute) H/O kidney removal (Acute) Insomnia (Acute) Osteoporosis (Acute) H/O prostatectomy (Acute) UTI (urinary tract infection) (Acute) Past Medical History Medical History Acquired stricture of ureter Ureteral stent present Essential hypertension Elevated cholesterol Insomnia Solitary kidney, acquired History of kidney cancer Osteoporosis ESBL (extended spectrum beta-lactamase) producing bacteria infection Hydronephrosis Weight loss Poor appetite HTN (hypertension) UTI (urinary tract infection) Family History Family History Mother No problems noted. Father Cancer Family history of problems with anesthesia: No Surgical History Surgical History Hx of cystoscopy History of right nephrectomy H/O prostatectomy Hx of cholecystectomy History of Problems with Anesthesia: No Social History Social History Household Members: Spouse Household Members Other:: Housing: Apartment Are you a primary daycare manager to a significant other at home: No Do you presently have visiting nurse or other home services: No Alcohol intake: never Patient Tobacco Use Status: Never used Tobacco Second Hand Smoke Exposure: No Use of substances other than those prescribed or required for medical reasons: No Have you been hit, kicked, punched, or otherwise hurt by someone within the past year? If so, by whom?: No Are you DNR?: No Advance Directives: No Advance Directives Information Provided: Yes Advance Directives on File: No service: No Current occupational status: disabled Meds Allergies Allergy/AdvReac Type Severity Reaction Status Date / Time No Known Allergies Allergy Verified 11/13/24 10:45 Home Medications ?Medication ?Instructions ?Recorded ?Confirmed ?Last Taken ?Type escitalopram oxalate 10 mg tablet 10 mg PO BEDTIME anxiety 05/08/23 01/12/25 Unknown History amlodipine 2.5 mg tablet 2.5 mg PO DAILY 05/01/24 01/12/25 01/12/25 History atorvastatin 80 mg tablet 80 mg PO DAILY 05/01/24 01/12/25 Unknown History famotidine 10 mg tablet (Acid 10 mg PO BID 05/01/24 01/12/25 Unknown History Wire Winding Machine Operator (famotidine)) olmesartan 20 mg tablet 20 mg PO DAILY 05/01/24 01/12/25 Unknown History mirtazapine 7.5 mg tablet 7.5 mg PO BEDTIME 09/15/24 01/12/25 Unknown History Exam Height,Weight and Vital Signs: Height 5 ft 4 in Weight 70 kg Pertinent Lab Results Pertinent Lab Results: Laboratory Tests 05/01/24 09/03/24 12:37 09:10 WBC 6.2 Hgb 13.7 L Hct 40.7 L Plt Count 121 L Sodium 141 Potassium 4.5 Chloride 112 H Carbon Dioxide 21 L BUN 33 H Creatinine 1.30 Assessment and Plan Assessment Anesthesia Assessment: Chart Reviewed Final Anesthetic Review Family History of Problems with Anesthesia: No History of Problems with Anesthesia: No Documented by User: Vivienne Escobedo MD 01/12/25 10:13 PMFSH Past Medical History Medical History Acquired stricture of ureter Ureteral stent present Essential hypertension Elevated cholesterol Insomnia Solitary kidney, acquired History of kidney cancer Osteoporosis ESBL (extended spectrum beta-lactamase) producing bacteria infection Hydronephrosis Weight loss Poor appetite HTN (hypertension) UTI (urinary tract infection) Family History Family History Mother No problems noted. Father Cancer Surgical History Surgical History Hx of cystoscopy History of right nephrectomy H/O prostatectomy Hx of cholecystectomy Social History Social History Household Members: Spouse Household Members Other:: Housing: Apartment Are you a primary daycare manager to a significant other at home: No Do you presently have visiting nurse or other home services: No Alcohol intake: never Patient Tobacco Use Status: Never used Tobacco Second Hand Smoke Exposure: No Use of substances other than those prescribed or required for medical reasons: No Have you been hit, kicked, punched, or otherwise hurt by someone within the past year? If so, by whom?: No Are you DNR?: No Advance Directives: No Advance Directives Information Provided: Yes Advance Directives on File: No service: No Current occupational status: disabled Meds Allergies Allergy/AdvReac Type Severity Reaction Status Date / Time No Known Allergies Allergy Verified 11/13/24 10:45 Home Medications ?Medication ?Instructions ?Recorded ?Confirmed ?Last Taken ?Type escitalopram oxalate 10 mg tablet 10 mg PO BEDTIME anxiety 05/08/23 01/12/25 Unknown History amlodipine 2.5 mg tablet 2.5 mg PO DAILY 05/01/24 01/12/25 01/12/25 History atorvastatin 80 mg tablet 80 mg PO DAILY 05/01/24 01/12/25 Unknown History famotidine 10 mg tablet (Acid 10 mg PO BID 05/01/24 01/12/25 Unknown History Wire Winding Machine Operator (famotidine)) olmesartan 20 mg tablet 20 mg PO DAILY 05/01/24 01/12/25 Unknown History mirtazapine 7.5 mg tablet 7.5 mg PO BEDTIME 09/15/24 01/12/25 Unknown History Exam Airway Mallampati Class: II (edentulous) TM Dist: >3cm Neck ROM: Full Denture: Upper and Lower Loose/Missing/Broken Teeth: Yes, Upper and Lower Heart: RRR Lungs: CTA Assessment and Plan Assessment Anesthesia Assessment: Anesthesia Plan Discussed Final Anesthetic Review NPO: Yes ASA Class: III Final Preanesthetic Review: Consent Obtained/Reviewed Patient Risk: Intermediate Procedure Risk: Low Anesthetic Plan Anesthetic Plan: MAC: Disposition: Standard PACU
--- NOTE | ~2025-01-12 | FL_ITS ---
EXAMINATION: FL GUIDANCE ONLY HISTORY: stent left COMPARISON: Comparison is made with the prior examination dated 09/25/2024. TECHNIQUE: Fluoroscopy time: 4 seconds. Cumulative Dose: 1.30 mGy. DAP: 265.50 mGycm2 Images: 2. FINDINGS: Fluoroscopic spot films of the left abdomen demonstrate the proximal portion of a nephroureteral stent. FL/FL guidance in OR IMPRESSION: Fluoroscopy during procedure. Please see procedure report for additional information. Electronically signed by: Sam Canales MD 01/13/2025 07:15 AM [facility]EED
[2025-01-12 09:29] VITALS: BP 151/64; PULSE 67; RESP 16; TEMP 36.4; O2SAT 98
[2025-01-12] MEDS: Lactated Ringers 1,000 ML 100 ML IVCONT (09:36)
--- NOTE | 2025-01-12 09:54 | MHC.SHP ---
Pre-Procedural Eval Section A - 24 Hr Update-Section A only Date of Service: 01/12/25 The patient is an INPATIENT: No Changes since office visit: No Cold of Flu in the past 2 weeks, No New Medical Problems, No Changes in Medication and No Patient answered all questions The patient has been examined within 24 hours of the surgical procedure. 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 Prior right nephrectomy. Has stent exchange every 4 months. Last stent exchange 10/06 Relevant Family History (Specify if Yes): No Relevant Social History: None Present Medications: see Short Stay Collaborative assessment Medical History: No relevant PMH History of Previous Operations: Relevant previous surgery/procedure and date(s) Allergies: Allergies Allergy/AdvReac Type Severity Reaction Status Date / Time No Known Allergies Allergy Verified 11/13/24 10:45 Review of Systems Sugical H&P ROS: Negative: Constitution, Cardiovascular, Respiratory, Neurological, Psychiatric, Hem-Onc, Allergic/Immunologic, Gastrointestinal, Genitourinary, Musculoskeletal, Integumentary, Endocrine and Eyes/Ears/Nose/Throat Exam Surgical H&P Exam: Normal: HEENT, Normal: Heart, Normal: Lungs, Normal: Extremities, Normal: Abdomen, Normal: Skin and Normal: Neurological Plan Diagnosis/Plan: Unchanged (Cystoscopy, left stent exchange) I have reviewed the history and physical and performed a pertinent physical examination on my patient. No changes have occurred unless specified. Time Spent With Patient Time: Total time managing care of this patient today ____ minutes.
[2025-01-12 10:50] VITALS: BP 111/55; PULSE 57; RESP 18; TEMP 36.1; O2SAT 98
[2025-01-12 10:55] VITALS: BP 112/65; PULSE 67; RESP 18; O2SAT 97
[2025-01-12 11:00] VITALS: BP 124/55; PULSE 64; RESP 18; O2SAT 98
[2025-01-12 11:05] VITALS: BP 129/59; PULSE 52; RESP 14; O2SAT 98
--- NOTE | 2025-01-12 11:13 | W.PM.OPN ---
Operative Note Operative Note Date of Service: 01/12/25 Narrative: PreOperative Diagnosis:? indwelling left stent Post Operative Diagnosis:? indwelling left stent Procedure:? cystoscopy, left retrograde, left stent exchange Surgeon: Dr Fabrizio Ramos Anesthesia:? sedation Indications for procedure:??hydronephrosis left side.? Requires permanent stent that is changed every 4 months Procedure: After informed consent was verified the patient was brought to the operating room and placed in a supine position.? Anesthesia was administered per protocol. The patient was placed in modified dorsal lithotomy position and prepped and draped in a sterile fashion.? A safety pause time-out was performed. Laterality of procedure and antibiotics were confirmed. A 22 Belarusian cystoscope was introduced per urethra.? No abnormality was noted. ? Left stent seen coming from left ureter. The Sensor wire was placed alongside the indwelling stent up to the level of the renal pelvis. Indwelling stent was grasped and removed. A Six Belarusian by 24 cm stent was placed over the wire with good coil seen under fluoroscopy in the renal pelvis. Stent was deployed. Good coil seen within the bladder. The bladder was emptied and the cystoscope removed The patient tolerated the procedure well and was transferred in stable condition to the recovery area.
[2025-01-12 11:19] VITALS: BP 118/57; PULSE 55; RESP 16; TEMP 36.4; O2SAT 98
== END 2025-01-12 12:29 | disposition home or self-care (01) ==
PROVIDERS: PCP Nurse Practitioner Primary Care; Visit Provider Urology
PROC: (CPT 52332; principal; 2025-01-12 10:50)
DX: N13.30 Unspecified hydronephrosis (principal); Z96.0 Presence of urogenital implants; N13.5 Crossing vessel and stricture of ureter without hydronephrosis; Z85.528 Personal history of other malignant neoplasm of kidney; Z90.5 Acquired absence of kidney; Z90.79 Acquired absence of other genital organ(s); I10 Essential (primary) hypertension; Z90.49 Acquired absence of other specified parts of digestive tract; E78.00 Pure hypercholesterolemia, unspecified
CPT/HCPCS: 52332; C1758; C1769; C2617; J2003; J2704; J3010; Q9967

== ENCOUNTER → 2025-01-12 08:54 | Outpatient (BNV) | payer OTHER, SELFPAY | PROVIDERS: PCP Nurse Practitioner Primary Care; Visit Provider Urology | DX: T83.192A Other mechanical complication of indwelling ureteral stent, initial encounter (principal); N13.39 Other hydronephrosis | CPT/HCPCS: 52332; 74420 ==